=== PATIENT | male | born 1950 | race Two or more races ===

== ENCOUNTER 2020-03-29 11:52 | Day surgery (SDC) | payer MEDICARE, SELFPAY ==
[2020-03-22 14:28] VITALS: BMI 21.1
--- NOTE | 2020-03-24 07:38 | HO.ANESPROP2 ---
FORMERLY [facility], 1928–1983 Past Medical History Medical History Anemia Anxiety Back pain CAD (coronary artery disease) Depression GERD (gastroesophageal reflux disease) History of blood transfusion HTN (hypertension) Hx of meningioma of the brain Hx of small bowel obstruction Hx of thrombocytopenia Migraine Peyronie's disease PTSD (post-traumatic stress disorder) Surgical History Surgical History History of back surgery History of bowel resection History of nasal surgery History of quadruple bypass History of resection of meningioma Hx of CABG Hx of colonoscopy Social History Social History Smoking Status: Never smoker Second Hand Smoke Exposure: No Use of substances other than those prescribed or required for medical reasons: No Advance Directives: No Advance Directives Information Provided: No Advance Directives on File: No Meds Allergies Allergy/AdvReac Type Severity Reaction Status Date / Time acetaminophen [From TYLENOL] AdvReac Intermediate gi upset Verified 03/29/20 12:31 Home Medications Medication Instructions Recorded Confirmed Type aspirin [Aspir-81] 81 mg PO DAILY 03/22/20 03/29/20 History fentanyl 1 patch TOPICAL Q3D 03/22/20 03/22/20 History finasteride 1 tab PO DAILY 03/22/20 03/22/20 History lisinopril 1 tab PO DAILY 03/22/20 03/29/20 History metoprolol succinate 1 tab PO DAILY 03/22/20 03/29/20 History oxycodone 1 tab PO Q6H PRN 03/22/20 03/22/20 History paroxetine HCl 1 tab PO DAILY 03/22/20 03/22/20 History pentoxifylline 1 tab PO BID 03/22/20 03/22/20 History simvastatin 1 tab PO DAILY 03/22/20 03/29/20 History Exam Airway Mallampati Class: II TM Dist: >3cm Neck ROM: Full
--- NOTE | 2020-03-29 12:19 | P.HPSUR_ITS ---
Pre-Procedural Eval Section B Chief Complaint: screening Details of Present Illness: screening Relevant Family History (Specify if Yes): No Relevant Social History: None Present Medications: see Short Stay Collaborative assessment Medical History: Significant History (see H&P no changes) History of Previous Operations: Relevant previous surgery/procedure and date(s) (see H&P no changes) Allergies: Allergies Allergy/AdvReac Type Severity Reaction Status Date / Time acetaminophen [From TYLENOL] AdvReac Intermediate gi upset Unverified 03/22/20 1 4:22 Review of Systems Sugical H&P ROS: Negative: Constitution, Cardiovascular, Respiratory, Neurological, Psychiatric, Hem-Onc, Allergic/Immunologic, Gastrointestinal, Genitourinary, Musculoskeletal, Integumentary, Endocrine and Eyes/Ears/Nose/Throat Exam Surgical H&P Exam: Normal: HEENT, Normal: Heart, Normal: Lungs, Normal: Extremities, Normal: Abdomen, Normal: Skin and Normal: Neurological Plan Diagnosis/Plan: Unchanged Patient has been examined and remains a candidate for the planned procedure
[2020-03-29 12:32] VITALS: BP 111/68; PULSE 74; RESP 16; TEMP 36.4; O2SAT 99
[2020-03-29] MEDS: Lactated Ringers 1,000 ML 100 ML IVCONT (12:53)
--- NOTE | 2020-03-29 13:57 | PM.OP ---
Brief Operative Note Date of procedure: 03/29/20 Pre-op diagnosis: screening Post-op diagnosis: other (colon polyp) Procedure: colonoscopy Surgeon: Casey Bernstein Anesthesia: MAC Estimated blood loss (mL): 0 Pathology: other (polyp 60 cm) Condition: stable Disposition: PACU
[2020-03-29 13:59] VITALS: BP 81/52; PULSE 94; RESP 16; TEMP 36.3; O2SAT 98
[2020-03-29 14:03] VITALS: BP 93/48; PULSE 94; RESP 16; O2SAT 99
--- NOTE | 2020-03-29 14:05 | HO.POSTANES ---
Post Anesthesia Evaluation Post Anesthesia Evaluation Vital Signs: Vital Signs Temp Pulse Resp BP Pulse Ox 03/29/20 12:32 97.5 F 74 16 111/68 99 Anesthesia: Monitored Mental Status: Awake Pain Control: Satisfactory Nausea/Vomiting: None Hydration: Adequate Anesthesia-Related Issues: No Anes. Related Issues
[2020-03-29] MEDS: oxyCODONE HCl Immed Release 5 MG TABLET 10 MG PO (14:13)
[2020-03-29 14:14] VITALS: BP 97/58; PULSE 91; RESP 14; O2SAT 99
[2020-03-29 14:28] VITALS: BP 114/56; PULSE 88; RESP 10; TEMP 36.3; O2SAT 99
--- NOTE | 2020-03-29 14:46 | OP_ITS ---
SURGEON: Casey Bernstein MD INDICATIONS: Colon cancer screening and prior history of adenomatous colon polyps. PREOPERATIVE DIAGNOSIS: POSTOPERATIVE DIAGNOSIS: PROCEDURE PERFORMED: Colonoscopy to the cecum with biopsy. ESTIMATED BLOOD LOSS: COMPLICATIONS: ANESTHESIA: ASSISTANTS: SPECIMENS: MEDICATIONS: Monitored anesthesia care. DESCRIPTION OF PROCEDURE: History and physical performed. The risks and benefits of the procedure were explained to the patient. Informed consent was obtained. The patient was placed in the left lateral decubitus position. A digital rectal exam was performed and was found to be normal. The Olympus pediatric video colonoscope was introduced into the rectum and advanced to the cecum without difficulty. The cecum was identified by transillumination, palpation, and identification of ileocecal valve. Examination was performed and the scope was removed. He tolerated the procedure well and was taken to recovery area in stable condition. FINDINGS: The terminal ileum was not examined. The visualized colonic mucosa was normal. There was a small polyp measuring less than 5 mm at 60 cm from the anal verge. This was removed with biopsy forceps. There was some stool coating the mucosa throughout the colon limiting the sensitivity examination for detection of small polyps. No other polyps were identified. There was mild sigmoid diverticulosis. Retroflexed examination showed no lesions. IMPRESSION: Colon polyp. RECOMMENDATION: Follow up biopsy results. MD SARI Cruz/ZENA / [id number]
--- NOTE | 2020-03-29 15:12 | PC.NURSE ---
Pt. to discharge. Received report from Micheline Cardenas RN. RN stated respirations were at 10 at time of discharge from PACU and was signed out by anesthesia. LUIS ALFREDO Jonas to bedside to re-evaluate patient. Pt's respirations up to 14 BPM. Pt received discharge instructions and sent home.
== END 2020-03-29 15:12 | disposition home or self-care (01) ==
PROVIDERS: PCP Family Medicine; Visit Provider Internal Medicine Gastroenterology
PROC: 0DJD8ZZ Inspection of Lower Intestinal Tract, Via Natural or Artificial Opening Endoscopic (ICD-10-PCS; CPT 45378; principal; 2020-03-29 14:00)
DX: Z12.11 Encounter for screening for malignant neoplasm of colon (principal); Z86.010 Personal history of colon polyps; D12.4 Benign neoplasm of descending colon; K57.30 Diverticulosis of large intestine without perforation or abscess without bleeding; K21.9 Gastro-esophageal reflux disease without esophagitis; I10 Essential (primary) hypertension; D64.9 Anemia, unspecified; I25.10 Atherosclerotic heart disease of native coronary artery without angina pectoris; N48.6 Induration penis plastica; F43.10 Post-traumatic stress disorder, unspecified; Z79.82 Long term (current) use of aspirin; Z79.899 Other long term (current) drug therapy; Z88.8 Allergy status to other drugs, medicaments and biological substances
CPT/HCPCS: 45380; 88305; J0461

== ENCOUNTER → 2020-05-29 08:29 | Outpatient (BNVA) | payer MEDICARE, SELFPAY | PROVIDERS: PCP Family Medicine; Visit Provider Anesthesiology | DX: M46.1 Sacroiliitis, not elsewhere classified (principal); M54.5 Low back pain; M62.838 Other muscle spasm | CPT/HCPCS: 99212 ==

== ENCOUNTER 2020-07-07 10:01 | Outpatient (REF) | payer MEDICARE, SELFPAY ==
[2020-07-07 12:24] LABS: Alanine Aminotransferase 13 U/L (0-40); Albumin Level 4.2 g/dL (3.5-5.0); Alkaline Phosphatase 54 U/L (39-117); Anion Gap 13 (12-20); Aspartate Amino Transferase 21 U/L (5-37); Bilirubin Total 0.9 mg/dL (0.0-1.0); Blood Urea Nitrogen 17 mg/dL (9-16); Calcium 8.4 mg/dL (8.4-10.2); Carbon Dioxide 27 mmol/L (22-29); Chloride 106 mmol/L (96-108); Cholesterol 147 mg/dL; Estimated Glomerular Filt Rate > 60; Glucose Fasting 97 mg/dL (60-99); HDL Cholesterol 43 mg/dL; LDL Cholesterol Calculated 79 mg/dl; Potassium 4.4 mmol/l (3.3-5.1); Sodium 142 mmol/L (135-145); Total Protein 6.5 g/dL (6.5-8.0); Triglycerides 125 mg/dL
[2020-07-07 12:28] LABS: TSH reflex Free T4 1.49 mIU/mL (0.32-4.0)
== END 2020-07-07 10:02 | disposition home or self-care (01) ==
LOC: HO.LAB 10:01
PROVIDERS: PCP Family Medicine; Visit Provider Family Medicine
DX: Z00.00 Encounter for general adult medical examination without abnormal findings (principal); I10 Essential (primary) hypertension; M54.16 Radiculopathy, lumbar region
CPT/HCPCS: 36415; 80053; 80061; 84443

== ENCOUNTER 2020-07-30 09:42 | Emergency (ER) | payer MEDICARE, SELFPAY ==
[2020-07-30 09:44] VITALS: BP 161/76; PULSE 73; RESP 16; TEMP 36.4; O2SAT 96; BMI 20.3
[2020-07-30] MEDS: oxyCODONE HCl Immed Release 5 MG TABLET PO (10:45)
--- NOTE | 2020-07-30 10:53 | ED.HA ---
HPI - Headache General Chief Complaint: Headache Stated Complaint: MIGRAINE Time Seen by Provider: 07/30/20 10:31 Source: patient Mode of arrival: ambulatory Limitations: no limitations History of Present Illness HPI Narrative: 70-year-old male with a past medical history of migraine headaches, chronic back pain currently on a pain contract for oxycodone 5 mg, CAD, hypertension, GERD, depression, PTSD and history of meningioma brain presenting to the ED with complaints of a gradual onset headache to the left side of his head which is similar when compared to his prior headaches for the past 3 days that has been constant due to he has not had his oxycodone 5 mg prescription which was supposed to be refilled on Friday although he tried to contact his PCP 3 times and they told him that they would have an urgent message sent to the PCP and the prescription would be at the pharmacy although he has checked since Friday and no prescription is at the pharmacy and he has been dealing with this migraine headache and it is getting worse. Denies any other symptoms related to this. Patient is requesting a few tablets until he can contact his PCP again tomorrow. Patient last filled his oxycodone 5mg on June 29 for a 30 day supply and is due today for a refill. MD elicited complaint: migraine Pertinent past history: migraines and hypertension Onset (ago): day(s) (Three days constant) Onset description: gradually Location: left Severity: moderate Quality & Timing: aching Exacerbating factors: none Relieving factors: nothing Context: occurred at rest Associated symptoms: nausea Treatments prior to arrival: none Related Data Home Medications Medication Instructions Recorded Confirmed aspirin 81 mg PO DAILY 03/22/20 03/29/20 finasteride 1 tab PO DAILY 03/22/20 03/22/20 metoprolol succinate 1 tab PO DAILY 03/22/20 03/29/20 paroxetine HCl 1 tab PO DAILY 03/22/20 03/22/20 pentoxifylline 1 tab PO BID 03/22/20 03/22/20 simvastatin 1 tab PO DAILY 03/22/20 03/29/20 Previous Rx's Medication Instructions Recorded lisinopril 20 mg tablet 20 mg PO DAILY #90 tab 04/05/20 fentanyl 12 mcg/hr transdermal 1 patch TRANSDERMAL Q72H 30 Days 06/29/20 patch #10 ea oxycodone 5 mg tablet 5 mg PO Q6H PRN 30 Days #120 tab 06/29/20 oxycodone 5 mg PO BID PRN #10 tab 07/30/20 Allergies Allergy/AdvReac Type Severity Reaction Status Date / Time acetaminophen [From TYLENOL] AdvReac Intermediate gi upset Verified 07/14/20 12:00 Review of Systems Review of Systems: Constitutional : No changes in activity, No lethargy, No recent prior head injury, No agitation, No increased fussiness ENT/Mouth : No Ear Pain, No Nasal discharge/drainage Eyes: No Eye Pain, No Swelling, No Redness, No Foreign Body, No Vision Changes Cardiovascular : No Chest Pain, No SOB Respiratory : No Cough Gastrointestinal : No Nausea, No Vomiting, No abdominal Pain Genitourinary : No Dysuria, No Urinary Frequency, No Urinary Incontinence, No Urgency, No Flank Pain Musculoskeletal : No joint pain, No neck stiffness, No back pain/injury Skin : No lacerations Neuro : No unsteady gait, No Paresthesias, No Loss of Consciousness, No altered mental status, No dizziness, + Headache Denies past medical history of HIV, recent trauma, coagulopathy, recent spinal/ epidural procedure, new medication, URI symptoms, close contacts with similar symptoms, tick bite, or known CO2 exposure. Yes all other systems are reviewed and are negative PMFSH Past Medical History Attestation statement: The following information was validated with the patient. Medical History Anemia Anxiety Back pain CAD (coronary artery disease) Depression GERD (gastroesophageal reflux disease) Headache History of blood transfusion HTN (hypertension) Hx of meningioma of the brain Hx of small bowel obstruction Hx of thrombocytopenia Low back pain Migraine Peyronie's disease PTSD (post-traumatic stress disorder) Sacroiliitis Surgical History History of back surgery History of bowel resection History of nasal surgery History of quadruple bypass History of resection of meningioma Hx of CABG Hx of colonoscopy Family History Family History Father No problems noted. Mother No problems noted. Social History Social History Alcohol intake: never Smoking Status: Former smoker Smoked in Last 30 Days: No Second Hand Smoke Exposure: No Use of substances other than those prescribed or required for medical reasons: No Advance Directives: No Advance Directives Information Provided: No Physical Exam Vital Signs: Vital Signs: Last Vital Signs Temp 97.6 F 07/30/20 09:44 Pulse 73 07/30/20 09:44 Resp 16 07/30/20 09:44 BP 161/76 H 07/30/20 09:44 Pulse Ox 96 07/30/20 09:44 Body Mass Index 20.3 Vital signs have been reviewed as normal and appeared to be correct. Blood pressure normal. Heart rate normal. Respiration rate normal. Temperature normal. Oxygen saturation normal. Appearance: Alert. Oriented X3. No acute distress. Head: Normal external exam. Normocephalic. Atraumatic. Able to rotate head bilaterally. Eyes: PERRLA. EOMI. No nystagmus noted. Conjunctiva and sclera normal. Eyelids normal. Corneal reflex normal. ENT: EAC normal. TM's Normal. Hearing normal. Pharynx normal. Uvula midline. tongue midline. Moist mucous membranes. No trismus noted. No drooling noted. No muffled voice noted. Neck: Normal inspection. Neck supple. FROM. No adenopathy. Thyroid Normal. No meningeal signs. No neck mass noted. CVS: Normal heart rate and rhythm. Heart sound normal. No murmurs noted. Pulses normal throughout. Respiratory: No respiratory distress. Painless inspiration. Breath sounds normal. No wheezes/rales/rhonchi noted. Chest nontender. No accessory muscle usage noted or decreased air movement noted. Back: Full range of motion noted. Skin: Skin warm and dry. Normal skin color. Normal skin turgor. No rashes/lesions/lacerations noted. Extremities: Extremities exhibit normal range of motion. Extremities nontender. Able to shrug shoulders bilaterally and keep up against resistance. Neuro: Oriented X 3. No motor deficit. No sensory deficit. Reflexes normal. Moving all extremities. No focal motor deficits. Cranial nerves II-XI intact bilaterally. Facial strength normal. Normal cognition. Speech normal. Gait normal. Strength 5/5 throughout. No pronator drift. No tremor noted. No fasciculations noted. Muscle tone normal throughout. No asterixis noted. Hsxarz-ah-ncyj test normal. Heel to pendleton test normal. Tandem gait normal. Does not sway with eyes open. Romberg test negative. Rapid alternating movement upper extremity normal. Rapid alternating movement lower extremity normal. Hand drop from overhead-Mrs. face. No rigidity noted. NIHSS score 0. Course Course Course Narrative: - Patient afebrile, resting comfortably in no distress. Non-toxic appearing. Patient denies any recent trauma/injury to head. Neurological exam shows no deficits. BP WNL. Denies any changes in vision. Patient ambulates without difficulty. Given the history, and physical - most likely diagnosis: Migraine BOWDEN. Patient reports this is classic of previous migraine headaches therefore no imaging indicated at this time. Will treat pain, and nausea. Will d/c with migraine medicaiton and advised to follow - up with PCP. Patient demonstrated good understanding of signs and symptoms to return to ED for further testing should sx worsen. gradual onset BOWDEN with photo/phonophobia, nausea. Pt states classic of previous migraine HAs. SAH: unlikely given gradual onset and similar to previous episodes Intracranial bleed: unlikely given neg trauma, neg anticoagulation Meningitis: unlikely given pt afebrile, neg stiff neck, no immune compromise. Exam without signs of meningismus Temporal arteritis: Unlikely given Neg jaw claudication, no temporal tenderness or nodularity on exam. Cerebral venous thrombosis: unlikely given no h/o hypercoaguable state, no chronic head/neck infection. [facility] - Headache Medical Records Attestation: I reviewed the patient's medical records. Discharge Plan Discharge Clinical Impression: Headache, classical migraine Patient Disposition: Home, Self-Care Instructions: Migraine Headache (ED) Prescriptions: New oxycodone 5 mg tablet 5 mg PO BID PRN (Reason: pain) Qty: 10 RF: 0 No Action lisinopril 20 mg tablet 20 mg PO DAILY Qty: 90 RF: 3 fentanyl 12 mcg/hr patch 72 hour 1 patch transdermal Q72H 30 Days Qty: 10 RF: 0 oxycodone 5 mg tablet 5 mg PO Q6H PRN (Reason: pain) 30 Days Qty: 120 RF: 0 simvastatin 80 mg tablet 1 tab PO DAILY RF: 0 aspirin 81 mg Tablet,Delayed Release (Dr/Ec) 81 mg PO DAILY RF: 0 pentoxifylline 400 mg tablet extended release 1 tab PO BID RF: 0 paroxetine HCl 30 mg tablet 1 tab PO DAILY RF: 0 metoprolol succinate 25 mg tablet extended release 24 hr 1 tab PO DAILY RF: 0 finasteride 5 mg tablet 1 tab PO DAILY RF: 0 Referrals: Ari Shell MD [Primary Care Provider] - 2 days Interventions: ED Discharge Assessment Last Done: 07/30/20 11:06 Discharge Date/Time: 07/30/20 11:06 Print Language: Wolof
== END 2020-07-30 11:06 | disposition home or self-care (01) ==
PROVIDERS: Emergency Provider Emergency Medicine; PCP Family Medicine
DX: G43.109 Migraine with aura, not intractable, without status migrainosus (principal); I10 Essential (primary) hypertension; G89.29 Other chronic pain; Z79.891 Long term (current) use of opiate analgesic
CPT/HCPCS: 99283; 99284

== ENCOUNTER 2020-08-18 12:00 | Day surgery (SDC) | payer MEDICARE, SELFPAY ==
[2020-08-14 13:40] VITALS: BMI 21.0
--- NOTE | 2020-08-17 10:01 | P.CONAN_ITS ---
Documented by User: Sumi Cage 08/17/20 10:13 HPI - Anesthesia Eval Consult details Narrative: 70yo M for Sacroiliac joint Intervation Radiofrequency Ablation s/p colonoscopy with MAC 03/2020 [facility] Active Problems Active Problems: All Active Problems (Updated 08/14/20 @ 13:40 by Ivette Rodríguez) Lumbar radiculopathy (Acute) Muscle spasm (Acute) Mild dehydration (Acute) Migraine headache (Acute) PTSD (post-traumatic stress disorder) (Acute) Peyronie's disease (Acute) Migraine (Acute) Hx of thrombocytopenia (Acute) Hx of small bowel obstruction (Acute) Hx of meningioma of the brain (Acute) HTN (hypertension) (Acute) History of blood transfusion (Acute) Headache (Acute) GERD (gastroesophageal reflux disease) (Acute) Depression (Acute) CAD (coronary artery disease) (Acute) Back pain (Acute) Anxiety (Acute) Anemia (Acute) Low back pain (Acute) Sacroiliitis (Acute) Past Medical History Medical History Anemia Anxiety Back pain CAD (coronary artery disease) Depression GERD (gastroesophageal reflux disease) Headache History of blood transfusion HTN (hypertension) Hx of meningioma of the brain Hx of small bowel obstruction Hx of thrombocytopenia Low back pain Migraine Peyronie's disease PTSD (post-traumatic stress disorder) Sacroiliitis Family History Family History Father No problems noted. Mother No problems noted. Brother No problems noted. Sister No problems noted. Sister No problems noted. Sister No problems noted. Surgical History Surgical History History of back surgery History of bowel resection History of nasal surgery History of quadruple bypass History of resection of meningioma Hx of CABG Hx of colonoscopy Social History Social History Are you a primary care transitions manager to a significant other at home: No Alcohol intake: never Smoking Status: Former smoker Second Hand Smoke Exposure: No Use of substances other than those prescribed or required for medical reasons: No Have you been hit, kicked, punched, or otherwise hurt by someone within the past year? If so, by whom?: No Advance Directives: No Advance Directives Information Provided: No Advance Directives on File: No Recently lost weight without trying: No Meds Allergies Allergy/AdvReac Type Severity Reaction Status Date / Time acetaminophen [From TYLENOL] AdvReac Intermediate gi upset Verified 08/14/20 13:45 Home Medications Medication Instructions Recorded Confirmed Last Taken Type aspirin 81 mg PO DAILY 03/22/20 08/14/20 08/18/20 History finasteride 1 tab PO DAILY 03/22/20 08/14/20 Unknown History metoprolol succinate 1 tab PO DAILY 03/22/20 08/14/20 08/18/20 History paroxetine HCl 1 tab PO DAILY 03/22/20 08/14/20 Unknown History pentoxifylline 1 tab PO BID 03/22/20 08/14/20 Unknown History simvastatin 1 tab PO DAILY 03/22/20 08/14/20 08/18/20 History Exam Exam Date and Time: August 17, 2020 1001 Height,Weight and Vital Signs: Height 5 ft 7 in Weight 61.008 kg Pertinent Lab Results Pertinent Lab Results: Laboratory Tests 01/25/19 07/07/20 08:27 10:30 WBC 6.9 Hgb 13.4 L Hct 39.9 L Plt Count 137 L Sodium 142 Potassium 4.4 Chloride 106 Carbon Dioxide 27 BUN 17 H Creatinine 0.82 Assessment and Plan Assessment Anesthesia Assessment: Chart Reviewed Documented by User: Edda Carrillo 08/18/20 15:05 [facility] Past Medical History Medical History Anemia Anxiety Back pain CAD (coronary artery disease) Depression GERD (gastroesophageal reflux disease) Headache History of blood transfusion HTN (hypertension) Hx of meningioma of the brain Hx of small bowel obstruction Hx of thrombocytopenia Low back pain Migraine Peyronie's disease PTSD (post-traumatic stress disorder) Sacroiliitis Family History Family History Father No problems noted. Mother No problems noted. Brother No problems noted. Sister No problems noted. Sister No problems noted. Sister No problems noted. Surgical History Surgical History History of back surgery History of bowel resection History of nasal surgery History of quadruple bypass History of resection of meningioma Hx of CABG Hx of colonoscopy Social History Social History Are you a primary care transitions manager to a significant other at home: No Alcohol intake: never Smoking Status: Former smoker Second Hand Smoke Exposure: No Use of substances other than those prescribed or required for medical reasons: No Have you been hit, kicked, punched, or otherwise hurt by someone within the past year? If so, by whom?: No Advance Directives: No Advance Directives Information Provided: No Advance Directives on File: No Recently lost weight without trying: No Meds Allergies Allergy/AdvReac Type Severity Reaction Status Date / Time acetaminophen [From TYLENOL] AdvReac Intermediate gi upset Verified 08/14/20 13:45 Home Medications Medication Instructions Recorded Confirmed Last Taken Type aspirin 81 mg PO DAILY 03/22/20 08/14/20 08/18/20 History finasteride 1 tab PO DAILY 03/22/20 08/14/20 Unknown History metoprolol succinate 1 tab PO DAILY 03/22/20 08/14/20 08/18/20 History paroxetine HCl 1 tab PO DAILY 03/22/20 08/14/20 Unknown History pentoxifylline 1 tab PO BID 03/22/20 08/14/20 Unknown History simvastatin 1 tab PO DAILY 03/22/20 08/14/20 08/18/20 History Exam Airway Mallampati Class: II TM Dist: >3cm Heart: RRR Lungs: CTA
--- NOTE | 2020-08-18 | ECG_ITS ---
Test Reason : CARDIAC HX Blood Pressure : / mmHG Vent. Rate : 061 BPM Atrial Rate : 061 BPM P-R Int : 138 ms QRS Dur : 088 ms QT Int : 428 ms P-R-T Axes : 003 011 033 degrees QTc Int : 430 ms Normal sinus rhythm Normal ECG When compared with ECG of 22-FEB-2013 18:13, Vent. rate has decreased BY 33 BPM QRS duration has decreased Referred By: Sumi Cage Electronically Signed By:LEVI ALANIS MD
--- NOTE | ~2020-08-18 | FL_ITS ---
EXAMINATION: XR FLUOROSCOPY WITH IMAGES CLINICAL INFORMATION: Sacroiliac joint innervation rfa COMPARISON: None. TECHNIQUE: Fluoroscopy performed by Dr. Marshall. Fluoroscopy time: 0.8 minutes DAP: 2.93 mGycm2 Images: 3 FINDINGS: FINDINGS: Intraoperative fluoroscopy was provided for use by Dr. Marshall. A radiologist was not present during imaging. Today's dictation is only for administrative purposes to document intraoperative fluoroscopy. FL/FL guidance in OR IMPRESSION: Intraoperative fluoroscopy provided for use by Dr. Marshall. Please see procedure note for details findings.
[2020-08-18 13:20] VITALS: BP 112/67; PULSE 63; RESP 18; TEMP 36.2; O2SAT 98
[2020-08-18] MEDS: Lactated Ringers 1,000 ML 100 ML IVCONT (14:00)
--- NOTE | 2020-08-18 14:05 | MHC.SHP ---
Pre-Procedural Eval Section A Changes since office visit: Yes Patient answered all questions Section B Chief Complaint: sacroiliitis Details of Present Illness: As above Relevant Family History (Specify if Yes): No Relevant Social History: None Present Medications: see Short Stay Collaborative assessment Medical History: No relevant PMH History of Previous Operations: Relevant previous surgery/procedure and date(s) Allergies: Allergies Allergy/AdvReac Type Severity Reaction Status Date / Time acetaminophen [From TYLENOL] AdvReac Intermediate gi upset Verified 08/14/20 13:45 Review of Systems Sugical H&P ROS: Negative: Constitution, Cardiovascular, Respiratory, Neurological, Psychiatric, Hem-Onc, Allergic/Immunologic, Gastrointestinal, Genitourinary, Musculoskeletal, Integumentary, Endocrine and Eyes/Ears/Nose/Throat Exam Surgical H&P Exam: Normal: HEENT, Normal: Heart, Normal: Lungs, Normal: Extremities, Normal: Abdomen, Normal: Skin and Normal: Neurological Plan Diagnosis/Plan: Unchanged I have reviewed the history and physical and performed a pertinent physical examination on my patient. No changes have occurred unless specified.
[2020-08-18 16:04] VITALS: BP 134/66; PULSE 69; RESP 18; TEMP 36.3; O2SAT 99
--- NOTE | 2020-08-18 16:12 | PM.OP ---
Brief Operative Note Date of Service: 08/18/20 Pre-op diagnosis: sacroiliitis Post-op diagnosis: same Procedure: SI joint radiofrequency ablation Surgeon: Francis Marshall MD Anesthesia: MAC Estimated blood loss (mL): 12 Condition: stable Disposition: PACU
--- NOTE | 2020-08-18 16:13 | W.PM.OPN ---
Operative Note Operative Note Date of Service: 08/18/20 Narrative: The patient came to the operating room and he was positioned prone on operating table, [employer] [place] [employer] monitors were applied and patient was sedated. TIME-OUT WAS OBTAINED DELINEATING CORRECT SITE AND SIDE OF THE PROCEDURE NAME OF THE PATIENT NEED FOR ANTIBIOTIC RISK OF FIRE. Sterilely draped C-arm was brought over at the operating field and patient's lower back and left buttock were prepped with ChloraPrep and draped with sterile towels. The point of interests were delineated 1st: Point A as the RIGHT L5 superior articular process at the point of its connection with corresponding transverse process and point B: RIGHT S1 superior articular process at it's connection with sacral alae. The rest of the point of interests were determined as the line between the point B and the point C which was determined at the lowest point of the RIGHT sacroiliac joint on the sacral side of the joint. The needles between point B and point C were planned to insert in the straight line in palisade fashion. The skin in the projection of the points of interest were injected with small amount of local lidocaine 2%, after that 18 gauge 10 cm radiofrequency cannulas were driven in tunnel vision fashion to the point of interests. When cannulas gently contacted the bone- the each point of interest was stimulated with sensory and motor stimulation. Motor stimulation revealed no stimulation in the lower extremity. After that 1 cc of mixture of lidocaine 2% with bupivacaine 0.5% and trace amount of Kenalog injected into each cannula. After that energy application was performed at 89 degree centigrade for 90 seconds. After that the cannulas were rotated 180? and the same energy application was performed for the same time. Upon completion of the energy applications the cannulas were withdrawn and sterile dressing was applied. The patient was awaken taken outside of the operating room to recovery room..
[2020-08-18 16:19] VITALS: BP 136/65; PULSE 70; RESP 20; TEMP 36.1; O2SAT 99
== END 2020-08-18 16:50 | disposition home or self-care (01) ==
PROVIDERS: PCP Family Medicine; Visit Provider Anesthesiology
PROC: (CPT 64635; principal; 2020-08-18 13:10)
DX: M46.1 Sacroiliitis, not elsewhere classified (principal); M54.5 Low back pain; M62.830 Muscle spasm of back; G43.909 Migraine, unspecified, not intractable, without status migrainosus; I10 Essential (primary) hypertension; Z79.82 Long term (current) use of aspirin; Z79.899 Other long term (current) drug therapy; Z88.8 Allergy status to other drugs, medicaments and biological substances
CPT/HCPCS: 64625; 93005; J2250; J2370; J3010

== ENCOUNTER → 2020-09-25 11:19 | Outpatient (BNVA) | payer MEDICARE, SELFPAY | PROVIDERS: PCP Family Medicine; Visit Provider Anesthesiology | DX: M46.1 Sacroiliitis, not elsewhere classified (principal); M54.5 Low back pain; M62.838 Other muscle spasm | CPT/HCPCS: 99212 ==

== ENCOUNTER 2020-12-27 10:36 | Outpatient (REF) | payer MEDICARE, SELFPAY ==
[2020-12-27 14:21] LABS: Prostate Specific Antigen Scr 0.24 ng/mL (<0.05-4.0)
== END 2020-12-27 10:37 | disposition home or self-care (01) ==
LOC: HO.WFDLDS 10:36
PROVIDERS: Visit Provider Family Medicine
DX: Z12.5 Encounter for screening for malignant neoplasm of prostate (principal)
CPT/HCPCS: 36415; 84153

== ENCOUNTER 2021-05-01 10:57 | Emergency (ER) | payer MEDICARE, SELFPAY ==
[2021-05-01 11:59] VITALS: BP 165/89; PULSE 74; RESP 16; TEMP 36.9; O2SAT 98; BMI 20.7
[2021-05-01] MEDS: Metoclopramide HCl 10 MG/2 ML VIAL IVPUSH (12:51)
[2021-05-01] MEDS: Ketorolac Tromethamine 15 MG/ML VIAL IVPUSH (12:51)
[2021-05-01] MEDS: diphenhydrAMINE HCL 50 MG/ML VIAL 12.5 MG IVPUSH (12:51)
[2021-05-01] MEDS: Magnesium Sulfate/H2O 2 GM/50 ML PIGGYBACK IV (12:52)
[2021-05-01] MEDS: 0.9 % Sodium Chloride 1,000 ML 999 ML IVCONT (12:52)
[2021-05-01 12:58] LABS: MANUAL DIFF FLAG NO
[2021-05-01 12:59] LABS: Basophils Absolute Auto 0.1 X10*3/uL (0.0-0.2); Basophils Percent Auto 0.6 % (0-2); Eosinophils Absolute Auto 0.1 X10*3/uL (0.0-0.4); Eosinophils Percent Auto 0.6 % (0-4); Hematocrit 35.6 % (42.0-52.0); Hemoglobin 12.2 g/dl (14.0-18.0); Imm Gran Abs Auto 0.03 X10*3/uL (0.00-0.03); Imm Gran Pct Auto 0.4 % (0.0-0.4); Lymphocytes Absolute Auto 1.5 X10*3/uL (1.2-4.9); Lymphocytes Percent Auto 17.8 % (20-40); Mean Corpuscular HGB Conc 34.3 g/dl (31.0-36.0); Mean Corpuscular Hemoglobin 29.5 pg (27.0-33.0); Mean Corpuscular Volume 86.2 fL (80.0-98.0); Mean Platelet Volume 9.9 fL (9.4-12.4); Monocytes Absolute Auto 0.6 X10*3/uL (0.1-1.2); Monocytes Percent Auto 6.6 % (2-11); Neutrophils Absolute Auto 6.2 x10*3/uL (2.0-8.3); Platelet Count 158 X10*3/uL (160-400); Red Blood Count 4.13 X10*6/uL (4.60-5.80); Red Cell Distribution Width 12.8 % (11.0-16.0); White Blood Count 8.3 X10*3/uL (4.8-10.8)
--- NOTE | 2021-05-01 13:28 | ED_ITS ---
HPI - Headache General Chief Complaint: Headache Stated Complaint: headache x4 days Time Seen by Provider: 05/01/21 12:24 Source: patient Mode of arrival: ambulatory History of Present Illness HPI Narrative: 71-year-old male with past medical history of anemia, anxiety, CAD, depression, GERD, thrombocytopenia, PTSD, migraines, presenting to the ED complaining of left frontal migraine headache x4 days with associated nausea. Reports headache similar to prior migraines however duration longer. Denies headache being maximal in onset. Denies vision change/loss, numbness/tingling, weakness, CP/SOB, lightheadedness/dizziness, vomiting/diarrhea MD elicited complaint: headache and migraine Related Data Home Medications Medication Instructions Recorded Confirmed aspirin 81 mg tablet,delayed 81 mg PO DAILY 03/22/20 08/14/20 release finasteride 5 mg tablet 1 tab PO DAILY 03/22/20 08/14/20 paroxetine HCl 30 mg tablet 1 tab PO DAILY 03/22/20 08/14/20 pentoxifylline 400 mg 1 tab PO BID 03/22/20 08/14/20 tablet,extended release Previous Rx's Medication Instructions Recorded metoprolol succinate 25 mg 25 mg PO DAILY #90 tab 09/06/20 tablet,extended release 24 hr simvastatin 80 mg tablet 80 mg PO DAILY #90 tab 09/06/20 ropinirole 1 mg tablet 1 mg PO BEDTIME #30 tab 02/05/21 lisinopril 20 mg tablet 20 mg PO DAILY #90 tab 02/09/21 fentanyl 12 mcg/hr transdermal 1 patch TRANSDERMAL Q72H 30 Days 03/30/21 patch #10 ea oxycodone 5 mg tablet 5 mg PO Q6H PRN 30 Days #120 tab 03/30/21 Allergies Allergy/AdvReac Type Severity Reaction Status Date / Time acetaminophen [From TYLENOL] AdvReac Intermediate gi upset Verified 12/27/20 09:27 Review of Systems Review of Systems: Constitutional: No Fever, No Chills, No Fatigue, No Malaise ENT/Mouth:No Ear Pain, No Nasal Congestion, No sore throat, No Rhinorrhea, No Swallowing Difficulty Eyes: No Eye Pain, No Discharge, No Vision Changes Cardiovascular: No Chest Pain, No SOB, No Edema, No Palpitations Respiratory: No Cough, No Dyspnea Gastrointestinal: +Nausea, No Vomiting, No Abdominal pain Genitourinary: No Dysuria, No Urinary Frequency, No Urinary Flow Changes, No Hesitancy Musculoskeletal: No joint pain, No Myalgias, No Joint Swelling Skin: No Skin Lesions, No rash Neuro: No Weakness, No Numbness, No Paresthesias, No Loss of Consciousness, No Dizziness, + Headache Yes all other systems are reviewed and are negative Neurologic: Denies Abnormal speech present [facility] Past Medical History Attestation statement: The following information was validated with the patient. Medical History Anemia Anxiety Back pain CAD (coronary artery disease) Depression GERD (gastroesophageal reflux disease) Headache History of blood transfusion HTN (hypertension) Hx of meningioma of the brain Hx of small bowel obstruction Hx of thrombocytopenia Low back pain Migraine Peyronie's disease PTSD (post-traumatic stress disorder) Sacroiliitis Surgical History History of back surgery History of bowel resection History of nasal surgery History of quadruple bypass History of resection of meningioma Hx of CABG Hx of colonoscopy Family History Family History Father No problems noted. Mother No problems noted. Brother No problems noted. Sister No problems noted. Sister No problems noted. Sister No problems noted. Social History Social History [facility]: [facility] Are you a primary director critical care to a significant other at home: No Alcohol intake: never Patient Tobacco Use Status: Never used Tobacco Second Hand Smoke Exposure: No Use of substances other than those prescribed or required for medical reasons: No Advance Directives: No Advance Directives Information Provided: No Current occupational status: retired Physical Exam Vital Signs: Vital Signs: Last Vital Signs Temp 98.4 F 05/01/21 11:59 Pulse 74 05/01/21 11:59 Resp 16 05/01/21 11:59 BP 165/89 H 05/01/21 11:59 Pulse Ox 98 05/01/21 11:59 Body Mass Index 20.7 Const: General: cooperative, healthy appearing and no acute distress Orientation/consciousness: patient oriented x3 Limitations: no limitations HENMT: Head: Yes normal to inspection and Yes atraumatic Ears: hearing grossly normal bilaterally General nose exam: Normal external nose present Face and sinus: Yes normal facial exam Mouth: Normal oral and palatal mucosa present Throat: Yes posterior oropharynx normal Eyes: General: appearance normal, both eyes and all related structures Pupils: Equal, round and reactive pupils present EOM: EOMs intact bilaterally Neck: Neck: Yes normal visual inspection and Yes no meningeal signs Resp: Effort & Inspection: normal respiratory effort and no respiratory distress Auscultation: clear to auscultation bilaterally Cardio: Rate: regular rate Heart sounds: S1 normal heart sound present and S2 normal heart sound present GI: Inspection: Yes normal to inspection Palpation (GI): Soft to palpation, nontender, no guarding and not rigid Skin: Rashes: no rashes Wounds: no wounds Neuro: General: patient oriented x3, gait normal, tone normal, moves all extremities, no meningeal signs, no focal motor deficits and CN's II-XI intact bilaterally Cranial nerves: Yes CN's II-XII intact bilaterally, Yes Equal, round and reactive pupils present and Yes Bilaterally intact EOM present Cognition (Neuro): normal cognition Speech: No Abnormal speech present Gait exam (Neuro): Normal gait present Motor exam (neuro): 5/5 motor strength present throughout and no tremor noted Extrem: General: Yes normal to inspection Course Course Course Narrative: -1345--patient reporting no symptomatic improvement after IV Reglan, Toradol, Benadryl, and magnesium. Requesting opiates. Would like to go home, requesting prescription of Oxycodone to go home. Patient filled 30 day supply of Oxycodone on 04/07, is not yet due for a refill. Discussed with patient cannot DC home with additional opiate prescription > agreeable to try Fioricet and reassess -labs unremarkable -1430--patient eloped the ED MDM - Headache MDM Narrative Medical decision making narrative: 71-year-old male with past medical history of anemia, anxiety, CAD, depression, GERD, thrombocytopenia, PTSD, migraines, presenting to the ED complaining of left frontal migraine headache x4 days with associated nausea. On exam vital signs stable, NAD/nontoxic, no focal neuro deficits. Concern for migraine headache. Low concern for meningitis/encephalitis, SAH, CVT, trigeminal neuralgia Plan: Labs, symptomatic treatment, re-evaluate Medical Records Attestation: I reviewed the patient's medical records. Lab Data Attestation: I reviewed the patient's lab results. Result diagrams: 05/01/21 12:50 05/01/21 12:50 Labs: Lab Results 05/01/21 05/01/21 Range/Units 12:50 12:50 WBC 8.3 (4.8-10.8) X10*3/uL RBC 4.13 L (4.60-5.80) X10*6/uL Hgb 12.2 L (14.0-18.0) g/dl Hct 35.6 L (42.0-52.0) % MCV 86.2 (80.0-98.0) fL MCH 29.5 (27.0-33.0) pg MCHC 34.3 (31.0-36.0) g/dl RDW 12.8 (11.0-16.0) % Plt Count 158 L (160-400) X10*3/uL MPV 9.9 (9.4-12.4) fL Immature Gran % (Auto) 0.4 (0.0-0.4) % Neut % (Auto) 74.0 H (45-73) % Lymph % (Auto) 17.8 L (20-40) % [place] % (Auto) 6.6 (2-11) % Eos % (Auto) 0.6 (0-4) % Baso % (Auto) 0.6 (0-2) % Lymph # (Auto) 1.5 (1.2-4.9) X10*3/uL [place] # (Auto) 0.6 (0.1-1.2) X10*3/uL Eos # (Auto) 0.1 (0.0-0.4) X10*3/uL Baso # (Auto) 0.1 (0.0-0.2) X10*3/uL Abs Immat Gran (auto) 0.03 (0.00-0.03) X10*3/uL Absolute Neuts (auto) 6.2 (2.0-8.3) x10*3/uL Absolute Nucleated RBC 0.000 (0.0-0.012) X10*3/uL Nucleated RBC % (auto) 0.0 (0.0-0.2) /100WBC Sodium 142 (135-145) mmol/L Potassium 3.9 (3.3-5.1) mmol/L Chloride 109 H (96-108) mmol/L Carbon Dioxide 22 (22-29) mmol/L Anion Gap 15 (12-20) BUN 11 (9-16) mg/dL Creatinine 0.81 (0.5-1.4) mg/dL Estim Creat Clear Calc 71.8 Estimated GFR > 60 Random Glucose 99 (60-115) mg/dL Calcium 8.6 (8.4-10.2) mg/dL Magnesium 1.9 (1.6-2.6) mg/dL Total Bilirubin 0.6 (0.0-1.0) mg/dL Direct Bilirubin 0.2 (0.0-0.5) mg/dL AST 19 (5-37) U/L ALT 11 (0-40) U/L Alkaline Phosphatase 50 (39-117) U/L Total Protein 6.6 (6.5-8.0) g/dL Albumin 4.0 (3.5-5.0) g/dL Discharge Plan Discharge Clinical Impression: Migraine Patient Disposition: Elopement Prescriptions: No Action metoprolol succinate 25 mg tablet extended release 24 hr 25 mg PO DAILY Qty: 90 RF: 2 simvastatin 80 mg tablet 80 mg PO DAILY Qty: 90 RF: 2 ropinirole 1 mg tablet 1 mg PO BEDTIME Qty: 30 RF: 3 lisinopril 20 mg tablet 20 mg PO DAILY Qty: 90 RF: 3 oxycodone 5 mg tablet 5 mg PO Q6H PRN (Reason: pain) 30 Days Qty: 120 RF: 0 fentanyl 12 mcg/hr patch 72 hour 1 patch transdermal Q72H 30 Days Qty: 10 RF: 0 aspirin 81 mg Tablet,Delayed Release (Dr/Ec) 81 mg PO DAILY RF: 0 pentoxifylline 400 mg tablet extended release 1 tab PO BID RF: 0 paroxetine HCl 30 mg tablet 1 tab PO DAILY RF: 0 finasteride 5 mg tablet 1 tab PO DAILY RF: 0 Interventions: ED Discharge Assessment Last Done: 05/01/21 14:06 Discharge Date/Time: 05/01/21 14:33
[2021-05-01 13:48] LABS: Alanine Aminotransferase 11 U/L (0-40); Alkaline Phosphatase 50 U/L (39-117); Anion Gap 15 (12-20); Aspartate Amino Transferase 19 U/L (5-37); Bilirubin Direct 0.2 mg/dL (0.0-0.5); Bilirubin Total 0.6 mg/dL (0.0-1.0); Blood Urea Nitrogen 11 mg/dL (9-16); Calcium 8.6 mg/dL (8.4-10.2); Carbon Dioxide 22 mmol/L (22-29); Chloride 109 mmol/L (96-108); Creatinine Clr Calc Pharmacy 71.8; Estimated Glomerular Filt Rate > 60; Glucose Random 99 mg/dL (60-115); Magnesium 1.9 mg/dL (1.6-2.6); Potassium 3.9 mmol/L (3.3-5.1); Sodium 142 mmol/L (135-145); Total Protein 6.6 g/dL (6.5-8.0)
== END 2021-05-01 14:33 | disposition left against medical advice (07) ==
PROVIDERS: Physician Assistant; Emergency Provider Emergency Medicine; PCP Family Medicine
DX: G43.909 Migraine, unspecified, not intractable, without status migrainosus (principal); I10 Essential (primary) hypertension; Z79.899 Other long term (current) drug therapy
CPT/HCPCS: 36415; 80048; 80076; 83735; 85025; 96365; 96366; 96375; 99284; J1200; J1885; J2765; J3475

== ENCOUNTER 2021-10-05 09:46 | Outpatient (REF) | payer MEDICARE, SELFPAY ==
[2021-10-05 10:18] LABS: MANUAL DIFF FLAG NO
[2021-10-05 10:59] LABS: Basophils Absolute Auto 0.1 X10*3/uL (0.0-0.2); Basophils Percent Auto 0.8 % (0-2); Eosinophils Absolute Auto 0.3 X10*3/uL (0.0-0.4); Eosinophils Percent Auto 4.6 % (0-4); Hematocrit 35.1 % (42.0-52.0); Hemoglobin 11.7 g/dl (14.0-18.0); Imm Gran Abs Auto 0.02 X10*3/uL (0.00-0.03); Imm Gran Pct Auto 0.3 % (0.0-0.4); Lymphocytes Absolute Auto 1.4 X10*3/uL (1.2-4.9); Lymphocytes Percent Auto 23.3 % (20-40); Mean Corpuscular HGB Conc 33.3 g/dl (31.0-36.0); Mean Corpuscular Hemoglobin 28.6 pg (27.0-33.0); Mean Corpuscular Volume 85.8 fL (80.0-98.0); Mean Platelet Volume 10.6 fL (9.4-12.4); Monocytes Absolute Auto 0.5 X10*3/uL (0.1-1.2); Monocytes Percent Auto 7.8 % (2-11); Neutrophils Absolute Auto 3.8 x10*3/uL (2.0-8.3); Neutrophils Percent Auto 63.2 % (45-73); Platelet Count 136 X10*3/uL (160-400); Red Blood Count 4.09 X10*6/uL (4.60-5.80); Red Cell Distribution Width 12.3 % (11.0-16.0); White Blood Count 5.9 X10*3/uL (4.8-10.8)
[2021-10-05 11:00] LABS: Appearance Urine CLEAR; Color Urine YELLOW; Glucose Urine UA NEG (NEG); Leukocyte Esterase Urine NEG (NEG); Nitrite Urine NEG (NEG); Specific Gravity - Urine >= 1.030 (1.005-1.025); Urine Blood NEG (NEG); Urine Ketones NEG (NEG); Urine Protein NEG (NEG-TRACE)
[2021-10-05 11:34] LABS: Microalbum/Creatinine Ratio Ur 10.7 ug/mg cr
[2021-10-05 11:44] LABS: Alanine Aminotransferase 10 U/L (0-40); Albumin Level 3.9 g/dL (3.5-5.0); Alkaline Phosphatase 45 U/L (39-117); Anion Gap 10 (12-20); Aspartate Amino Transferase 21 U/L (5-37); Bilirubin Total 0.8 mg/dL (0.0-1.0); Blood Urea Nitrogen 19 mg/dL (9-16); Calcium 9.1 mg/dL (8.4-10.2); Carbon Dioxide 26 mmol/L (22-29); Chloride 107 mmol/L (96-108); Cholesterol 123 mg/dL; Estimated Glomerular Filt Rate > 60; Glucose Fasting 99 mg/dL (60-99); HDL Cholesterol 36 mg/dL; LDL Cholesterol Calculated 73 mg/dl; Potassium 4.3 mmol/L (3.3-5.1); Sodium 139 mmol/L (135-145); Total Protein 6.3 g/dL (6.5-8.0); Triglycerides 70 mg/dL
[2021-10-05 11:49] LABS: TSH reflex Free T4 1.84 uIU/mL (0.32-4.0)
== END 2021-10-05 09:47 | disposition home or self-care (01) ==
LOC: HO.LAB 09:46
PROVIDERS: PCP Family Medicine; Visit Provider Family Medicine
DX: Z00.00 Encounter for general adult medical examination without abnormal findings (principal); I10 Essential (primary) hypertension
CPT/HCPCS: 36415; 80053; 80061; 81003; 82043; 84443; 85025

== ENCOUNTER 2021-10-25 09:29 | Outpatient (REF) | payer MEDICARE, SELFPAY ==
[2021-10-25 11:14] LABS: Prostate Specific Antigen Scr 0.39 ng/mL (<0.05-4.0)
== END 2021-10-25 09:30 | disposition home or self-care (01) ==
LOC: HO.LAB 09:29
PROVIDERS: PCP Family Medicine; Visit Provider Family Medicine
DX: Z12.5 Encounter for screening for malignant neoplasm of prostate (principal)
CPT/HCPCS: 36415; 84153

== ENCOUNTER 2021-11-17 09:23 | Inpatient (IN) | payer MEDICARE, SELFPAY ==
[2021-11-17] VITALS (11 sets, daily range): BP systolic 82–152; BP diastolic 41–118; PULSE 68–97; RESP 12–18; TEMP 36.4–36.9; O2SAT 93–100; BMI 25.7
--- NOTE | 2021-11-17 | EEG_ITS ---
This is a 16-channel EEG with an EKG lead. The patient is reported awake and restless during the tracing. Background EEG rhythm is 7 to 8 hertz low to medium amplitude with no obvious asymmetry or paroxysmal tendency. No sharp waves or spikes are noted. Photic stimulation does not produce any significant abnormality. Hyperventilation is not performed. Cardiac lead does not reveal any significant abnormality. IMPRESSION: Generalized slowing with no evidence of seizure disorder. MD BETSY Lema/ZENA / [phone]
--- NOTE | ~2021-11-17 | CT_ITS ---
EXAMINATION: CT HEAD W/O IV CONTRAST CT FACIAL BONES WITHOUT IV CONTRAST CT CERVICAL SPINE W/O IV CONTRAST CLINICAL INFORMATION: Status post fall. COMPARISON: None TECHNIQUE: Head - Contiguous axial imaging of the head was performed from the skull base to the vertex without the administration of intravenous contrast, and axial images are reconstructed at 2 mm and 5 mm slice thickness. Cervical spine and facial bones - Volumetric, helical CT acquisitions of the cervical spine and facial bones obtained without contrast; in addition to the standard set of axial images, multiplanar reformatted images were provided in the coronal and sagittal imaging planes. This CT examination was performed using dose optimization techniques as appropriate, variously including the following: *Automated exposure control *Adjustment of mA and/or kV according to patient size (this includes techniques or standardized protocols for targeted exams where dose is matched to indication/reason for exam; i.e. extremities or head) *Use of iterative reconstruction technique DLP: 1658 mGy-cm (total) FINDINGS: HEAD: Postoperative changes from remote frontal craniotomy. There is hypoattenuation from chronic encephalomalacia, gliosis in each anterior frontal lobe. No acute intracranial hemorrhage, extra-axial fluid collection, focal mass effect or midline shift. The ventricles are normal in size; no hydrocephalus. No acute findings in the posterior fossa. The brainstem and cerebellum are unremarkable. The mastoid air cells are well aerated. No calvarial fracture. FACIAL BONES: The globes and orbital matias, including lamina papyracea, are intact. Prior ocular lens extractions. The orbital apex, optic canals, and retrobulbar fat planes are normal. The maxilla, mandible and temporomandibular joints are intact. . There is periapical lucency around roots of a left mandibular molar tooth. There is nondisplaced fracture of the right nasal bone. Left nasal bone fracture is not significantly displaced; there is mild buckling of the injured left nasal bone. The pterygoid plates and zygomatic arches are normal. Trace amount of fluid layers along the posterior wall of the right maxillary sinus. There appears to be minimal mucosal thickening of the left inferolateral maxillary sinus. CERVICAL SPINE: The cervical spine has normal curvature. The skull base, C1 and C2 lateral masses, dens and atlantodental articulation are intact. Degenerative osseous spurring at the lateral dental articulation. The vertebral body heights are maintained. No fractures in the anterior or posterior elements. No prevertebral soft tissue swelling. Multilevel facet arthropathy of the cervical spine. Minimal degenerative anterolisthesis at C7-T1. Mild and moderate multilevel discovertebral degenerative changes of the cervical spine. Mild central canal stenosis caused by posterior disc complex at C5-C6. Multilevel uncovertebral joint hypertrophy with osteophytes causing severe right neural foraminal stenosis at C4-C5 and moderate to severe bilateral foraminal stenosis at C5-C6. Hemangioma of T4 vertebral body. No suspicious bone lesion. No spinal hematoma or focal fluid collection in the visualized neck. Thyroid gland is unremarkable. Moderate left-sided pneumothorax is partially included in the [id number]. CT/CT cervical spine wo con IMPRESSION: * No intracranial hemorrhage or other acute intracranial pathology. There is hypoattenuation from chronic encephalomalacia/gliosis in each frontal lobe, status post frontal craniotomy. * Nasal bone fractures are noted. Otherwise, facial bones are unremarkable. * No fracture or traumatic subluxation in the degenerated cervical spine. A posterior disc osteophyte complex causes mild spinal canal stenosis at C5-C6. There is right-sided neural foraminal stenosis at C4-C5 and bilateral foraminal stenosis at C5-C6. * Left-sided pneumothorax is partially included in the [id number]. The critical test result was discussed with LÓPEZ Menchaca, at 12:30 PM on 11/17/2021 and it was ascertained that the content and the importance of the findings was understood at the time of the direct communication.
--- NOTE | ~2021-11-17 | XR_ITS ---
EXAMINATION: XR CHEST CLINICAL INFORMATION: Pneumothorax status post chest tube COMPARISON: Chest radiograph from 11/19/2021 TECHNIQUE: Frontal view of the chest was obtained. FINDINGS: Interval removal of left-sided pigtail chest tube. No definitive pneumothorax visualized. Chronic interstitial lung markings. Bibasilar atelectasis. Trachea is midline. Sternotomy wires and cardiac mediastinal surgical clips. Cardiac mediastinal silhouette is not enlarged. Aorta demonstrates tortuosity. No large pleural effusion. Osseous structures are intact. Soft tissues are unremarkable. XR/XR chest 1V IMPRESSION: 1. Interval removal of left-sided pigtail chest tube. 2. No definitive pneumothorax identified. 3. Chronic interstitial lung markings. 4. Bibasilar atelectasis.
--- NOTE | ~2021-11-17 | XR_ITS ---
EXAMINATION: XR CHEST CLINICAL INFORMATION: Status post chest tube placement. COMPARISON: Chest CT from 11/17/2021. TECHNIQUE: Frontal view of the chest was obtained. FINDINGS: Lungs are hypoinflated. Small residual pneumothorax after pleural catheter placement. There appears to be minimal residual pleural air at the left apex as well as some residual pleural air at the left lateral base. Linear opacities of atelectasis in the left mid and left lower lung. No overt consolidation. No pleural effusion. Cardiac silhouette is normal in size. The pulmonary vascular pattern is normal. The sternotomy wires are intact, status post coronary artery bypass graft surgery. XR/XR chest 1V IMPRESSION: The left pneumothorax has significantly decreased in size after pleural catheter placement.
--- NOTE | ~2021-11-17 | MR_ITS ---
MRI OF THE BRAIN WITHOUT IV CONTRAST INDICATION: Seizure. COMPARISON: CT head 11/17/2021. TECHNIQUE: Multiplanar multisequence MR imaging of the brain was obtained without IV contrast. FINDINGS: There is no hydrocephalus, extra-axial surface collection, or herniation. Hippocampi are symmetric in size and normal in morphology without intrinsic signal abnormality. Postoperative changes following bifrontal craniotomy. Chronic encephalomalacia, gliosis, and chronic hemosiderin staining within the frontal lobes bilaterally. Mild background chronic microangiopathy. No contrast was administered for this exam. The major flow voids at the skull base are preserved. There is no acute infarct on diffusion-weighted imaging. There is no intracranial hemorrhage on the gradient recalled echo acquisition. The midline structures are normal. The cerebellar tonsils are normally positioned. The cerebellum and brainstem are normal. The craniocervical junction is normal. Osseous marrow signal intensity is homogenous. The visualized soft tissues are unremarkable. MR/MR head/brain wo con IMPRESSION: - No acute intracranial findings. - Postoperative changes following bifrontal craniotomy. Chronic encephalomalacia, gliosis, and chronic hemosiderin staining within the frontal lobes bilaterally. No contrast was administered for this exam. - Mild background chronic microangiopathy.
--- NOTE | ~2021-11-17 | XR_ITS ---
EXAMINATION: XR CHEST CLINICAL INFORMATION: Pneumothorax. COMPARISON: Most recent CT chest and chest radiographs dated 11/17/2021. TECHNIQUE: Frontal view of the chest was obtained. FINDINGS: Redemonstration of a left-sided chest tube. Trace persistent left apical pneumothorax. No pleural effusion. No right-sided pneumothorax. Decreasing left basilar opacities. Stable cardiomediastinal silhouette with sternal wires and mediastinal surgical clips. XR/XR chest 1V IMPRESSION: Redemonstration of a left-sided chest tube with a trace persistent left apical pneumothorax.
--- NOTE | ~2021-11-17 | XR_ITS ---
EXAMINATION: XR CHEST CLINICAL INFORMATION: Follow-up left pneumothorax. COMPARISON: Most recent chest radiograph dated 11/18/2021. TECHNIQUE: Frontal view of the chest was obtained. FINDINGS: Redemonstration of a left chest tube. Persisting trace apical pneumothorax not well visualized on the current examination. No increasing pneumothorax. Stable bibasilar opacities. Stable cardiomediastinal silhouette. Sternal wires and mediastinal surgical clips. XR/XR chest 1V IMPRESSION: Left-sided chest tube in unchanged position. Previously seen trace apical pneumothorax not appreciated on the current examination.
--- NOTE | ~2021-11-17 | CT_ITS ---
EXAMINATION: CT CHEST WITHOUT CONTRAST CT ABDOMEN AND PELVIS WITHOUT CONTRAST CLINICAL INFORMATION: Fall. COMPARISON: No relevant prior examination available for comparison. TECHNIQUE: Axial thin section helical images of the chest, abdomen and pelvis were performed without IV contrast. The data set was reformatted in the coronal and sagittal planes and reviewed on an independent workstation. This CT examination was performed using dose optimization techniques as appropriate, variously including the following: *Automated exposure control *Adjustment of mA and/or kV according to patient size (this includes techniques or standardized protocols for targeted exams where dose is matched to indication/reason for exam; i.e. extremities or head) *Use of iterative reconstruction technique DLP: 596 mGy-cm. FINDINGS: LUNGS: Bilateral dependent atelectasis with additional compressive atelectasis throughout the left lung. No large, confluent airspace consolidation. PLEURA: Moderate left-sided pneumothorax with mild rightward mediastinal shift. No right-sided pneumothorax. No pleural effusion. MEDIASTINUM: No cardiomegaly. No significant pericardial effusion. No thoracic aortic dilatation. No significant mediastinal or hilar lymphadenopathy. CHEST WALL/AXILLA: No significant lymphadenopathy. Mild left chest wall emphysema adjacent to the left rib fractures. THYROID: Unremarkable LIVER, GALLBLADDER, AND BILIARY TREE: Normal size, shape, and attenuation. No focal hepatic lesion. No intra or extrahepatic biliary ductal dilatation. The gallbladder is unremarkable with no evidence of radiopaque gallstones, gallbladder wall thickening, or obvious pericholecystic inflammatory changes. PANCREAS: Atrophic. SPLEEN: Unremarkable. ADRENAL GLANDS: Unremarkable. KIDNEYS AND URETERS: Normal size, shape, and attenuation. No hydronephrosis, hydroureter, or calculi. Left renal cyst measuring up to 2.6 cm. Findings are not clinically significant and no followup imaging is recommended. No perinephric stranding. BLADDER: Distended urinary bladder without wall thickening or inflammatory change. GASTROINTESTINAL TRACT: No bowel wall thickening or inflammatory change. No small- or large-bowel obstruction. The appendix is identified. No right lower quadrant inflammatory change. PERITONEAL CAVITY: No intra-abdominal free air or free fluid. ABDOMINAL WALL: No significant abdominal wall hernia. LYMPH NODES: No significant lymphadenopathy. VASCULAR: No abdominal aortic dilatation. Scattered atherosclerotic calcifications. The IVC is unremarkable. PELVIC VISCERA: Prostate calcifications. OSSEOUS STRUCTURES: Mildly displaced lateral left 8th rib fracture with up to 0.4 cm of cortical step off. Healed right-sided rib fractures. Age-indeterminate compression deformities at L5 and T12. No concerning lytic or blastic osseous lesion. CT/CT abdomen pelvis wo con IMPRESSION: 1. Moderate left-sided pneumothorax with mild rightward mediastinal shift. Adjacent compressive atelectasis within the left lung. No large, confluent airspace consolidation. No pleural effusion. 2. Mildly displaced and comminuted left 8th rib fracture. Small amount of soft tissue emphysema along the left chest wall. 3. No intra-abdominal mass, lymphadenopathy, or ascites. 4. Age indeterminate compression deformities at T12 and L5. This critical result was discussed with LÓPEZ Mosqueda at 12:29 PM on 11/17/2021 and it was ascertained that the content and urgency of the report was understood at the time of direct communication.
--- NOTE | 2021-11-17 09:38 | ECG_ITS ---
Test Reason : FALL Blood Pressure : / mmHG Vent. Rate : 096 BPM Atrial Rate : 096 BPM P-R Int : 118 ms QRS Dur : 086 ms QT Int : 352 ms P-R-T Axes : 038 032 072 degrees QTc Int : 444 ms Normal sinus rhythm Cannot rule out Inferior infarct , age undetermined Abnormal ECG No previous ECGs available Referred By: Chloe Menchaca Electronically Signed By:Kal Bryant
--- NOTE | 2021-11-17 09:40 | ED.FALL ---
HPI - Fall General Chief Complaint: Fall Stated Complaint: fall last night Time Seen by Provider: 11/17/21 09:36 Source: patient Mode of arrival: EMS Limitations: altered mental status History of Present Illness MD complaint: fall Onset (ago): unknown Fall from: other (unknown) Fall witnessed: no Place fall occurred: home Loss of consciousness: unsure Prolonged down time: unclear Symptoms prior to fall: other ( I took too many tranquilizers ) Context: history of frequent falls (EMS states patient [place] [facility] [place] due to [place]) Location of injury: head and face Severity: moderate Quality: dull and aching Associated symptoms (after fall): headache and other (had bloody nose, abrasion on nose) Related Data Home Medications Medication Instructions Recorded Confirmed escitalopram oxalate 10 mg tablet 1 tab PO DAILY 11/17/21 11/17/21 fentanyl 12 mcg/hr transdermal 1 patch TRANSDERMAL Q3D 11/17/21 11/17/21 patch lisinopril 20 mg tablet 1 tab PO DAILY 11/17/21 11/17/21 metoprolol succinate 25 mg 1 tab PO DAILY 11/17/21 11/17/21 tablet,extended release 24 hr oxycodone 5 mg tablet 1 tab Q6H PRN 11/17/21 11/17/21 simvastatin 80 mg tablet 1 tab PO DAILY 11/17/21 11/17/21 trazodone 100 mg tablet 1 tab PO BEDTIME PRN 11/17/21 11/17/21 Allergies Allergy/AdvReac Type Severity Reaction Status Date / Time No Known Allergies Allergy Verified 11/17/21 09:36 Review of Systems Review of Systems: ROS unable to be obtained due to altered mental status PMFSH Past Medical History Attestation statement: The following information was validated with the patient. Medical History (Updated 11/17/21 @ 13:14 by Chloe Menchaca DO) Anemia Anxiety Brain tumor CAD (coronary artery disease) Depression GERD (gastroesophageal reflux disease) Meningioma PTSD (post-traumatic stress disorder) Thrombocytopenia Surgical History (Updated 11/17/21 @ 12:17 by Chloe Menchaca DO) H/O craniotomy Hx of CABG Social History Social History (Updated 11/17/21 @ 09:51 by Chloe Menchaca DO) Alcohol intake: current Patient Tobacco Use Status: Current someday Tobacco user Advance Directives: No Advance Directives Information Provided: No Physical Exam Vital Signs: Vital Signs: Last Vital Signs Temp 97.5 F 11/17/21 14:25 Pulse 79 11/17/21 14:25 Resp 12 11/17/21 14:25 BP 83/41 L 11/17/21 14:25 Pulse Ox 99 11/17/21 14:25 BMI result Body Mass Index 25.7 Appearance: Alert. Oriented X2 (doesn't know the year). Moderate acute distress. Eyes: Pupils equal, round and reactive to light. ENT: Pharynx dried blood in mouth, blood dried both nares no nasal septal hematoma, abrasion large entire bridge of nose with swelling, no raccoon eyes or gomes sign Neck: in collar CVS: Normal heart rate and rhythm. Pulses normal. Respiratory: No respiratory distress. Breath sounds very diminished but he will not participate in exam and keeps talking about taking too many tranquilizers Abdomen: Soft and nontender. Skin: Skin warm and dry. Normal skin color. Normal skin turgor. Extremities: No lower extremity edema. dried blood on hands Neuro: Oriented X 2. No motor deficit. No sensory deficit. Course Course Course Narrative: has elevated WBC count no obvious source at this time - will give empiric zosyn 1051am. patient put in incorrectly under different name updated hx in E[facility] has hx of taking pain medications including oxycodone, fentanyl patch he is also on trazodone, escitalopram L sided PTX - will place chest tube rest of CT scans pending spoke to proxy Maggie (sister) aware of findings, proceed with Chest tube. Prior meningioma resection (evident on head CT) patient labile since then. Kristal Lantigua from thoracic surgery aware and will follow along IV ativan for anxiety hypotension due to medications and not infection or severe sepsis occurred after pain medication and ativan to prevent patient from pulling chest tube out was extremely agitated and lashing out after procedure remains lower BPs after medications - responds to name HR stable good O2 sat Procedures Chest Tube Chest Tube 1: Chest Tube Location: left, mid axillary line and fourth interspace (superior aspect of rib) Size of Tube (cm): 14 Chest Tube Prep: Yes sterile drapes applied (chlorhexidine) and other Local Anesthetic: lidocaine 1% Amount of anesthesia used (mL): 10 Incision Made With: other (gilmer pneumothorax kit 18G needle used 11 blade after - dilator used) Post Procedure: sutured to skin and sterile dressing applied Tube Drainage: none Amount of initial drainage (mL): 0 Post Procedure CXR?: Yes Patient Tolerated Procedure: Yes Progress: tube secured with multiple dressings MDM - Fall MDM Narrative Medical decision making narrative: 71 yo male with hx of ETOH per EMS and falls, CAD s/p CABG he [place] [facility] comes here with signs of fall and facial trauma he reports I took too many tranquilizers he is altered to time. At this time will obtain metabolic, toxicology screen, trauma imaging of head, cervical spine, facial bones, CT chest/abdomen pelvis. will clean wounds and obtain records [place] [facility] to get history. Lab Data Result diagrams: 11/17/21 10:08 11/17/21 10:07 Labs: Lab Results 11/17/21 11/17/21 11/17/21 Range/Units 10:07 10:07 10:07 WBC (4.8-10.8) X10*3/uL RBC (4.60-5.80) X10*6/uL Hgb (14.0-18.0) g/dl Hct (42.0-52.0) % MCV (80.0-98.0) fL MCH (27.0-33.0) pg MCHC (31.0-36.0) g/dl RDW (11.0-16.0) % Plt Count (160-400) X10*3/uL MPV (9.4-12.4) fL Immature Gran % (Auto) (0.0-0.4) % Neut % (Auto) (45-73) % Lymph % (Auto) (20-40) % [place] % (Auto) (2-11) % Eos % (Auto) (0-4) % Baso % (Auto) (0-2) % Lymph # (Auto) (1.2-4.9) X10*3/uL [place] # (Auto) (0.1-1.2) X10*3/uL Eos # (Auto) (0.0-0.4) X10*3/uL Baso # (Auto) (0.0-0.2) X10*3/uL Abs Immat Gran (auto) (0.00-0.03) X10*3/uL Absolute Neuts (auto) (2.0-8.3) x10*3/uL Absolute Nucleated RBC (0.0-0.012) X10*3/uL Nucleated RBC % (auto) (0.0-0.2) /100WBC PT 11.2 (9.9-13.0) SEC INR 1.0 (0.9-1.1) APTT 27.1 (24.1-38.0) SEC Sodium 148 H (135-145) mmol/L Potassium 4.7 (3.3-5.1) mmol/L Chloride 111 H (96-108) mmol/L Carbon Dioxide 27 (22-29) mmol/L Anion Gap 15 (12-20) BUN 12 (9-16) mg/dL Creatinine 0.95 (0.5-1.4) mg/dL Estim Creat Clear Calc 67.6 Estimated GFR > 60 Random Glucose 168 H (60-115) mg/dL Lactic Acid (0.5-2.0) mmol/L Calcium 9.9 (8.4-10.2) mg/dL Magnesium 2.2 (1.6-2.6) mg/dL Total Bilirubin 1.2 H (0.0-1.0) mg/dL Direct Bilirubin 0.4 (0.0-0.5) mg/dL AST 26 (5-37) U/L ALT 20 (0-40) U/L Alkaline Phosphatase 54 (39-117) U/L Total Creatine Kinase 124 (38-174) U/L Troponin I High Sens 4.1 (<3.5-35.0) ng/L Total Protein 6.9 (6.5-8.0) g/dL Albumin 4.2 (3.5-5.0) g/dL Lipase 15 (8-78) U/L Urine Color Urine Appearance Urine pH (5.0-8.0) Ur Specific [place] (1.005-1.025) Urine Protein (NEG-TRACE) MG/DL Urine Glucose (UA) (NEG) MG/DL Urine Ketones (NEG) MG/DL Urine Blood (NEG) Urine Nitrite (NEG) Ur Leukocyte Esterase (NEG) Salicylates < 5.0 L (15-30) mg/dL Urine Opiates Screen (Not Detect) Urine Fentanyl Screen (Not Detect) Acetaminophen < 1 (<30) mcg/mL Ur Barbiturates Screen (Not Detect) Ur Phencyclidine Scrn (Not Detect) Ur Amphetamines Screen (Not Detect) U Benzodiazepines Scrn (Not Detect) Urine Cocaine Screen (Not Detect) U Marijuana (THC) Screen (Not Detect) Ethyl Alcohol mg/dL COVID-19 (JULIETH) (Negative) COVID-19 Clin Com 11/17/21 11/17/21 11/17/21 Range/Units 10:08 10:08 10:08 WBC 17.0 H (4.8-10.8) X10*3/uL RBC 4.58 L (4.60-5.80) X10*6/uL Hgb 13.3 L (14.0-18.0) g/dl Hct 39.4 L (42.0-52.0) % MCV 86.0 (80.0-98.0) fL MCH 29.0 (27.0-33.0) pg MCHC 33.8 (31.0-36.0) g/dl RDW 12.6 (11.0-16.0) % Plt Count 160 (160-400) X10*3/uL MPV 10.5 (9.4-12.4) fL Immature Gran % (Auto) 0.6 H (0.0-0.4) % Neut % (Auto) 87.6 H (45-73) % Lymph % (Auto) 5.1 L (20-40) % [place] % (Auto) 6.4 (2-11) % Eos % (Auto) 0.1 (0-4) % Baso % (Auto) 0.2 (0-2) % Lymph # (Auto) 0.9 L (1.2-4.9) X10*3/uL [place] # (Auto) 1.1 (0.1-1.2) X10*3/uL Eos # (Auto) 0.0 (0.0-0.4) X10*3/uL Baso # (Auto) 0.0 (0.0-0.2) X10*3/uL Abs Immat Gran (auto) 0.11 H (0.00-0.03) X10*3/uL Absolute Neuts (auto) 14.9 H (2.0-8.3) x10*3/uL Absolute Nucleated RBC 0.000 (0.0-0.012) X10*3/uL Nucleated RBC % (auto) 0.0 (0.0-0.2) /100WBC PT (9.9-13.0) SEC INR (0.9-1.1) APTT (24.1-38.0) SEC Sodium (135-145) mmol/L Potassium (3.3-5.1) mmol/L Chloride (96-108) mmol/L Carbon Dioxide (22-29) mmol/L Anion Gap (12-20) BUN (9-16) mg/dL Creatinine (0.5-1.4) mg/dL Estim Creat Clear Calc Estimated GFR Random Glucose (60-115) mg/dL Lactic Acid (0.5-2.0) mmol/L Calcium (8.4-10.2) mg/dL Magnesium (1.6-2.6) mg/dL Total Bilirubin (0.0-1.0) mg/dL Direct Bilirubin (0.0-0.5) mg/dL AST (5-37) U/L ALT (0-40) U/L Alkaline Phosphatase (39-117) U/L Total Creatine Kinase (38-174) U/L Troponin I High Sens (<3.5-35.0) ng/L Total Protein (6.5-8.0) g/dL Albumin (3.5-5.0) g/dL Lipase (8-78) U/L Urine Color Urine Appearance Urine pH (5.0-8.0) Ur Specific [place] (1.005-1.025) Urine Protein (NEG-TRACE) MG/DL Urine Glucose (UA) (NEG) MG/DL Urine Ketones (NEG) MG/DL Urine Blood (NEG) Urine Nitrite (NEG) Ur Leukocyte Esterase (NEG) Salicylates (15-30) mg/dL Urine Opiates Screen (Not Detect) Urine Fentanyl Screen (Not Detect) Acetaminophen (<30) mcg/mL Ur Barbiturates Screen (Not Detect) Ur Phencyclidine Scrn (Not Detect) Ur Amphetamines Screen (Not Detect) U Benzodiazepines Scrn (Not Detect) Urine Cocaine Screen (Not Detect) U Marijuana (THC) Screen (Not Detect) Ethyl Alcohol < 10 mg/dL COVID-19 (JULIETH) Negative (Negative) COVID-19 Clin Com See Note 11/17/21 11/17/21 11/17/21 Range/Units 10:31 11:50 11:50 WBC (4.8-10.8) X10*3/uL RBC (4.60-5.80) X10*6/uL Hgb (14.0-18.0) g/dl Hct (42.0-52.0) % MCV (80.0-98.0) fL MCH (27.0-33.0) pg MCHC (31.0-36.0) g/dl RDW (11.0-16.0) % Plt Count (160-400) X10*3/uL MPV (9.4-12.4) fL Immature Gran % (Auto) (0.0-0.4) % Neut % (Auto) (45-73) % Lymph % (Auto) (20-40) % [place] % (Auto) (2-11) % Eos % (Auto) (0-4) % Baso % (Auto) (0-2) % Lymph # (Auto) (1.2-4.9) X10*3/uL [place] # (Auto) (0.1-1.2) X10*3/uL Eos # (Auto) (0.0-0.4) X10*3/uL Baso # (Auto) (0.0-0.2) X10*3/uL Abs Immat Gran (auto) (0.00-0.03) X10*3/uL Absolute Neuts (auto) (2.0-8.3) x10*3/uL Absolute Nucleated RBC (0.0-0.012) X10*3/uL Nucleated RBC % (auto) (0.0-0.2) /100WBC PT (9.9-13.0) SEC INR (0.9-1.1) APTT (24.1-38.0) SEC Sodium (135-145) mmol/L Potassium (3.3-5.1) mmol/L Chloride (96-108) mmol/L Carbon Dioxide (22-29) mmol/L Anion Gap (12-20) BUN (9-16) mg/dL Creatinine (0.5-1.4) mg/dL Estim Creat Clear Calc Estimated GFR Random Glucose (60-115) mg/dL Lactic Acid 1.5 (0.5-2.0) mmol/L Calcium (8.4-10.2) mg/dL Magnesium (1.6-2.6) mg/dL Total Bilirubin (0.0-1.0) mg/dL Direct Bilirubin (0.0-0.5) mg/dL AST (5-37) U/L ALT (0-40) U/L Alkaline Phosphatase (39-117) U/L Total Creatine Kinase (38-174) U/L Troponin I High Sens (<3.5-35.0) ng/L Total Protein (6.5-8.0) g/dL Albumin (3.5-5.0) g/dL Lipase (8-78) U/L Urine Color YELLOW Urine Appearance CLEAR Urine pH 6.0 (5.0-8.0) Ur Specific [place] 1.010 (1.005-1.025) Urine Protein NEG (NEG-TRACE) MG/DL Urine Glucose (UA) NEG (NEG) MG/DL Urine Ketones NEG (NEG) MG/DL Urine Blood NEG (NEG) Urine Nitrite NEG (NEG) Ur Leukocyte Esterase NEG (NEG) Salicylates (15-30) mg/dL Urine Opiates Screen Not Detected (Not Detect) Urine Fentanyl Screen POSITIVE H (Not Detect) Acetaminophen (<30) mcg/mL Ur Barbiturates Screen Not Detected (Not Detect) Ur Phencyclidine Scrn Not Detected (Not Detect) Ur Amphetamines Screen Not Detected (Not Detect) U Benzodiazepines Scrn Not Detected (Not Detect) Urine Cocaine Screen Not Detected (Not Detect) U Marijuana (THC) Screen Not Detected (Not Detect) Ethyl Alcohol mg/dL COVID-19 (JULIETH) (Negative) COVID-19 Clin Com ECG Data Attestation: I personally reviewed and interpreted this ECG as follows: ECG interpretation date: 11/17/21 ECG interpretation time: 09:54 Interpretation: Rate: 96 Rhythm: NSR [place]: normal , LVH Normal P waves. Normal CHIN. Normal QRS complex. ST T wave : no ODALYS, nonspecific , slight ST depressions V2-V3 qTC: normal prior studies: none available, old q waves in inf leads - EKG found from 2013 some subtle depressions noted V3 and V4 The study has been interpreted contemporaneously by me. . Critical Care Time Critical Care Time Critical Care Time: Yes Total Critical Care Time: 60 Attestation: family discussion, repeat IV pain medications, IVF, review of records, medical consult I attest to this time spent taking care of the patient Discharge Plan Discharge Clinical Impression: Abrasion of face Qualifiers: Encounter type: initial encounter Qualified Code(s): S00.81XA - Abrasion of other part of head, initial encounter Closed fracture nasal bone Qualifiers: Encounter type: initial encounter Qualified Code(s): S02.2XXA - Fracture of nasal bones, initial encounter for closed fracture Pneumothorax Qualifiers: Pneumothorax type: traumatic Encounter type: initial encounter Qualified Code(s): S27.0XXA - Traumatic pneumothorax, initial encounter Fracture of rib Qualifiers: Encounter type: initial encounter Rib fracture type: single rib Fracture type: closed Laterality: left Qualified Code(s): S22.32XA - Fracture of one rib, left side, initial encounter for closed fracture Patient Disposition: Admitted As Inpatient
[2021-11-17 10:11] LABS: MANUAL DIFF FLAG NO
[2021-11-17 10:16] LABS: Basophils Percent Auto 0.2 % (0-2); Eosinophils Percent Auto 0.1 % (0-4); Hematocrit 39.4 % (42.0-52.0); Hemoglobin 13.3 g/dl (14.0-18.0); Imm Gran Abs Auto 0.11 X10*3/uL (0.00-0.03); Imm Gran Pct Auto 0.6 % (0.0-0.4); Lymphocytes Absolute Auto 0.9 X10*3/uL (1.2-4.9); Lymphocytes Percent Auto 5.1 % (20-40); Mean Corpuscular HGB Conc 33.8 g/dl (31.0-36.0); Mean Platelet Volume 10.5 fL (9.4-12.4); Monocytes Absolute Auto 1.1 X10*3/uL (0.1-1.2); Monocytes Percent Auto 6.4 % (2-11); Neutrophils Absolute Auto 14.9 x10*3/uL (2.0-8.3); Neutrophils Percent Auto 87.6 % (45-73); Platelet Count 160 X10*3/uL (160-400); Red Blood Count 4.58 X10*6/uL (4.60-5.80); Red Cell Distribution Width 12.6 % (11.0-16.0)
[2021-11-17] MEDS: 0.9 % Sodium Chloride 1,000 ML 999 ML IVCONT (10:21)
[2021-11-17 10:22] LABS: Prothrombin Time 11.2 SEC (9.9-13.0)
[2021-11-17 10:24] LABS: Partial Thromboplastin Time 27.1 SEC (24.1-38.0)
[2021-11-17 10:25] LABS: Ethanol < 10 mg/dL
[2021-11-17 10:32] LABS: Alanine Aminotransferase 20 U/L (0-40); Albumin Level 4.2 g/dL (3.5-5.0); Alkaline Phosphatase 54 U/L (39-117); Anion Gap 15 (12-20); Aspartate Amino Transferase 26 U/L (5-37); Bilirubin Direct 0.4 mg/dL (0.0-0.5); Bilirubin Total 1.2 mg/dL (0.0-1.0); Blood Urea Nitrogen 12 mg/dL (9-16); Calcium 9.9 mg/dL (8.4-10.2); Carbon Dioxide 27 mmol/L (22-29); Chloride 111 mmol/L (96-108); Creatinine Clr Calc Pharmacy 67.6; Estimated Glomerular Filt Rate > 60; Glucose Random 168 mg/dL (60-115); Lipase 15 U/L (8-78); Magnesium 2.2 mg/dL (1.6-2.6); Potassium 4.7 mmol/L (3.3-5.1); Sodium 148 mmol/L (135-145); Total Protein 6.9 g/dL (6.5-8.0)
[2021-11-17 10:41] LABS: Troponin-I High Sensitivity 4.1 ng/L (<3.5-35.0)
[2021-11-17 10:42] LABS: Acetaminophen LAB < 1 mcg/mL (<30); Salicylate < 5.0 mg/dL (15-30)
[2021-11-17 10:44] LABS: COVID-19 Test Negative (Negative)
[2021-11-17 10:48] LABS: Lactic Acid 1.5 mmol/L (0.5-2.0)
[2021-11-17] MEDS: Piperacillin Sodium/Tazobactam 3.375 GM in 0.9 % Sodium Chloride 50 ML IV (11:54)
[2021-11-17] MEDS: fentaNYL citrate/PF 100 MCG/2 ML VIAL 50 MCG IVPUSH ×3 (11:55→13:10)
[2021-11-17] MEDS: Lidocaine HCl 1 % MPF 5 ML VIAL SUBCUT ×2 (11:55)
[2021-11-17] MEDS: ondansetron HCL 4 MG/2 ML VIAL IVPUSH (11:58)
[2021-11-17 12:08] LABS: Appearance Urine CLEAR; Color Urine YELLOW; Glucose Urine UA NEG (NEG); Leukocyte Esterase Urine NEG (NEG); Nitrite Urine NEG (NEG); Urine Blood NEG (NEG); Urine Ketones NEG (NEG); Urine Protein NEG (NEG-TRACE)
[2021-11-17 12:24] LABS: Amphetamine Screen Urine Not Detected (Not Detect); Barbiturates, Urine Not Detected (Not Detect); Benzodiazepines Screen Urine Not Detected (Not Detect); Cannabinoid Screen Urine Not Detected (Not Detect); Cocaine Screen Urine Not Detected (Not Detect); Fentanyl, urine POSITIVE (Not Detect); Opiate Screen Urine Not Detected (Not Detect); Phencyclidine Screen Urine Not Detected (Not Detect)
[2021-11-17] MEDS: HYDROmorphone HCl 1 MG/ML SYRINGE IVPUSH (13:09)
[2021-11-17] MEDS: LORazepam 2 MG/ML VIAL 1 MG IVPUSH ×2 (13:25→13:30)
[2021-11-17] MEDS: 0.9 % Sodium Chloride 500 ML IV (13:44)
[2021-11-17] MEDS: 0.9 % Sodium Chloride 1,000 ML 999 ML IV ×2 (14:18→14:19)
--- NOTE | 2021-11-17 14:25 | PHA.MEDREC ---
Pharmacy Consult ? Medication Reconciliation Pharmacy has completed the medication reconciliation. Per Dr. Menchaca, patient does not know anything. Confirmed medications with patient's sister Key. She did not know when the fentanyl patch was last put on. Ester Raymond, PharmD
[2021-11-17] MEDS: Lactated Ringers 1,000 ML 125 ML IVCONT ×2 (15:38→22:24)
--- NOTE | 2021-11-17 15:46 | PM.IMHP ---
History of Present Illness Date of Service: 11/17/21 Chief Complaint: Traumatic fall 71 yo male with with history of CAD s/p CABG, history of meningioma removal and has been labile since, he lives alone with his dog, he has chronic pain and is on Fentanyl and Oxycodone, he doesn't drink.. His alcohol level is normal, tox screen is unremarkable other than Fentanyl which he takes. Patient was found at home convered in blood with some apparently facial injury from traumatic fall. He was confused and was repeating that he took too much Fentanyl. Imaging of head. Trauma series showed: 1. Moderate left-sided pneumothorax with mild rightward mediastinal shift. Adjacent compressive atelectasis within the left lung. No large, confluent airspace consolidation. No pleural effusion. 2. Mildly displaced and comminuted left 8th rib fracture. Small amount of soft tissue emphysema along the left chest wall. 3. No intra-abdominal mass, lymphadenopathy, or ascites. 4. Age indeterminate compression deformities at T12 and L5. ?He subsequently ad a left sided chest tube inserted following which he was extremely agitated and attempted to remove chest pain and had to be sedated and was hypotensive but pressure is since better but he remains very somnolent and heavily sedated and so one is not able to converse with him at this time. History obatined from EMS note, discussing with ED provder and talking to family. Repeat CXR show signficant reduction in pneumothorax after chest tube placement Review of Systems Review of Systems: Yes Unobtainable due to mental status [facility] Medical History Anemia Anxiety Brain tumor CAD (coronary artery disease) Depression GERD (gastroesophageal reflux disease) Meningioma PTSD (post-traumatic stress disorder) Thrombocytopenia Surgical History H/O craniotomy Hx of CABG Social History Household Members: None Unable to assess alcohol history related to: Unknown Alcohol intake: current Patient Tobacco Use Status: Tobacco use Unknown Currently Displaying Signs/Symptoms of Drug Intoxication Withdrawal: No Advance Directives: No Advance Directives Information Provided: No Do you have thoughts of harming others: None Do you have a plan to hurt others: No Plan Meds Allergies Allergy/AdvReac Type Severity Reaction Status Date / Time No Known Allergies Allergy Verified 11/17/21 09:36 Active Medications: Current Medications Lactated Ringer's (Lr) 1,000 mls @ 125 mls/hr IVCONT .Q8H ARELY Last Admin: 11/17/21 15:38 Dose: 125 mls/hr Documented by: Home Medications Medication Instructions Recorded Confirmed Last Taken Type escitalopram oxalate 10 mg tablet 1 tab PO DAILY 11/17/21 11/17/21 Unknown History fentanyl 12 mcg/hr transdermal 1 patch TRANSDERMAL Q3D 11/17/21 11/17/21 Unknown History patch lisinopril 20 mg tablet 1 tab PO DAILY 11/17/21 11/17/21 Unknown History metoprolol succinate 25 mg 1 tab PO DAILY 11/17/21 11/17/21 Unknown History tablet,extended release 24 hr oxycodone 5 mg tablet 1 tab Q6H PRN 11/17/21 11/17/21 Unknown History simvastatin 80 mg tablet 1 tab PO DAILY 11/17/21 11/17/21 Unknown History trazodone 100 mg tablet 1 tab PO BEDTIME PRN 11/17/21 11/17/21 Unknown History Physical Exam Vital Signs and Narrative: Vital Signs: Last Vital Signs Temp 97.5 F 11/17/21 14:25 Pulse 90 11/17/21 15:07 Resp 18 11/17/21 15:07 BP 134/118 H 11/17/21 15:07 Pulse Ox 99 11/17/21 15:07 Oxygen Flow Rate 98 11/17/21 15:05 BMI result Body Mass Index 25.7 Const: Other: Constitutional: Heavily sedated. Has forhead abraision, nasal abraision Mental Status: Oriented to person, place and time. Eyes: Pupils are equal, round and reactive to light. Ear, Nose and Throat: nsal deformitnit noted, old blood from nose, mouth Respiratory: Clear to auscultation. No wheezing, rales or rhonchi. Left chest tube in place Cardiovascular: S1 S2 regular. No murmurs, rubs or gallops. Gastrointestinal: Abdomen soft, non-tender, non-distended. Normal bowel sounds.? Neurologic: limitted as sedated, this include crania nerve Skin: No rashes or lesions.? Musculoskeletal: No cyanosis or clubbing. Psychiatric: Normal mood and affect? Results Labs CBC and Chem 7: 11/18/21 08:34 11/18/21 08:34 Labs: Laboratory Results - last 24 hr 11/17/21 11/17/21 11/17/21 10:07 10:07 10:07 MCV MCH MCHC RDW Plt Count MPV Immature Gran % (Auto) Neut % (Auto) Lymph % (Auto) [place] % (Auto) Eos % (Auto) Baso % (Auto) Lymph # (Auto) [place] # (Auto) Eos # (Auto) Baso # (Auto) Abs Immat Gran (auto) Absolute Neuts (auto) Absolute Nucleated RBC Nucleated RBC % (auto) PT 11.2 INR 1.0 APTT 27.1 Anion Gap 15 Estim Creat Clear Calc 67.6 Estimated GFR > 60 Random Glucose 168 H Lactic Acid Calcium 9.9 Magnesium 2.2 Total Bilirubin 1.2 H Direct Bilirubin 0.4 AST 26 ALT 20 Alkaline Phosphatase 54 Total Creatine Kinase 124 Troponin I High Sens 4.1 Total Protein 6.9 Albumin 4.2 Lipase 15 Urine Color Urine Appearance Urine pH Ur Specific [place] Urine Protein Urine Glucose (UA) Urine Ketones Urine Blood Urine Nitrite Ur Leukocyte Esterase Salicylates < 5.0 L Urine Opiates Screen Urine Fentanyl Screen Acetaminophen < 1 Ur Barbiturates Screen Ur Phencyclidine Scrn Ur Amphetamines Screen U Benzodiazepines Scrn Urine Cocaine Screen U Marijuana (THC) Screen Ethyl Alcohol COVID-19 (JULIETH) COVID-19 Clin Com 11/17/21 11/17/21 11/17/21 10:08 10:08 10:08 MCV 86.0 MCH 29.0 MCHC 33.8 RDW 12.6 Plt Count 160 MPV 10.5 Immature Gran % (Auto) 0.6 H Neut % (Auto) 87.6 H Lymph % (Auto) 5.1 L [place] % (Auto) 6.4 Eos % (Auto) 0.1 Baso % (Auto) 0.2 Lymph # (Auto) 0.9 L [place] # (Auto) 1.1 Eos # (Auto) 0.0 Baso # (Auto) 0.0 Abs Immat Gran (auto) 0.11 H Absolute Neuts (auto) 14.9 H Absolute Nucleated RBC 0.000 Nucleated RBC % (auto) 0.0 PT INR APTT Anion Gap Estim Creat Clear Calc Estimated GFR Random Glucose Lactic Acid Calcium Magnesium Total Bilirubin Direct Bilirubin AST ALT Alkaline Phosphatase Total Creatine Kinase Troponin I High Sens Total Protein Albumin Lipase Urine Color Urine Appearance Urine pH Ur Specific [place] Urine Protein Urine Glucose (UA) Urine Ketones Urine Blood Urine Nitrite Ur Leukocyte Esterase Salicylates Urine Opiates Screen Urine Fentanyl Screen Acetaminophen Ur Barbiturates Screen Ur Phencyclidine Scrn Ur Amphetamines Screen U Benzodiazepines Scrn Urine Cocaine Screen U Marijuana (THC) Screen Ethyl Alcohol < 10 COVID-19 (JULIETH) Negative COVID-19 Clin Com See Note 11/17/21 11/17/21 11/17/21 10:31 11:50 11:50 MCV MCH MCHC RDW Plt Count MPV Immature Gran % (Auto) Neut % (Auto) Lymph % (Auto) [place] % (Auto) Eos % (Auto) Baso % (Auto) Lymph # (Auto) [place] # (Auto) Eos # (Auto) Baso # (Auto) Abs Immat Gran (auto) Absolute Neuts (auto) Absolute Nucleated RBC Nucleated RBC % (auto) PT INR APTT Anion Gap Estim Creat Clear Calc Estimated GFR Random Glucose Lactic Acid 1.5 Calcium Magnesium Total Bilirubin Direct Bilirubin AST ALT Alkaline Phosphatase Total Creatine Kinase Troponin I High Sens Total Protein Albumin Lipase Urine Color YELLOW Urine Appearance CLEAR Urine pH 6.0 Ur Specific [place] 1.010 Urine Protein NEG Urine Glucose (UA) NEG Urine Ketones NEG Urine Blood NEG Urine Nitrite NEG Ur Leukocyte Esterase NEG Salicylates Urine Opiates Screen Not Detected Urine Fentanyl Screen POSITIVE H Acetaminophen Ur Barbiturates Screen Not Detected Ur Phencyclidine Scrn Not Detected Ur Amphetamines Screen Not Detected U Benzodiazepines Scrn Not Detected Urine Cocaine Screen Not Detected U Marijuana (THC) Screen Not Detected Ethyl Alcohol COVID-19 (JULIETH) COVID-19 Clin Com Imaging Radiologist's Impressions: Impressions Abdomen/Pelvis CT 11/17/21 11:49 IMPRESSION: 1. Moderate left-sided pneumothorax with mild rightward mediastinal shift. Adjacent compressive atelectasis within the left lung. No large, confluent airspace consolidation. No pleural effusion. 2. Mildly displaced and comminuted left 8th rib fracture. Small amount of soft tissue emphysema along the left chest wall. 3. No intra-abdominal mass, lymphadenopathy, or ascites. 4. Age indeterminate compression deformities at T12 and L5. This critical result was discussed with LÓPEZ Mosqueda at 12:29 PM on 11/17/2021 and it was ascertained that the content and urgency of the report was understood at the time of direct communication. Cervical Spine CT 11/17/21 11:49 IMPRESSION: * No intracranial hemorrhage or other acute intracranial pathology. There is hypoattenuation from chronic encephalomalacia/gliosis in each frontal lobe, status post frontal craniotomy. * Nasal bone fractures are noted. Otherwise, facial bones are unremarkable. * No fracture or traumatic subluxation in the degenerated cervical spine. A posterior disc osteophyte complex causes mild spinal canal stenosis at C5-C6. There is right-sided neural foraminal stenosis at C4-C5 and bilateral foraminal stenosis at C5-C6. * Left-sided pneumothorax is partially included in the [id number]. The critical test result was discussed with LÓPEZ Menchaca, at 12:30 PM on 11/17/2021 and it was ascertained that the content and the importance of the findings was understood at the time of the direct communication. Chest CT 11/17/21 11:49 IMPRESSION: 1. Moderate left-sided pneumothorax with mild rightward mediastinal shift. Adjacent compressive atelectasis within the left lung. No large, confluent airspace consolidation. No pleural effusion. 2. Mildly displaced and comminuted left 8th rib fracture. Small amount of soft tissue emphysema along the left chest wall. 3. No intra-abdominal mass, lymphadenopathy, or ascites. 4. Age indeterminate compression deformities at T12 and L5. This critical result was discussed with LÓPEZ Mosqueda at 12:29 PM on 11/17/2021 and it was ascertained that the content and urgency of the report was understood at the time of direct communication. Face CT 11/17/21 11:49 IMPRESSION: * No intracranial hemorrhage or other acute intracranial pathology. There is hypoattenuation from chronic encephalomalacia/gliosis in each frontal lobe, status post frontal craniotomy. * Nasal bone fractures are noted. Otherwise, facial bones are unremarkable. * No fracture or traumatic subluxation in the degenerated cervical spine. A posterior disc osteophyte complex causes mild spinal canal stenosis at C5-C6. There is right-sided neural foraminal stenosis at C4-C5 and bilateral foraminal stenosis at C5-C6. * Left-sided pneumothorax is partially included in the [id number]. The critical test result was discussed with LÓPEZ Menchaca, at 12:30 PM on 11/17/2021 and it was ascertained that the content and the importance of the findings was understood at the time of the direct communication. Head CT 11/17/21 11:49 IMPRESSION: * No intracranial hemorrhage or other acute intracranial pathology. There is hypoattenuation from chronic encephalomalacia/gliosis in each frontal lobe, status post frontal craniotomy. * Nasal bone fractures are noted. Otherwise, facial bones are unremarkable. * No fracture or traumatic subluxation in the degenerated cervical spine. A posterior disc osteophyte complex causes mild spinal canal stenosis at C5-C6. There is right-sided neural foraminal stenosis at C4-C5 and bilateral foraminal stenosis at C5-C6. * Left-sided pneumothorax is partially included in the [id number]. The critical test result was discussed with LÓPEZ Menchaca, at 12:30 PM on 11/17/2021 and it was ascertained that the content and the importance of the findings was understood at the time of the direct communication. Chest X-Ray 11/17/21 13:03 IMPRESSION: The left pneumothorax has significantly decreased in size after pleural catheter placement. Assessment and Plan (1) Closed fracture nasal bone: Qualifiers: Encounter type: initial encounter Qualified Code(s): S02.2XXA - Fracture of nasal bones, initial encounter for closed fracture Status: Acute (2) Pneumothorax: Qualifiers: Encounter type: initial encounter Pneumothorax type: traumatic Qualified Code(s): S27.0XXA - Traumatic pneumothorax, initial encounter Status: Acute (3) Fracture of rib: Qualifiers: Encounter type: initial encounter Fracture type: closed Laterality: left Rib fracture type: single rib Qualified Code(s): S22.32XA - Fracture of one rib, left side, initial encounter for closed fracture Status: Acute (4) Abrasion of face: Qualifiers: Encounter type: initial encounter Qualified Code(s): S00.81XA - Abrasion of other part of head, initial encounter Status: Acute Plan 71 year old male with with history of meningioma removal, PTS, CAD s/p CABG here with traumatic pneumothroax following a fall with concern of preceeding syncope or siezure. 1/ Left sided Pneumothorax -Chest tube inserted in ED, with near resolution -CT surgery aware and will follow -Dilaudid for pain control 2/ Rib fracture- pain controll, incentive spirometry when aware 3/ Syncope vs likely seizure -Tele monitoring --sandeep Allen -Neuro consult -EEG on week day 4/ CAD --resume home meds 5/ DVT Prophylaxis: compression boot, heparin or Lovenox tomorrow Will need at least 2 midnights for management of chest tube for pneumothrorax Quality Stroke Does the patient have a stroke diagnosis?: No VTE Prior VTE?: No VTE Risk Level:: Medical - moderate - high VTE Device Contraindication: N/A - Device Ordered VTE Drug Contraindication: Treatment Not Tolerated
--- NOTE | 2021-11-17 16:14 | PC.NURSE ---
PATIENT WAS INC OF URINE ,BED BATH GIVEN ,BEDDING CHANGE ,PATIENT REPOSITION ON RIGHT SIDE ,[place] CATHETER PLACED ,PATIENT CONTINUE TO SLEEP .
[2021-11-17] MEDS: levETIRAcetam in NaCl (iso-os) 1,000 MG/100 ML PIGGYBACK 400 MG IV (17:32)
[2021-11-17] MEDS: HYDROmorphone HCl 1 MG/ML SYRINGE SUBCUT (20:14)
--- NOTE | 2021-11-17 20:37 | PC.NURSE ---
MOUTH CARE GIVEN TO PATIENT .
[2021-11-18] VITALS (7 sets, daily range): BP systolic 104–158; BP diastolic 57–76; PULSE 80–100; RESP 16–20; TEMP 36–36.8; O2SAT 92–98
[2021-11-18] MEDS: HYDROmorphone HCl 1 MG/ML SYRINGE SUBCUT ×3 (01:35→07:56)
--- NOTE | 2021-11-18 03:37 | PC.NURSE ---
Pt yelling out in pain medicated at 0135 with dilaudid 1mg not due for pain med.Notified ordered to give next dose early given at 0330.
[2021-11-18] MEDS: Lactated Ringers 1,000 ML 125 ML IVCONT ×3 (05:40→21:03)
[2021-11-18 08:41] LABS: Hematocrit 30.7 % (42.0-52.0); Hemoglobin 10.2 g/dl (14.0-18.0); Mean Corpuscular HGB Conc 33.2 g/dl (31.0-36.0); Mean Corpuscular Volume 87.2 fL (80.0-98.0); Mean Platelet Volume 9.6 fL (9.4-12.4); Platelet Count 106 X10*3/uL (160-400); Red Blood Count 3.52 X10*6/uL (4.60-5.80); Red Cell Distribution Width 13.2 % (11.0-16.0); White Blood Count 9.6 X10*3/uL (4.8-10.8)
[2021-11-18 09:00] LABS: Anion Gap 11 (12-20); Blood Urea Nitrogen 10 mg/dL (9-16); Calcium 8.4 mg/dL (8.4-10.2); Carbon Dioxide 26 mmol/L (22-29); Chloride 111 mmol/L (96-108); Estimated Glomerular Filt Rate > 60; Glucose Random 97 mg/dL (60-115); Potassium 3.7 mmol/L (3.3-5.1); Sodium 144 mmol/L (135-145)
--- NOTE | 2021-11-18 09:29 | PM.CNGS ---
History of Present Illness Consult details Consult date: 11/18/21 Reason for consult: other (left pneumothorax and left rib fracture) Narrative: Mr. Cano i a 71-year-old male who was found by his family at his home to have facial abrasions and bruising. The patient states that he remembers going to bed that night, but then woke up on the floor next to the nightstand. States that he has no recollection as to what happened to him that night. Per family, when they arrived at the patient's home there were things thrown about that made them concern for flailing or conversion as his place of living is usually organized and clean. Work-up in the emergency department included a dai scan that showed a moderate left-sided pneumothorax, mildly displaced lateral left eighth rib fracture, and nasal bone fracture. 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 Patient had a left-sided pigtail chest tube placed by the emergency department physician last evening with near complete resolution of the pneumothorax and this has remained to suction overnight. Thoracic surgery has now been consulted for ongoing chest tube management. At time my visit the patient states that he continues to be somewhat confused . He also complains of some discomfort around the chest tube insertion site and pain on his lateral left chest wall primarily with deep breathing, coughing, and movement. He denies any shortness of breath or dyspnea with exertion. He states that over the past week he has had a cough, but denies any lightheadedness or dizziness. Denies any productive cough, fever, chills, or hemoptysis. Patient is a non-smoker, never smoker, and denies any previous history of lung related medical issues. Review of Systems Constitutional: Constitutional: Denies chills, Denies fever(s), Denies headache(s), Denies weakness and Denies weight loss Eyes: Eyes: Denies blurry vision and Denies change in vision ENT: Denies dysphagia, Denies dizziness, Denies headache(s), Denies hoarseness, Reports nasal trauma, Denies sore throat, Denies throat swelling and Denies tongue swelling Cardiovascular: Cardiovascular: Denies Abdominal Distension, Denies chest pain, Denies chest pain with activity, Denies leg edema, Denies lightheadedness, Reports Loss of Consciousness, Denies palpitations, Denies dyspnea, Denies dyspnea on exertion and Denies orthopnea Respiratory: Respiratory: Denies chest congestion, Reports cough, Denies hemoptysis, Reports pain on inspiration, Reports pain with cough, Denies dyspnea, Denies dyspnea on exertion and Denies wheezing Gastrointestinal: Gastrointestinal: Denies abdominal pain, Denies bloating, Denies dysphagia, Denies nausea and Denies vomiting Genitourinary: Comments: Urinary catheter in place Musculoskeletal: Musculoskeletal: Denies numbness and Reports tingling (B feet, chronic issue per patient) Neurologic: Reports confusion, Denies dizziness, Denies headache(s), Denies focal weakness, Denies numbness, Reports tingling (B feet, chronic issue per patient), Denies tremor(s) and Denies weakness Psychiatric: Psychiatric: Reports confusion Endocrine: Endocrine: Denies palpitations Hematologic/Lymphatic: Hematologic/Lymphatic: Denies easy bleeding and Denies lymphadenopathy Allergic/Immunologic: Allergic/Immunologic: Denies throat swelling, Denies tongue swelling and Denies wheezing PMFSH Past Medical History Medical History Anemia Anxiety Brain tumor CAD (coronary artery disease) Depression GERD (gastroesophageal reflux disease) Meningioma PTSD (post-traumatic stress disorder) Thrombocytopenia Surgical History Surgical History H/O craniotomy Hx of CABG Social History Social History Household Members: None Unable to assess alcohol history related to: Unknown Alcohol intake: current Patient Tobacco Use Status: Tobacco use Unknown Currently Displaying Signs/Symptoms of Drug Intoxication Withdrawal: No Advance Directives: No Advance Directives Information Provided: No Do you have thoughts of harming others: None Do you have a plan to hurt others: No Plan Meds Allergies Allergy/AdvReac Type Severity Reaction Status Date / Time No Known Allergies Allergy Verified 11/17/21 09:36 Active Medications: Current Medications Acetaminophen (Acetaminophen 325 Mg Tablet) 650 mg PO Q6H PRN PRN Reason: Pain, Mild (Pain Scale 1-3) Hydromorphone HCl (Hydromorphone Hcl 1 Mg/Ml Syringe) 1 mg IVPUSH Q4H PRN; Protocol PRN Reason: Pain, Severe (Pain Scale 7-10) Lactated Ringer's (Lr) 1,000 mls @ 125 mls/hr IVCONT .Q8H [facility] Last Admin: 11/18/21 05:40 Dose: 125 mls/hr Documented by: Magnesium Hydroxide (Milk Of Magnesia 30 Ml Oral.Susp) 30 ml PO DAILY PRN PRN Reason: Constipation Melatonin (Melatonin 3 Mg Tablet) 6 mg PO BEDTIME PRN PRN Reason: Insomnia Ondansetron HCl (Ondansetron Hcl 4 Mg/2 Ml Vial) 4 mg IVPUSH Q8H PRN PRN Reason: Nausea and Vomiting Sodium Chloride (0.9 % Sodium Chloride Flush 3 Ml Syringe) 3 ml IVFLUSH QSHIFT [facility] Last Admin: 11/18/21 07:57 Dose: Not Given Documented by: Home Medications Medication Instructions Recorded Confirmed Last Taken Type escitalopram oxalate 10 mg tablet 1 tab PO DAILY 11/17/21 11/17/21 Unknown History fentanyl 12 mcg/hr transdermal 1 patch TRANSDERMAL Q3D 11/17/21 11/17/21 Unknown History patch lisinopril 20 mg tablet 1 tab PO DAILY 11/17/21 11/17/21 Unknown History metoprolol succinate 25 mg 1 tab PO DAILY 11/17/21 11/17/21 Unknown History tablet,extended release 24 hr oxycodone 5 mg tablet 1 tab Q6H PRN 11/17/21 11/17/21 Unknown History simvastatin 80 mg tablet 1 tab PO DAILY 11/17/21 11/17/21 Unknown History trazodone 100 mg tablet 1 tab PO BEDTIME PRN 11/17/21 11/17/21 Unknown History Physical Exam Vital Signs: Vital Signs: Last Vital Signs Temp 98.0 F 11/18/21 07:28 Pulse 100 11/18/21 07:28 Resp 16 11/18/21 07:28 BP 139/57 L 11/18/21 07:28 Pulse Ox 94 11/18/21 07:28 Oxygen Flow Rate 98 11/17/21 15:05 BMI result Body Mass Index 25.7 Const: General: confusion Orientation/consciousness: confusion Neuro: General: confusion Results Labs Result diagrams: 11/18/21 08:34 11/18/21 08:34 Labs: Abnormal lab results 11/17/21 11/17/21 11/17/21 Range/Units 10:07 10:08 11:50 WBC 17.0 H (4.8-10.8) X10*3/uL RBC 4.58 L (4.60-5.80) X10*6/uL Hgb 13.3 L (14.0-18.0) g/dl Hct 39.4 L (42.0-52.0) % Plt Count (160-400) X10*3/uL Immature Gran % (Auto) 0.6 H (0.0-0.4) % Neut % (Auto) 87.6 H (45-73) % Lymph % (Auto) 5.1 L (20-40) % Lymph # (Auto) 0.9 L (1.2-4.9) X10*3/uL Abs Immat Gran (auto) 0.11 H (0.00-0.03) X10*3/uL Absolute Neuts (auto) 14.9 H (2.0-8.3) x10*3/uL Sodium 148 H (135-145) mmol/L Chloride 111 H (96-108) mmol/L Anion Gap (12-20) Random Glucose 168 H (60-115) mg/dL Total Bilirubin 1.2 H (0.0-1.0) mg/dL Salicylates < 5.0 L (15-30) mg/dL Urine Fentanyl Screen POSITIVE H (Not Detect) 11/18/21 11/18/21 Range/Units 08:34 08:34 WBC (4.8-10.8) X10*3/uL RBC 3.52 L D (4.60-5.80) X10*6/uL Hgb 10.2 L D (14.0-18.0) g/dl Hct 30.7 L D (42.0-52.0) % Plt Count 106 L D (160-400) X10*3/uL Immature Gran % (Auto) (0.0-0.4) % Neut % (Auto) (45-73) % Lymph % (Auto) (20-40) % Lymph # (Auto) (1.2-4.9) X10*3/uL Abs Immat Gran (auto) (0.00-0.03) X10*3/uL Absolute Neuts (auto) (2.0-8.3) x10*3/uL Sodium (135-145) mmol/L Chloride 111 H (96-108) mmol/L Anion Gap 11 L (12-20) Random Glucose (60-115) mg/dL Total Bilirubin (0.0-1.0) mg/dL Salicylates (15-30) mg/dL Urine Fentanyl Screen (Not Detect) Short CBC 11/17/21 11/18/21 Range/Units 10:08 08:34 WBC 17.0 H 9.6 (4.8-10.8) X10*3/uL Hgb 13.3 L 10.2 L D (14.0-18.0) g/dl Hct 39.4 L 30.7 L D (42.0-52.0) % Plt Count 160 106 L D (160-400) X10*3/uL BMP 11/17/21 11/18/21 10:07 08:34 Sodium 148 H 144 Potassium 4.7 3.7 D Chloride 111 H 111 H Carbon Dioxide 27 26 BUN 12 10 Creatinine 0.95 0.73 Calcium 9.9 8.4 D Cardiac Enzymes 11/17/21 Range/Units 10:07 Total Creatine Kinase 124 (38-174) U/L Liver Function 11/17/21 Range/Units 10:07 Total Bilirubin 1.2 H (0.0-1.0) mg/dL Direct Bilirubin 0.4 (0.0-0.5) mg/dL AST 26 (5-37) U/L ALT 20 (0-40) U/L Alkaline Phosphatase 54 (39-117) U/L Albumin 4.2 (3.5-5.0) g/dL Urine 11/17/21 Range/Units 11:50 Urine Color YELLOW Urine Appearance CLEAR Urine pH 6.0 (5.0-8.0) Ur Specific [place] 1.010 (1.005-1.025) Urine Protein NEG (NEG-TRACE) MG/DL Urine Glucose (UA) NEG (NEG) MG/DL Imaging Chest x-ray: report reviewed and image reviewed CT scan - chest: report reviewed and image reviewed Additional studies: XRay Report Signed Date of Service: 11/18/21 Procedure(s): XR chest 1V Accession Number(s): [id number] cc: Alexander Bradshaw MD~ EXAMINATION: XR CHEST CLINICAL INFORMATION: Pneumothorax. COMPARISON: Most recent CT chest and chest radiographs dated 11/17/2021. TECHNIQUE: Frontal view of the chest was obtained. FINDINGS: Redemonstration of a left-sided chest tube. Trace persistent left apical pneumothorax. No pleural effusion. No right-sided pneumothorax. Decreasing left basilar opacities. Stable cardiomediastinal silhouette with sternal wires and mediastinal surgical clips. XR/XR chest 1V IMPRESSION: Redemonstration of a left-sided chest tube with a trace persistent left apical pneumothorax. XRay Report Signed Date of Service: 11/17/21 Procedure(s): XR chest 1V Accession Number(s): [id number] cc: Chloe Menchaca DO~ EXAMINATION: XR CHEST CLINICAL INFORMATION: Status post chest tube placement. COMPARISON: Chest CT from 11/17/2021. TECHNIQUE: Frontal view of the chest was obtained. FINDINGS: Lungs are hypoinflated. Small residual pneumothorax after pleural catheter placement. There appears to be minimal residual pleural air at the left apex as well as some residual pleural air at the left lateral base. Linear opacities of atelectasis in the left mid and left lower lung. No overt consolidation. No pleural effusion. Cardiac silhouette is normal in size. The pulmonary vascular pattern is normal. The sternotomy wires are intact, status post coronary artery bypass graft surgery. XR/XR chest 1V IMPRESSION: The left pneumothorax has significantly decreased in size after pleural catheter placement. CT Scan Report Signed Date of Service: 11/17/21 Procedure(s): CT chest wo con Accession Number(s): [id number] cc: Chloe Menchaca DO~ EXAMINATION: CT CHEST WITHOUT CONTRAST CT ABDOMEN AND PELVIS WITHOUT CONTRAST CLINICAL INFORMATION: Fall. COMPARISON: No relevant prior examination available for comparison. TECHNIQUE: Axial thin section helical images of the chest, abdomen and pelvis were performed without IV contrast. The data set was reformatted in the coronal and sagittal planes and reviewed on an independent workstation. This CT examination was performed using dose optimization techniques as appropriate, variously including the following: *Automated exposure control *Adjustment of mA and/or kV according to patient size (this includes techniques or standardized protocols for targeted exams where dose is matched to indication/reason for exam; i.e. extremities or head) *Use of iterative reconstruction technique DLP: 596 mGy-cm. FINDINGS: LUNGS: Bilateral dependent atelectasis with additional compressive atelectasis throughout the left lung. No large, confluent airspace consolidation.? PLEURA: Moderate left-sided pneumothorax with mild rightward mediastinal shift. No right-sided pneumothorax. No pleural effusion. MEDIASTINUM: No cardiomegaly. No significant pericardial effusion. No thoracic aortic dilatation. No significant mediastinal or hilar lymphadenopathy. CHEST WALL/AXILLA: No significant lymphadenopathy. Mild left chest wall emphysema adjacent to the left rib fractures.? THYROID: Unremarkable LIVER, GALLBLADDER, AND BILIARY TREE: Normal size, shape, and attenuation. No focal hepatic lesion. No intra or extrahepatic biliary ductal dilatation. The gallbladder is unremarkable with no evidence of radiopaque gallstones, gallbladder wall thickening, or obvious pericholecystic inflammatory changes.? PANCREAS: Atrophic.? SPLEEN: Unremarkable.? ADRENAL GLANDS: Unremarkable.? KIDNEYS AND URETERS: Normal size, shape, and attenuation. No hydronephrosis, hydroureter, or calculi. Left renal cyst measuring up to 2.6 cm. Findings are not clinically significant and no followup imaging is recommended. No perinephric stranding. ? BLADDER: Distended urinary bladder without wall thickening or inflammatory change.? GASTROINTESTINAL TRACT: No bowel wall thickening or inflammatory change. No small- or large-bowel obstruction. The appendix is identified. No right lower quadrant inflammatory change. PERITONEAL CAVITY: No intra-abdominal free air or free fluid. ABDOMINAL WALL: No significant abdominal wall hernia.? LYMPH NODES: No significant lymphadenopathy. VASCULAR: No abdominal aortic dilatation. Scattered atherosclerotic calcifications. The IVC is unremarkable. PELVIC VISCERA: Prostate calcifications. OSSEOUS STRUCTURES: Mildly displaced lateral left 8th rib fracture with up to 0.4 cm of cortical step off. Healed right-sided rib fractures. Age-indeterminate compression deformities at L5 and T12. No concerning lytic or blastic osseous lesion. CT/CT chest wo con IMPRESSION: 1. Moderate left-sided pneumothorax with mild rightward mediastinal shift. Adjacent compressive atelectasis within the left lung. No large, confluent airspace consolidation. No pleural effusion. 2. Mildly displaced and comminuted left 8th rib fracture. Small amount of soft tissue emphysema along the left chest wall. 3. No intra-abdominal mass, lymphadenopathy, or ascites. 4. Age indeterminate compression deformities at T12 and L5. ? This critical result was discussed with LÓPEZ Mosqueda at 12:29 PM on 11/17/2021 and it was ascertained that the content and urgency of the report was understood at the time of direct communication.? Assessment and Plan (1) Pneumothorax: Qualifiers: Encounter type: initial encounter Pneumothorax type: traumatic Qualified Code(s): S27.0XXA - Traumatic pneumothorax, initial encounter Status: Acute Mr. Cano is a 71-year-old male who has been found to have a moderate left pneumothorax, acute left eighth rib fracture, and nasal fracture after some sort of traumatic event last night which is unknown as the patient does not recall what occurred and he was alone. Left pigtail chest tube was placed last evening with near complete resolution of the pneumothorax. On exam, the patient has no air leak from the chest tube. Chest x-ray today shows a trace apical pneumothorax. Will change chest tube to waterseal today and arrange for morning chest x-ray. Monitor for any increasing SOB or subcutaneous emphysema with any changes to chest tube settings. Thank you for the consultation. Case discussed with Dr. Benitez. (2) Fracture of rib: Qualifiers: Encounter type: initial encounter Fracture type: closed Laterality: left Rib fracture type: single rib Qualified Code(s): S22.32XA - Fracture of one rib, left side, initial encounter for closed fracture Status: Acute Recommend conservative management, including pain control and pulmonary toileting for prevention of complications such as atelectasis and pneumonia. Procedures Date of Service Date of Service: 11/18/21
--- NOTE | 2021-11-18 09:59 | P.PNIM_ITS ---
Subjective Subjective Date of Service: 11/19/21 Interval History: f/u on fall ? syncope vs seziure and PTX, rib fracture Inteval history: He seems more alert, yet confused, and still has pain Review of Systems confused rib pain Physical Exam Vital Signs: Vital Signs: Last Vital Signs Temp 98.0 F 11/18/21 07:28 Pulse 100 11/18/21 07:28 Resp 16 11/18/21 07:28 BP 139/57 L 11/18/21 07:28 Pulse Ox 94 11/18/21 07:28 Oxygen Flow Rate 98 11/17/21 15:05 BMI result Body Mass Index 25.7 Const: Other: General: AO X 2, seem anxious Resp: CTA bilateral, left sided chest tube in place CVS: S1,S2,RRR GI: NT, BS + Skin: bruses on face Neuro: motor grossly intact Psych: delirious Objective Data Active Medications Acetaminophen (Acetaminophen 325 Mg Tablet) 650 mg PO Q6H PRN PRN Reason: Pain, Mild (Pain Scale 1-3) Hydromorphone HCl (Hydromorphone Hcl 1 Mg/Ml Syringe) 1 mg IVPUSH Q4H PRN; Protocol PRN Reason: Pain, Severe (Pain Scale 7-10) Lactated Ringer's (Lr) 1,000 mls @ 125 mls/hr IVCONT .Q8H [facility] Last Admin: 11/18/21 05:40 Dose: 125 mls/hr Documented by: OSVALDO Magnesium Hydroxide (Milk Of Magnesia 30 Ml Oral.Susp) 30 ml PO DAILY PRN PRN Reason: Constipation Melatonin (Melatonin 3 Mg Tablet) 6 mg PO BEDTIME PRN PRN Reason: Insomnia Ondansetron HCl (Ondansetron Hcl 4 Mg/2 Ml Vial) 4 mg IVPUSH Q8H PRN PRN Reason: Nausea and Vomiting Sodium Chloride (0.9 % Sodium Chloride Flush 3 Ml Syringe) 3 ml IVFLUSH QSHIFT [facility] Last Admin: 11/18/21 07:57 Dose: Not Given Documented by: ESTRADA Non-Admin Reason: IV Running Labs CBC & Chem 7: 11/18/21 08:34 11/18/21 08:34 Labs: Laboratory Results - last 24 hr 11/17/21 11/17/21 11/17/21 10:07 10:07 10:07 MCV MCH MCHC RDW Plt Count MPV Immature Gran % (Auto) Neut % (Auto) Lymph % (Auto) [place] % (Auto) Eos % (Auto) Baso % (Auto) Lymph # (Auto) [place] # (Auto) Eos # (Auto) Baso # (Auto) Abs Immat Gran (auto) Absolute Neuts (auto) Absolute Nucleated RBC Nucleated RBC % (auto) PT 11.2 INR 1.0 APTT 27.1 Anion Gap 15 Estim Creat Clear Calc 67.6 Estimated GFR > 60 Random Glucose 168 H Lactic Acid Calcium 9.9 Magnesium 2.2 Total Bilirubin 1.2 H Direct Bilirubin 0.4 AST 26 ALT 20 Alkaline Phosphatase 54 Total Creatine Kinase 124 Troponin I High Sens 4.1 Total Protein 6.9 Albumin 4.2 Lipase 15 Urine Color Urine Appearance Urine pH Ur Specific [place] Urine Protein Urine Glucose (UA) Urine Ketones Urine Blood Urine Nitrite Ur Leukocyte Esterase Salicylates < 5.0 L Urine Opiates Screen Urine Fentanyl Screen Acetaminophen < 1 Ur Barbiturates Screen Ur Phencyclidine Scrn Ur Amphetamines Screen U Benzodiazepines Scrn Urine Cocaine Screen U Marijuana (THC) Screen Ethyl Alcohol COVID-19 (JULIETH) COVID-19 Clin Com 11/17/21 11/17/21 11/17/21 10:08 10:08 10:08 MCV 86.0 MCH 29.0 MCHC 33.8 RDW 12.6 Plt Count 160 MPV 10.5 Immature Gran % (Auto) 0.6 H Neut % (Auto) 87.6 H Lymph % (Auto) 5.1 L [place] % (Auto) 6.4 Eos % (Auto) 0.1 Baso % (Auto) 0.2 Lymph # (Auto) 0.9 L [place] # (Auto) 1.1 Eos # (Auto) 0.0 Baso # (Auto) 0.0 Abs Immat Gran (auto) 0.11 H Absolute Neuts (auto) 14.9 H Absolute Nucleated RBC 0.000 Nucleated RBC % (auto) 0.0 PT INR APTT Anion Gap Estim Creat Clear Calc Estimated GFR Random Glucose Lactic Acid Calcium Magnesium Total Bilirubin Direct Bilirubin AST ALT Alkaline Phosphatase Total Creatine Kinase Troponin I High Sens Total Protein Albumin Lipase Urine Color Urine Appearance Urine pH Ur Specific [place] Urine Protein Urine Glucose (UA) Urine Ketones Urine Blood Urine Nitrite Ur Leukocyte Esterase Salicylates Urine Opiates Screen Urine Fentanyl Screen Acetaminophen Ur Barbiturates Screen Ur Phencyclidine Scrn Ur Amphetamines Screen U Benzodiazepines Scrn Urine Cocaine Screen U Marijuana (THC) Screen Ethyl Alcohol < 10 COVID-19 (JULIETH) Negative COVID-19 [facility] Com See Note 11/17/21 11/17/21 11/17/21 10:31 11:50 11:50 MCV MCH MCHC RDW Plt Count MPV Immature Gran % (Auto) Neut % (Auto) Lymph % (Auto) [place] % (Auto) Eos % (Auto) Baso % (Auto) Lymph # (Auto) [place] # (Auto) Eos # (Auto) Baso # (Auto) Abs Immat Gran (auto) Absolute Neuts (auto) Absolute Nucleated RBC Nucleated RBC % (auto) PT INR APTT Anion Gap Estim Creat Clear Calc Estimated GFR Random Glucose Lactic Acid 1.5 Calcium Magnesium Total Bilirubin Direct Bilirubin AST ALT Alkaline Phosphatase Total Creatine Kinase Troponin I High Sens Total Protein Albumin Lipase Urine Color YELLOW Urine Appearance CLEAR Urine pH 6.0 Ur Specific [place] 1.010 Urine Protein NEG Urine Glucose (UA) NEG Urine Ketones NEG Urine Blood NEG Urine Nitrite NEG Ur Leukocyte Esterase NEG Salicylates Urine Opiates Screen Not Detected Urine Fentanyl Screen POSITIVE H Acetaminophen Ur Barbiturates Screen Not Detected Ur Phencyclidine Scrn Not Detected Ur Amphetamines Screen Not Detected U Benzodiazepines Scrn Not Detected Urine Cocaine Screen Not Detected U Marijuana (THC) Screen Not Detected Ethyl Alcohol COVID-19 (JULIETH) COVID-19 [facility] [employer] [facility] 11/18/21 11/18/21 08:34 08:34 MCV 87.2 MCH 29.0 MCHC 33.2 RDW 13.2 Plt Count 106 L D MPV 9.6 Immature Gran % (Auto) Neut % (Auto) Lymph % (Auto) [place] % (Auto) Eos % (Auto) Baso % (Auto) Lymph # (Auto) [place] # (Auto) Eos # (Auto) Baso # (Auto) Abs Immat Gran (auto) Absolute Neuts (auto) Absolute Nucleated RBC 0.000 Nucleated RBC % (auto) 0.0 PT INR APTT Anion Gap 11 L Estim Creat Clear Calc 88.0 Estimated GFR > 60 Random Glucose 97 D Lactic Acid Calcium 8.4 D Magnesium Total Bilirubin Direct Bilirubin AST ALT Alkaline Phosphatase Total Creatine Kinase Troponin I High Sens Total Protein Albumin Lipase Urine Color Urine Appearance Urine pH Ur Specific [place] Urine Protein Urine Glucose (UA) Urine Ketones Urine Blood Urine Nitrite Ur Leukocyte Esterase Salicylates Urine Opiates Screen Urine Fentanyl Screen Acetaminophen Ur Barbiturates Screen Ur Phencyclidine Scrn Ur Amphetamines Screen U Benzodiazepines Scrn Urine Cocaine Screen U Marijuana (THC) Screen Ethyl Alcohol COVID-19 (JULIETH) COVID-19 Clin Com Assessment and Plan (1) Closed fracture nasal bone: Status: Acute (2) Pneumothorax: Status: Acute (3) Fracture of rib: Status: Acute (4) Abrasion of face: Status: Acute Plan 71 year old male with with history of meningioma removal, PTS, CAD s/p CABG here with traumatic pneumothroax following a fall with concern of? preceeding syncope or siezure. 1/ Left sided? Pneumothorax -Chest tube inserted in ED, with near resolution, repeat CXR today -CT surgery aware and will follow -Dilaudid for pain control -Incentive spirometry when able 2/ Rib fracture- pain controll, incentive spirometry 3/ Syncope vs? likely seizure -Tele monitoring--no arrythmia noted --sandeep Allen -Neuro consult -EEG on Friday -May need MRI when calm 4/ CAD --resume home meds 5/ Delirium --likely post ictal state, meds--redirection, consider Psychotropic if extemely delirius 5/ DVT Prophylaxis: compression boot, heparin starting today Inpatient for management of PTX with chest tube, ongoing delirium and likely seizure managment Quality Stroke Does the patient have a stroke diagnosis?: No VTE Prior VTE?: No VTE Risk Level:: Medical - moderate - high VTE Device Contraindication: N/A - Device Ordered VTE Drug Contraindication: Treatment Not Tolerated
--- NOTE | 2021-11-18 10:36 | P.CNNE_ITS ---
History of Present Illness Data of Consult Service Date: 11/18/21 Primary Care Provider: Ari Shell MD HPI Reason for consult: Syncope 71 years old man with history of cerebral meningioma resection number of years ago but no complications of that. He was in usual state of health at home when he was found by family. According to his family usually his condominium was very well-organized move when they arrived everything was thrashed like he was flailing or something. He did not have recollection. He was found to have passed out and sustain bruises. Review of Systems Review of Systems: No recent cold or flu-like illness or drug use. [facility] Past Medical History Medical History Anemia Anxiety Brain tumor CAD (coronary artery disease) Depression GERD (gastroesophageal reflux disease) Meningioma PTSD (post-traumatic stress disorder) Thrombocytopenia Surgical History Surgical History H/O craniotomy Hx of CABG Social History Social History Household Members: None Unable to assess alcohol history related to: Unknown Alcohol intake: current Patient Tobacco Use Status: Tobacco use Unknown Currently Displaying Signs/Symptoms of Drug Intoxication Withdrawal: No Advance Directives: No Advance Directives Information Provided: No Do you have thoughts of harming others: None Do you have a plan to hurt others: No Plan Meds Allergies Allergy/AdvReac Type Severity Reaction Status Date / Time No Known Allergies Allergy Verified 11/17/21 09:36 Active Medications: Current Medications Acetaminophen (Acetaminophen 325 Mg Tablet) 650 mg PO Q6H PRN PRN Reason: Pain, Mild (Pain Scale 1-3) Heparin Sodium (Porcine) (Heparin Sodium,Porcine 5,000 Unit/Ml Vial) 5,000 unit SUBCUT Q12H [facility] Hydromorphone HCl (Hydromorphone Hcl 1 Mg/Ml Syringe) 1 mg IVPUSH Q4H PRN; Protocol PRN Reason: Pain, Severe (Pain Scale 7-10) Lactated Ringer's (Lr) 1,000 mls @ 125 mls/hr IVCONT .Q8H [facility] Last Admin: 11/18/21 05:40 Dose: 125 mls/hr Documented by: Magnesium Hydroxide (Milk Of Magnesia 30 Ml Oral.Susp) 30 ml PO DAILY PRN PRN Reason: Constipation Melatonin (Melatonin 3 Mg Tablet) 6 mg PO BEDTIME PRN PRN Reason: Insomnia Ondansetron HCl (Ondansetron Hcl 4 Mg/2 Ml Vial) 4 mg IVPUSH Q8H PRN PRN Reason: Nausea and Vomiting Sodium Chloride (0.9 % Sodium Chloride Flush 3 Ml Syringe) 3 ml IVFLUSH QSHIFT [facility] Last Admin: 11/18/21 07:57 Dose: Not Given Documented by: Home Medications Medication Instructions Recorded Confirmed Last Taken Type escitalopram oxalate 10 mg tablet 1 tab PO DAILY 11/17/21 11/17/21 Unknown History fentanyl 12 mcg/hr transdermal 1 patch TRANSDERMAL Q3D 11/17/21 11/17/21 Unknown History patch lisinopril 20 mg tablet 1 tab PO DAILY 11/17/21 11/17/21 Unknown History metoprolol succinate 25 mg 1 tab PO DAILY 11/17/21 11/17/21 Unknown History tablet,extended release 24 hr oxycodone 5 mg tablet 1 tab Q6H PRN 11/17/21 11/17/21 Unknown History simvastatin 80 mg tablet 1 tab PO DAILY 11/17/21 11/17/21 Unknown History trazodone 100 mg tablet 1 tab PO BEDTIME PRN 11/17/21 11/17/21 Unknown History Physical Exam Vital Signs: Vital Signs: Last Vital Signs Temp 98.0 F 11/18/21 07:28 Pulse 100 11/18/21 07:28 Resp 16 11/18/21 07:28 BP 139/57 L 11/18/21 07:28 Pulse Ox 94 11/18/21 07:28 Oxygen Flow Rate 98 11/17/21 15:05 BMI result Body Mass Index 25.7 Neuro: Other: He was alert and awake with normal spontaneity of speech fluency comprehension and anxious affect. Face was symmetrical though multiple bruises were noted on his face. Visual ruiz are full to confrontation. There was no obvious focal weakness. Deep tendon reflexes are absent with flexor plantars. Speech was normal. Results Labs CBC & Chem 7: 11/18/21 08:34 11/18/21 08:34 Labs: Short CBC 11/18/21 Range/Units 08:34 WBC 9.6 (4.8-10.8) X10*3/uL Hgb 10.2 L D (14.0-18.0) g/dl Hct 30.7 L D (42.0-52.0) % Plt Count 106 L D (160-400) X10*3/uL BMP 11/18/21 08:34 Sodium 144 Potassium 3.7 D Chloride 111 H Carbon Dioxide 26 BUN 10 Creatinine 0.73 Calcium 8.4 D Urine 11/17/21 Range/Units 11:50 Urine Color YELLOW Urine Appearance CLEAR Urine pH 6.0 (5.0-8.0) Ur Specific [place] 1.010 (1.005-1.025) Urine Protein NEG (NEG-TRACE) MG/DL Urine Glucose (UA) NEG (NEG) MG/DL His head CT revealed bifrontal encephalomalacia but no obvious acute lesion. Assessment and Plan (1) Seizure disorder: Status: Acute 71 years old man with history of cerebral meningioma resection number of years ago but no complications of that was brought to hospital after he passed out at home. According to family his usual place of living was thrashed like he had a generalized convulsion or flailing. With significant cerebral encephalomalacia seizure disorder was a possibility. There was no obvious meningioma type lesion. At this time my recommendation is to continue levetiracetam 500 mg twice a day that has been started. If possible an MRI of brain with and without contrast is recommended. He should not drive and take appropriate precautions to avoid any further injuries Procedures Date of Service Date of Service: 11/18/21
[2021-11-18] MEDS: Heparin Sodium,Porcine 5,000 UNIT/ML VIAL 5000 UNIT SUBCUT ×2 (10:59→21:13)
[2021-11-18] MEDS: HYDROmorphone HCl 1 MG/ML SYRINGE IVPUSH ×3 (11:51→21:13)
[2021-11-18] MEDS: levETIRAcetam in NaCl (iso-os) 500 MG/100 ML PIGGYBACK 400 MG IV (13:24)
[2021-11-18] MEDS: lisinopriL 20 MG TABLET PO (13:24)
[2021-11-18] MEDS: Metoprolol Succinate ER 25 MG TAB.ER.24H PO (13:24)
[2021-11-18] MEDS: fentaNYL 12 MCG PATCH.TD72 TRANSDERMA (15:46)
[2021-11-18] MEDS: Acetaminophen 325 MG TABLET 650 MG PO (19:42)
[2021-11-18] MEDS: 0.9 % Sodium Chloride Flush 3 ML SYRINGE IVFLUSH (21:13)
[2021-11-19] VITALS (8 sets, daily range): BP systolic 149–175; BP diastolic 72–81; PULSE 74–92; RESP 17–20; TEMP 36.2–36.8; O2SAT 90–99
[2021-11-19] MEDS: levETIRAcetam in NaCl (iso-os) 500 MG/100 ML PIGGYBACK 400 MG IV ×2 (00:11→12:03)
[2021-11-19] MEDS: HYDROmorphone HCl 1 MG/ML SYRINGE IVPUSH ×6 (01:10→22:32)
[2021-11-19] MEDS: ondansetron HCL 4 MG/2 ML VIAL IVPUSH ×2 (01:15→10:58)
[2021-11-19] MEDS: Lactated Ringers 1,000 ML 125 ML IVCONT ×3 (03:55→13:41)
[2021-11-19] MEDS: Acetaminophen 325 MG TABLET 650 MG PO ×2 (08:30→20:47)
[2021-11-19] MEDS: Metoprolol Succinate ER 25 MG TAB.ER.24H PO (08:31)
[2021-11-19] MEDS: Atorvastatin Calcium 40 MG TABLET PO (08:31)
[2021-11-19] MEDS: lisinopriL 20 MG TABLET PO (08:31)
[2021-11-19] MEDS: Escitalopram Oxalate 10 MG TABLET PO (08:31)
[2021-11-19] MEDS: 0.9 % Sodium Chloride Flush 3 ML SYRINGE IVFLUSH ×3 (08:32→20:48)
--- NOTE | 2021-11-19 09:04 | HO.PM.IMPN ---
Subjective Subjective Date of Service: 11/19/21 Interval History: f/u on fall ? syncope vs seziure and PTX, rib fracture Inteval history: He is lucid this morning, c/o headache, still not sure what happened to him. Has no focal neuro deficit Review of Systems confused rib pain headache no seizure Physical Exam Vital Signs: Vital Signs: Last Vital Signs Temp 97.7 F 11/19/21 07:27 Pulse 92 11/19/21 07:27 Resp 20 11/19/21 07:27 BP 161/77 H 11/19/21 07:27 Pulse Ox 96 11/19/21 07:27 Oxygen Flow Rate 98 11/17/21 15:05 BMI result Body Mass Index 25.7 Const: Other: General: AO X 2, seem anxious Resp: CTA bilateral, left sided chest tube in place CVS: S1,S2,RRR GI: NT, BS + Skin: bruses on face Neuro: motor grossly intact, moves all extremities Psych: delirious Objective Data Active Medications Acetaminophen (Acetaminophen 325 Mg Tablet) 650 mg PO Q6H PRN PRN Reason: Pain, Mild (Pain Scale 1-3) Last Admin: 11/19/21 08:30 Dose: 650 mg Documented by: SJ Atorvastatin Calcium (Atorvastatin Calcium 40 Mg Tablet) 40 mg PO DAILY [facility] Last Admin: 11/19/21 08:31 Dose: 40 mg Documented by: JS Escitalopram Oxalate (Escitalopram Oxalate 10 Mg Tablet) 10 mg PO DAILY [facility] Last Admin: 11/19/21 08:31 Dose: 10 mg Documented by: JS Fentanyl (Fentanyl 12 Mcg Patch.Td72) 12 mcg TRANSDERMA Q3D [facility] Last Admin: 11/18/21 15:46 Dose: 12 mcg Documented by: ESTRADA Heparin Sodium (Porcine) (Heparin Sodium,Porcine 5,000 Unit/Ml Vial) 5,000 unit SUBCUT Q12H [facility] Last Admin: 11/18/21 21:13 Dose: 5,000 unit Documented by: OSVALDO Hydromorphone HCl (Hydromorphone Hcl 1 Mg/Ml Syringe) 1 mg IVPUSH Q4H PRN; Protocol PRN Reason: Pain, Severe (Pain Scale 7-10) Last Admin: 11/19/21 06:15 Dose: 1 mg Documented by: OSVALDO Lactated Ringer's (Lr) 1,000 mls @ 125 mls/hr IVCONT .Q8H [facility] Last Admin: 11/19/21 03:55 Dose: 125 mls/hr Documented by: OSVALDO Levetiracetam (Keppra) 500 mg in 100 mls @ 400 mls/hr IV Q12H [facility] Last Infusion: 11/19/21 01:09 Dose: 0 mls/hr Documented by: OSVALDO Lisinopril (Lisinopril 20 Mg Tablet) 20 mg PO DAILY [facility]; Protocol Last Admin: 11/19/21 08:31 Dose: 20 mg Documented by: JS Magnesium Hydroxide (Milk Of Magnesia 30 Ml Oral.Susp) 30 ml PO DAILY PRN PRN Reason: Constipation Melatonin (Melatonin 3 Mg Tablet) 6 mg PO BEDTIME PRN PRN Reason: Insomnia Metoprolol Succinate (Metoprolol Succinate Er 25 Mg Tab.Er.24h) 25 mg PO DAILY [facility]; Protocol Last Admin: 11/19/21 08:31 Dose: 25 mg Documented by: JS Ondansetron HCl (Ondansetron Hcl 4 Mg/2 Ml Vial) 4 mg IVPUSH Q8H PRN PRN Reason: Nausea and Vomiting Last Admin: 11/19/21 01:15 Dose: 4 mg Documented by: OSVALDO Sodium Chloride (0.9 % Sodium Chloride Flush 3 Ml Syringe) 3 ml IVFLUSH QSHIFT [facility] Last Admin: 11/19/21 08:32 Dose: 3 ml Documented by: JS Trazodone HCl (Trazodone Hcl 100 Mg Tablet) 100 mg PO BEDTIME PRN PRN Reason: Insomnia Labs CBC & Chem 7: 11/18/21 08:34 11/18/21 08:34 Microbiology Microbiology Results: Microbiology 11/17/21 10:42 Blood Culture - Preliminary Blood - Venous No growth after 24 hours. 11/17/21 10:31 Blood Culture - Preliminary Blood - Venous No growth after 24 hours. Assessment and Plan (1) Closed fracture nasal bone: Status: Acute (2) Pneumothorax: Status: Acute (3) Fracture of rib: Status: Acute (4) Abrasion of face: Status: Acute Plan 71 year old male with with history of meningioma removal, PTS, CAD s/p CABG here with traumatic pneumothroax following a fall with concern of? preceeding syncope or siezure. 1/ Left sided? Pneumothorax -Chest tube inserted in ED, with near resolution, CXR 11/18 trace apical PTX, repeat CXR today -CT surgery following -Dilaudid for pain control -Incentive spirometry when able 2/ Rib fracture- pain control , incentive spirometry 3/ Syncope vs? likely seizure -Tele monitoring--no arrythmia noted --empric Kehaora -Neuro consult--recommends MRI and Keppra -EEG next available -MRI today 4/ CAD --resume home meds 5/ Delirium --likely post ictal state, meds--redirection, consider Psychotropic if extemely delirius 5/ DVT Prophylaxis: compression boot, heparin starting today Inpatient for management of PTX with chest tube, ongoing delirium and likely seizure managment and further testing.. PT eval after MRI Quality Stroke Does the patient have a stroke diagnosis?: No VTE Prior VTE?: No VTE Risk Level:: Medical - moderate - high VTE Device Contraindication: N/A - Device Ordered VTE Drug Contraindication: Treatment Not Tolerated
[2021-11-19] MEDS: Heparin Sodium,Porcine 5,000 UNIT/ML VIAL 5000 UNIT SUBCUT ×2 (09:15→20:47)
--- NOTE | 2021-11-19 14:01 | P.PNTS_ITS ---
Subjective Subjective Date of Service: 11/19/21 Interval history: Patient feeling well today. States breathing is much better . Has some discomfort over the left chest and around the left chest tube insertion. Chest tube put to water seal yesterday and no issues since including increased dyspnea or SQ air. Denies fever, chills, SOB, CP/pressure. Physical Exam Vital Signs: Vital Signs: Last Vital Signs Temp 98.3 F 11/19/21 11:53 Pulse 81 11/19/21 11:53 Resp 18 11/19/21 11:53 BP 156/77 H 11/19/21 11:53 Pulse Ox 99 11/19/21 11:53 Oxygen Flow Rate 98 11/17/21 15:05 BMI result Body Mass Index 25.7 General: No acute distress, resting comfortably in bed Head: Normocephalic, atraumatic, symmetric Eyes: Sclera anicteric, eyelids without edema or erythema ENT: Oral mucosa and tongue are moist Neck: Soft, supple, symmetric, trachea midline, no crepitus Cardiovascular: Regular rate and rhythm, no murmur/rubs/gallops, BUE and BLE without edema, no calf tenderness bilaterally Respiratory: Lungs CTA B, breathing nonlabored, speaking in full sentences. No use of accessory muscles. Left pigtail chest tube x 1 to [facility] on waterseal, minimal serosang drainage, no air leak. No crepitus. Gastrointestinal: Soft, non-tender, non-distended, +normoactive bowel sounds. Skin: Warm and dry throughout, no rashes Psychiatric: No agitation Procedures Date of Service Date of Service: 11/19/21 Progress Note: A&P Assessment and plan (1) Pneumothorax: Status: Acute Assessment and Plan: Mr. Cano is a 71-year-old male who has been found to have a moderate left pneumothorax, acute left eighth rib fracture, and nasal fracture after some sort of traumatic event at home which is unknown as the patient does not recall what occurred and he was alone. * Left pigtail chest tube was put to water seal yesterday. No issues overnight. No air leak or SQ crepitus on exam. * Morning CXR today still pending radiology read, however upon my review there does not appear to be any significant left pneumothorax, pleural effusion, or SQ air. * Left chest tube removed without difficulty and an occlusive dressing was placed at the site. Dressing to remain in place x 48 hours, then can be removed on 11/22/21 and left open to air. * Patient can followup with PCP as outpatient. Thoracic Surgery will sign off at this time. Please call us back with any questions or concerns. (2) Fracture of rib: Status: Acute Assessment and Plan: No need for rib fixation. Conservative measures with pain control, IS, and ambulation to prevent significant atelectasis and PNA. Pain appears well controlled at time of my exam today. Time Spent With Patient Time: Total time spent is greater than 50% in coordination of care (as documented) at patient's floor/unit and/or counseling patient: Quality Stroke Does the patient have a stroke diagnosis?: No VTE Prior VTE?: No VTE Risk Level:: Medical - moderate - high VTE Device Contraindication: N/A - Device Ordered VTE Drug Contraindication: Treatment Not Tolerated
--- NOTE | 2021-11-19 14:45 | MHC.CM.PN ---
PATIENT LIVES ALONE.HE REPORTS THAT HE WILL BE STAYING AT HIS SISTER'S HOME (ON ) AT TIME OF DISCHARGE HIS DOG CHIDI IS ALREADY THERE. NO DME OR VNA SERVICES IN THE HOME SISTER IS A NURSE (WORKS HERE AT [facility] [place]) AND HE FEELS THIS IS SUFFICIENT COVID VACCINATED X 4 (2 PFIZER, 1 MODERNA, 1 PFIZER) HCP MAY BE ON FILE AT [facility] IF SISTER IS UNABLE OT FIND IT [facility]ANA CAN ALSO COMPLETE ONE HERE PRIOR TO DC, HE IS MORE ALERT AND ORIENTED IMM 11/19 IN CHART
[2021-11-19] MEDS: levETIRAcetam 500 MG TABLET PO (20:47)
[2021-11-19] MEDS: traZODone HCL 100 MG TABLET PO (20:47)
[2021-11-20] MEDS: Melatonin 3 MG TABLET 6 MG PO (02:33)
[2021-11-20 03:48] VITALS: BP 180/89; PULSE 74; RESP 18; TEMP 36.1; O2SAT 98
[2021-11-20] MEDS: HYDROmorphone HCl 1 MG/ML SYRINGE IVPUSH (03:53)
[2021-11-20] MEDS: ondansetron HCL 4 MG/2 ML VIAL IVPUSH (04:45)
[2021-11-20 05:57] LABS: Hematocrit 32.5 % (42.0-52.0); Hemoglobin 10.8 g/dl (14.0-18.0); Mean Corpuscular HGB Conc 33.2 g/dl (31.0-36.0); Mean Corpuscular Hemoglobin 28.8 pg (27.0-33.0); Mean Corpuscular Volume 86.7 fL (80.0-98.0); Mean Platelet Volume 10.3 fL (9.4-12.4); Platelet Count 124 X10*3/uL (160-400); Red Blood Count 3.75 X10*6/uL (4.60-5.80); White Blood Count 7.4 X10*3/uL (4.8-10.8)
[2021-11-20 06:21] LABS: Anion Gap 10 (12-20); Blood Urea Nitrogen 8 mg/dL (9-16); Calcium 8.8 mg/dL (8.4-10.2); Carbon Dioxide 32 mmol/L (22-29); Chloride 105 mmol/L (96-108); Creatinine Clr Calc Pharmacy 90.5; Estimated Glomerular Filt Rate > 60; Glucose Random 122 mg/dL (60-115); Potassium 4.5 mmol/L (3.3-5.1); Sodium 142 mmol/L (135-145)
[2021-11-20 07:30] VITALS: BP 161/91; PULSE 84; RESP 18; TEMP 36.6; O2SAT 98
[2021-11-20] MEDS: Metoprolol Succinate ER 25 MG TAB.ER.24H PO (08:21)
[2021-11-20] MEDS: lisinopriL 20 MG TABLET PO (08:21)
[2021-11-20] MEDS: Escitalopram Oxalate 10 MG TABLET PO (08:22)
[2021-11-20] MEDS: Heparin Sodium,Porcine 5,000 UNIT/ML VIAL 5000 UNIT SUBCUT ×2 (08:22→21:41)
[2021-11-20] MEDS: 0.9 % Sodium Chloride Flush 3 ML SYRINGE IVFLUSH ×3 (08:22→21:42)
[2021-11-20] MEDS: levETIRAcetam 500 MG TABLET PO ×2 (08:22→21:42)
[2021-11-20] MEDS: Atorvastatin Calcium 40 MG TABLET PO (08:22)
--- NOTE | 2021-11-20 08:41 | P.PNIM_ITS ---
Subjective Subjective Date of Service: 11/20/21 Interval History: f/u on fall ? syncope vs seziure and PTX, rib fracture Inteval history: He remains lucid this morning, c/o of some dizziness that he thinks is med related. Awaiting MRI Review of Systems not confused rib pain no headache no seizure dizzy Physical Exam Vital Signs: Vital Signs: Last Vital Signs Temp 97.8 F 11/20/21 07:30 Pulse 84 11/20/21 07:30 Resp 18 11/20/21 07:30 BP 161/91 H 11/20/21 07:30 Pulse Ox 98 11/20/21 07:30 Oxygen Flow Rate 98 11/17/21 15:05 BMI result Body Mass Index 25.7 Const: Other: General: AO X 3, seem anxious Resp: CTA bilateral, left sided chest tube removed CVS: S1,S2,RRR GI: NT, BS + Skin: bruses on face Neuro: motor grossly intact, moves all extremities Psych: delirious Objective Data Active Medications Acetaminophen (Acetaminophen 325 Mg Tablet) 650 mg PO Q6H PRN PRN Reason: Pain, Mild (Pain Scale 1-3) Last Admin: 11/19/21 20:47 Dose: 650 mg Documented by: JOHN Atorvastatin Calcium (Atorvastatin Calcium 40 Mg Tablet) 40 mg PO DAILY [facility] Last Admin: 11/20/21 08:22 Dose: 40 mg Documented by: ESTRADA Escitalopram Oxalate (Escitalopram Oxalate 10 Mg Tablet) 10 mg PO DAILY [facility] Last Admin: 11/20/21 08:22 Dose: 10 mg Documented by: ESTRADA Fentanyl (Fentanyl 12 Mcg Patch.Td72) 12 mcg TRANSDERMA Q3D [facility] Last Admin: 11/18/21 15:46 Dose: 12 mcg Documented by: ESTRADA Heparin Sodium (Porcine) (Heparin Sodium,Porcine 5,000 Unit/Ml Vial) 5,000 unit SUBCUT Q12H [facility] Last Admin: 11/20/21 08:22 Dose: 5,000 unit Documented by: ESTRADA Hydromorphone HCl (Hydromorphone Hcl 1 Mg/Ml Syringe) 1 mg IVPUSH Q4H PRN; Protocol PRN Reason: Pain, Severe (Pain Scale 7-10) Last Admin: 11/20/21 03:53 Dose: 1 mg Documented by: JOHN Levetiracetam (Levetiracetam 500 Mg Tablet) 500 mg PO BID [facility] Last Admin: 11/20/21 08:22 Dose: 500 mg Documented by: ESTRADA Lisinopril (Lisinopril 20 Mg Tablet) 20 mg PO DAILY [facility]; Protocol Last Admin: 11/20/21 08:21 Dose: 20 mg Documented by: ESTRADA Magnesium Hydroxide (Milk Of Magnesia 30 Ml Oral.Susp) 30 ml PO DAILY PRN PRN Reason: Constipation Melatonin (Melatonin 3 Mg Tablet) 6 mg PO BEDTIME PRN PRN Reason: Insomnia Last Admin: 11/20/21 02:33 Dose: 6 mg Documented by: JOHN Metoprolol Succinate (Metoprolol Succinate Er 25 Mg Tab.Er.24h) 25 mg PO DAILY [facility]; Protocol Last Admin: 11/20/21 08:21 Dose: 25 mg Documented by: ESTRADA Ondansetron HCl (Ondansetron Hcl 4 Mg/2 Ml Vial) 4 mg IVPUSH Q8H PRN PRN Reason: Nausea and Vomiting Last Admin: 11/20/21 04:45 Dose: 4 mg Documented by: JOHN Sodium Chloride (0.9 % Sodium Chloride Flush 3 Ml Syringe) 3 ml IVFLUSH QSHIFT [facility] Last Admin: 11/20/21 08:22 Dose: 3 ml Documented by: ESTRADA Trazodone HCl (Trazodone Hcl 100 Mg Tablet) 100 mg PO BEDTIME PRN PRN Reason: Insomnia Last Admin: 11/19/21 20:47 Dose: 100 mg Documented by: JOHN Labs CBC & Chem 7: 11/20/21 05:30 11/20/21 05:30 Labs: Laboratory Results - last 24 hr 11/20/21 11/20/21 05:30 05:30 MCV 86.7 MCH 28.8 MCHC 33.2 RDW 13.0 Plt Count 124 L MPV 10.3 Absolute Nucleated RBC 0.000 Nucleated RBC % (auto) 0.0 Anion Gap 10 L Estim Creat Clear Calc 90.5 Estimated GFR > 60 Random Glucose 122 H Calcium 8.8 Microbiology Microbiology Results: Microbiology 11/17/21 10:42 Blood Culture - Preliminary Blood - Venous No growth after 48 hours. 11/17/21 10:31 Blood Culture - Preliminary Blood - Venous No growth after 48 hours. Assessment and Plan (1) Closed fracture nasal bone: Status: Acute (2) Pneumothorax: Status: Acute (3) Fracture of rib: Status: Acute (4) Abrasion of face: Status: Acute Plan 71 year old male with with history of meningioma removal, PTS, CAD s/p CABG here with traumatic pneumothroax following a fall with concern of? preceeding syncope or siezure. 1/ Left sided? Pneumothorax -Chest tube inserted in ED, and chest tube removed, no sob -wean off O2 -CT surgery following -reduced dose of dilaudid -Incentive spirometry when able 2/ Rib fracture- pain control , incentive spirometry 3/ Syncope vs? likely seizure -Tele monitoring--no arrythmia noted --sandeep Allen -Neuro consult--recommends MRI and Keppra, MRI will be done today -EEG next available 4/ CAD --contine home meds (statin, lisinoprill0 5/ Delirium --likely post ictal state, meds--redirection, consider Psychotropic if extemely delirius 5/ DVT Prophylaxis: compression boot, heparin y Inpatient for management of post PTX state, dizziness, ongoing further testing for with EEG, MRI today and will need PT evel before discharte. PT eval after MRI Quality Stroke Does the patient have a stroke diagnosis?: No VTE Prior VTE?: No VTE Risk Level:: Medical - moderate - high VTE Device Contraindication: N/A - Device Ordered VTE Drug Contraindication: Treatment Not Tolerated
[2021-11-20 09:58] VITALS: BP 161/91; PULSE 84; O2SAT 98
[2021-11-20 11:59] VITALS: BP 143/76; PULSE 82; RESP 18; TEMP 36.4; O2SAT 98
[2021-11-20] MEDS: fentaNYL 12 MCG PATCH.TD72 TRANSDERMA (14:49)
[2021-11-20 15:31] VITALS: BP 151/80; PULSE 83; RESP 18; TEMP 36.3; O2SAT 98
--- NOTE | 2021-11-20 16:03 | PC.NURSE ---
fentanyl patch 12 mcg removed from patients left arm because patient had to go to MRI. Patch disposed in sharpy box on S3E next to the pyxis and witnessed by second RN Joni Mata. Per new order new patch was applied to patients right arm.
[2021-11-20] MEDS: HYDROmorphone HCl 1 MG/ML SYRINGE 0.5 MG IVPUSH (17:08)
--- NOTE | 2021-11-20 18:34 | PC.NURSE ---
patient/family reports voiding small amounts of urine,bladder scanned for over 999 ml.st cath per md order for 1200 clear urine. patient tolerated procedure well.
[2021-11-20 19:41] VITALS: BP 140/65; PULSE 83; RESP 18; TEMP 36.7; O2SAT 95
[2021-11-20] MEDS: traZODone HCL 100 MG TABLET PO (21:41)
[2021-11-21] VITALS (7 sets, daily range): BP systolic 133–161; BP diastolic 64–86; PULSE 75–95; RESP 17–18; TEMP 36–37.1; O2SAT 94–99
--- NOTE | 2021-11-21 06:00 | PC.NURSE ---
Pt didn't void all night, bladder uctu=764 ml, explained the need for straight cath, but pt became upset and angered refusing to have the straight cath again, encouraged to walk and assisted to the BR, pt claimed he voided a bit, BUS=614 ml, pt still refusing straight cath, Dr. Bolaños was notifed.
[2021-11-21] MEDS: Atorvastatin Calcium 40 MG TABLET PO (08:35)
[2021-11-21] MEDS: lisinopriL 20 MG TABLET PO (08:35)
[2021-11-21] MEDS: Metoprolol Succinate ER 25 MG TAB.ER.24H PO (08:35)
[2021-11-21] MEDS: levETIRAcetam 500 MG TABLET PO ×2 (08:36→21:31)
[2021-11-21] MEDS: Escitalopram Oxalate 10 MG TABLET PO (08:36)
[2021-11-21] MEDS: 0.9 % Sodium Chloride Flush 3 ML SYRINGE IVFLUSH (08:37)
[2021-11-21] MEDS: Heparin Sodium,Porcine 5,000 UNIT/ML VIAL 5000 UNIT SUBCUT ×2 (09:01→21:31)
--- NOTE | 2021-11-21 09:03 | P.PNIM_ITS ---
Subjective Subjective Date of Service: 11/21/21 Interval History: f/u on fall ? syncope vs seziure and PTX, rib fracture Inteval history: He remains lucid this morning, no more dizziness, has large urinary retention and was straight cath last night and doesn't want to do that anymore Review of Systems pain is controlled, urinary retention no seizure Physical Exam Vital Signs: Vital Signs: Last Vital Signs Temp 98.1 F 11/21/21 07:45 Pulse 87 11/21/21 07:45 Resp 18 11/21/21 07:45 BP 161/86 H 11/21/21 07:45 Pulse Ox 96 11/21/21 07:45 Oxygen Flow Rate 98 11/17/21 15:05 BMI result Body Mass Index 25.7 Const: Other: General: AO X 3, seem anxious Resp: CTA bilateral, left sided chest tube removed CVS: S1,S2,RRR GI: NT, BS + Skin: bruses on face Neuro: motor grossly intact, moves all extremities Psych: delirious Objective Data Active Medications Acetaminophen (Acetaminophen 325 Mg Tablet) 650 mg PO Q6H PRN PRN Reason: Pain, Mild (Pain Scale 1-3) Last Admin: 11/19/21 20:47 Dose: 650 mg Documented by: JOHN Atorvastatin Calcium (Atorvastatin Calcium 40 Mg Tablet) 40 mg PO DAILY [facility] Last Admin: 11/21/21 08:35 Dose: 40 mg Documented by: RAY Escitalopram Oxalate (Escitalopram Oxalate 10 Mg Tablet) 10 mg PO DAILY [facility] Last Admin: 11/21/21 08:36 Dose: 10 mg Documented by: RAY Fentanyl (Fentanyl 12 Mcg Patch.Td72) 12 mcg TRANSDERMA Q3D [facility] Last Admin: 11/20/21 14:49 Dose: 12 mcg Documented by: ESTRADA Heparin Sodium (Porcine) (Heparin Sodium,Porcine 5,000 Unit/Ml Vial) 5,000 unit SUBCUT Q12H [facility] Last Admin: 11/20/21 21:41 Dose: 5,000 unit Documented by: JOHN Hydromorphone HCl (Hydromorphone Hcl 1 Mg/Ml Syringe) 0.5 mg IVPUSH Q6H PRN; Protocol PRN Reason: Pain, Severe (Pain Scale 7-10) Last Admin: 11/20/21 17:08 Dose: 0.5 mg Documented by: ESTRADA Levetiracetam (Levetiracetam 500 Mg Tablet) 500 mg PO BID [facility] Last Admin: 11/21/21 08:36 Dose: 500 mg Documented by: RAY Lisinopril (Lisinopril 20 Mg Tablet) 20 mg PO DAILY [facility]; Protocol Last Admin: 11/21/21 08:35 Dose: 20 mg Documented by: RAY Magnesium Hydroxide (Milk Of Magnesia 30 Ml Oral.Susp) 30 ml PO DAILY PRN PRN Reason: Constipation Melatonin (Melatonin 3 Mg Tablet) 6 mg PO BEDTIME PRN PRN Reason: Insomnia Last Admin: 11/20/21 02:33 Dose: 6 mg Documented by: JOHN Metoprolol Succinate (Metoprolol Succinate Er 25 Mg Tab.Er.24h) 25 mg PO DAILY [facility]; Protocol Last Admin: 11/21/21 08:35 Dose: 25 mg Documented by: RAY Ondansetron HCl (Ondansetron Hcl 4 Mg/2 Ml Vial) 4 mg IVPUSH Q8H PRN PRN Reason: Nausea and Vomiting Last Admin: 11/20/21 04:45 Dose: 4 mg Documented by: JOHN Oxycodone HCl (Oxycodone Hcl Immed Release 5 Mg Tablet) 5 mg PO Q6H PRN PRN Reason: Pain, Severe (Pain Scale 7-10) Sodium Chloride (0.9 % Sodium Chloride Flush 3 Ml Syringe) 3 ml IVFLUSH QSHIFT [facility] Last Admin: 11/21/21 08:37 Dose: 3 ml Documented by: RAY Tamsulosin HCl (Tamsulosin Hcl 0.4 Mg Capsule) 0.4 mg PO DAILY [facility] Trazodone HCl (Trazodone Hcl 100 Mg Tablet) 100 mg PO BEDTIME PRN PRN Reason: Insomnia Last Admin: 11/20/21 21:41 Dose: 100 mg Documented by: JOHN Labs CBC & Chem 7: 11/20/21 05:30 11/20/21 05:30 Assessment and Plan (1) Closed fracture nasal bone: (2) Pneumothorax: (3) Fracture of rib: (4) Abrasion of face: Plan 71 year old male with with history of meningioma removal, PTS, CAD s/p CABG here with traumatic pneumothroax following a fall with concern of? preceeding syncope or siezure. 1/ Left sided? Pneumothorax -Chest tube inserted in ED, and removed 2 days later -wean off O2 -CT surgery following -reduced dose of dilaudid -Incentive spirometry when able 2/ Rib fracture- pain control , incentive spirometry 3/ Syncope vs? likely seizure -Tele monitoring--no arrythmia noted --sandeep Allen -Neuro consult--recommends MRI and Alejandro, MRI will be done today -EEG result pending 4/ CAD --contine home meds (statin, lisinoprill0 5/ Delirium --likely post ictal state, meds--redirection, consider Psychotropic if extemely delirius 5/ DVT Prophylaxis: compression boot, heparin y Inpatient for management of post PTX state, dizziness, ongoing further testing for with EEG, MRI today and will need PT evel before discharte. PT recommends STR Quality Stroke Does the patient have a stroke diagnosis?: No VTE Prior VTE?: No VTE Risk Level:: Medical - moderate - high VTE Device Contraindication: N/A - Device Ordered VTE Drug Contraindication: Treatment Not Tolerated
[2021-11-21] MEDS: oxyCODONE HCl Immed Release 5 MG TABLET PO ×2 (09:25→14:53)
[2021-11-21] MEDS: Tamsulosin HCL 0.4 MG CAPSULE PO (09:26)
--- NOTE | 2021-11-21 13:58 | MHC.CM.PN ---
Addendum entered by Ivette Osborne 11/21/21 14:14: ALSO INIATED REFERRALS TO [facility] , [facility] AND [facility] FOR [facility] AND HOME PT. PLAN B, RECIVED CALL BACK FROM DATSINAN ROTHMAN (PATIENT SISTER AND SAID THEY WOULD ACCEPT [facility] ALONG WITH DISCUSSION WITH PATIENT= DISCHARGE PLAN PATIENT /FAMILY ACCEPTING OF [facility] IF THEY STILL HAVE BED AVAILABILITY FOR ANTICIPATED DISCHARGE TOMORROW THIS INFORMATION WAS SENT VIA [employer] TO [facility] ( I WAS UNABLE TO REACH THEM BY PHONE [facility] [phone] (PHONE MESSAGES FULL) [facility] FOR [facility]SING nd home pt covid vacinated x4 will need order for length of stay less than 30 days (no inpatient psych stay) will need rapid covid Original Note: polly patient case manager ntoe electronic medical record reviewed along with case disxussed with reji pat , met with patetient reported he was feeling very tired and had to be straight cathed last night for urinary retention,, physical theapry recomending short term rehab and does not recomend going to [facility] and pt. spoke with patient he asked if i would make referral to [facility] -no bed available , completely full , other str referrals ( [facility] , [facility](NO [facility]) [facility] BED, [place] NO [facility]EDS ,([facility], [facility] AND [place] NO BED AVAILABILITY. CLINICAL UPDATES RESENT TO THE FOLLOWING FACILITIES [facility] SPOKE WITH PATIENTS TWO SISTERS HCP RODRIGO RABAGO [phone] AND SELAM [phone] I GAVE THEM THE MEDICARE [email or web address] SITE TO CHECK OUT FOR MEDICARE RATINGS WELL TO GOGGLE THE POSSIBLE FACILITES THAT MAY HAVE OPENINGS, THEY WOULD ALSO LIKE ME TO CHECK FOR PLAN B, HOME WITH SISTER SELAM LÓPEZ HAVE V[facility] FOR NRUSIGN AND HOME PT UNDER THE [facility] MEDICARE CONTRACT
--- NOTE | 2021-11-21 16:28 | PC.NURSE ---
Fentanyl patch removed from right upper arm. apparently was applied 11/20 thought is was dc'd. Dr Russo made aware. patch will need to be reordered tomorrow
--- NOTE | 2021-11-21 18:56 | PC.NURSE ---
This RN witnessed Amelia Bass RN waste fentanyl patch.
[2021-11-21] MEDS: HYDROmorphone HCl 1 MG/ML SYRINGE 0.5 MG IVPUSH (19:01)
[2021-11-21] MEDS: traZODone HCL 100 MG TABLET PO (21:35)
[2021-11-22 03:37] VITALS: BP 152/69; PULSE 85; RESP 18; TEMP 36.5; O2SAT 91
[2021-11-22] MEDS: HYDROmorphone HCl 1 MG/ML SYRINGE 0.5 MG IVPUSH (03:48)
[2021-11-22] MEDS: Escitalopram Oxalate 10 MG TABLET PO (07:37)
[2021-11-22] MEDS: levETIRAcetam 500 MG TABLET PO (07:37)
[2021-11-22] MEDS: Tamsulosin HCL 0.4 MG CAPSULE PO (07:37)
[2021-11-22] MEDS: lisinopriL 20 MG TABLET PO (07:37)
[2021-11-22] MEDS: Metoprolol Succinate ER 25 MG TAB.ER.24H PO (07:37)
[2021-11-22] MEDS: 0.9 % Sodium Chloride Flush 3 ML SYRINGE IVFLUSH (07:38)
[2021-11-22] MEDS: oxyCODONE HCl Immed Release 5 MG TABLET PO ×3 (07:38→16:27)
[2021-11-22] MEDS: Atorvastatin Calcium 40 MG TABLET PO (07:38)
[2021-11-22] MEDS: Heparin Sodium,Porcine 5,000 UNIT/ML VIAL 5000 UNIT SUBCUT (07:45)
[2021-11-22 08:00] VITALS: BP 160/89; PULSE 74; RESP 17; TEMP 36.1; O2SAT 96
[2021-11-22 10:26] VITALS: O2SAT 94
[2021-11-22 10:33] VITALS: O2SAT 94
[2021-11-22 11:18] VITALS: BP 145/72; PULSE 86; RESP 18; TEMP 37.6; O2SAT 93
--- NOTE | 2021-11-22 11:22 | HO.PM.IMPN ---
Subjective Subjective Date of Service: 11/22/21 Interval History: seen and examined this morning follow up for probable seizure, and rib fracture/pneumothorax no chest pain, sob colon placed for urinary retention Review of Systems Review of Systems: Yes all other systems are reviewed and are negative Constitutional Constitutional: Denies chills and Denies fever(s) Cardiovascular Cardiovascular: Denies chest pain, Denies palpitations and Denies dyspnea Respiratory Respiratory: Denies cough and Denies dyspnea Gastrointestinal Gastrointestinal: Denies abdominal pain Endocrine Endocrine: Denies palpitations Physical Exam Vital Signs: Vital Signs: Last Vital Signs Temp 99.6 F 11/22/21 11:18 Pulse 86 11/22/21 11:18 Resp 18 11/22/21 11:18 BP 145/72 H 11/22/21 11:18 Pulse Ox 93 11/22/21 11:18 Oxygen Flow Rate 98 11/17/21 15:05 BMI result Body Mass Index 25.7 Const: General: cooperative, comfortable, no acute distress, alert and awake Nutritional Appearance: average body habitus Orientation/consciousness: patient oriented x3 Resp: Effort & Inspection: normal respiratory effort and able to speak in complete sentences Auscultation: clear to auscultation bilaterally GI: Palpation (GI): Soft to palpation and nontender Skin: Other: bruising noted to nose/right eye Neuro: General: patient oriented x3 Extrem: Other: Able to move all 4 extremities spontaneously Objective Data Active Medications Acetaminophen (Acetaminophen 325 Mg Tablet) 650 mg PO Q6H PRN PRN Reason: Pain, Mild (Pain Scale 1-3) Last Admin: 11/19/21 20:47 Dose: 650 mg Documented by: JOHN Atorvastatin Calcium (Atorvastatin Calcium 40 Mg Tablet) 40 mg PO DAILY [facility] Last Admin: 11/22/21 07:38 Dose: 40 mg Documented by: ESTRADA Escitalopram Oxalate (Escitalopram Oxalate 10 Mg Tablet) 10 mg PO DAILY [facility] Last Admin: 11/22/21 07:37 Dose: 10 mg Documented by: ESTRADA Fentanyl (Fentanyl 12 Mcg Patch.Td72) 12 mcg TRANSDERMA Q3D [facility] Last Admin: 11/20/21 14:49 Dose: 12 mcg Documented by: ESTRADA Heparin Sodium (Porcine) (Heparin Sodium,Porcine 5,000 Unit/Ml Vial) 5,000 unit SUBCUT Q12H [facility] Last Admin: 11/22/21 07:45 Dose: 5,000 unit Documented by: ESTRADA Hydromorphone HCl (Hydromorphone Hcl 1 Mg/Ml Syringe) 0.5 mg IVPUSH Q6H PRN; Protocol PRN Reason: Pain, Severe (Pain Scale 7-10) Last Admin: 11/22/21 03:48 Dose: 0.5 mg Documented by: ZAIN Levetiracetam (Levetiracetam 500 Mg Tablet) 500 mg PO BID [facility] Last Admin: 11/22/21 07:37 Dose: 500 mg Documented by: ESTRADA Lisinopril (Lisinopril 20 Mg Tablet) 20 mg PO DAILY [facility]; Protocol Last Admin: 11/22/21 07:37 Dose: 20 mg Documented by: ESTRADA Magnesium Hydroxide (Milk Of Magnesia 30 Ml Oral.Susp) 30 ml PO DAILY PRN PRN Reason: Constipation Melatonin (Melatonin 3 Mg Tablet) 6 mg PO BEDTIME PRN PRN Reason: Insomnia Last Admin: 11/20/21 02:33 Dose: 6 mg Documented by: JOHN Metoprolol Succinate (Metoprolol Succinate Er 25 Mg Tab.Er.24h) 25 mg PO DAILY [facility]; Protocol Last Admin: 11/22/21 07:37 Dose: 25 mg Documented by: ESTRADA Ondansetron HCl (Ondansetron Hcl 4 Mg/2 Ml Vial) 4 mg IVPUSH Q8H PRN PRN Reason: Nausea and Vomiting Last Admin: 11/20/21 04:45 Dose: 4 mg Documented by: JOHN Oxycodone HCl (Oxycodone Hcl Immed Release 5 Mg Tablet) 5 mg PO Q4H PRN PRN Reason: Pain, Severe (Pain Scale 7-10) Last Admin: 11/22/21 07:38 Dose: 5 mg Documented by: ESTRADA Sodium Chloride (0.9 % Sodium Chloride Flush 3 Ml Syringe) [facility] Last Admin: 11/22/21 07:38 Dose: 3 ml Documented by: ESTRADA Tamsulosin HCl (Tamsulosin Hcl 0.4 Mg Capsule) 0.4 mg PO DAILY [facility] Last Admin: 11/22/21 07:37 Dose: 0.4 mg Documented by: ESTRADA Trazodone HCl (Trazodone Hcl 100 Mg Tablet) 100 mg PO BEDTIME PRN PRN Reason: Insomnia Last Admin: 11/21/21 21:35 Dose: 100 mg Documented by: ZAIN Labs CBC & Chem 7: 11/20/21 05:30 11/20/21 05:30 Assessment and Plan (1) Pneumothorax: Status: Acute (2) Fracture of rib: Status: Acute Plan 71 year old male with with history of meningioma removal, PTS, CAD s/p CABG here with traumatic pneumothroax following a fall with concern of? preceeding syncope or siezure. Left sided?Pneumothorax Chest tube inserted in ED on admission, removed 11/[address] surgery -wean IV pain meds, continue home pain medication -Incentive spirometry Rib fracture pain control, incentive spirometry Syncope vs? likely seizure Seen by Neuro MRI from 11/20 showing chronic changes Continue Keppra 500 mg BID EEG showing generalized slowing with no evidence of seizure disorder CAD --continue home meds (statin, lisinopril Delirium --likely post ictal state, meds--redirection, consider Psychotropic if extremely delirious DVT Prophylaxis: compression boot, heparin Attending - dr. rosetta lynn for discharge, PT recommends STR, awaiting placement Quality Stroke Does the patient have a stroke diagnosis?: No VTE Prior VTE?: No VTE Risk Level:: Medical - moderate - high VTE Device Contraindication: N/A - Device Ordered VTE Drug Contraindication: Treatment Not Tolerated
--- NOTE | 2021-11-22 15:04 | P.DS_ITS ---
DS: Providers Provider Date of Service: 11/22/21 Date of admission: 11/17/21 16:19 Date of discharge: 11/22/21 Primary care physician: Ari Shell MD Consults: 11/17/21 13:10 Consult to Thoracic Surgery Routine Consulting Provider: Kristal Lantigua Reason for consultation: pneumothorax Has provider been notified: Yes 11/17/21 16:22 Consult to Neurology Routine Consulting Provider: [facility] Reason for consultation: syncope Has provider been notified: No 11/18/21 08:18 Consult to Thoracic Surgery Routine Consulting Provider: Meli Benitez Reason for consultation: Pneumothorax, has chest tube 11/21/21 11:23 Consult to Urology Routine Consulting Provider: Andrews Justice Reason for consultation: high volume urinary retention Has provider been notified: No Attending physician on discharge: José Milton Discharging clinician: Donita Garcia DS: Diagnosis Discharge Diagnosis (1) Closed fracture nasal bone: Status: Acute (2) Pneumothorax: Status: Acute (3) Fracture of rib: Status: Acute (4) Seizure disorder: Status: Acute DS: Summary Hospital Course Hospital Course: From H&P on day of admission 71 yo male with with history of? CAD s/p CABG, history of meningioma removal and has been labile since, he lives alone with his dog, he has chronic pain and is on Fentanyl and Oxycodone, he doesn't drink.. His alcohol level is normal, tox screen is unremarkable other than Fentanyl which he takes. Patient was found at home? convered in blood with some apparently facial? injury from traumatic fall. He was confused and was repeating that he took too much Fentanyl. Imaging of head. Trauma series showed:?1. Moderate left-sided pneumothorax with mild rightward mediastinal shift. Adjacent compressive atelectasis within the left lung. No large, confluent airspace consolidation. No pleural effusion. 2. Mildly displaced and comminuted left 8th rib fracture. Small amount of soft tissue emphysema along the left chest wall. 3. No intra-abdominal mass, lymphadenopathy, or ascites. 4. Age indeterminate compression deformities at T12 and L5. ?He subsequently ad a left sided chest tube inserted following which he was extremely agitated and attempted to remove chest pain and had to be sedated and was hypotensive but pressure is since better but he remains very somnolent and heavily sedated and so one is not able to converse with him at this time. History obatined from EMS note, discussing with ED provder and talking to family.? Repeat CXR show signficant reduction in pneumothorax after chest tube placement Hospital course by problem: Syncope vs? likely seizure. Seems most likely related to seizure. No arrhythmia noted on telemetry. Seen in consultation by Neurology. [place] MRI 11/20 showing chronic changes related to previous craniotomy. Was started on Keppra 500 mg BID which will be continued at discharge. EEG was obtained and showed generalized slowing with no evidence of seizure disorder Left sided?Pneumothorax. Chest tube inserted in ED on admission, was initially managed by Cardiothoracic surgery and was removed 11/19. Repeat chest x-ray from November 19 shows resolution of left-sided pneumothorax. Patient was able to be weaned off of supplemental oxygen and is currently saturating 97% on room air. Repeat CXR done today shows no evidence of pneumothorax. Rib fracture. Patient noted to have left 8th rib fracture on admission. Treated with IV narcotics initially. Has been weaned down to oral narcotics and transdermal fentanyl. baseline regimen (oxycodone 5 mg q6h) Urinary retention. Patient was noted to have urinary retention, Colon catheter was placed November 21. Recommend voiding trial after 48 hours, (11/23); if unable to pass voiding trial would replace colon and refer for outpatient urology evaluation. Continue flomax. Thrombocytopenia. chronic. outpatient follow up Patient was evaluated by Physical therapy who recommended short-term rehab. Anticipate less than 30 day stay at SNF Time Spent with Patient Time attestation: Total time spent providing and/or coordinating discharge services: Discharge coordination time: Greater than 30 minutes Quality: Safe Use of Opioids Does Pt have an Active Cancer Diagnosis on the Problem List?: No Quality: Stroke Does the patient have a stroke diagnosis?: No Physical Exam Vital Signs: Vital Signs: Last Vital Signs Temp 99.6 F 11/22/21 11:18 Pulse 86 11/22/21 11:18 Resp 18 11/22/21 11:18 BP 145/72 H 11/22/21 11:18 Pulse Ox 93 11/22/21 11:18 Oxygen Flow Rate 98 11/17/21 15:05 BMI result Body Mass Index 25.7 Const: General: cooperative, comfortable, no acute distress, alert and awake Nutritional Appearance: average body habitus Orientation/consciousness: patient oriented x3 Resp: Effort & Inspection: normal respiratory effort and able to speak in complete sentences Auscultation: clear to auscultation bilaterally GI: Palpation (GI): Soft to palpation and nontender Skin: Other: bruising noted to nose/right eye Neuro: General: patient oriented x3 Extrem: Other: Able to move all 4 extremities spontaneously Discharge Plan Discharge Patient Disposition: [facility] Discharge Diagnosis: likely seizure Left pneumothorax Left rib fracture Urinary retention Referrals: [facility] [Outside] - 1 Week Ari Shell MD [Primary Care Provider] - 1 Week Ángel Obando MD [Physician] - 1 Week Discharge Medications: New tamsulosin 0.4 mg Capsule 0.4 mg PO DAILY 30 Days Qty: 30 0RF levetiracetam 500 mg Tablet 500 mg PO BID 30 Days Qty: 60 0RF oxycodone 5 mg Tablet 5 mg PO Q4H PRN (Reason: Pain, Severe (Pain Scale 7-10)) Qty: 24 0RF Continued lisinopril 20 mg tablet 1 tab PO DAILY 0RF simvastatin 80 mg tablet 1 tab PO DAILY 0RF trazodone 100 mg tablet 1 tab PO BEDTIME PRN (Reason: Insomnia) 0RF metoprolol succinate 25 mg tablet extended release 24 hr 1 tab PO DAILY 0RF escitalopram oxalate 10 mg tablet 1 tab PO DAILY 0RF fentanyl 12 mcg/hr patch 72 hour 1 patch transdermal Q3D Qty: 1 0RF Discontinued oxycodone 5 mg tablet 1 tab Q6H PRN (Reason: pain) 0RF fentanyl 12 mcg/hr patch 72 hour 1 patch transdermal Q3D 0RF Discharge Orders: Discharge Order (Routine); Ordered 11/22/21 Ordered By: Donita Garcia Activity on Discharge: As tolerated Stand Alone Forms: Patient Portal Discharge page Care Plan Goals: see below Health Concerns: Pneumothorax-resolved Left-sided rib fracture Probable seizure Nasal bone fracture Urinary retention Plan of Treatment: You have been started on Keppra 500 mg daily for likely seizure disorder You should call to schedule a follow-up appointment with the neurologist. It is recommended that you do not drive, or swim alone Continue incentive spirometry every 1-2 hours while awake You have been started on Flomax for urinary retention. Colon placed 11/21. Can have voiding trial on November 23, if unable to pass voiding trial recommend outpatient urology evaluation Nasal bone fracture/rib fracture - supportive care/can use oxycodone 5mg q4hrs for now which has been increased from baseline dose (5mg q6h) can wean down to q6h as tolerated Call to schedule a follow-up appointment with your PCP Assessment: see discharge summary Discharge Date/Time: 11/22/21 18:04
[2021-11-22 15:42] VITALS: BP 143/81; PULSE 84; RESP 18; TEMP 37.1; O2SAT 97
--- NOTE | 2021-11-22 15:58 | MHC.CM.PN ---
CM MET WITH PT TOPDISCUSS DC PLANNING PT IS AWARE [facility], HIS PREFERRED FACILITY FOR STR, HAS OFFERED A BED AND HAS INSURANCE AUTH CM EXPLAINED TRANSPORT OPTIONS AND INSURANCE COVERAGE, PT WILL HAVE FAMILY TRANSPORT. PT IS CONCERNED ABOUT IS MEDS BEING AT THE SNF, CM EXPLAINED THAT INFO WILL BE SENT AHEAD INFO HAS BEEN SENT NEW HCP COMPLETED AND SENT TO SNF ALONG WITH DC SUMMARY AND LESS THAN 30 DAY ORDER PT WILL DC TO [facility] VIA PRIVATE TRANSPORT PENDING COVID RESULTS
[2021-11-22 16:01] LABS: COVID-19 Test Negative (Negative); IDNOW Serial# 55D5AD1C
== END 2021-11-22 18:04 | disposition skilled nursing facility (03) | DRG 200 ==
LOC: HO.ED 16:05 → HO.EDOVER 16:30 → HO.S3 21:34
PROVIDERS: Emergency Medicine; Admitting Provider Internal Medicine; Emergency Provider Emergency Medicine Emergency Medical Services; PCP Family Medicine; Visit Provider Physician Assistant Medical
DX: S27.0XXA Traumatic pneumothorax, initial encounter (principal); S22.32XA Fracture of one rib, left side, initial encounter for closed fracture; F05 Delirium due to known physiological condition; G40.409 Other generalized epilepsy and epileptic syndromes, not intractable, without status epilepticus; T79.7XXA Traumatic subcutaneous emphysema, initial encounter; S02.2XXA Fracture of nasal bones, initial encounter for closed fracture; I25.10 Atherosclerotic heart disease of native coronary artery without angina pectoris; W18.30XA Fall on same level, unspecified, initial encounter; K21.9 Gastro-esophageal reflux disease without esophagitis; R33.9 Retention of urine, unspecified; F43.10 Post-traumatic stress disorder, unspecified; I95.2 Hypotension due to drugs; D69.6 Thrombocytopenia, unspecified; Z20.822 Contact with and (suspected) exposure to COVID-19; Z86.011 Personal history of benign neoplasm of the brain; Z95.1 Presence of aortocoronary bypass graft; Z88.6 Allergy status to analgesic agent; Z79.899 Other long term (current) drug therapy
CPT/HCPCS: 36415; 70450; 70486; 70551; 71045; 71250; 72125; 74176; 80048; 80076; 80143; 80179; 80307; 81003; 82077; 82550; 83605; 83690; 83735; 84484; 85025; 85027; 85610; 85730; 87040; 87635; 93005; 95816; 96361; 96365; 96375; 96376; 97116; 97162; 99285; 99291; C1758; J1170; J1953; J2060; J2405; J2543; J3010

== ENCOUNTER → 2022-04-05 12:58 | Outpatient (BNVA) | payer MEDICARE, SELFPAY | PROVIDERS: PCP Family Medicine; Visit Provider Nurse Practitioner Psychiatric/Mental Health | DX: F11.20 Opioid dependence, uncomplicated (principal); Z51.81 Encounter for therapeutic drug level monitoring; Z79.899 Other long term (current) drug therapy | CPT/HCPCS: 80305; 99202; 99212 ==

== ENCOUNTER → 2022-04-08 14:03 | Outpatient (BNVA) | payer MEDICARE, SELFPAY | PROVIDERS: PCP Family Medicine; Visit Provider Nurse Practitioner Psychiatric/Mental Health | DX: F11.20 Opioid dependence, uncomplicated (principal); Z51.81 Encounter for therapeutic drug level monitoring; Z79.899 Other long term (current) drug therapy | CPT/HCPCS: 80305; 99212 ==

== ENCOUNTER → 2022-04-22 11:00 | Outpatient (BNVA) | payer MEDICARE, SELFPAY | PROVIDERS: PCP Family Medicine; Visit Provider Nurse Practitioner Psychiatric/Mental Health | DX: Z51.81 Encounter for therapeutic drug level monitoring (principal); F11.20 Opioid dependence, uncomplicated | CPT/HCPCS: 80305; 99212 ==

== ENCOUNTER → 2022-05-06 10:47 | Outpatient (BNVA) | payer MEDICARE, SELFPAY | PROVIDERS: PCP Family Medicine; Visit Provider Nurse Practitioner Psychiatric/Mental Health | DX: Z51.81 Encounter for therapeutic drug level monitoring (principal); F11.20 Opioid dependence, uncomplicated | CPT/HCPCS: 99212 ==

== ENCOUNTER → 2022-05-20 11:04 | Outpatient (BNVA) | payer MEDICARE, SELFPAY | PROVIDERS: PCP Family Medicine; Visit Provider Nurse Practitioner Psychiatric/Mental Health | DX: F11.20 Opioid dependence, uncomplicated (principal) | CPT/HCPCS: 99212 ==

== ENCOUNTER → 2022-05-28 11:20 | Outpatient (BNVA) | payer MEDICARE, SELFPAY | PROVIDERS: PCP Family Medicine; Visit Provider Nurse Practitioner Psychiatric/Mental Health | DX: F11.20 Opioid dependence, uncomplicated (principal) | CPT/HCPCS: 80305; 99212 ==

== ENCOUNTER → 2022-06-05 12:51 | Outpatient (BNVA) | payer MEDICARE, SELFPAY | PROVIDERS: PCP Family Medicine; Visit Provider Nurse Practitioner Psychiatric/Mental Health | DX: Z51.81 Encounter for therapeutic drug level monitoring (principal); F11.20 Opioid dependence, uncomplicated; F41.9 Anxiety disorder, unspecified; F32.9 Major depressive disorder, single episode, unspecified | CPT/HCPCS: 80305; 99212 ==

== ENCOUNTER → 2022-07-02 13:47 | Outpatient (BNVA) | payer MEDICARE, SELFPAY | PROVIDERS: PCP Family Medicine; Visit Provider Nurse Practitioner Psychiatric/Mental Health | DX: Z51.81 Encounter for therapeutic drug level monitoring (principal); F11.10 Opioid abuse, uncomplicated; F41.9 Anxiety disorder, unspecified | CPT/HCPCS: 80305; 99212 ==

== ENCOUNTER → 2022-07-16 11:02 | Outpatient (BNVA) | payer MEDICARE, SELFPAY | PROVIDERS: PCP Family Medicine; Visit Provider Nurse Practitioner Psychiatric/Mental Health | DX: F11.20 Opioid dependence, uncomplicated (principal) | CPT/HCPCS: 99212 ==

== ENCOUNTER 2022-10-07 08:13 | Outpatient (REF) | payer MEDICARE, SELFPAY ==
[2022-10-07 09:09] LABS: MANUAL DIFF FLAG NO
[2022-10-07 09:25] LABS: Basophils Absolute Auto 0.1 X10*3/uL (0.0-0.2); Basophils Percent Auto 0.9 % (0-2); Eosinophils Absolute Auto 0.1 X10*3/uL (0.0-0.4); Eosinophils Percent Auto 1.2 % (0-4); Hematocrit 37.8 % (42.0-52.0); Hemoglobin 12.6 g/dl (14.0-18.0); Imm Gran Abs Auto 0.03 X10*3/uL (0.00-0.03); Imm Gran Pct Auto 0.4 % (0.0-0.4); Lymphocytes Absolute Auto 1.6 X10*3/uL (1.2-4.9); Lymphocytes Percent Auto 21.5 % (20-40); Mean Corpuscular HGB Conc 33.3 g/dl (31.0-36.0); Mean Corpuscular Volume 87.1 fL (80.0-98.0); Mean Platelet Volume 10.3 fL (9.4-12.4); Monocytes Absolute Auto 0.5 X10*3/uL (0.1-1.2); Monocytes Percent Auto 6.2 % (2-11); Neutrophils Absolute Auto 5.3 x10*3/uL (2.0-8.3); Neutrophils Percent Auto 69.8 % (45-73); Platelet Count 149 X10*3/uL (160-400); Red Blood Count 4.34 X10*6/uL (4.60-5.80); Red Cell Distribution Width 13.7 % (11.0-16.0); White Blood Count 7.5 X10*3/uL (4.8-10.8)
[2022-10-07 10:01] LABS: Anion Gap 15 (12-20)
[2022-10-07 10:02] LABS: Alanine Aminotransferase 41 U/L (0-40); Alkaline Phosphatase 51 U/L (39-117); Aspartate Amino Transferase 26 U/L (5-37); Bilirubin Total 0.8 mg/dL (0.0-1.0); Blood Urea Nitrogen 20 mg/dL (9-16); Carbon Dioxide 22 mmol/L (22-29); Chloride 110 mmol/L (96-108); Cholesterol 210 mg/dL; Estimated Glomerular Filt Rate > 60; Glucose Fasting 101 mg/dL (60-99); HDL Cholesterol 48 mg/dL; LDL Cholesterol Calculated 131 mg/dl; Potassium 4.7 mmol/L (3.3-5.1); Sodium 142 mmol/L (135-145); Total Protein 6.3 g/dL (6.5-8.0); Triglycerides 155 mg/dL
[2022-10-07 10:21] LABS: Folate > 20.0 ng/mL (> or = 4.0); Prostate Specific Antigen Scr 0.57 ng/mL (<0.05-4.0); TSH reflex Free T4 2.75 uIU/mL (0.32-4.0); Vitamin B12 499 pg/mL (200-900); Vitamin D 25-OH Total 26.2 ng/mL (>30)
[2022-10-07 10:40] LABS: Appearance Urine Clear; Color Urine Dark Yellow; Glucose Urine UA Negative (Negative); Leukocyte Esterase Urine Negative (Negative); Nitrite Urine Negative (Negative); Urine Blood Negative (Negative); Urine Ketones Negative (Negative); Urine Protein Negative (Neg-Trace)
== END 2022-10-07 08:14 | disposition home or self-care (01) ==
LOC: HO.LAB 08:13
PROVIDERS: PCP Family Medicine; Visit Provider Family Medicine
DX: Z00.00 Encounter for general adult medical examination without abnormal findings (principal); I10 Essential (primary) hypertension; E53.8 Deficiency of other specified B group vitamins; E55.9 Vitamin D deficiency, unspecified; Z12.5 Encounter for screening for malignant neoplasm of prostate
CPT/HCPCS: 36415; 80053; 80061; 81003; 82043; 82306; 82607; 82746; 84153; 84443; 85025

== ENCOUNTER 2023-01-08 09:31 | Outpatient (AMB) | payer MEDICARE, SELFPAY ==
[2023-01-08 09:43] VITALS: BP 112/60; PULSE 66; O2SAT 96; BMI 22.8
--- NOTE | 2023-01-08 09:43 | A.OFFPC_ITS ---
Vital Signs 01/08/23 09:43 Height 5 ft 7 in Weight 145 lb 8 oz BMI 22.8 BP 112/60 Blood Pressure Location Lt brachial Position Sitting Pulse 66 Pulse Source Pulse Oximeter Pulse Oximetry (%) 96 Oxygen Delivery Method Room Air Intake Visit Reasons: f/u depression Intake Note: Patient is here to follow up on depression. Allergies acetaminophen [From TYLENOL] Adverse Reaction (Intermediate, Verified 01/08/23 09:44) gi upset Tobacco use date assessed: 01/08/23 Fall risk assessment: No Falls in past year Last assessed Fall Risk: 01/08/23 Dental Screening Dental Screen Date: 01/08/23 Did you have a dental visit in the last 12 months?: Yes Did you have a dental problem in the last 6 months where you did not have access to dental care?: No Was dental information given to patient?: No HPI f/u depression HPI Details Patient presents to follow-up depression and I had changed his SSRI to paroxetine Also want to follow-up on liver enzymes, lipids and anemia but he has not had his labs drawn yet. Following elevated fasting blood sugars which we can recheck with his labs. He reports he does not think paroxetine 20mg has been working well for him. He would like to trial 30mg. He reports he walks his dog 3-4x a day for exercise. He states he does have a healthy diet. [facility] Medical History Anemia Anemia Anxiety Anxiety Back pain Brain tumor CAD (coronary artery disease) CAD (coronary artery disease) Depression Depression GERD (gastroesophageal reflux disease) GERD (gastroesophageal reflux disease) Headache History of blood transfusion HTN (hypertension) Hx of meningioma of the brain Hx of small bowel obstruction Hx of thrombocytopenia Low back pain Meningioma Migraine Peyronie's disease PTSD (post-traumatic stress disorder) PTSD (post-traumatic stress disorder) Sacroiliitis Thrombocytopenia Surgical History H/O craniotomy History of back surgery History of bowel resection History of nasal surgery History of quadruple bypass History of resection of meningioma Hx of CABG Hx of CABG Hx of colonoscopy Family History Father No problems noted. Mother No problems noted. Brother No problems noted. Sister No problems noted. Sister No problems noted. Sister No problems noted. Social History Household Members: None Housing: Condominium Are you a primary healthcare educator to a significant other at home: No Alcohol intake: never Patient Tobacco Use Status: Never used Tobacco e-Cigarette/Vaping Use: Never Used Second Hand Smoke Exposure: No service: No Current occupational status: retired Current occupational exposures/hazards: No Cognitive needs: No Hearing needs: No Vision needs: Yes (Reading glasses) Questionnaire PHQ-9 Over the last 2 weeks, how often have you been bothered by any of the following problems? 1. Little interest or pleasure in doing things: more than half the days 2. Feeling down, depressed, or hopeless: nearly every day 3. Trouble falling or staying asleep, or sleeping too much: not at all 4. Feeling tired or having little energy: not at all 5. Poor appetite or overeating: not at all 6. Feeling bad about yourself - or that you are a failure or have let yourself or your family down: not at all 7. Trouble concentrating on things, such as reading the newspaper or watching television: not at all 8. Moving or speaking so slowly that other people could have noticed. Or the opposite - being so fidgety or restless that you have been moving around a lot more than usual: nearly every day 9. Thoughts that you would be better off or of hurting yourself in some way: not at all Total score: 8 Source: Developed by Drs. Malcolm Garrido, Brenda Garner, Roberto Fraser and colleagues, with an educational lobo from [employer]. Thrive Questionnaire Date Thrive assessed: 12/03/21 I am a: Patient What is your living situation today?: I have a steady place to live Within the past 12 months, did the food you bought not last and you didn't have the money to get more?: Never true Within the past 12 months, did you worry whether your food would run out before you got money to buy more?: Never true Do you have trouble paying for medicines?: No Do you have trouble getting transportation to medical appointments?: No Do you have trouble paying your heating and electricity bill?: No Do you have trouble taking care of your child, family member or friend?: No Do you have trouble with day-to-day activities such as bathing, preparing meals, shopping, managing finances, etc.?: No Are you currently unemployed and looking for a job?: No Are you interested in more education?: No AUDIT C Alcohol Use Questionnaire (AUDIT-C) 1. How often do you have a drink containing alcohol?: Never 3. How often do you have six or more drinks on one occasion?: Never Total Score: 0 SUJATA-7 AMB Questionnaire SUJATA-7 Date SUJATA - 7 assessed: 06/26/22 Feeling nervous, anxious, or on edge: 2 = More than half the days Not being able to stop or control worryin = More than half the days Worrying too much about different things: 2 = More than half the days Trouble relaxin = Nearly every day Being so restless that it is hard to sit still: 0 = Not at all Becoming easily annoyed or irritable: 0 = Not at all Feeling afraid as if something awful might happen: 0 = Not at all Total SUJATA-7 score (0-4 normal; 5-9 mild; 10-14 moderate; 15-21 severe): 9 Source: Developed by Drs. Malcolm Garrido, Brenda Garner, Roberto Fraser and colleagues, with an educational lobo from [employer]. Physical exam (Primary Care) Vital Signs: Last Vital Signs Pulse 66 01/08/23 09:43 BP 112/60 01/08/23 09:43 Pulse Ox 96 01/08/23 09:43 Oxygen Delivery Method Room Air 01/08/23 09:43 BMI result Body Mass Index 22.8 Tobacco/Smoking Status: Tobacco use Status Tobacco use date assessed 01/08/23 01/08/23 09:53 Patient Tobacco Use Status Never used Tobacco 01/08/23 09:53 e-Cigarette/Vaping Use Never Used 01/08/23 09:53 PHQ-9: PHQ-9 Score PHQ-9: Total score 8 01/08/23 10:13 Thrive Assessment: Date of Thrive Assessment Date Thrive assessed 12/03/21 01/08/23 09:53 Assessment and Plan Assessment & Plan (1) Depression: Code(s): F32.9 - Major depressive disorder, single episode, unspecified Plan: Ongoing depression and anxiety. Had switched his escitalopram to paroxetine at his last visit and he notes that it is a little better than the escitalopram but he still is rather symptomatic. Will increase paroxetine from 20 mg daily to 30 mg daily He also has been out of Abilify and buspirone which have been helping as well. Will refill these Encouraged exercise (2) Anxiety: Code(s): F41.9 - Anxiety disorder, unspecified Plan: As above Medications: Changed From paroxetine HCl 20 mg PO DAILY 30 days 30 tabs 0RF To paroxetine HCl 30 mg PO DAILY 90 days 90 tabs 3RF Refilled aripiprazole (Abilify) 2 mg PO BEDTIME 30 days 30 tabs 4RF buspirone 1 tab (5 mg) a.m. and Two tabs (10 mg) p.m.. orally 2 times a day; 30 days 90 tabs 2RF Discontinued escitalopram oxalate Discontinued Reason: Patient no longer taking 5 mg PO .daily 30 tabs 1RF escitalopram oxalate Discontinued Reason: Patient no longer taking 10 mg PO .daily 30 tabs 1RF Coding Level of Care Code Est Pt Level 3 (59931) Diagnoses Depression F32.9 Anxiety F41.9
== END 2023-01-08 10:23 | disposition home or self-care (01) ==
PROVIDERS: Visit Provider Family Medicine
DX: F32.9 Major depressive disorder, single episode, unspecified (principal); F41.9 Anxiety disorder, unspecified
CPT/HCPCS: 96127; 99213

== ENCOUNTER 2023-01-21 07:58 | Outpatient (REF) | payer MEDICARE, SELFPAY ==
[2023-01-21 08:15] LABS: MANUAL DIFF FLAG NO
[2023-01-21 08:21] LABS: Basophils Absolute Auto 0.1 X10*3/uL (0.0-0.2); Eosinophils Absolute Auto 0.2 X10*3/uL (0.0-0.4); Eosinophils Percent Auto 3.9 % (0-4); Hematocrit 38.2 % (42.0-52.0); Hemoglobin 12.8 g/dl (14.0-18.0); Imm Gran Abs Auto 0.02 X10*3/uL (0.00-0.03); Imm Gran Pct Auto 0.4 % (0.0-0.4); Lymphocytes Absolute Auto 1.2 X10*3/uL (1.2-4.9); Lymphocytes Percent Auto 23.5 % (20-40); Mean Corpuscular HGB Conc 33.5 g/dl (31.0-36.0); Mean Corpuscular Hemoglobin 29.5 pg (27.0-33.0); Mean Platelet Volume 10.3 fL (9.4-12.4); Monocytes Absolute Auto 0.4 X10*3/uL (0.1-1.2); Monocytes Percent Auto 7.6 % (2-11); Neutrophils Absolute Auto 3.3 x10*3/uL (2.0-8.3); Neutrophils Percent Auto 63.6 % (45-73); Platelet Count 129 X10*3/uL (160-400); Red Blood Count 4.34 X10*6/uL (4.60-5.80); Red Cell Distribution Width 12.9 % (11.0-16.0); White Blood Count 5.1 X10*3/uL (4.8-10.8)
[2023-01-21 08:56] LABS: Alanine Aminotransferase 19 U/L (0-40); Alkaline Phosphatase 56 U/L (39-117); Anion Gap 15 (12-20); Aspartate Amino Transferase 18 U/L (5-37); Bilirubin Total 0.5 mg/dL (0.0-1.0); Blood Urea Nitrogen 11 mg/dL (9-16); Calcium 9.1 mg/dL (8.4-10.2); Carbon Dioxide 22 mmol/L (22-29); Chloride 108 mmol/L (96-108); Estimated Glomerular Filt Rate > 60; Glucose Random 119 mg/dL (60-115); Potassium 4.4 mmol/L (3.3-5.1); Sodium 141 mmol/L (135-145); Total Protein 6.6 g/dL (6.5-8.0)
== END 2023-01-21 07:59 | disposition home or self-care (01) ==
LOC: HO.LAB 07:58
PROVIDERS: PCP Family Medicine; Visit Provider Family Medicine
DX: D64.9 Anemia, unspecified (principal); Z00.00 Encounter for general adult medical examination without abnormal findings; R74.01 Elevation of levels of liver transaminase levels
CPT/HCPCS: 36415; 80053; 85025

== ENCOUNTER 2023-01-28 09:24 | Outpatient (AMB) | payer MEDICARE, SELFPAY ==
--- NOTE | 2023-01-28 09:26 | MHC.PC.OV ---
Vital Signs 01/28/23 09:27 Height 5 ft 7 in Weight 144 lb BMI 22.6 BP 112/62 Blood Pressure Location Lt brachial Position Sitting Pulse 70 Pulse Source Pulse Oximeter Pulse Oximetry (%) 96 Oxygen Delivery Method Room Air Intake Visit Reasons: f/u labs Intake Note: Patient is here to follow up on his labs. Allergies acetaminophen [From TYLENOL] Adverse Reaction (Intermediate, Verified 01/28/23 09:39) gi upset Medication List - Last Reconciled 01/28/23 by Ari Shell MD aripiprazole (Abilify) 2 mg PO BEDTIME 30 days buspirone 1 tab (5 mg) a.m. and Two tabs (10 mg) p.m.. orally 2 times a day; 30 days cholecalciferol (vitamin D3) 25 mcg PO DAILY 90 days levetiracetam 500 mg PO BID 30 days lisinopril 20 mg PO DAILY 90 days metoprolol succinate ER 25 mg PO DAILY 90 days naloxone 4 mg/actuation (Narcan) 4 mg intranasal Q3M PRN 30 days naproxen 500 mg PO BID paroxetine HCl 30 mg PO DAILY 90 days simvastatin 80 mg PO DAILY 90 days tamsulosin 0.4 mg PO DAILY 30 days trazodone 1-2 tabs orally bedtime PRN; 5 days Tobacco use date assessed: 01/28/23 Fall risk assessment: No Falls in past year Last assessed Fall Risk: 01/28/23 Dental Screening Dental Screen Date: 01/28/23 Did you have a dental visit in the last 12 months?: Yes Did you have a dental problem in the last 6 months where you did not have access to dental care?: No Was dental information given to patient?: No HPI f/u labs HPI Details 72 y/o male presents to f/u labs. Labs were drawn 01/21/23. Reviewed labs with pt. Anemia. Elevated random glucose and does have pre-diabetes - last A1c 5.9% on 10/21/22. A1c today 01/28/23 6.0%. Live enzymes are fine. No recent lipid panel to review. He is on simvastatin 80mg daily. He reports paroxetine 30mg has been working well. He reports his medication regimen in general has been working well for his depression/anxiety. Blood pressure today is 112/62. He is on lisinopril 20mg and metoprolol 25mg daily. He reports a dry cough/tickle. [facility] Medical History Anemia Anemia Anxiety Anxiety Back pain Brain tumor CAD (coronary artery disease) CAD (coronary artery disease) Depression Depression GERD (gastroesophageal reflux disease) GERD (gastroesophageal reflux disease) Headache History of blood transfusion HTN (hypertension) Hx of meningioma of the brain Hx of small bowel obstruction Hx of thrombocytopenia Low back pain Meningioma Migraine Peyronie's disease PTSD (post-traumatic stress disorder) PTSD (post-traumatic stress disorder) Sacroiliitis Thrombocytopenia Surgical History H/O craniotomy History of back surgery History of bowel resection History of nasal surgery History of quadruple bypass History of resection of meningioma Hx of CABG Hx of CABG Hx of colonoscopy Family History Father No problems noted. Mother No problems noted. Brother No problems noted. Sister No problems noted. Sister No problems noted. Sister No problems noted. Social History Household Members: None Housing: Condominium Are you a primary director critical care to a significant other at home: No Alcohol intake: never Patient Tobacco Use Status: Never used Tobacco e-Cigarette/Vaping Use: Never Used Second Hand Smoke Exposure: No service: No Current occupational status: retired Current occupational exposures/hazards: No Cognitive needs: No Hearing needs: No Vision needs: Yes (Reading glasses) Questionnaire Thrive Questionnaire Date Thrive assessed: 12/03/21 SUJATA-7 AMB Questionnaire SUJATA-7 Date SUJATA - 7 assessed: 06/26/22 Source: Developed by Drs. Malcolm Garrido, Brenda Garner, Roberto Fraser and colleagues, with an educational lobo from [employer]. Review of Systems Const Denies chills, Denies fatigue, Denies fever(s), Denies headache(s) and Denies weakness ENT Denies dizziness and Denies headache(s) Card Denies chest pain, Denies lightheadedness, Denies dyspnea and Denies other (Palpitations) Resp Denies cough, Denies dyspnea, Denies wheezing and Denies other ( shortness of breath) Musc Denies numbness and Denies tingling Neuro Denies dizziness, Denies headache(s), Denies numbness, Denies tingling, Denies paresthesias and Denies weakness Psych Denies anxiety and Denies depression Endo Denies fatigue Aller/Immun Denies wheezing Physical exam (Primary Care) Vital Signs: Last Vital Signs Pulse 70 01/28/23 09:27 BP 112/62 01/28/23 09:27 Pulse Ox 96 01/28/23 09:27 Oxygen Delivery Method Room Air 01/28/23 09:27 BMI result Body Mass Index 22.6 Tobacco/Smoking Status: Tobacco use Status Tobacco use date assessed 01/28/23 01/28/23 09:37 Patient Tobacco Use Status Never used Tobacco 01/28/23 09:29 e-Cigarette/Vaping Use Never Used 01/28/23 09:29 Thrive Assessment: Date of Thrive Assessment Date Thrive assessed 12/03/21 01/28/23 09:29 Const General: no acute distress and well developed Nutritional Appearance: well nourished Orientation/consciousness: patient oriented x3 HENMT Head: Yes normocephalic and Yes atraumatic Eyes General: appearance normal, both eyes and all related structures Pupils: Equal, round and reactive pupils present EOM: EOMs intact bilaterally Resp Effort & Inspection: normal respiratory effort Auscultation: clear to auscultation bilaterally Cardio Rate: regular rate Rhythm: regular rhythm Heart sounds: S1 normal heart sound present, S2 normal heart sound present, no gallops, no murmurs and no rubs Neuro General: patient oriented x3 and gait normal Cranial nerves: Yes Equal, round and reactive pupils present Psych Affect: normal affect Results AMB Hemoglobin A1c AMB Hemoglobin A1c 6.0 % Last Edit by Mee Cast CMA on 01/28/23 09:43 Assessment and Plan Assessment & Plan (1) Pre-diabetes: Code(s): R73.03 - Prediabetes Plan: A1c crept up from 5.9% to 6.0%; pre diabetes range Encouraged ongoing work at a diet lower in sugars and starches Encouraged exercise (2) Anemia: Code(s): D64.9 - Anemia, unspecified Plan: Mild improvements in H&H Will follow-up. If he stalls out, will have Hematology-Oncology review. (3) Elevated liver enzymes: Code(s): R74.8 - Abnormal levels of other serum enzymes Plan: This has resolved (4) Depression with anxiety: Code(s): F41.8 - Other specified anxiety disorders Plan: Much improved with increase in paroxetine and refills of his Abilify and buspirone. Continue current medication regimen Continue exercise Encouraged social interaction (5) Hypercholesterolemia: Code(s): E78.00 - Pure hypercholesterolemia, unspecified Plan: Patient has had elevated lipids despite simvastatin therapy. Will recheck this prior to his next visit in a few months. Encouraged lifestyle changes If not controlled, will switch to atorvastatin. Orders: Orders AMB Hemoglobin A1c Today Z13.9 - Encounter for screening, unspecified Comprehensive [place]. Panel Fast Today Z00.00 - Encounter for general adult medical examination without abnormal findings Lipid Panel Today E78.00 - Pure hypercholesterolemia, unspecified, Z00.00 - Encounter for general adult medical examination without abnormal findings Coding Level of Care Code Est Pt Level 4 (76831) Diagnoses Pre-diabetes R73.03 Anemia D64.9 Elevated liver enzymes R74.8 Depression with anxiety F41.8 Hypercholesterolemia E78.00
[2023-01-28 09:27] VITALS: BP 112/62; PULSE 70; O2SAT 96; BMI 22.6
== END 2023-01-28 09:59 | disposition home or self-care (01) ==
PROVIDERS: PCP Family Medicine; Visit Provider Family Medicine
DX: R73.03 Prediabetes (principal); D64.9 Anemia, unspecified; R74.8 Abnormal levels of other serum enzymes; F41.8 Other specified anxiety disorders; E78.00 Pure hypercholesterolemia, unspecified
CPT/HCPCS: 83036; 99214

== ENCOUNTER 2023-04-21 09:31 | Outpatient (REF) | payer MEDICARE, SELFPAY ==
[2023-04-21 11:19] LABS: Alanine Aminotransferase 21 U/L (0-40); Albumin Level 4.2 g/dL (3.5-5.0); Alkaline Phosphatase 56 U/L (39-117); Anion Gap 14 (12-20); Aspartate Amino Transferase 21 U/L (5-37); Bilirubin Total 0.7 mg/dL (0.0-1.0); Blood Urea Nitrogen 14 mg/dL (9-16); Calcium 9.2 mg/dL (8.4-10.2); Carbon Dioxide 24 mmol/L (22-29); Chloride 105 mmol/L (96-108); Cholesterol 183 mg/dL (<200); Estimated Glomerular Filt Rate > 60; Glucose Fasting 113 mg/dL (60-99); HDL Cholesterol 45 mg/dL (>40); LDL Cholesterol Calculated 88 mg/dL (<100); Potassium 4.3 mmol/L (3.3-5.1); Sodium 139 mmol/L (135-145); Total Protein 6.8 g/dL (6.5-8.0); Triglycerides 250 mg/dL (<150)
== END 2023-04-21 09:32 | disposition home or self-care (01) ==
LOC: HO.LAB 09:31
PROVIDERS: PCP Family Medicine; Visit Provider Family Medicine
DX: Z00.00 Encounter for general adult medical examination without abnormal findings (principal); E78.00 Pure hypercholesterolemia, unspecified
CPT/HCPCS: 36415; 80053; 80061

== ENCOUNTER 2023-04-29 09:27 | Outpatient (AMB) | payer MEDICARE, SELFPAY ==
--- NOTE | 2023-04-29 09:29 | MHC.PC.OV ---
Vital Signs 04/29/23 09:35 Height 5 ft 7 in Weight 146 lb BMI 22.9 BP 130/78 Blood Pressure Location Lt brachial Position Sitting Pulse 71 Pulse Source Pulse Oximeter Pulse Oximetry (%) 95 Oxygen Delivery Method Room Air Intake Visit Reasons: f/u pre-diabetes, HTN and chronic conditions Intake Note: Patient is here for prediabetes, HTN, and chronic conditions. Allergies acetaminophen [From TYLENOL] Adverse Reaction (Intermediate, Verified 04/29/23 09:32) gi upset Tobacco use date assessed: 04/29/23 HPI f/u pre-diabetes, HTN and chronic conditions HPI Details 73 y/o male presents to f/u pre-diabetes, HTN and chronic conditions. A1c today 04/29/23 worsened to 6.6%. He states he has trialed metformin before once which caused him GI issues and so had stopped. Blood pressure today 130/78. He is on losartan 50mg and metoprolol 25mg daily. Lipid panel drawn 04/21/23. Reviewed labs with pt. Triglycerides 250. TC 183. LDL 88. HDL 45. He is on simvastatin 80mg daily. [facility] Medical History Brain tumor Meningioma PTSD (post-traumatic stress disorder) Anxiety Depression Anemia Thrombocytopenia GERD (gastroesophageal reflux disease) CAD (coronary artery disease) Headache Low back pain Sacroiliitis Hx of thrombocytopenia Anemia Hx of small bowel obstruction GERD (gastroesophageal reflux disease) Migraine Depression Hx of meningioma of the brain PTSD (post-traumatic stress disorder) Anxiety History of blood transfusion Back pain Peyronie's disease CAD (coronary artery disease) HTN (hypertension) Surgical History H/O craniotomy Hx of CABG History of resection of meningioma History of back surgery Hx of colonoscopy History of nasal surgery History of bowel resection History of quadruple bypass Hx of CABG Family History Father No problems noted. Mother No problems noted. Brother No problems noted. Sister No problems noted. Sister No problems noted. Sister No problems noted. Social History Household Members: None Housing: Condominium Are you a primary childcare provider to a significant other at home: No Alcohol intake: never Patient Tobacco Use Status: Never used Tobacco e-Cigarette/Vaping Use: Never Used Second Hand Smoke Exposure: No service: No Current occupational status: retired Current occupational exposures/hazards: No Cognitive needs: No Hearing needs: No Vision needs: Yes (Reading glasses) Questionnaire Thrive Questionnaire Date Thrive assessed: 12/03/21 SUJATA-7 AMB Questionnaire SUJATA-7 Date SUJATA - 7 assessed: 06/26/22 Source: Developed by Drs. Malcolm Garrido, Brenda Garner, Roberto Fraser and colleagues, with an educational lobo from [employer]. Review of Systems Const Denies chills, Denies fatigue, Denies fever(s), Denies headache(s) and Denies weakness ENT Denies dizziness and Denies headache(s) Card Denies dyspnea Resp Denies cough, Denies dyspnea, Denies wheezing and Denies other (shortness of breath) Musc Denies numbness and Denies tingling Neuro Denies dizziness, Denies headache(s), Denies numbness, Denies tingling and Denies weakness Psych Denies anxiety and Denies depression Endo Denies fatigue Aller/Immun Denies wheezing Physical exam (Primary Care) Vital Signs: Last Vital Signs Pulse 71 04/29/23 09:35 BP 130/78 04/29/23 09:35 Pulse Ox 95 04/29/23 09:35 Oxygen Delivery Method Room Air 04/29/23 09:35 BMI result Body Mass Index 22.9 Tobacco/Smoking Status: Tobacco use Status Tobacco use date assessed 04/29/23 04/29/23 09:33 Patient Tobacco Use Status Never used Tobacco 04/29/23 09:31 e-Cigarette/Vaping Use Never Used 04/29/23 09:31 Thrive Assessment: Date of Thrive Assessment Date Thrive assessed 12/03/21 04/29/23 09:31 Const General: well developed; No acute distress Nutritional Appearance: well nourished Orientation/consciousness: patient oriented x3 HENMT Head: Yes normocephalic and Yes atraumatic Eyes General: appearance normal, both eyes and all related structures Pupils: Equal, round and reactive pupils present EOM: EOMs intact bilaterally Resp Effort & Inspection: normal respiratory effort Auscultation: clear to auscultation bilaterally Cardio Rate: regular rate Rhythm: regular rhythm Heart sounds: S1 normal heart sound present, S2 normal heart sound present, no gallops, no murmurs and no rubs Neuro General: patient oriented x3 and gait normal Cranial nerves: Yes Equal, round and reactive pupils present Psych Affect: normal affect Results AMB Hemoglobin A1c AMB Hemoglobin A1c 6.6 % Last Edit by Mee Cast CMA on 04/29/23 09:48 Results Reviewed Results Reviewed: Laboratory Last Values Hgb A1c (Clinic) 6.6 % (4.0-6.0) H 04/29/23 09:43 Assessment and Plan Assessment & Plan (1) Diabetes: Code(s): E11.9 - Type 2 diabetes mellitus without complications Plan: A1c?now?6.6%;?diabetes Will?start?metformin?250?mg?daily Encouraged?diabetic?diet?low?in?sugars?and?starches Goal?is?to?keep?his?A1c?less?than?7.0% (2) HTN (hypertension): Code(s): I10 - Essential (primary) hypertension Plan: Blood?pressure?fairly?well?controlled.??Goal?is?less?than?130/80. Continue?current?medication?and?work?at?a?diet?low?in?sodium/salt (3) Hyperlipidemia: Code(s): E78.5 - Hyperlipidemia, unspecified Plan: LDL?cholesterol?greater?than?goal?of?70?for?patient?with?coronary?artery?disease. Switching?simvastatin?to?atorvastatin?80?mg?daily. 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 Panel Fast Today E11.9 - Type 2 diabetes mellitus without complications, Z00.00 - Encounter for general adult medical examination without abnormal findings Medications: New atorvastatin 80 mg PO BEDTIME 30 days 30 tabs 2RF metformin 250 mg (1/2 x 500 mg) PO DAILY 90 days 45 tabs 2RF Discontinued simvastatin Discontinued Reason: Doctor's Order 80 mg PO DAILY 90 days 90 tabs 3RF Coding Level of Care Code Est Pt Level 4 (85994) Diagnoses Diabetes E11.9 HTN (hypertension) I10 Hyperlipidemia E78.5 CAD (coronary artery disease) I25.10 Retrograde ejaculation N53.14
[2023-04-29 09:35] VITALS: BP 130/78; PULSE 71; O2SAT 95; BMI 22.9
== END 2023-04-29 10:18 | disposition home or self-care (01) ==
PROVIDERS: PCP Family Medicine; Visit Provider Family Medicine
DX: E11.9 Type 2 diabetes mellitus without complications (principal); I10 Essential (primary) hypertension; E78.5 Hyperlipidemia, unspecified; I25.10 Atherosclerotic heart disease of native coronary artery without angina pectoris; N53.14 Retrograde ejaculation
CPT/HCPCS: 83036; 99214

== ENCOUNTER 2023-07-18 11:06 | Outpatient (AMB) | payer MEDICARE, SELFPAY ==
--- NOTE | 2023-07-18 11:34 | AM.OFFWIN_ITS ---
<Statement entered by Sloane Beard, FRUIT INSPECTOR-BC - 07/18/23 16:28> I did not see this patient. Patient was seen by Dr. Elbert Zhao Vital Signs 07/18/23 11:35 BP 120/56 L Blood Pressure Location Rt brachial Position Sitting Respiration 12 Pulse 70 Pulse Source Pulse Oximeter Temp 96.4 F L Temp Source Temporal Artery Scan Pulse Oximetry (%) 97 Oxygen Delivery Method Room Air Intake Visit Reasons: Unable to urinate Intake Note: pt here because of increased difficulty urinating. says he has to strain. 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 and Two tabs (10 mg) p.m.. orally 2 times a day; 30 days buspirone 1 tab (5 mg) a.m. and Two tabs (10 mg) p.m.. orally 2 times a day; 30 days cholecalciferol (vitamin D3) 25 mcg PO DAILY 90 days levetiracetam 500 mg PO BID 30 days losartan 50 mg PO DAILY 30 days metformin 250 mg (1/2 x 500 mg) PO DAILY 90 days metoprolol succinate ER 25 mg PO DAILY 90 days naloxone 4 mg/actuation (Narcan) 4 mg intranasal Q3M PRN 30 days paroxetine HCl 30 mg PO DAILY 90 days tamsulosin 0.4 mg PO DAILY 30 days trazodone 1-2 tabs orally bedtime PRN; 5 days Do you need a note to return to daycare/school/sports/work: No HPI Unable to urinate HPI Details Patient?has?not?been?able?to?void?significantly?for?several?days. Had?discontinue?tamsulosin?and?resumed?it?a?few?days?ago.??This?has?not?improved ?his?symptoms. Getting?lower?abdominal?pain?and?pressure. Onset 07/04/23 Location urinating Characteristics of symptom or complaint feels like not emptying bladder Relieving factors has had f/c when hospitalized in past [facility] Medical History Brain tumor Meningioma PTSD (post-traumatic stress disorder) Anxiety Depression Anemia Thrombocytopenia GERD (gastroesophageal reflux disease) CAD (coronary artery disease) Headache Low back pain Sacroiliitis Hx of thrombocytopenia Anemia Hx of small bowel obstruction GERD (gastroesophageal reflux disease) Migraine Depression Hx of meningioma of the brain PTSD (post-traumatic stress disorder) Anxiety History of blood transfusion Back pain Peyronie's disease CAD (coronary artery disease) HTN (hypertension) Surgical History H/O craniotomy Hx of CABG History of resection of meningioma History of back surgery Hx of colonoscopy History of nasal surgery History of bowel resection History of quadruple bypass Hx of CABG Family History Father No problems noted. Mother No problems noted. Brother No problems noted. Sister No problems noted. Sister No problems noted. Sister No problems noted. Social History Household Members: None Housing: Condominium Are you a primary child day care provider to a significant other at home: No Alcohol intake: never e-Cigarette/Vaping Use: Never Used Second Hand Smoke Exposure: No service: No Current occupational status: retired Current occupational exposures/hazards: No Cognitive needs: No Hearing needs: No Vision needs: Yes (Reading glasses) Review of Systems Const Denies chills, Denies fatigue, Denies fever(s), Denies headache(s) and Denies weakness ENT Denies dizziness and Denies headache(s) Card Denies chest pain, Denies lightheadedness, Denies dyspnea and Denies other (Palpitations) Resp Denies cough, Denies dyspnea, Denies wheezing and Denies other ( shortness of breath) Details: See?HPI Musc Denies numbness and Denies tingling Neuro Denies dizziness, Denies headache(s), Denies numbness, Denies tingling, Denies paresthesias and Denies weakness Psych Reports anxiety and Denies depression Endo Denies fatigue Aller/Immun Denies wheezing Physical Exam Vital Signs: Last Vital Signs Temp 96.4 F L 07/18/23 11:35 Pulse 70 07/18/23 11:35 Resp 12 07/18/23 11:35 BP 120/56 L 07/18/23 11:35 Pulse Ox 97 07/18/23 11:35 Oxygen Delivery Method Room Air 07/18/23 11:35 Const General: no acute distress and well developed Nutritional Appearance: well nourished Orientation/consciousness: patient oriented x3 HEENT Head: Yes normocephalic and Yes atraumatic Eyes General: appearance normal, both eyes and all related structures Pupils: Equal, round and reactive pupils present EOM: EOMs intact bilaterally Resp Effort & Inspection: normal respiratory effort Auscultation: clear to auscultation bilaterally Cardio Rate: regular rate Rhythm: regular rhythm Heart sounds: S1 normal heart sound present, S2 normal heart sound present, no gallops, no murmurs and no rubs Other: Firmness?to?palpation?over?pelvis/bladder Neuro General: patient oriented x3 and gait normal Cranial nerves: Yes Equal, round and reactive pupils present Psych Affect: Anxious affect present Results AMB Urinalysis, Automated UA Leukoctes 2 [place]/uL Last Edit by Mee Cast CMA on 07/18/23 12:42 UA Nitrite Negative Last Edit by Mee Cast CMA on 07/18/23 12:42 UA Urobilinogen 3.5 mg/dL Last Edit by Mee Cast CMA on 07/18/23 12:42 UA Protein 2 mg/dL Last Edit by Mee Cast CMA on 07/18/23 12:42 UA pH 6.0 Last Edit by Mee Cast CMA on 07/18/23 12:42 UA Blood 1 [place]/uL Last Edit by Mee Cast CMA on 07/18/23 12:42 UA Specific [place] 1.025 Last Edit by Mee Cast CMA on 07/18/23 12:4 2 UA Ketone Negative Last Edit by Mee Cast CMA on 07/18/23 12:42 UA Bilirubin 0 mg/dL Last Edit by Mee Cast CMA on 07/18/23 12:42 UA Glucose 5 mg/dL Last Edit by Mee Cast CMA on 07/18/23 12:42 Results Reviewed Results Reviewed: Laboratory Last Values Urine pH (Auto) 6.0 07/18/23 12:38 Specific [place] (Auto) 1.025 07/18/23 12:38 Urine Protein (Auto) 2 mg/dL 07/18/23 12:38 Glucose (UA)(Auto) 5 mg/dL 07/18/23 12:38 Urine Ketones (Auto) Negative 07/18/23 12:38 Urine Blood (Auto) 1 [place]/uL 07/18/23 12:38 Urine Nitrite (Auto) Negative 07/18/23 12:38 Urine Bilirubin (Auto) 0 mg/dL 07/18/23 12:38 Urine Urobilinogen (Auto) 3.5 mg/dL 07/18/23 12:38 Leukocyte Esterase (Auto) 2 [place]/uL 07/18/23 12:38 Assessment & Plan Assessment & Plan (1) Urinary retention: Code(s): R33.9 - Retention of urine, unspecified Plan: Rather?severe?urinary?retention?with?discomfort, despite?resuming?tamsulosin. Concern?for?obstruction?and?possible?acute?kidney?injury. Advised?patient?go?to?the?emergency?department. He?is?rather?ap prehensive?about?the?possibility?of?catheterization.??I?am?going?to?send?a?scrip t?for?lorazepam?which?he?can?pick?up?prior?to?going?to?the?ED. Orders: Orders UA and rflx microscopic Today R33.9 - Retention of urine, unspecified, Z00.00 - Encounter for general adult medical examination without abnormal findings Urine Culture Today R33.9 - Retention of urine, unspecified AMB Urinalysis Automated Today R30.0 - Dysuria Comprehensive Met. Panel Today R33.9 - Retention of urine, unspecified Prostate Specific Antigen Scr Today R33.9 - Retention of urine, unspecified, Z12.5 - Encounter for screening for malignant neoplasm of prostate Medications: New lorazepam 1 mg PO Q4H 1 day PRN 2 tabs 0RF anxiety Coding Level of Care Code Est Pt Level 3 (01894) Diagnoses Urinary retention R33.9
[2023-07-18 11:35] VITALS: BP 120/56; PULSE 70; RESP 12; TEMP 35.8; O2SAT 97
== END 2023-07-18 12:58 | disposition home or self-care (01) ==
PROVIDERS: PCP Family Medicine; Visit Provider Family Medicine
DX: R33.9 Retention of urine, unspecified (principal); R30.0 Dysuria
CPT/HCPCS: 81003; 99213

== ENCOUNTER 2023-07-18 11:56 | Outpatient (REF) | payer MEDICARE, SELFPAY ==
[2023-07-18 15:02] LABS: Appearance Urine Turbid; Color Urine Yellow; Glucose Urine UA 500 mg/dL (Negative); Leukocyte Esterase Urine Large (3+) (Negative); Nitrite Urine Negative (Negative); PH 5.5 (5.0-9.0); UMIC TRIGGER UA YES; Urine Blood Moderate (2+) (Negative); Urine Ketones Negative (Negative); Urine Protein 100 (2+) mg/dL (Neg-Trace)
[2023-07-18 15:23] LABS: Bacteria Urine 4+ (None Seen); WBC Urine >50 /HPF (0-5)
== END 2023-07-18 11:57 | disposition home or self-care (01) ==
LOC: HO.LAB 11:56
PROVIDERS: Visit Provider Family Medicine
DX: R33.9 Retention of urine, unspecified (principal)
CPT/HCPCS: 81001; 81003; 87086

== ENCOUNTER 2023-07-18 13:43 | Emergency (ER) | payer MEDICARE, SELFPAY ==
--- NOTE | 2023-07-18 14:18 | ED_ITS ---
HPI - Male Genitourinary General Chief complaint: General Medical Stated complaint: Unable to Urinate Time Seen by Provider: 07/18/23 16:36 Source: patient and family (patient's daughter) Mode of arrival: ambulatory Limitations: no limitations History of Present Illness HPI Narrative: Patient is a 73 year old assigned male at with a history of BPH presenting to the emergency department today with increased difficulty urinating over the last 5 days. Patient states that he was on tamsulosin but had stopped taking it because he was having ejaculation issues on it. Patient states that over the last 5 days he has felt that he has had increased issues urinating. Patient states that he has an appointment with his urologist on 07/22/2023. Patient denies any dizziness, lightheadedness, abdominal pain, nausea, vomiting, fever, chills, blurry vision, double vision, loss of vision, chest pain, difficulty breathing, shortness of breath, back pain, night sweats, pain with urination, increased urinary frequency, blood in his urine or stool, syncope or a near syncopal episode, recent trauma or falls, bowel incontinence, bladder incontinence, bowel retention, or any other complaints at this time. Onset (ago): day(s) (5) Severity scale (1-10): 2 Related Data Previous Rx's Medication Instructions Recorded naloxone 4 mg/actuation nasal 4 mg intranasal Q3M PRN opioid 12/26/21 spray (Narcan) overdose 30 days #2 ea buspirone 5 mg tablet See Rx Instructions PO BID 30 days 01/08/23 #90 tabs paroxetine HCl 30 mg tablet 30 mg PO DAILY 90 days #90 tabs 01/08/23 cholecalciferol (vitamin D3) 25 25 mcg PO DAILY 90 days #90 caps 04/14/23 mcg (1,000 unit) capsule aripiprazole 2 mg tablet (Abilify) 2 mg PO BEDTIME 30 days #30 tabs 07/16/23 atorvastatin 80 mg tablet 80 mg PO BEDTIME 30 days #30 tabs 07/16/23 buspirone 5 mg tablet See Rx Instructions PO BID 30 days 07/16/23 #90 tabs levetiracetam 500 mg tablet 500 mg PO BID 30 days #60 tabs 07/16/23 losartan 50 mg tablet 50 mg PO DAILY 30 days #30 tabs 07/16/23 metformin 500 mg tablet 250 mg (1/2 x 500 mg) PO DAILY 90 07/16/23 days #45 tabs metoprolol succinate 25 mg 25 mg PO DAILY 90 days #90 tabs 07/16/23 tablet,extended release 24 hr tamsulosin 0.4 mg capsule 0.4 mg PO DAILY 30 days #30 caps 07/16/23 trazodone 100 mg tablet See Rx Instructions PO BEDTIME PRN 07/16/23 Insomnia 5 days #45 tabs cefuroxime axetil 250 mg tablet 250 mg PO BID 7 days #14 tabs 07/18/23 lorazepam 1 mg tablet 1 mg PO Q4H PRN anxiety 1 day #2 07/18/23 tabs Allergies Allergy/AdvReac Type Severity Reaction Status Date / Time acetaminophen [From TYLENOL] AdvReac Intermediate gi upset Verified 04/29/23 09:32 Review of Systems 2 Constitutional: Constitutional: Reports no additional constitutional complaints, Denies chills, Denies fever(s) and Denies night sweats Eyes: Eyes: Reports no additional eye complaints, Denies blurry vision, Denies change in vision, Denies diplopia, Denies eye discharge, Denies loss of vision and Denies eye pain ENT: Denies dizziness Cardiovascular: Cardiovascular: Reports no additional cardiovascular complaints, Denies chest pain, Denies lightheadedness, Denies Loss of Consciousness and Denies dyspnea Respiratory: Respiratory: Reports no additional respiratory complaints and Denies dyspnea Gastrointestinal: Gastrointestinal: Reports no additional gastrointestinal complaints, Denies abdominal pain, Denies melena, Denies hematochezia, Denies change in bowel habits and Denies change in stool character Genitourinary: Genitourinary: Reports no additional male genitourinary complaints, Denies hematuria, Reports difficulty urinating, Denies dysuria, Denies urinary hesitancy, Denies urinary incontinence and Reports urinary urgency Musculoskeletal: Musculoskeletal: Reports no additional musculoskeletal complaints, Denies numbness and Denies tingling Neurologic: Denies dizziness, Denies loss of vision, Denies numbness and Denies tingling Psychiatric: Psychiatric: Reports no additional psychiatric complaints Endocrine: Endocrine: Reports no additional endocrine complaints Hematologic/Lymphatic: Hematologic/Lymphatic: Reports no additional hematologic/lymphatic complaints Allergic/Immunologic: Allergic/Immunologic: Reports no additional allergic/immunologic complaints PMFSH Past Medical History Attestation statement: The following information was validated with the patient. (all information validated with the patient's daughter) Source: old records reviewed, obtained from family (patient's daughter provided additional history and confirmed the history provided by the patient.) and nursing notes reviewed Medical History Elevated liver enzymes Pre-diabetes Immunization counseling Opioid dependence, uncomplicated Chronic, continuous use of opioids Pneumothorax, left Fall Closed fracture nasal bone Abrasion of face Screening for osteoporosis Low HDL (under 40) Right elbow pain Opioid use Frontal headache Adult general medical exam Screening for prostate cancer Colon cancer screening Headache Mild dehydration Low back pain Muscle spasm History of blood transfusion Back pain Brain tumor Meningioma PTSD (post-traumatic stress disorder) Anxiety Depression Anemia Thrombocytopenia GERD (gastroesophageal reflux disease) CAD (coronary artery disease) Sacroiliitis Hx of thrombocytopenia Anemia Hx of small bowel obstruction GERD (gastroesophageal reflux disease) Migraine Depression Hx of meningioma of the brain PTSD (post-traumatic stress disorder) Anxiety Peyronie's disease CAD (coronary artery disease) HTN (hypertension) Surgical History H/O craniotomy Hx of CABG History of resection of meningioma History of back surgery Hx of colonoscopy History of nasal surgery History of bowel resection History of quadruple bypass Hx of CABG Family History Family History Father No problems noted. Mother No problems noted. Brother No problems noted. Sister No problems noted. Sister No problems noted. Sister No problems noted. Social History Social History Household Members: None Housing: Condominium Are you a primary pediatric critical care nurse to a significant other at home: No Alcohol intake: never e-Cigarette/Vaping Use: Never Used Second Hand Smoke Exposure: No Advance Directives: No Advance Directives Information Provided: No service: No Current occupational status: retired Current occupational exposures/hazards: No Cognitive needs: No Hearing needs: No Vision needs: Yes (Reading glasses) Physical Exam 2 Vital Signs: Vital Signs: Last Vital Signs Temp 98.4 F 07/18/23 14:21 Pulse 70 07/18/23 14:21 Resp 16 01/26/24 14:21 BP 115/74 07/18/23 14:21 Pulse Ox 100 07/18/23 14:21 O2 Del Method Room Air 07/18/23 14:21 BMI result Body Mass Index 24.1 Const: General: cooperative, no acute distress, alert and awake Nutritional Appearance: well nourished Orientation/consciousness: patient oriented x3 Limitations: no limitations HEENT: Head: Yes normal to inspection and Yes atraumatic Ears: hearing grossly normal bilaterally and external ears normal General nose exam: Normal external nose present, no nasal discharge noted and no epistaxis Face and sinus: Yes normal facial exam, No abrasion and No laceration Mouth: Normal oral and palatal mucosa present, no drooling and no muffled voice Eyes: General: appearance normal, both eyes and all related structures P eriorbital: periorbital findings normal Eyelids: Yes eyelids normal C onjunctivae: conjunctivae normal Pupils: Equal, round and reactive pupils present EOM: EOMs intact bilaterally Neck: Neck: Yes normal visual inspection, Yes full ROM and Yes no lymphadenopathy Chest: Chest palpation & inspection: normal inspection of the chest Resp: Effort & Inspection: normal respiratory effort and able to speak in complete sentences GI: Inspection: Yes normal to inspection Palpation (GI): Soft to palpation, not firm, nontender and no guarding Neuro: General: patient oriented x3 and moves all extremities Cranial nerves: Yes Equal, round and reactive pupils present Cognition (Neuro): n ormal cognition Motor exam (neuro): 5/5 motor strength present throughout Sensory Exam: Normal double simultaneous stimulation for sensation C oordination: [id number] test normal Extrem: General: Yes normal to inspection, Yes full ROM and Yes capillary refill normal Psych: Appearance: grossly normal Mental Status: mental status grossly normal Affect: normal affect Attitude: cooperative Thought process: N ormal thought process present Thought content: Normal thought content present Insight: Good insight present (Psych) Course Course Course Narrative: This is an RME: Additional HPI, ROS, PE not included below will be deferred to primary provider. Patient is a 73-year-old male who presents to the emergency department reporting difficulty with urination over past 4 days, and suprapubic discomfort. Dneies dysuria, hematuria, penile discharge. Reports last voided at PCP office earlier today, was advised to come to the ED, to have catheterization. Plan: bladder scan, U/A, labs Medical Decision Making Medical Decision Making [facility] Narrative: Patient is a 73 year old assigned male at with a history of BPH presenting to the emergency department today with increased difficulty urinating. Patient's physical exam was unremarkable. Patient's blood work was unremarkable. Patient's urine showed a possible UTI and given the patient's current complaints, will treat with ABX. Patient's bladder scan showed >400 however, the patient was able to urinate successfully while in the department. Myself, the patient, and the patient's daughter discussed the possibility of placing a catheter and the patient declined. I instructed the patient to restart his tamsulosin and to keep his appointment with his urologist. I explained my physical exam findings as well as all test results to the patient and the patient's daughter. I answered all questions asked by the patient and the patient's daughter. I stressed the importance of the patient taking his medication as prescribed. I stressed the importance of the patient following up with his primary care provider and his urologist. I stressed the importance of the patient returning to the emergency department immediately if his symptoms were to worsen or if he were to develop any dizziness, shortness of breath, difficulty breathing, chest pain, blurry vision, loss of vision, nausea, vomiting, abdominal pain, fever, chills, back pain, or any other complaints. Patient and the patient's daughter verbalized agreement and understanding with this treatment plan and discharge. Differential Diagnosis Differential Diagnoses: The differential diagnosis associated with the presentation includes Urinary retention UTI BPH Admission/Observation Consideration of admission/observation: Escalation of care including admission/observation considered Patient would have been admitted to the hospital had his work up had any findings where hospital admission was appropriate and his clinical presentation warranted hospital admission. Lab Data [facility] Lab Attestation statement: I reviewed the patient's lab results. My interpretation of these results are in the [facility] Rationale portion of this note. 07/18/23 14:36 07/18/23 14:36 Labs: Lab Results 07/18/23 Range/Units 14:36 WBC 9.8 (4.8-10.8) X10*3/uL RBC 4.26 L (4.60-5.80) X10*6/uL Hgb 12.5 L (14.0-18.0) g/dl Hct 36.3 L (42.0-52.0) % MCV 85.2 (80.0-98.0) fL MCH 29.3 (27.0-33.0) pg MCHC 34.4 (31.0-36.0) g/dl RDW 12.7 (11.0-16.0) % Plt Count 201 D (160-400) X10*3/uL MPV 9.5 (9.4-12.4) fL Immature Gran % (Auto) 0.8 H (0.0-0.4) % Neut % (Auto) 72.8 (45-73) % Lymph % (Auto) 16.8 L (20-40) % Antelope % (Auto) 7.5 (2-11) % Eos % (Auto) 1.4 (0-4) % Baso % (Auto) 0.7 (0-2) % Lymph # (Auto) 1.7 (1.2-4.9) X10*3/uL Antelope # (Auto) 0.7 (0.1-1.2) X10*3/uL Eos # (Auto) 0.1 (0.0-0.4) X10*3/uL Baso # (Auto) 0.1 (0.0-0.2) X10*3/uL Abs Immat Gran (auto) 0.08 H (0.00-0.03) X10*3/uL Absolute Neuts (auto) 7.2 (2.0-8.3) x10*3/uL Absolute Nucleated RBC 0.000 (0.0-0.012) X10*3/uL Nucleated RBC % (auto) 0.0 (0.0-0.2) /100WBC Sodium 137 (135-145) mmol/L Potassium 3.8 (3.3-5.1) mmol/L Chloride 106 (96-108) mmol/L Carbon Dioxide 21 L (22-29) mmol/L Anion Gap 14 (12-20) BUN 20 H (9-16) mg/dL Creatinine 0.92 (0.5-1.4) mg/dL Estim Creat Clear Calc 70.2 Estimated GFR > 60 Random Glucose 130 H (60-115) mg/dL Calcium 9.3 (8.4-10.2) mg/dL Total Bilirubin 0.8 (0.0-1.0) mg/dL AST 28 (5-37) U/L ALT 26 (0-40) U/L Alkaline Phosphatase 69 (39-117) U/L Total Protein 7.3 (6.5-8.0) g/dL Albumin 4.0 (3.5-5.0) g/dL Independent Historian Clinical information obtained from an independent historian. History obtained from or confirmed by: Other (patient's daughter provided additional history and confirmed the history provided by the patient.) Discharge Plan Discharge Clinical Impression: Acute UTI, Urinary retention Patient Disposition: Home, Self-Care Instructions: Urinary Tract Infection in Men (DC), Urinary Retention in Men (ED) Additional Instructions: Follow up with your primary care provider and your urologist. Return to the emergency department immediately if your symptoms worsen or if you develop any dizziness, shortness of breath, difficulty breathing, chest pain, blurry vision, loss of vision, nausea, vomiting, abdominal pain, fever, chills, back pain, or any other complaints. Prescriptions: New cefuroxime axetil 250 mg tablet 250 mg PO BID 7 Days Qty: 14 0RF No Action cholecalciferol (vitamin D3) 25 mcg (1,000 unit) capsule 25 mcg PO DAILY 90 Days Qty: 90 1RF metoprolol succinate 25 mg tablet extended release 24 hr 25 mg PO DAILY 90 Days Qty: 90 2RF losartan 50 mg tablet 50 mg PO DAILY 30 Days Qty: 30 1RF metformin 500 mg tablet 250 mg PO DAILY 90 Days Qty: 45 2RF atorvastatin 80 mg tablet 80 mg PO BEDTIME 30 Days Qty: 30 2RF aripiprazole [Abilify] 2 mg tablet 2 mg PO BEDTIME 30 Days Qty: 30 4RF trazodone 100 mg tablet See Rx Instructions PO BEDTIME PRN (Reason: Insomnia) 5 Days Qty: 45 0RF Rx Instructions: 1-2 tabs orally bedtime PRN; tamsulosin 0.4 mg capsule 0.4 mg PO DAILY 30 Days Qty: 30 2RF buspirone 5 mg tablet See Rx Instructions PO BID 30 Days Qty: 90 2RF Rx Instructions: 1 tab (5 mg) a.m. and Two tabs (10 mg) p.m.. orally 2 times a day; levetiracetam 500 mg tablet 500 mg PO BID 30 Days Qty: 60 0RF naloxone [Narcan] 4 mg/actuation spray,non-aerosol 4 mg intranasal Q3M PRN (Reason: opioid overdose) 30 Days Qty: 2 3RF Rx Instructions: spray 1 dose into ONE nostril; alternate nostrils w each dose until help arrives buspirone 5 mg tablet See Rx Instructions PO BID 30 Days Qty: 90 2RF Rx Instructions: 1 tab (5 mg) a.m. and Two tabs (10 mg) p.m.. orally 2 times a day; paroxetine HCl 30 mg tablet 30 mg PO DAILY 90 Days Qty: 90 3RF lorazepam 1 mg tablet 1 mg PO Q4H PRN (Reason: anxiety) 1 Days Qty: 2 0RF Referrals: [facility] [Provider Group] Ari Shell MD [Primary Care Provider] - Interventions: ED Discharge Assessment Last Done: 07/18/23 16:59 Discharge Date/Time: 07/18/23 17:00 Print Language: Yakut
[2023-07-18 14:21] VITALS: BP 115/74; PULSE 70; RESP 16; TEMP 36.9; O2SAT 100; BMI 24.1
[2023-07-18 14:40] LABS: MANUAL DIFF FLAG NO
[2023-07-18 14:48] LABS: Basophils Absolute Auto 0.1 X10*3/uL (0.0-0.2); Basophils Percent Auto 0.7 % (0-2); Eosinophils Absolute Auto 0.1 X10*3/uL (0.0-0.4); Eosinophils Percent Auto 1.4 % (0-4); Hematocrit 36.3 % (42.0-52.0); Hemoglobin 12.5 g/dl (14.0-18.0); Imm Gran Abs Auto 0.08 X10*3/uL (0.00-0.03); Imm Gran Pct Auto 0.8 % (0.0-0.4); Lymphocytes Absolute Auto 1.7 X10*3/uL (1.2-4.9); Lymphocytes Percent Auto 16.8 % (20-40); Mean Corpuscular HGB Conc 34.4 g/dl (31.0-36.0); Mean Corpuscular Hemoglobin 29.3 pg (27.0-33.0); Mean Corpuscular Volume 85.2 fL (80.0-98.0); Mean Platelet Volume 9.5 fL (9.4-12.4); Monocytes Absolute Auto 0.7 X10*3/uL (0.1-1.2); Monocytes Percent Auto 7.5 % (2-11); Neutrophils Absolute Auto 7.2 x10*3/uL (2.0-8.3); Neutrophils Percent Auto 72.8 % (45-73); Platelet Count 201 X10*3/uL (160-400); Red Blood Count 4.26 X10*6/uL (4.60-5.80); Red Cell Distribution Width 12.7 % (11.0-16.0); White Blood Count 9.8 X10*3/uL (4.8-10.8)
[2023-07-18 14:57] LABS: Alanine Aminotransferase 26 U/L (0-40); Alkaline Phosphatase 69 U/L (39-117); Anion Gap 14 (12-20); Aspartate Amino Transferase 28 U/L (5-37); Bilirubin Total 0.8 mg/dL (0.0-1.0); Blood Urea Nitrogen 20 mg/dL (9-16); Calcium 9.3 mg/dL (8.4-10.2); Carbon Dioxide 21 mmol/L (22-29); Chloride 106 mmol/L (96-108); Creatinine Clr Calc Pharmacy 70.2; Estimated Glomerular Filt Rate > 60; Glucose Random 130 mg/dL (60-115); Potassium 3.8 mmol/L (3.3-5.1); Sodium 137 mmol/L (135-145); Total Protein 7.3 g/dL (6.5-8.0)
== END 2023-07-18 17:00 | disposition home or self-care (01) ==
PROVIDERS: Nurse Practitioner Family; Emergency Provider Emergency Medicine Emergency Medical Services; PCP Family Medicine
DX: N39.0 Urinary tract infection, site not specified (principal); R33.9 Retention of urine, unspecified; E11.9 Type 2 diabetes mellitus without complications; I10 Essential (primary) hypertension; E78.00 Pure hypercholesterolemia, unspecified; Z79.02 Long term (current) use of antithrombotics/antiplatelets; Z79.899 Other long term (current) drug therapy
CPT/HCPCS: 36415; 51798; 80053; 85025; 99283

== ENCOUNTER 2023-07-22 11:02 | Outpatient (AMB) | payer MEDICARE, SELFPAY ==
--- NOTE | 2023-07-22 11:09 | MHC.OFFVIS ---
Intake Intake Visit Reasons: Difficulty Urinating Intake Note: New Patient presents for initial visit difficulty urinating (recent uti 07/18/23) Urology Medications: Cefuroxime, ? D/C Tamsulosin Blood Thinner: none PVR: 338ml's Assistant Clinical Nurse Manager Required: No Accompanied by: Self / Same As Patient Allergies acetaminophen [From TYLENOL] Adverse Reaction (Intermediate, Verified 07/22/23 11:52) gi upset Medication List - Last Reconciled 07/22/23 by LA MckinleyP- aripiprazole (Abilify) 2 mg PO BEDTIME 30 days atorvastatin 80 mg PO BEDTIME 30 days buspirone 1 tab (5 mg) a.m. and Two tabs (10 mg) p.m.. orally 2 times a day; 30 days cefuroxime axetil 250 mg PO BID 7 days cholecalciferol (vitamin D3) 25 mcg PO DAILY 90 days levetiracetam 500 mg PO BID 30 days losartan 50 mg PO DAILY 30 days metformin 250 mg (1/2 x 500 mg) PO DAILY 90 days metoprolol succinate ER 25 mg PO DAILY 90 days naloxone 4 mg/actuation (Narcan) 4 mg intranasal Q3M PRN 30 days paroxetine HCl 30 mg PO DAILY 90 days terazosin 5 mg PO BEDTIME 30 days trazodone 1-2 tabs orally bedtime PRN; 5 days HPI HPI Comments History of Present Illness Details Adrián is a very pleasant 73-year-old male patient of . 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 He presents to the office today as a new patient for ongoing lower urinary tract symptoms. In discussion with the patient today reports previously following up with Dr. Rucker many years ago due to ongoing issues with his urination and has been on Flomax. He reports urinary symptoms have worsened over the last 1-2 months noting difficulty with urination. He reports having seeked emergency room care on Tuesday 07/18 for increased difficulty urinating at which time he was noted to have a urinary tract infection and has been on antibiotic therapy. He reports compliance with cefuroxime 250 mg b.i.d.. He reports noting somewhat improvement in lower urinary tract symptoms since his ER visit. He reports he previously had been on Flomax 0.4 mg and following this helpful for his lower urinary tract symptoms however due to ejaculation issues he stopped taking the medication. In office urinalysis results reviewed with the patient today 2+ leukocytes and 2+ glucose. PVR 338 mL. Discussed at length potential causes for lower urinary tract symptoms patient is experiencing as well as incomplete bladder emptying. Discussed importance of completing antibiotic therapy as prescribed by ER physician. Will obtain retroperitoneal ultrasound for further assessment evaluation. In review of patient's chart it appears PSA 10/13--0.6. He otherwise denies hematuria, dysuria, foul smelling urine, changes to urinary stream, flank pain, fever, and or chills. PFS Medical History Elevated liver enzymes Pre-diabetes Immunization counseling Opioid dependence, uncomplicated Chronic, continuous use of opioids Pneumothorax, left Fall Closed fracture nasal bone Abrasion of face Screening for osteoporosis Low HDL (under 40) Right elbow pain Opioid use Frontal headache Adult general medical exam Screening for prostate cancer Colon cancer screening Headache Mild dehydration Low back pain Muscle spasm History of blood transfusion Back pain Brain tumor Meningioma PTSD (post-traumatic stress disorder) Anxiety Depression Anemia Thrombocytopenia GERD (gastroesophageal reflux disease) CAD (coronary artery disease) Sacroiliitis Hx of thrombocytopenia Anemia Hx of small bowel obstruction GERD (gastroesophageal reflux disease) Migraine Depression Hx of meningioma of the brain PTSD (post-traumatic stress disorder) Anxiety Peyronie's disease CAD (coronary artery disease) HTN (hypertension) Surgical History H/O craniotomy Hx of CABG History of resection of meningioma History of back surgery Hx of colonoscopy History of nasal surgery History of bowel resection History of quadruple bypass Hx of CABG Family History Father No problems noted. Mother No problems noted. Brother No problems noted. Sister No problems noted. Sister No problems noted. Sister No problems noted. Social History Household Members: None Housing: Condominium Are you a primary care management associate to a significant other at home: No Alcohol intake: never e-Cigarette/Vaping Use: Never Used Second Hand Smoke Exposure: No service: No Current occupational status: retired Current occupational exposures/hazards: No Cognitive needs: No Hearing needs: No Vision needs: Yes (Reading glasses) Review of Systems Const Reports as per HPI Eyes Reports no additional complaints ENT Reports no additional complaints Card Reports as per HPI Resp Reports no additional complaints GI Reports as per HPI Reports as per HPI Musc Reports as per HPI Neuro Reports as per HPI Psych Reports no additional complaints Endo Reports no additional complaints Luis/Lymph Reports no additional complaints Aller/Immun Reports no additional complaints Physical Exam Const General: cooperative, comfortable, no acute distress, well developed, alert and awake Orientation/consciousness: patient oriented x3 Limitations: no limitations HEENT Head: Yes normal to inspection, Yes normocephalic and Yes atraumatic Ears: hearing grossly normal bilaterally Eyes General: appearance normal, both eyes and all related structures Neck Neck: Yes normal visual inspection and Yes trachea midline Chest Chest palpation & inspection: normal inspection of the chest Resp Effort & Inspection: normal respiratory effort and able to speak in complete sentences Cardio Rate: regular rate GI Inspection: Yes normal to inspection General: Yes no CVA tenderness Back/Spine/Pelvis Back: no CVA tenderness Skin General skin exam: no rashes or lesions noted Neuro General: patient oriented x3 Extrem General: Yes normal to inspection Psych Appearance: grossly normal and well kempt Mental Status: mental status grossly normal Speech and movement: Normal speech and movement present and Clear speech present Affect: normal affect Attitude: cooperative Thought process: Normal thought process present Thought content: Normal thought content present Insight: Fair insight present (Psych) Judgement: Fair judgement present (Psych) Office Procedures Post Void Residual Post Residual Void Post Void Residual (PVR): 338 [id number] Void Residual by ultrasound Results AMB Urinalysis, Automated UA Leukoctes 125 [place]/uL Last Edit by [employer] Rubio on 07/22/23 11:37 UA Nitrite Negative Last Edit by Jumionevin Bergeron on 07/22/23 11:37 UA Urobilinogen 0.2 mg/dL Last Edit by [employer] on 07/22/23 11:37 UA Protein 0 mg/dL Last Edit by [employer] Rubio on 07/22/23 11:37 UA pH 6.0 Last Edit by [employer] on 07/22/23 11:37 UA Blood 0 Popeye/uL Last Edit by René Lettygian on 07/22/23 11:37 UA Specific Smoot 1.020 Last Edit by René Bergeron on 07/22/23 11:37 UA Ketone Negative Last Edit by René Bergeron on 07/22/23 11:37 UA Bilirubin 0 mg/dL Last Edit by René Lettygian on 07/22/23 11:37 UA Glucose 500 mg/dL Last Edit by René Bergeron on 07/22/23 11:37 Results Reviewed Results Reviewed: Laboratory Last Values Urine pH (Auto) 6.0 07/22/23 11:11 Specific Smoot (Auto) 1.020 07/22/23 11:11 Urine Protein (Auto) 0 mg/dL 07/22/23 11:11 Glucose (UA)(Auto) 500 mg/dL 07/22/23 11:11 Urine Ketones (Auto) Negative 07/22/23 11:11 Urine Blood (Auto) 0 Popeye/uL 07/22/23 11:11 Urine Nitrite (Auto) Negative 07/22/23 11:11 Urine Bilirubin (Auto) 0 mg/dL 07/22/23 11:11 Urine Urobilinogen (Auto) 0.2 mg/dL 07/22/23 11:11 Leukocyte Esterase (Auto) 125 [place]/uL 07/22/23 11:11 Assessment & Plan Assessment & Plan (1) Lower urinary tract symptoms: Code(s): R39.9 - Unspecified symptoms and signs involving the genitourinary system (2) Incomplete bladder emptying: Code(s): R33.9 - Retention of urine, unspecified (3) Urinary tract infection: Code(s): N39.0 - Urinary tract infection, site not specified Plan In office urinalysis results reviewed with the patient today; as noted above. PVR 338ml's Discussed and stressed the importance of finishing antibiotic therapy as prescribed by ER physician. Discussed at length potential causes for lower urinary tract symptoms patient is experiencing. Discussed at length potential causes and affects of incomplete bladder emptying. Will obtain retroperitoneal ultrasound for further assessment evaluation. Stop Flomax as discussed and prescribed. Start terazosin 5 mg at bedtime for 2 weeks and increase to 10 mg at bedtime if tolerating 5 mg after 2 weeks Discussed possible near future in office cystoscopy for further assessment evaluation Follow-up in 6 weeks with imaging to be completed prior; or sooner with any issues, concerns, and or questions. Orders: Orders AMB Urinalysis Automated Today Z13.9 - Encounter for screening, unspecified US retroperitoneal comp Today R33.9 - Retention of urine, unspecified, R39.9 - Unspecified symptoms and signs involving the genitourinary system AMB Post Void Residual by ultrasound Today R33.9 - Retention of urine, unspecified Medications: New terazosin Start with 5 mg once at HS; if tolerating medication for 2 weeks increase to 10 mg at night 5 mg PO BEDTIME 30 days 30 caps 1RF N40.1 - Benign prostatic hyperplasia with lower urinary tract symptoms, R35.0 - Frequency of micturition Discontinued tamsulosin Discontinued Reason: Doctor's Order 0.4 mg PO DAILY 30 days 30 caps 2RF Patient Instructions: The patient had an opportunity to ask questions regarding the treatment plan. All questions were answered. Physical exam, labs, and imaging were discussed and reviewed in detail. As well as risks, benefits, and discussion of treatment choices. No major barriers to understanding were identified. The patient expressed understanding and agreement with the above treatment plan. The patient was made aware they should contact our office by phone for worsening of their current condition, the appearance of new symptoms, or with any questions or concerns. Compliance is encouraged with any medications and follow up testing that is ordered. It is a privilege to be allowed the opportunity to participate in? your urological care.? Again, if you have any questions or concerns If you have any questions or concerns please do not hesitate to contact me. The office is [phone]. This note is constructed using voice recognition software. While every effort has been made to ensure accuracy straight line edger errors may have been included. Yours sincerely, JASON Mckinley Coding Level of Care Code New Pt Level 4 (22031) Diagnoses Lower urinary tract symptoms R39.9 Incomplete bladder emptying R33.9 Urinary tract infection N39.0 CPT Codes Post Residual Void - PVR CPT Code: 81000-Juld Void Residual by ultrasound ([id number])
== END 2023-07-22 12:07 | disposition home or self-care (01) ==
PROVIDERS: PCP Family Medicine; Visit Provider Nurse Practitioner Family
DX: R39.9 Unspecified symptoms and signs involving the genitourinary system (principal); R33.9 Retention of urine, unspecified; N39.0 Urinary tract infection, site not specified
CPT/HCPCS: 99204; 99214

== ENCOUNTER → 2023-07-22 11:02 | Outpatient (BNVA) | payer MEDICARE, SELFPAY | PROVIDERS: PCP Family Medicine; Visit Provider Nurse Practitioner Family | DX: R33.9 Retention of urine, unspecified (principal); R39.9 Unspecified symptoms and signs involving the genitourinary system; N39.0 Urinary tract infection, site not specified | CPT/HCPCS: 51798; 81003; 99202 ==

== ENCOUNTER 2023-08-27 17:59 | Inpatient (IN) | payer MEDICARE, SELFPAY ==
[2023-08-27] VITALS (10 sets, daily range): BP systolic 106–119; BP diastolic 60–77; PULSE 94–121; RESP 16–22; TEMP 36.5–36.8; O2SAT 90–93; BMI 23.1
--- NOTE | ~2023-08-27 | CT_ITS ---
EXAMINATION: CT HEAD WITHOUT CONTRAST CLINICAL INFORMATION: Brain mass. COMPARISON: Brain MRI 11/20/2021. TECHNIQUE: Contiguous axial imaging was performed from the skull base to vertex without intravenous administration of contrast. This CT examination was performed using dose optimization techniques as appropriate, variously including the following: *Automated exposure control *Adjustment of mA and/or kV according to patient size (this includes techniques or standardized protocols for targeted exams where dose is matched to indication/reason for exam; i.e. extremities or head) *Use of iterative reconstruction technique DLP: 604 mGy-cm FINDINGS: There are grossly stable post craniotomy changes with extensive gliosis and encephalomalacia involving the frontal lobes. No evidence of acute intracranial hemorrhage. No intracranial mass effect or hydrocephalus. Scattered nonspecific foci of hypoattenuation are visualized within the periventricular white matter. Munroe-white matter differentiation is otherwise preserved and there is no evidence of acute territorial infarct. The skull base is grossly intact. No mastoid or middle ear effusion. No active paranasal sinus disease. Globes and orbits are grossly symmetric. CT/CT head/brain wo IV con IMPRESSION: There are grossly stable post craniotomy changes with extensive gliosis and encephalomalacia involving the frontal lobes. Scattered chronic small vessel ischemic changes are visualized within the periventricular white matter. No evidence of acute territorial infarct or hemorrhage.
--- NOTE | ~2023-08-27 | XR_ITS ---
EXAMINATION: XR CHEST CLINICAL INFORMATION: Shortness of breath. COMPARISON: Chest radiograph 11/22/2021. TECHNIQUE: AP view of the chest was obtained. FINDINGS: Unchanged cardiomediastinal silhouette. Midline sternotomy wires and mediastinal surgical clips are seen. Mild streaky opacities in the left lower lobe favoring to represent subsegmental atelectasis or scarring. Mild chronic diffuse interstitial prominence. No consolidative airspace opacities, pleural effusion or pneumothorax. No findings to suggest pulmonary edema. No acute osseous abnormalities. XR/XR chest 1V IMPRESSION: 1. Subsegmental atelectasis and/or scarring in the left lower lobe. 2. No consolidation or pleural effusion. 3. Mild chronic interstitial prominence.
--- NOTE | 2023-08-27 18:25 | ED.GENADULT ---
HPI - General Adult General Chief complaint: Altered Mental Status Stated complaint: ams,600 sugar,91% on 4lpm Time Seen by Provider: 08/27/23 18:00 Source: EMS Mode of arrival: EMS Limitations: altered mental status History of Present Illness HPI narrative: Patient is 73 years old history of coronary disease status post CABG, history of meningioma status post resection , diabetes on metformin with history of chronic pain on fentanyl and oxycodone lives alone friend did a wellness check and found him altered and not himself alert and oriented x1 to himself only POC noticed to be more than 600 saturating 88% at room air apparently patient dog about 10 days ago and patient has been depressed eating much lately Related Data Home Medications Medication Instructions Recorded Confirmed buspirone 5 mg tablet 5 mg PO DAILY 08/27/23 08/27/23 buspirone 5 mg tablet 10 mg PO BEDTIME 08/27/23 08/27/23 levetiracetam 250 mg tablet 250 mg PO BID 08/27/23 08/27/23 phenobarbital 30 mg tablet 30 mg PO BEDTIME 08/27/23 08/27/23 trazodone 100 mg tablet 100 - 200 mg PO BEDTIME PRN 08/27/23 08/27/23 Insomnia Previous Rx's Medication Instructions Recorded paroxetine HCl 30 mg tablet 30 mg PO DAILY 90 days #90 tabs 01/08/23 cholecalciferol (vitamin D3) 25 25 mcg PO DAILY 90 days #90 caps 04/14/23 mcg (1,000 unit) capsule aripiprazole 2 mg tablet (Abilify) 2 mg PO BEDTIME 30 days #30 tabs 07/16/23 atorvastatin 80 mg tablet 80 mg PO BEDTIME 30 days #30 tabs 07/16/23 losartan 50 mg tablet 50 mg PO DAILY 30 days #30 tabs 07/16/23 metformin 500 mg tablet 250 mg (1/2 x 500 mg) PO DAILY 90 07/16/23 days #45 tabs metoprolol succinate 25 mg 25 mg PO DAILY 90 days #90 tabs 07/16/23 tablet,extended release 24 hr terazosin 10 mg capsule 10 mg PO BEDTIME 30 days #30 caps 08/26/23 levetiracetam 500 mg tablet 500 mg PO BID 30 days #60 tabs 08/27/23 Allergies Allergy/AdvReac Type Severity Reaction Status Date / Time acetaminophen [From TYLENOL] AdvReac Intermediate gi upset Verified 07/22/23 11:52 Review of Systems Review of Systems: Yes Unobtainable due to mental status PMFSH Past Medical History Medical History Elevated liver enzymes Pre-diabetes Immunization counseling Opioid dependence, uncomplicated Chronic, continuous use of opioids Pneumothorax, left Fall Closed fracture nasal bone Abrasion of face Screening for osteoporosis Low HDL (under 40) Right elbow pain Opioid use Frontal headache Adult general medical exam Screening for prostate cancer Colon cancer screening Headache Mild dehydration Low back pain Muscle spasm History of blood transfusion Back pain Brain tumor Meningioma PTSD (post-traumatic stress disorder) Anxiety Depression Anemia Thrombocytopenia GERD (gastroesophageal reflux disease) CAD (coronary artery disease) Sacroiliitis Hx of thrombocytopenia Anemia Hx of small bowel obstruction GERD (gastroesophageal reflux disease) Migraine Depression Hx of meningioma of the brain PTSD (post-traumatic stress disorder) Anxiety Peyronie's disease CAD (coronary artery disease) HTN (hypertension) Surgical History H/O craniotomy Hx of CABG History of resection of meningioma History of back surgery Hx of colonoscopy History of nasal surgery History of bowel resection History of quadruple bypass Hx of CABG Family History Family History Father No problems noted. Mother No problems noted. Brother No problems noted. Sister No problems noted. Sister No problems noted. Sister No problems noted. Social History Social History Household Members: None Housing: Condominium Are you a primary customer care consultant to a significant other at home: No Alcohol intake: never Smoked in Last 30 Days: No e-Cigarette/Vaping Use: Never Used Second Hand Smoke Exposure: No Use of substances other than those prescribed or required for medical reasons: No Advance Directives: No Advance Directives Information Provided: No service: No Current occupational status: retired Current occupational exposures/hazards: No Cognitive needs: No Hearing needs: No Vision needs: Yes (Reading glasses) Physical Exam ED Vital Signs: Vital Signs - 24 hr 08/27/23 18:11 08/27/23 19:23 08/27/23 19:42 Temperature 97.9 F 98.1 F Pulse Rate 112 H 121 H 100 Respiratory Rate 18 22 H 22 H Blood Pressure 111/71 116/74 118/73 Pulse Oximetry 92 92 92 Oxygen Delivery Method Nasal Cannula Nasal Cannula Nasal Cannula Oxygen Flow Rate 4 4 08/27/23 19:47 08/27/23 19:53 08/27/23 20:08 Temperature 98.0 F 98.1 F Pulse Rate 114 H 108 H 108 H Respiratory Rate 22 H 22 H 22 H Blood Pressure 110/71 116/70 106/60 Pulse Oximetry 92 92 92 Oxygen Delivery Method Nasal Cannula Nasal Cannula Nasal Cannula Oxygen Flow Rate 4 4 4 08/27/23 21:08 08/27/23 21:38 08/27/23 21:47 Temperature 97.7 F 97.9 F 98.1 F Pulse Rate 100 94 96 Respiratory Rate 22 H 18 19 Blood Pressure 112/73 116/65 116/65 Pulse Oximetry 93 92 91 L Oxygen Delivery Method Nasal Cannula Nasal Cannula Nasal Cannula with ETCO2 Oxygen Flow Rate 4 4 4 08/27/23 22:44 08/28/23 00:30 Temperature 98.2 F 98.4 F Pulse Rate 99 95 Respiratory Rate 16 18 Blood Pressure 108/60 132/77 Pulse Oximetry 91 L 96 Oxygen Delivery Method Nasal Cannula Nasal Cannula Oxygen Flow Rate 4 4 BMI result Body Mass Index 23.1 Appearance: Confused alert to himself only, No acute distress. Eyes: No pallor ENT: Pharynx normal. Oral Mucosa dry Neck: Normal inspection. Neck supple. CVS: Normal heart rate and rhythm. Pulses normal. Respiratory: No respiratory distress. Equal air entry bilateral, no wheezing/rales/rhonchi Abdomen: Soft and nontender. Bowel sounds are present, no mass palpable, no CVA tenderness Skin: Skin warm and dry. Normal skin color. Normal skin turgor. Extremities: No lower extremity edema. No calf tenderness Neuro: Oriented X 1. Moving all 4 extremities Medications Administered Generic Name Dose Route Start Last Admin Trade Name Freq PRN Reason Stop Dose Admin Insulin Human Regular 100 unit in 100 mls @ 6 mls/hr 08/27/23 19:45 08/28/23 01:35 Myxredlin IVCONT 0 unit/hr .[id number] ARELY 0 mls/hr Titration Protocol 6 UNIT/HR Sodium Chloride 1,000 mls @ 250 mls/hr 08/28/23 00:15 08/28/23 00:26 Sodium Chloride 0.45 % IVCONT 250 mls/hr .Q4H ARELY Administration Discontinued Medications Generic Name Dose Route Start Last Admin Trade Name Freq PRN Reason Stop Dose Admin Sodium Chloride 1,000 mls @ 999 mls/hr 08/27/23 18:25 08/27/23 21:36 Ns IV 08/27/23 19:25 Infused .Q1H1M ONE Infusion Sodium Chloride 1,000 mls @ 999 mls/hr 08/27/23 18:37 08/27/23 21:00 Ns IV 08/27/23 19:37 Infused .Q1H1M ONE Infusion Ceftriaxone Sodium 1 gm/ 50 mls @ 100 mls/hr 08/27/23 20:03 08/27/23 21:00 Sodium Chloride IV 08/27/23 20:32 Infused ONCE ONE Infusion Sodium Chloride 1,000 mls @ 999 mls/hr 08/27/23 20:03 08/27/23 21:18 Ns IV 08/27/23 21:03 Infused .Q1H1M ONE Infusion Insulin Glargine 30 unit 08/28/23 01:28 08/28/23 01:41 Insulin Glargine,Hum.Rec.Anlog 100 Unit/Ml 10 Ml Vial SUBCUT 08/28/23 01:29 30 unit ONCE ONE Administration Insulin Human Regular 10 unit 08/27/23 18:26 08/27/23 19:02 Insulin Regular, Human 100 Unit/Ml 3 Ml Vial IVPUSH 08/27/23 18:27 10 unit ONCE ONE Administration Medical Decision Making Medical Decision Making [facility] Narrative: Patient with hyperglycemia with diabetic ketoacidosis given IV fluids started on insulin drip anion gap is closed continue continue IV fluids started on Lantus insulin patient taking p.o. fluids will admit to medical floor elevated lactic acidosis is from MARYSOL and metformin use not from sepsis Differential Diagnosis Differential Diagnoses: The differential diagnosis associated with the presentation includes DKA/hyperosmolar coma/CVA/metabolic encephalopathy/UTI Admission/Observation Consideration of admission/observation: Escalation of care including admission/observation considered Consult Healthcare Provider Management of the patient was discussed with: Hospitalist Lab Data [facility] Lab Attestation statement: I reviewed the patient's lab results. 08/27/23 18:49 08/28/23 01:40 Labs: Lab Results 08/27/23 08/27/23 08/27/23 Range/Units 18:05 18:10 18:48 WBC (4.8-10.8) X10*3/uL RBC (4.60-5.80) X10*6/uL Hgb (14.0-18.0) g/dl Hct (42.0-52.0) % MCV (80.0-98.0) fL MCH (27.0-33.0) pg MCHC (31.0-36.0) g/dl RDW (11.0-16.0) % Plt Count (160-400) X10*3/uL MPV (9.4-12.4) fL Immature Gran % (Auto) (0.0-0.4) % Neut % (Auto) (45-73) % Lymph % (Auto) (20-40) % [place] % (Auto) (2-11) % Eos % (Auto) (0-4) % Baso % (Auto) (0-2) % Lymph # (Auto) (1.2-4.9) X10*3/uL [place] # (Auto) (0.1-1.2) X10*3/uL Eos # (Auto) (0.0-0.4) X10*3/uL Baso # (Auto) (0.0-0.2) X10*3/uL Abs Immat Gran (auto) (0.00-0.03) X10*3/uL Absolute Neuts (auto) (2.0-8.3) x10*3/uL Absolute Nucleated RBC (0.0-0.012) X10*3/uL Nucleated RBC % (auto) (0.0-0.2) /100WBC PT (11.1-13.3) SEC INR (0.9-1.1) APTT (26.0-36.8) SEC VBG pH (7.32-7.43) VBG pCO2 mmHg VBG pO2 mmHg VBG HCO3 (22-26) mmol/L VBG O2 Saturation % VBG Base Excess mmol/L Sodium (135-145) mmol/L Potassium (3.3-5.1) mmol/L Chloride (96-108) mmol/L Carbon Dioxide (22-29) mmol/L Anion Gap (12-20) BUN (9-16) mg/dL Creatinine (0.5-1.4) mg/dL Estim Creat Clear Calc Estimated GFR POC Glucose > 600 H* > 600 H* (60-115) mg/dL Random Glucose (60-115) mg/dL Lactic Acid (0.5-2.0) mmol/L Lactic Acid F/U @ 2Hr (0.5-2.0) mmol/L Calcium (8.4-10.2) mg/dL Magnesium (1.6-2.6) mg/dL Total Bilirubin (0.0-1.0) mg/dL AST (5-37) U/L ALT (0-40) U/L Alkaline Phosphatase (39-117) U/L Troponin I High Sens (<3.5-35.0) ng/L B-Natriuretic Peptide (<100) pg/mL Total Protein (6.5-8.0) g/dL Albumin (3.5-5.0) g/dL Beta-Hydroxybutyrate (0.02-0.27) mmol/L Urine Color Yellow Urine Appearance Clear Urine pH 5.0 (5.0-9.0) Ur Specific [place] >= 1.030 H (1.005-1.025) Urine Protein Trace (Neg-Trace) mg/dL Urine Glucose (UA) >=1000 H (Negative) mg/dL Urine Ketones Trace (Negative) mg/dL Urine Blood Large (3+) H (Negative) Urine Nitrite Negative (Negative) Ur Leukocyte Esterase Small (1+) H (Negative) Urine RBC 3-5 H (0-2) /HPF Urine WBC 11-20 (0-5) /HPF Urine WBC Clumps Present Ur Squamous Epith Cells 0-2 (0-2) /HPF Urine Bacteria None Seen (None Seen) Hyaline Casts 0-2 (0-2) /LPF 08/27/23 08/27/23 08/27/23 Range/Units 18:49 18:56 19:35 WBC 15.7 H (4.8-10.8) X10*3/uL RBC 5.12 D (4.60-5.80) X10*6/uL Hgb 14.7 (14.0-18.0) g/dl Hct 43.5 (42.0-52.0) % MCV 85.0 (80.0-98.0) fL MCH 28.7 (27.0-33.0) pg MCHC 33.8 (31.0-36.0) g/dl RDW 13.8 (11.0-16.0) % Plt Count 219 (160-400) X10*3/uL MPV 11.4 (9.4-12.4) fL Immature Gran % (Auto) 1.8 H (0.0-0.4) % Neut % (Auto) 86.4 H (45-73) % Lymph % (Auto) 5.2 L (20-40) % [place] % (Auto) 6.4 (2-11) % Eos % (Auto) 0.0 (0-4) % Baso % (Auto) 0.2 (0-2) % Lymph # (Auto) 0.8 L (1.2-4.9) X10*3/uL [place] # (Auto) 1.0 (0.1-1.2) X10*3/uL Eos # (Auto) 0.0 (0.0-0.4) X10*3/uL Baso # (Auto) 0.0 (0.0-0.2) X10*3/uL Abs Immat Gran (auto) 0.29 H (0.00-0.03) X10*3/uL Absolute Neuts (auto) 13.6 H (2.0-8.3) x10*3/uL Absolute Nucleated RBC 0.000 (0.0-0.012) X10*3/uL Nucleated RBC % (auto) 0.0 (0.0-0.2) /100WBC PT 11.9 (11.1-13.3) SEC INR 1.0 (0.9-1.1) APTT 23.8 L (26.0-36.8) SEC VBG pH 7.23 L (7.32-7.43) VBG pCO2 34 mmHg VBG pO2 55 mmHg VBG HCO3 14 L (22-26) mmol/L VBG O2 Saturation 78.0 % VBG Base Excess -11.6 mmol/L Sodium 148 H (135-145) mmol/L Potassium 4.3 (3.3-5.1) mmol/L Chloride 107 (96-108) mmol/L Carbon Dioxide 16 L (22-29) mmol/L Anion Gap 29 H (12-20) BUN 72 H (9-16) mg/dL Creatinine 2.75 H (0.5-1.4) mg/dL Estim Creat Clear Calc 21.9 Estimated GFR 23 POC Glucose > 600 H* (60-115) mg/dL Random Glucose 1115 H* (60-115) mg/dL Lactic Acid 5.5 H* (0.5-2.0) mmol/L Lactic Acid F/U @ 2Hr (0.5-2.0) mmol/L Calcium 9.7 (8.4-10.2) mg/dL Magnesium 3.5 H* (1.6-2.6) mg/dL Total Bilirubin 0.5 (0.0-1.0) mg/dL AST 16 (5-37) U/L ALT 19 (0-40) U/L Alkaline Phosphatase 136 H (39-117) U/L Troponin I High Sens 19.2 (<3.5-35.0) ng/L B-Natriuretic Peptide 85 (<100) pg/mL Total Protein 8.1 H (6.5-8.0) g/dL Albumin 4.5 (3.5-5.0) g/dL Beta-Hydroxybutyrate 4.92 H (0.02-0.27) mmol/L Urine Color Urine Appearance Urine pH (5.0-9.0) Ur Specific [place] (1.005-1.025) Urine Protein (Neg-Trace) mg/dL Urine Glucose (UA) (Negative) mg/dL Urine Ketones (Negative) mg/dL Urine Blood (Negative) Urine Nitrite (Negative) Ur Leukocyte Esterase (Negative) Urine RBC (0-2) /HPF Urine WBC (0-5) /HPF Urine WBC Clumps Ur Squamous Epith Cells (0-2) /HPF Urine Bacteria (None Seen) Hyaline Casts (0-2) /LPF 08/27/23 08/27/23 08/27/23 Range/Units 19:41 20:55 21:03 WBC (4.8-10.8) X10*3/uL RBC (4.60-5.80) X10*6/uL Hgb (14.0-18.0) g/dl Hct (42.0-52.0) % MCV (80.0-98.0) fL MCH (27.0-33.0) pg MCHC (31.0-36.0) g/dl RDW (11.0-16.0) % Plt Count (160-400) X10*3/uL MPV (9.4-12.4) fL Immature Gran % (Auto) (0.0-0.4) % Neut % (Auto) (45-73) % Lymph % (Auto) (20-40) % [place] % (Auto) (2-11) % Eos % (Auto) (0-4) % Baso % (Auto) (0-2) % Lymph # (Auto) (1.2-4.9) X10*3/uL [place] # (Auto) (0.1-1.2) X10*3/uL Eos # (Auto) (0.0-0.4) X10*3/uL Baso # (Auto) (0.0-0.2) X10*3/uL Abs Immat Gran (auto) (0.00-0.03) X10*3/uL Absolute Neuts (auto) (2.0-8.3) x10*3/uL Absolute Nucleated RBC (0.0-0.012) X10*3/uL Nucleated RBC % (auto) (0.0-0.2) /100WBC PT (11.1-13.3) SEC INR (0.9-1.1) APTT (26.0-36.8) SEC VBG pH (7.32-7.43) VBG pCO2 mmHg VBG pO2 mmHg VBG HCO3 (22-26) mmol/L VBG O2 Saturation % VBG Base Excess mmol/L Sodium (135-145) mmol/L Potassium (3.3-5.1) mmol/L Chloride (96-108) mmol/L Carbon Dioxide (22-29) mmol/L Anion Gap (12-20) BUN (9-16) mg/dL Creatinine (0.5-1.4) mg/dL Estim Creat Clear Calc Estimated GFR POC Glucose > 600 H* > 600 H* > 600 H* (60-115) mg/dL Random Glucose (60-115) mg/dL Lactic Acid (0.5-2.0) mmol/L Lactic Acid F/U @ 2Hr (0.5-2.0) mmol/L Calcium (8.4-10.2) mg/dL Magnesium (1.6-2.6) mg/dL Total Bilirubin (0.0-1.0) mg/dL AST (5-37) U/L ALT (0-40) U/L Alkaline Phosphatase (39-117) U/L Troponin I High Sens (<3.5-35.0) ng/L B-Natriuretic Peptide (<100) pg/mL Total Protein (6.5-8.0) g/dL Albumin (3.5-5.0) g/dL Beta-Hydroxybutyrate (0.02-0.27) mmol/L Urine Color Urine Appearance Urine pH (5.0-9.0) Ur Specific [place] (1.005-1.025) Urine Protein (Neg-Trace) mg/dL Urine Glucose (UA) (Negative) mg/dL Urine Ketones (Negative) mg/dL Urine Blood (Negative) Urine Nitrite (Negative) Ur Leukocyte Esterase (Negative) Urine RBC (0-2) /HPF Urine WBC (0-5) /HPF Urine WBC Clumps Ur Squamous Epith Cells (0-2) /HPF Urine Bacteria (None Seen) Hyaline Casts (0-2) /LPF 08/27/23 08/27/23 08/27/23 Range/Units 21:14 21:59 22:01 WBC (4.8-10.8) X10*3/uL RBC (4.60-5.80) X10*6/uL Hgb (14.0-18.0) g/dl Hct (42.0-52.0) % MCV (80.0-98.0) fL MCH (27.0-33.0) pg MCHC (31.0-36.0) g/dl RDW (11.0-16.0) % Plt Count (160-400) X10*3/uL MPV (9.4-12.4) fL Immature Gran % (Auto) (0.0-0.4) % Neut % (Auto) (45-73) % Lymph % (Auto) (20-40) % [place] % (Auto) (2-11) % Eos % (Auto) (0-4) % Baso % (Auto) (0-2) % Lymph # (Auto) (1.2-4.9) X10*3/uL [place] # (Auto) (0.1-1.2) X10*3/uL Eos # (Auto) (0.0-0.4) X10*3/uL Baso # (Auto) (0.0-0.2) X10*3/uL Abs Immat Gran (auto) (0.00-0.03) X10*3/uL Absolute Neuts (auto) (2.0-8.3) x10*3/uL Absolute Nucleated RBC (0.0-0.012) X10*3/uL Nucleated RBC % (auto) (0.0-0.2) /100WBC PT (11.1-13.3) SEC INR (0.9-1.1) APTT (26.0-36.8) SEC VBG pH (7.32-7.43) VBG pCO2 mmHg VBG pO2 mmHg VBG HCO3 (22-26) mmol/L VBG O2 Saturation % VBG Base Excess mmol/L Sodium (135-145) mmol/L Potassium (3.3-5.1) mmol/L Chloride (96-108) mmol/L Carbon Dioxide (22-29) mmol/L Anion Gap (12-20) BUN (9-16) mg/dL Creatinine (0.5-1.4) mg/dL Estim Creat Clear Calc Estimated GFR POC Glucose > 600 H* 490 H* (60-115) mg/dL Random Glucose (60-115) mg/dL Lactic Acid (0.5-2.0) mmol/L Lactic Acid F/U @ 2Hr 3.2 H* (0.5-2.0) mmol/L Calcium (8.4-10.2) mg/dL Magnesium (1.6-2.6) mg/dL Total Bilirubin (0.0-1.0) mg/dL AST (5-37) U/L ALT (0-40) U/L Alkaline Phosphatase (39-117) U/L Troponin I High Sens (<3.5-35.0) ng/L B-Natriuretic Peptide (<100) pg/mL Total Protein (6.5-8.0) g/dL Albumin (3.5-5.0) g/dL Beta-Hydroxybutyrate (0.02-0.27) mmol/L Urine Color Urine Appearance Urine pH (5.0-9.0) Ur Specific [place] (1.005-1.025) Urine Protein (Neg-Trace) mg/dL Urine Glucose (UA) (Negative) mg/dL Urine Ketones (Negative) mg/dL Urine Blood (Negative) Urine Nitrite (Negative) Ur Leukocyte Esterase (Negative) Urine RBC (0-2) /HPF Urine WBC (0-5) /HPF Urine WBC Clumps Ur Squamous Epith Cells (0-2) /HPF Urine Bacteria (None Seen) Hyaline Casts (0-2) /LPF 08/27/23 08/27/23 08/28/23 Range/Units 22:57 23:11 00:00 WBC (4.8-10.8) X10*3/uL RBC (4.60-5.80) X10*6/uL Hgb (14.0-18.0) g/dl Hct (42.0-52.0) % MCV (80.0-98.0) fL MCH (27.0-33.0) pg MCHC (31.0-36.0) g/dl RDW (11.0-16.0) % Plt Count (160-400) X10*3/uL MPV (9.4-12.4) fL Immature Gran % (Auto) (0.0-0.4) % Neut % (Auto) (45-73) % Lymph % (Auto) (20-40) % [place] % (Auto) (2-11) % Eos % (Auto) (0-4) % Baso % (Auto) (0-2) % Lymph # (Auto) (1.2-4.9) X10*3/uL [place] # (Auto) (0.1-1.2) X10*3/uL Eos # (Auto) (0.0-0.4) X10*3/uL Baso # (Auto) (0.0-0.2) X10*3/uL Abs Immat Gran (auto) (0.00-0.03) X10*3/uL Absolute Neuts (auto) (2.0-8.3) x10*3/uL Absolute Nucleated RBC (0.0-0.012) X10*3/uL Nucleated RBC % (auto) (0.0-0.2) /100WBC PT (11.1-13.3) SEC INR (0.9-1.1) APTT (26.0-36.8) SEC VBG pH (7.32-7.43) VBG pCO2 mmHg VBG pO2 mmHg VBG HCO3 (22-26) mmol/L VBG O2 Saturation % VBG Base Excess mmol/L Sodium 158 H (135-145) mmol/L Potassium 3.6 (3.3-5.1) mmol/L Chloride 127 H (96-108) mmol/L Carbon Dioxide 18 L (22-29) mmol/L Anion Gap 17 (12-20) BUN 56 H (9-16) mg/dL Creatinine 1.96 H (0.5-1.4) mg/dL Estim Creat Clear Calc 30.7 Estimated GFR 34 POC Glucose 441 H* 400 H* (60-115) mg/dL Random Glucose 549 H* (60-115) mg/dL Lactic Acid (0.5-2.0) mmol/L Lactic Acid F/U @ 2Hr (0.5-2.0) mmol/L Calcium 8.9 D (8.4-10.2) mg/dL Magnesium (1.6-2.6) mg/dL Total Bilirubin 0.3 (0.0-1.0) mg/dL AST 22 (5-37) U/L ALT 18 (0-40) U/L Alkaline Phosphatase 109 (39-117) U/L Troponin I High Sens (<3.5-35.0) ng/L B-Natriuretic Peptide (<100) pg/mL Total Protein 7.1 (6.5-8.0) g/dL Albumin 3.8 (3.5-5.0) g/dL Beta-Hydroxybutyrate (0.02-0.27) mmol/L Urine Color Urine Appearance Urine pH (5.0-9.0) Ur Specific [place] (1.005-1.025) Urine Protein (Neg-Trace) mg/dL Urine Glucose (UA) (Negative) mg/dL Urine Ketones (Negative) mg/dL Urine Blood (Negative) Urine Nitrite (Negative) Ur Leukocyte Esterase (Negative) Urine RBC (0-2) /HPF Urine WBC (0-5) /HPF Urine WBC Clumps Ur Squamous Epith Cells (0-2) /HPF Urine Bacteria (None Seen) Hyaline Casts (0-2) /LPF 08/28/23 08/28/23 Range/Units 01:03 01:40 WBC (4.8-10.8) X10*3/uL RBC (4.60-5.80) X10*6/uL Hgb (14.0-18.0) g/dl Hct (42.0-52.0) % MCV (80.0-98.0) fL MCH (27.0-33.0) pg MCHC (31.0-36.0) g/dl RDW (11.0-16.0) % Plt Count (160-400) X10*3/uL MPV (9.4-12.4) fL Immature Gran % (Auto) (0.0-0.4) % Neut % (Auto) (45-73) % Lymph % (Auto) (20-40) % [place] % (Auto) (2-11) % Eos % (Auto) (0-4) % Baso % (Auto) (0-2) % Lymph # (Auto) (1.2-4.9) X10*3/uL [place] # (Auto) (0.1-1.2) X10*3/uL Eos # (Auto) (0.0-0.4) X10*3/uL Baso # (Auto) (0.0-0.2) X10*3/uL Abs Immat Gran (auto) (0.00-0.03) X10*3/uL Absolute Neuts (auto) (2.0-8.3) x10*3/uL Absolute Nucleated RBC (0.0-0.012) X10*3/uL Nucleated RBC % (auto) (0.0-0.2) /100WBC PT (11.1-13.3) SEC INR (0.9-1.1) APTT (26.0-36.8) SEC VBG pH (7.32-7.43) VBG pCO2 mmHg VBG pO2 mmHg VBG HCO3 (22-26) mmol/L VBG O2 Saturation % VBG Base Excess mmol/L Sodium 156 H (135-145) mmol/L Potassium 3.5 (3.3-5.1) mmol/L Chloride 125 H (96-108) mmol/L Carbon Dioxide 18 L (22-29) mmol/L Anion Gap 17 (12-20) BUN 55 H (9-16) mg/dL Creatinine 1.60 H (0.5-1.4) mg/dL Estim Creat Clear Calc 37.6 Estimated GFR 43 POC Glucose 340 H (60-115) mg/dL Random Glucose 368 H* (60-115) mg/dL Lactic Acid (0.5-2.0) mmol/L Lactic Acid F/U @ 2Hr (0.5-2.0) mmol/L Calcium 8.7 (8.4-10.2) mg/dL Magnesium (1.6-2.6) mg/dL Total Bilirubin (0.0-1.0) mg/dL AST (5-37) U/L ALT (0-40) U/L Alkaline Phosphatase (39-117) U/L Troponin I High Sens (<3.5-35.0) ng/L B-Natriuretic Peptide (<100) pg/mL Total Protein (6.5-8.0) g/dL Albumin (3.5-5.0) g/dL Beta-Hydroxybutyrate (0.02-0.27) mmol/L Urine Color Urine Appearance Urine pH (5.0-9.0) Ur Specific Liguori (1.005-1.025) Urine Protein (Neg-Trace) mg/dL Urine Glucose (UA) (Negative) mg/dL Urine Ketones (Negative) mg/dL Urine Blood (Negative) Urine Nitrite (Negative) Ur Leukocyte Esterase (Negative) Urine RBC (0-2) /HPF Urine WBC (0-5) /HPF Urine WBC Clumps Ur Squamous Epith Cells (0-2) /HPF Urine Bacteria (None Seen) Hyaline Casts (0-2) /LPF Independent Interpretation I performed an independent interpretation of an: EKG Interpretation: Sinus tachycardia heart rate 113 beats per minute left atrial enlargement normal intervals normal axis no acute ST wave changes Critical Care Time Critical Care Time Critical Care Time: Yes Total Critical Care Time: 90 Attestation: The patient was critically ill with a high probability of imminent or life threatening deterioration. I spent greater than 100???minutes of discontinuous time evaluating the patient,delivering critical care at the bedside, discussing and evaluating pertinent data with consultants. Critical care time does not include time spent performing separately billable procedures or teaching. Total time spent performing critical care was 90???minutes. Discharge Plan Discharge Clinical Impression: Diabetic ketoacidosis, MARYSOL (acute kidney injury), Acute hypernatremia, Acute alteration in mental status Patient Disposition: Admitted As Inpatient
[2023-08-27 18:27] LABS: Glucose, Whole Blood > 600 mg/dL (60-115)
[2023-08-27 18:27] LABS: Glucose, Whole Blood > 600 mg/dL (60-115)
--- NOTE | 2023-08-27 18:33 | ECG_ITS ---
Test Reason : AMS Blood Pressure : / mmHG Vent. Rate : 113 BPM Atrial Rate : 113 BPM P-R Int : 132 ms QRS Dur : 090 ms QT Int : 376 ms P-R-T Axes : 024 021 -48 degrees QTc Int : 515 ms Sinus tachycardia Possible Left atrial enlargement Possible Inferior infarct , age undetermined Abnormal ECG When compared to the previous EKG of No significant changes seen Referred By: Hasmukh Ayon Electronically Signed By:Kal Bryant
[2023-08-27 18:57] LABS: MANUAL DIFF FLAG NO
[2023-08-27 19:00] LABS: Basophils Percent Auto 0.2 % (0-2); Hematocrit 43.5 % (42.0-52.0); Hemoglobin 14.7 g/dl (14.0-18.0); Imm Gran Abs Auto 0.29 X10*3/uL (0.00-0.03); Imm Gran Pct Auto 1.8 % (0.0-0.4); Lymphocytes Absolute Auto 0.8 X10*3/uL (1.2-4.9); Lymphocytes Percent Auto 5.2 % (20-40); Mean Corpuscular HGB Conc 33.8 g/dl (31.0-36.0); Mean Corpuscular Hemoglobin 28.7 pg (27.0-33.0); Mean Platelet Volume 11.4 fL (9.4-12.4); Monocytes Percent Auto 6.4 % (2-11); Neutrophils Absolute Auto 13.6 x10*3/uL (2.0-8.3); Neutrophils Percent Auto 86.4 % (45-73); Platelet Count 219 X10*3/uL (160-400); Red Blood Count 5.12 X10*6/uL (4.60-5.80); Red Cell Distribution Width 13.8 % (11.0-16.0); White Blood Count 15.7 X10*3/uL (4.8-10.8)
[2023-08-27] MEDS: 0.9 % Sodium Chloride 1,000 ML 999 ML IV ×3 (19:02→20:12)
[2023-08-27] MEDS: Insulin Regular, Human 100 UNIT/ML 3 ML VIAL 10 UNIT IVPUSH (19:02)
[2023-08-27 19:04] LABS: VBG Base Excess -11.6 mmol/L; VBG HCO3 14 mmol/L (22-26); VBG pCO2 34 mmHg; VBG pH 7.23 (7.32-7.43); VBG pO2 55 mmHg
[2023-08-27 19:06] LABS: Prothrombin Time 11.9 SEC (11.1-13.3)
[2023-08-27 19:09] LABS: Venous Blood Gas Refer to POC result
[2023-08-27 19:12] LABS: Appearance Urine Clear; Color Urine Yellow; Glucose Urine UA >=1000 mg/dL (Negative); Leukocyte Esterase Urine Small (1+) (Negative); Nitrite Urine Negative (Negative); Specific Gravity - Urine >= 1.030 (1.005-1.025); UMIC TRIGGER UACC YES; Urine Blood Large (3+) (Negative); Urine Ketones Trace mg/dL (Negative); Urine Protein Trace mg/dL (Neg-Trace)
[2023-08-27 19:21] LABS: B Type Natriuretic Peptide 85 pg/mL (<100)
[2023-08-27 19:24] LABS: Troponin-I High Sensitivity 19.2 ng/L (<3.5-35.0)
[2023-08-27 19:26] LABS: Partial Thromboplastin Time 23.8 SEC (26.0-36.8)
[2023-08-27 19:32] LABS: Bacteria Urine None Seen (None Seen); Hyaline Casts Urine 0-2 /LPF (0-2); Squamous Epithelial Cell Urine 0-2 /HPF (0-2); UACC Culture Trigger YES; WBC Clumps Urine Present
[2023-08-27 19:36] LABS: Alanine Aminotransferase 19 U/L (0-40); Albumin Level 4.5 g/dL (3.5-5.0); Alkaline Phosphatase 136 U/L (39-117); Anion Gap 29 (12-20); Aspartate Amino Transferase 16 U/L (5-37); Beta-Hydroxybutyrate 4.92 mmol/L (0.02-0.27); Bilirubin Total 0.5 mg/dL (0.0-1.0); Blood Urea Nitrogen 72 mg/dL (9-16); Calcium 9.7 mg/dL (8.4-10.2); Carbon Dioxide 16 mmol/L (22-29); Chloride 107 mmol/L (96-108); Creatinine Clr Calc Pharmacy 21.9; Estimated Glomerular Filt Rate 23; Glucose Random 1115 mg/dL (60-115); Potassium 4.3 mmol/L (3.3-5.1); Sodium 148 mmol/L (135-145); Total Protein 8.1 g/dL (6.5-8.0)
[2023-08-27 19:37] LABS: Lactic Acid 5.5 mmol/L (0.5-2.0); Magnesium 3.5 mg/dL (1.6-2.6)
[2023-08-27 19:45] LABS: Glucose, Whole Blood > 600 mg/dL (60-115)
[2023-08-27 19:45] LABS: Glucose, Whole Blood > 600 mg/dL (60-115)
[2023-08-27] MEDS: Insulin Regular/NS 100 UNIT/100 ML PLAST..BAG 6 UNIT IVCONT (19:53)
--- NOTE | 2023-08-27 20:11 | PC.NURSE ---
Patient found to have POC > 1000, provider made aware. Insulin gtt started @ 6 units, recheck POC in 1 hour. Patient bladder scanned, retaining > 600, FC placed with good immediate output.
[2023-08-27] MEDS: cefTRIAXone sodium 1 GM in 0.9 % Sodium Chloride 50 ML IV (20:12)
[2023-08-27 20:56] LABS: Reflex Lactate? Lactic Acid Added
--- NOTE | 2023-08-27 21:05 | PC.NURSE ---
Patient POC recheck >600, provider made aware, insulin gtt titrated per protocol with Amberly LOPEZ. 1 L bolus done, 2 more running.
--- NOTE | 2023-08-27 21:17 | PHA.MEDREC ---
Pharmacy Consult ? Medication Reconciliation Pharmacy has completed the medication reconciliation. Patient with AMS. Patient very confused. Was able to confirmed medications based on claim history, however he could not confirm any doses. Patient has filled both Keprra 250 mg and 500 mg. Patient stated 250 however he was not too sure. Will have pharmacist F/U in the morning. Ester Raymond, KevinD
[2023-08-27 21:40] LABS: ~Lactic Acid-LAB USE ONLY 3.2 mmol/L (0.5-2.0)
[2023-08-27 21:40] LABS: Glucose, Whole Blood > 600 mg/dL (60-115)
[2023-08-27 21:41] LABS: Glucose, Whole Blood > 600 mg/dL (60-115)
[2023-08-27 22:05] LABS: Glucose, Whole Blood 490 mg/dL (60-115)
[2023-08-27 22:05] LABS: Glucose, Whole Blood > 600 mg/dL (60-115)
--- NOTE | 2023-08-27 22:08 | PC.NURSE ---
Bedside POC 490, Insulin gtt titrated following protocol, confirmed with provider.
[2023-08-27 22:43] LABS: Cancel Lactic Acid Canceled
--- NOTE | 2023-08-27 22:58 | PC.NURSE ---
Bedside POC 441, Insulin gtt followed per protocol, no adjustment needed at this time, confirmed with second rn elvin.
[2023-08-27 23:01] LABS: Glucose, Whole Blood 441 mg/dL (60-115)
[2023-08-27 23:33] LABS: Alanine Aminotransferase 18 U/L (0-40); Albumin Level 3.8 g/dL (3.5-5.0); Alkaline Phosphatase 109 U/L (39-117); Anion Gap 17 (12-20); Aspartate Amino Transferase 22 U/L (5-37); Bilirubin Total 0.3 mg/dL (0.0-1.0); Blood Urea Nitrogen 56 mg/dL (9-16); Calcium 8.9 mg/dL (8.4-10.2); Carbon Dioxide 18 mmol/L (22-29); Chloride 127 mmol/L (96-108); Creatinine Clr Calc Pharmacy 30.7; Estimated Glomerular Filt Rate 34; Glucose Random 549 mg/dL (60-115); Potassium 3.6 mmol/L (3.3-5.1); Sodium 158 mmol/L (135-145); Total Protein 7.1 g/dL (6.5-8.0)
[2023-08-28] VITALS (10 sets, daily range): BP systolic 103–136; BP diastolic 62–77; PULSE 72–95; RESP 12–20; TEMP 36.4–37.2; O2SAT 86–97
[2023-08-28 00:03] LABS: Glucose, Whole Blood 400 mg/dL (60-115)
[2023-08-28] MEDS: Sodium Chloride 0.45 % 1,000 ML 250 ML IVCONT (00:26)
[2023-08-28 01:10] LABS: Glucose, Whole Blood 340 mg/dL (60-115)
[2023-08-28] MEDS: Insulin Glargine,Hum.rec.anlog 100 UNIT/ML 10 ML VIAL 30 UNIT SUBCUT (01:41)
[2023-08-28 02:00] LABS: Anion Gap 17 (12-20); Blood Urea Nitrogen 55 mg/dL (9-16); Calcium 8.7 mg/dL (8.4-10.2); Carbon Dioxide 18 mmol/L (22-29); Chloride 125 mmol/L (96-108); Creatinine Clr Calc Pharmacy 37.6; Estimated Glomerular Filt Rate 43; Glucose Random 368 mg/dL (60-115); Potassium 3.5 mmol/L (3.3-5.1); Sodium 156 mmol/L (135-145)
--- NOTE | 2023-08-28 02:31 | PC.NURSE ---
Assumed care of pt. Pt lyingon stretcher, no acute distress at this time. Repositioned for comfort and to improve respiratory capability. Additional labs obtained.
[2023-08-28 02:53] LABS: Venous Blood Gas Refer to POC result
[2023-08-28 02:55] LABS: VBG Base Excess -3.5 mmol/L; VBG HCO3 20 mmol/L (22-26); VBG pCO2 32 mmHg; VBG pO2 47 mmHg
[2023-08-28 03:00] LABS: Lactic Acid 1.7 mmol/L (0.5-2.0)
[2023-08-28 03:04] LABS: Glucose, Whole Blood 448 mg/dL (60-115)
[2023-08-28] MEDS: levETIRAcetam 250 MG in 0.9 % Sodium Chloride 100 ML 410 MG IV (03:56)
[2023-08-28] MEDS: Insulin Regular, Human 100 UNIT/ML 3 ML VIAL IVPUSH (03:56)
[2023-08-28 04:02] LABS: Glucose, Whole Blood 282 mg/dL (60-115)
[2023-08-28 05:09] LABS: Glucose, Whole Blood 256 mg/dL (60-115)
[2023-08-28 05:26] LABS: Alanine Aminotransferase 18 U/L (0-40); Albumin Level 3.7 g/dL (3.5-5.0); Alkaline Phosphatase 103 U/L (39-117); Anion Gap 15 (12-20); Aspartate Amino Transferase 33 U/L (5-37); Bilirubin Total 0.3 mg/dL (0.0-1.0); Blood Urea Nitrogen 51 mg/dL (9-16); Calcium 8.4 mg/dL (8.4-10.2); Carbon Dioxide 21 mmol/L (22-29); Chloride 123 mmol/L (96-108); Creatinine Clr Calc Pharmacy 41.5; Estimated Glomerular Filt Rate 48; Glucose Random 280 mg/dL (60-115); Potassium 3.8 mmol/L (3.3-5.1); Sodium 155 mmol/L (135-145); Total Protein 6.6 g/dL (6.5-8.0)
[2023-08-28] MEDS: Sodium Chloride 0.45 % 1,000 ML 100 ML IVCONT ×2 (05:42→17:34)
--- NOTE | 2023-08-28 07:00 | P.HPHOSP_ITS ---
History of Present Illness Date of Service: 08/28/23 Attending physician on admission: Andrea Wade Chief Complaint: Altered mental status Adrián Cano is a 73 years old man with past medical history significant for meningioma s/p resection and type 2 diabetes on metformin was brought to the emergency department after he was found to be altered. A friend did a wellness checks and found him altered. HPI was difficult to obtain due to patient's confusion. He was able to say that everything hurts. According to ED provider patient has been very depressed because his dog . In the ED, he was initially found to have sinus tachycardia and tachypnea. The pressure is normal and there is no fever. His oxygen saturation was found to be in the 88% and is currently requiring 4 L/min supplemental oxygen. His blood workup showed leukocytosis, 15.7. His glucose was initially found to be 1115, creatinine 2.75, bicarb 16 and hyponatremia of 155, pH 7.23. INR is normal. His CT scan showed his least stable post craniotomy shortness with extensive gliosis and encephalomalacia involving the frontal lobes. CXR showed subsegmental atelectasis and/or hearing of the left lower lobe. There is no consolidations or pleural effusions. ED tx: Insulin IV infusion >> started on Lantus 30 units subcut, insulin R 10 units IV, NS, 3L NS, ceftriaxone 1 g IV. Review of Systems 2 Review of Systems: All 12 systems were reviewed and normal except as noted in HPI. [facility] Medical History Elevated liver enzymes Pre-diabetes Immunization counseling Opioid dependence, uncomplicated Chronic, continuous use of opioids Pneumothorax, left Fall Closed fracture nasal bone Abrasion of face Screening for osteoporosis Low HDL (under 40) Right elbow pain Opioid use Frontal headache Adult general medical exam Screening for prostate cancer Colon cancer screening Headache Mild dehydration Low back pain Muscle spasm History of blood transfusion Back pain Brain tumor Meningioma PTSD (post-traumatic stress disorder) Anxiety Depression Anemia Thrombocytopenia GERD (gastroesophageal reflux disease) CAD (coronary artery disease) Sacroiliitis Hx of thrombocytopenia Anemia Hx of small bowel obstruction GERD (gastroesophageal reflux disease) Migraine Depression Hx of meningioma of the brain PTSD (post-traumatic stress disorder) Anxiety Peyronie's disease CAD (coronary artery disease) HTN (hypertension) Family History Father No problems noted. Mother No problems noted. Brother No problems noted. Sister No problems noted. Sister No problems noted. Sister No problems noted. Surgical History H/O craniotomy Hx of CABG History of resection of meningioma History of back surgery Hx of colonoscopy History of nasal surgery History of bowel resection History of quadruple bypass Hx of CABG Social History Household Members: None [facility] Are you a primary palliative care nurse to a significant other at home: No Alcohol intake: never Patient Tobacco Use Status: Tobacco use Unknown e-Cigarette/Vaping Use: Never Used Second Hand Smoke Exposure: No service: No Current occupational status: retired Current occupational exposures/hazards: No Cognitive needs: No Hearing needs: No Vision needs: Yes (Reading glasses) Meds Allergies Allergy/AdvReac Type Severity Reaction Status Date / Time acetaminophen [From TYLENOL] AdvReac Intermediate gi upset Verified 07/22/23 11:52 Active Medications: Current Medications Acetaminophen (Acetaminophen 325 Mg Tablet) 650 mg PO Q6H PRN PRN Reason: Pain, Mild (Pain Scale 1-3) Dextrose (Dextrose 50 % 25 Gm/50 Ml Syringe) 25 gm IVPUSH Q30M PRN PRN Reason: BG < 70 Dextrose (Dextrose 50 % 25 Gm/50 Ml Syringe) 25 gm IVPUSH Q15M PRN; Protocol PRN Reason: per Hypoglycemia Standing Ord. Glucose (Glucose Gel 15 Gm Gel..Gram.) 15 gm PO Q15M PRN; Protocol PRN Reason: per Hypoglycemia Standing Ord. Heparin Sodium (Porcine) (Heparin Sodium,Porcine 5,000 Unit/Ml Vial) 5,000 unit SUBCUT Q8H ARELY Sodium Chloride (Sodium Chloride 0.45 %) 1,000 mls @ 100 mls/hr IVCONT .Q10H ARELY Last Admin: 08/28/23 05:42 Dose: 100 mls/hr Insulin Glargine (Insulin Glargine,Hum.Rec.Anlog 100 Unit/Ml 10 Ml Vial) 20 unit SUBCUT BEDTIME ARELY Insulin Human Lispro (Insulin Lispro 100 Unit/Ml 3 Ml Vial) 0 unit SUBCUT QIDACHS [facility]; Protocol Sodium Chloride (0.9 % Sodium Chloride Flush 3 Ml Syringe) 3 ml IVFLUSH QSHIFT [facility] Home Medications Medication Instructions Recorded Confirmed Last Taken Type buspirone 5 mg tablet 5 mg PO DAILY 08/27/23 08/27/23 Unknown History buspirone 5 mg tablet 10 mg PO BEDTIME 08/27/23 08/27/23 Unknown History levetiracetam 250 mg tablet 250 mg PO BID 08/27/23 08/27/23 Unknown History phenobarbital 30 mg tablet 30 mg PO BEDTIME 08/27/23 08/27/23 Unknown History trazodone 100 mg tablet 100 - 200 mg PO BEDTIME PRN 08/27/23 08/27/23 Unknown History Insomnia Physical Exam 2 Vital Signs and Narrative: Vital Signs: Last Vital Signs Temp 98.2 F 08/28/23 05:18 Pulse 85 08/28/23 05:18 Resp 12 08/28/23 05:18 BP 129/76 08/28/23 05:18 Pulse Ox 96 08/28/23 05:18 O2 Del Method Nasal Cannula wit h Capnography 08/28/23 05:18 O2 Flow Rate 4 08/28/23 05:18 Oxygen Flow Rate 2 08/27/23 18:11 BMI result Body Mass Index 23.1 Constitutional - Awake and Alert, No apparent distress. Confused. HEENT- PERRLA, EOMI. Normal sclerae. Dry oral mucosa. Heart - RRR. No murmurs Lungs - Normal lung expansion, Normal respiratory effort, No respiratory distress, decreased breath sound at bases. No wheezing. No crackles Abdomen - NT / ND; +BS; No rebound or guarding Extremities - no calf tenderness bilaterally, no swelling Musculoskeletal - Normal inspection, normal ROM Skin - Warm/Dry Neurological - Alert & oriented x2. No focal weakness grossly noted. Normal speech. Follows simple commands. Confused at time. Psychological - Appropriate affect Results Labs 08/27/23 18:49 08/28/23 05:05 Labs: Laboratory Results - last 24 hr 08/27/23 08/27/23 08/27/23 18:05 18:10 18:48 MCV MCH MCHC RDW Plt Count MPV Immature Gran % (Auto) Neut % (Auto) Lymph % (Auto) [place] % (Auto) Eos % (Auto) Baso % (Auto) Lymph # (Auto) [place] # (Auto) Eos # (Auto) Baso # (Auto) Abs Immat Gran (auto) Absolute Neuts (auto) Absolute Nucleated RBC Nucleated RBC % (auto) PT INR APTT VBG pH VBG pCO2 VBG pO2 VBG HCO3 VBG O2 Saturation VBG Base Excess Anion Gap Estim Creat Clear Calc Estimated GFR POC Glucose > 600 H* > 600 H* Random Glucose Lactic Acid Lactic Acid F/U @ 2Hr Calcium Magnesium Total Bilirubin AST ALT Alkaline Phosphatase Troponin I High Sens B-Natriuretic Peptide Total Protein Albumin Beta-Hydroxybutyrate Urine Color Yellow Urine Appearance Clear Urine pH 5.0 Ur Specific [place] >= 1.030 H Urine Protein Trace Urine Glucose (UA) >=1000 H Urine Ketones Trace Urine Blood Large (3+) H Urine Nitrite Negative Ur Leukocyte Esterase Small (1+) H Urine RBC 3-5 H Urine WBC 11-20 Urine WBC Clumps Present Ur Squamous Epith Cells 0-2 Urine Bacteria None Seen Hyaline Casts 0-2 08/27/23 08/27/23 08/27/23 18:49 18:56 19:35 MCV 85.0 MCH 28.7 MCHC 33.8 RDW 13.8 Plt Count 219 MPV 11.4 Immature Gran % (Auto) 1.8 H Neut % (Auto) 86.4 H Lymph % (Auto) 5.2 L [place] % (Auto) 6.4 Eos % (Auto) 0.0 Baso % (Auto) 0.2 Lymph # (Auto) 0.8 L [place] # (Auto) 1.0 Eos # (Auto) 0.0 Baso # (Auto) 0.0 Abs Immat Gran (auto) 0.29 H Absolute Neuts (auto) 13.6 H Absolute Nucleated RBC 0.000 Nucleated RBC % (auto) 0.0 PT 11.9 INR 1.0 APTT 23.8 L VBG pH 7.23 L VBG pCO2 34 VBG pO2 55 VBG HCO3 14 L VBG O2 Saturation 78.0 VBG Base Excess -11.6 Anion Gap 29 H Estim Creat Clear Calc 21.9 Estimated GFR 23 POC Glucose > 600 H* Random Glucose 1115 H* Lactic Acid 5.5 H* Lactic Acid F/U @ 2Hr Calcium 9.7 Magnesium 3.5 H* Total Bilirubin 0.5 AST 16 ALT 19 Alkaline Phosphatase 136 H Troponin I High Sens 19.2 B-Natriuretic Peptide 85 Total Protein 8.1 H Albumin 4.5 Beta-Hydroxybutyrate 4.92 H Urine Color Urine Appearance Urine pH Ur Specific [place] Urine Protein Urine Glucose (UA) Urine Ketones Urine Blood Urine Nitrite Ur Leukocyte Esterase Urine RBC Urine WBC Urine WBC Clumps Ur Squamous Epith Cells Urine Bacteria Hyaline Casts 08/27/23 08/27/23 08/27/23 19:41 20:55 21:03 MCV MCH MCHC RDW Plt Count MPV Immature Gran % (Auto) Neut % (Auto) Lymph % (Auto) [place] % (Auto) Eos % (Auto) Baso % (Auto) Lymph # (Auto) [place] # (Auto) Eos # (Auto) Baso # (Auto) Abs Immat Gran (auto) Absolute Neuts (auto) Absolute Nucleated RBC Nucleated RBC % (auto) PT INR APTT VBG pH VBG pCO2 VBG pO2 VBG HCO3 VBG O2 Saturation VBG Base Excess Anion Gap Estim Creat Clear Calc Estimated GFR POC Glucose > 600 H* > 600 H* > 600 H* Random Glucose Lactic Acid Lactic Acid F/U @ 2Hr Calcium Magnesium Total Bilirubin AST ALT Alkaline Phosphatase Troponin I High Sens B-Natriuretic Peptide Total Protein Albumin Beta-Hydroxybutyrate Urine Color Urine Appearance Urine pH Ur Specific [place] Urine Protein Urine Glucose (UA) Urine Ketones Urine Blood Urine Nitrite Ur Leukocyte Esterase Urine RBC Urine WBC Urine WBC Clumps Ur Squamous Epith Cells Urine Bacteria Hyaline Casts 08/27/23 08/27/23 08/27/23 21:14 21:59 22:01 MCV MCH MCHC RDW Plt Count MPV Immature Gran % (Auto) Neut % (Auto) Lymph % (Auto) [place] % (Auto) Eos % (Auto) Baso % (Auto) Lymph # (Auto) [place] # (Auto) Eos # (Auto) Baso # (Auto) Abs Immat Gran (auto) Absolute Neuts (auto) Absolute Nucleated RBC Nucleated RBC % (auto) PT INR APTT VBG pH VBG pCO2 VBG pO2 VBG HCO3 VBG O2 Saturation VBG Base Excess Anion Gap Estim Creat Clear Calc Estimated GFR POC Glucose > 600 H* 490 H* Random Glucose Lactic Acid Lactic Acid F/U @ 2Hr 3.2 H* Calcium Magnesium Total Bilirubin AST ALT Alkaline Phosphatase Troponin I High Sens B-Natriuretic Peptide Total Protein Albumin Beta-Hydroxybutyrate Urine Color Urine Appearance Urine pH Ur Specific [place] Urine Protein Urine Glucose (UA) Urine Ketones Urine Blood Urine Nitrite Ur Leukocyte Esterase Urine RBC Urine WBC Urine WBC Clumps Ur Squamous Epith Cells Urine Bacteria Hyaline Casts 08/27/23 08/27/23 08/28/23 22:57 23:11 00:00 MCV MCH MCHC RDW Plt Count MPV Immature Gran % (Auto) Neut % (Auto) Lymph % (Auto) [place] % (Auto) Eos % (Auto) Baso % (Auto) Lymph # (Auto) [place] # (Auto) Eos # (Auto) Baso # (Auto) Abs Immat Gran (auto) Absolute Neuts (auto) Absolute Nucleated RBC Nucleated RBC % (auto) PT INR APTT VBG pH VBG pCO2 VBG pO2 VBG HCO3 VBG O2 Saturation VBG Base Excess Anion Gap 17 Estim Creat Clear Calc 30.7 Estimated GFR 34 POC Glucose 441 H* 400 H* Random Glucose 549 H* Lactic Acid Lactic Acid F/U @ 2Hr Calcium 8.9 D Magnesium Total Bilirubin 0.3 AST 22 ALT 18 Alkaline Phosphatase 109 Troponin I High Sens B-Natriuretic Peptide Total Protein 7.1 Albumin 3.8 Beta-Hydroxybutyrate Urine Color Urine Appearance Urine pH Ur Specific [place] Urine Protein Urine Glucose (UA) Urine Ketones Urine Blood Urine Nitrite Ur Leukocyte Esterase Urine RBC Urine WBC Urine WBC Clumps Ur Squamous Epith Cells Urine Bacteria Hyaline Casts 08/28/23 08/28/23 08/28/23 01:03 01:40 02:43 MCV MCH MCHC RDW Plt Count MPV Immature Gran % (Auto) Neut % (Auto) Lymph % (Auto) [place] % (Auto) Eos % (Auto) Baso % (Auto) Lymph # (Auto) [place] # (Auto) Eos # (Auto) Baso # (Auto) Abs Immat Gran (auto) Absolute Neuts (auto) Absolute Nucleated RBC Nucleated RBC % (auto) PT INR APTT VBG pH VBG pCO2 VBG pO2 VBG HCO3 VBG O2 Saturation VBG Base Excess Anion Gap 17 Estim Creat Clear Calc 37.6 Estimated GFR 43 POC Glucose 340 H Random Glucose 368 H* Lactic Acid 1.7 Lactic Acid F/U @ 2Hr Calcium 8.7 Magnesium Total Bilirubin AST ALT Alkaline Phosphatase Troponin I High Sens B-Natriuretic Peptide Total Protein Albumin Beta-Hydroxybutyrate Urine Color Urine Appearance Urine pH Ur Specific [place] Urine Protein Urine Glucose (UA) Urine Ketones Urine Blood Urine Nitrite Ur Leukocyte Esterase Urine RBC Urine WBC Urine WBC Clumps Ur Squamous Epith Cells Urine Bacteria Hyaline Casts 08/28/23 08/28/23 08/28/23 02:45 03:00 03:57 MCV MCH MCHC RDW Plt Count MPV Immature Gran % (Auto) Neut % (Auto) Lymph % (Auto) [place] % (Auto) Eos % (Auto) Baso % (Auto) Lymph # (Auto) [place] # (Auto) Eos # (Auto) Baso # (Auto) Abs Immat Gran (auto) Absolute Neuts (auto) Absolute Nucleated RBC Nucleated RBC % (auto) PT INR APTT VBG pH 7.40 VBG pCO2 32 VBG pO2 47 VBG HCO3 20 L VBG O2 Saturation 80.0 VBG Base Excess -3.5 Anion Gap Estim Creat Clear Calc Estimated GFR POC Glucose 448 H* 282 H Random Glucose Lactic Acid Lactic Acid F/U @ 2Hr Calcium Magnesium Total Bilirubin AST ALT Alkaline Phosphatase Troponin I High Sens B-Natriuretic Peptide Total Protein Albumin Beta-Hydroxybutyrate Urine Color Urine Appearance Urine pH Ur Specific [place] Urine Protein Urine Glucose (UA) Urine Ketones Urine Blood Urine Nitrite Ur Leukocyte Esterase Urine RBC Urine WBC Urine WBC Clumps Ur Squamous Epith Cells Urine Bacteria Hyaline Casts 08/28/23 05:05 MCV MCH MCHC RDW Plt Count MPV Immature Gran % (Auto) Neut % (Auto) Lymph % (Auto) [place] % (Auto) Eos % (Auto) Baso % (Auto) Lymph # (Auto) [place] # (Auto) Eos # (Auto) Baso # (Auto) Abs Immat Gran (auto) Absolute Neuts (auto) Absolute Nucleated RBC Nucleated RBC % (auto) PT INR APTT VBG pH VBG pCO2 VBG pO2 VBG HCO3 VBG O2 Saturation VBG Base Excess Anion Gap 15 Estim Creat Clear Calc 41.5 Estimated GFR 48 POC Glucose 256 H Random Glucose 280 H Lactic Acid Lactic Acid F/U @ 2Hr Calcium 8.4 Magnesium Total Bilirubin 0.3 AST 33 ALT 18 Alkaline Phosphatase 103 Troponin I High Sens B-Natriuretic Peptide Total Protein 6.6 Albumin 3.7 Beta-Hydroxybutyrate Urine Color Urine Appearance Urine pH Ur Specific [place] Urine Protein Urine Glucose (UA) Urine Ketones Urine Blood Urine Nitrite Ur Leukocyte Esterase Urine RBC Urine WBC Urine WBC Clumps Ur Squamous Epith Cells Urine Bacteria Hyaline Casts Imaging Radiologist's Impressions: Impressions Chest X-Ray 08/27/23 19:10 IMPRESSION: 1. Subsegmental atelectasis and/or scarring in the left lower lobe. 2. No consolidation or pleural effusion. 3. Mild chronic interstitial prominence. Head CT 08/27/23 19:22 IMPRESSION: There are grossly stable post craniotomy changes with extensive gliosis and encephalomalacia involving the frontal lobes. Scattered chronic small vessel ischemic changes are visualized within the periventricular white matter. No evidence of acute territorial infarct or hemorrhage. Assessment and Plan (1) Diabetic ketoacidosis: Qualifiers: Diabetes mellitus type: type 2 Diabetes mellitus complication detail: w ithout coma Qualified Code(s): E11.10 - Type 2 diabetes mellitus with ketoacidosis without coma Status: Acute (2) MARYSOL (acute kidney injury): Status: Acute (3) Hypernatremia: Status: Acute (4) Hyperlipidemia: Qualifiers: Hyperlipidemia type: unspecified Qualified Code(s): E78.5 - Hyperlipidemia, unspecified Status: Acute (5) HTN (hypertension): Qualifiers: Hypertension type: primary hypertension Qualified Code(s): I10 - Essential (primary) hypertension Status: Acute Plan Adrián Cano is a 73 years old man admitted with: * s/p DKA. Admit to hospitalist service. Continue IV fluids: 0.45 SS. Continue treatment with Lantus and insulin sliding scale. Start diabetic diet. Discontinue metformin. Check hemoglobin A1c. * Acute kidney injury, secondary to above; renal function improving. Continue IV fluids. Continue to monitor renal function. Hold lisinopril. * Hypernatremia. Continue therapy with 0.45 SS. Continue to monitor Na level. * Lactic acidosis, resolved. * History of meningioma s/p resection. Continue Depakote * Hypertension. Continue home medications * Hyperlipidemia. Continue home medication. * CAD s/p CABG. Home med list to be verified by pharmacy DVT prophylaxis: Heparin subcut Code status: Full Quality Stroke Does the patient have a stroke diagnosis?: No VTE Prior VTE?: No VTE Risk Level:: Medical - moderate - high VTE Device Contraindication: N/A - Device Ordered VTE Drug Contraindication: N/A - Med Ordered
[2023-08-28 07:11] LABS: Glucose, Whole Blood 254 mg/dL (60-115)
[2023-08-28] MEDS: Heparin Sodium,Porcine 5,000 UNIT/ML VIAL 5000 UNIT SUBCUT ×3 (07:23→20:20)
[2023-08-28] MEDS: Insulin Lispro 100 UNIT/ML 3 ML VIAL SUBCUT ×4 (07:27→20:20)
--- NOTE | 2023-08-28 08:10 | PHA.MEDREC ---
Pharmacy Consult ? Medication Reconciliation Pharmacy has completed the medication reconciliation. Patient confirms that he is taking levetiracetam 250mg BID.
--- NOTE | 2023-08-28 08:36 | MHC.CM.PN ---
Patient is here with Acute AMS/Confusion; CM spoke with Primary Contact/Daughter/Key @ [phone] and addressed IMM with her(original will be mailed certified letter to Key and a copy will be placed on the chart). 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 Home/self care is the goal and CM has initiated and will follow for dc planning.Patient's Son is the HCP and the PCP is Dr. Ari Shell.
[2023-08-28 09:09] LABS: Glucose, Whole Blood 355 mg/dL (60-115)
--- NOTE | 2023-08-28 10:26 | MHC.CM.PN ---
Patient is confused. Neither [facility] nor the PCP have a copy of the HCP. CM awaits a return call from [facility], where Patient has been before for STR and family continues to attempt to locate a copy. CM will follow.
[2023-08-28] MEDS: oxyCODONE HCl Immed Release 5 MG TABLET PO (10:35)
[2023-08-28] MEDS: Metoprolol Succinate ER 25 MG TAB.ER.24H PO (10:36)
[2023-08-28] MEDS: levETIRAcetam 250 MG TABLET PO ×2 (10:36→20:19)
--- NOTE | 2023-08-28 10:40 | PC.NURSE ---
removed pt from O2 at this time, he is maintaining O2 sat at 95% on room air.
--- NOTE | 2023-08-28 11:02 | MHC.CM.PN ---
Copy of HCP has been received from [facility] and Daughter/Amberly us the Agent.
[2023-08-28 11:07] LABS: Estimated Average Glucose 303 mg/dL; Hemoglobin A1c % 12.2 % (<6.0)
[2023-08-28 11:11] LABS: Osmolality, Serum 354 mosm/kg (281-305)
[2023-08-28 11:14] LABS: Alanine Aminotransferase 27 U/L (0-40); Albumin Level 3.7 g/dL (3.5-5.0); Alkaline Phosphatase 102 U/L (39-117); Anion Gap 12 (12-20); Aspartate Amino Transferase 53 U/L (5-37); Bilirubin Total 0.4 mg/dL (0.0-1.0); Blood Urea Nitrogen 44 mg/dL (9-16); Calcium 8.5 mg/dL (8.4-10.2); Carbon Dioxide 23 mmol/L (22-29); Chloride 120 mmol/L (96-108); Creatinine Clr Calc Pharmacy 45.9; Estimated Glomerular Filt Rate 54; Glucose Random 405 mg/dL (60-115); Potassium 4.1 mmol/L (3.3-5.1); Sodium 151 mmol/L (135-145); Total Protein 6.6 g/dL (6.5-8.0)
[2023-08-28 11:38] LABS: Glucose, Whole Blood 328 mg/dL (60-115)
--- NOTE | 2023-08-28 12:22 | PM.EVENT ---
Event Note Date of Service: 08/29/23 Event Note: 73-year-old gentleman with past medical history of meningioma status post resection, type 2 diabetes mellitus on metformin history of anxiety, depression, PTSD was brought in to [facility] due to altered mental status, Patient was unable to provide history but noted to have tachycardia tachypnea, hypoxia finger oximetry 88% on 4 L he was noted to have elevated blood sugars of 1115, creatinine 2.75 bicarb 16 sodium of 155 and a pH of 7.23 CT scan showed no acute abnormality chest x-ray showed subsegmental atelectasis patient admitted to [facility] acute DKA and treated with IV fluids, Lantus and regular insulin blood sugar improved. At present patient is awake alert complaining of generalized pain denies history of fall or trauma, is very depressed about of his dog in May, he does complain of increased thirst, increased urinary frequency, he has been less ambulatory, denies alcohol denies smoking. ROS General no headache, no dizziness no fever chills. CVS no chest pain, no palpitation. Respiratory no cough ,no sob. Gastrointestinal no nausea, no vomiting, no abdominal pain On examination General resting comfortably in no acute distress. Anicteric sclera Neck supple no JVD. CVS regular rate rhythm, Respiratory lungs clear to auscultation, no respiratory distress, no wheeze, no rhonchi. Gastrointestinal abdomen soft, non tender, bowel sounds audible, no guarding , no rigidity. Extremities no edema. Neuro non focal Psych depressed affect Assessment plan Acute toxic metabolic encephalopathy present on admission resolved with treatment of hyperglycemia, no evidence of infection normal UA and chest x-ray Status post DKA Blood sugar trending up now in 400 range, hemoglobin A1c 12.2, continue IV fluids, diabetic diet, adjust insulin sliding scale and continue Lantus Obtain nutrition consult, will require teaching to monitor blood sugar and administer insulin Acute kidney injury due to above improving with IV fluids hold nephrotoxins. Acute lactic acidosis no sepsis, tachycardia tachypnea due to DKA, resolved likely due to dehydration. Hypernatremia due to dehydration will replete and follow labs. Hypertension resume home medications metoprolol. Hyperlipidemia continue Lipitor 80 mg. Coronary artery disease status post CABG no chest pain, EKG showed sinus tachycardia, no acute ischemic change, continue beta-arianna and statin, not on aspirin. Mood disorder resume all home medications. DVT prophylaxis on heparin. Full code. Time Spent With Patient Time: Total time managing care of this patient today ____ minutes.
[2023-08-28 13:08] LABS: Glucose, Whole Blood 368 mg/dL (60-115)
[2023-08-28 14:04] LABS: Glucose, Whole Blood 297 mg/dL (60-115)
[2023-08-28] MEDS: Acetaminophen 325 MG TABLET 650 MG PO (14:52)
[2023-08-28 16:59] LABS: Anion Gap 13 (12-20); Blood Urea Nitrogen 37 mg/dL (9-16); Carbon Dioxide 18 mmol/L (22-29); Chloride 121 mmol/L (96-108); Estimated Glomerular Filt Rate > 60; Glucose Random 229 mg/dL (60-115); Potassium 3.5 mmol/L (3.3-5.1); Sodium 148 mmol/L (135-145)
[2023-08-28 17:32] LABS: Glucose, Whole Blood 181 mg/dL (60-115)
[2023-08-28 17:58] LABS: Glucose, Whole Blood 169 mg/dL (60-115)
[2023-08-28 20:17] LABS: Glucose, Whole Blood 168 mg/dL (60-115)
[2023-08-28] MEDS: ARIPiprazole 2 MG TABLET PO (20:19)
[2023-08-28] MEDS: busPIRone HCl 10 MG TABLET PO (20:19)
[2023-08-28] MEDS: Atorvastatin Calcium 80 MG TABLET PO (20:19)
[2023-08-28] MEDS: PHENobarbitaL 30 MG TABLET PO (20:19)
[2023-08-28] MEDS: Doxazosin Mesylate 2 MG TABLET 8 MG PO (20:20)
[2023-08-28] MEDS: Insulin Glargine,Hum.rec.anlog 100 UNIT/ML 10 ML VIAL 20 UNIT SUBCUT (20:20)
[2023-08-28] MEDS: Melatonin 3 MG TABLET 6 MG PO (22:11)
[2023-08-28 22:27] LABS: Anion Gap 14 (12-20); Blood Urea Nitrogen 32 mg/dL (9-16); Carbon Dioxide 22 mmol/L (22-29); Chloride 118 mmol/L (96-108); Creatinine Clr Calc Pharmacy 61.4; Estimated Glomerular Filt Rate > 60; Glucose Random 115 mg/dL (60-115); Magnesium 2.3 mg/dL (1.6-2.6); Potassium 3.2 mmol/L (3.3-5.1); Sodium 151 mmol/L (135-145)
[2023-08-28] MEDS: Dextrose 5 % 1,000 ML 50 ML IVCONT (22:53)
[2023-08-28] MEDS: Potassium Chloride ER 20 MEQ TAB.ER.PRT 40 MEQ PO (22:53)
[2023-08-29] VITALS (7 sets, daily range): BP systolic 103–124; BP diastolic 51–66; PULSE 77–85; RESP 20; TEMP 36.3–37.2; O2SAT 94–98
[2023-08-29 02:05] LABS: Glucose, Whole Blood 170 mg/dL (60-115)
[2023-08-29] MEDS: Heparin Sodium,Porcine 5,000 UNIT/ML VIAL 5000 UNIT SUBCUT ×2 (05:05→13:38)
[2023-08-29 06:39] LABS: Anion Gap 10 (12-20); Blood Urea Nitrogen 27 mg/dL (9-16); Calcium 7.9 mg/dL (8.4-10.2); Carbon Dioxide 22 mmol/L (22-29); Chloride 121 mmol/L (96-108); Creatinine Clr Calc Pharmacy 68.4; Estimated Glomerular Filt Rate > 60; Glucose Random 168 mg/dL (60-115); Potassium 3.8 mmol/L (3.3-5.1); Sodium 149 mmol/L (135-145)
[2023-08-29 08:21] LABS: Glucose, Whole Blood 156 mg/dL (60-115)
[2023-08-29 08:29] LABS: Basophils Absolute Auto 0.1 X10*3/uL (0.0-0.2); Basophils Percent Auto 0.6 % (0-2); Eosinophils Absolute Auto 0.2 X10*3/uL (0.0-0.4); Eosinophils Percent Auto 2.6 % (0-4); Hematocrit 34.3 % (42.0-52.0); Hemoglobin 11.7 g/dl (14.0-18.0); Imm Gran Abs Auto 0.07 X10*3/uL (0.00-0.03); Imm Gran Pct Auto 0.8 % (0.0-0.4); Lymphocytes Absolute Auto 2.4 X10*3/uL (1.2-4.9); Lymphocytes Percent Auto 28.4 % (20-40); MANUAL DIFF FLAG SCAN; Mean Corpuscular HGB Conc 34.1 g/dl (31.0-36.0); Mean Corpuscular Hemoglobin 29.2 pg (27.0-33.0); Mean Corpuscular Volume 85.5 fL (80.0-98.0); Monocytes Absolute Auto 0.5 X10*3/uL (0.1-1.2); Monocytes Percent Auto 5.8 % (2-11); NRBC Pct Auto 0.2 /100WBC (0.0-0.2); Neutrophils Absolute Auto 5.3 x10*3/uL (2.0-8.3); Neutrophils Percent Auto 61.8 % (45-73); PLT CLUMP 1; Red Blood Count 4.01 X10*6/uL (4.60-5.80); Red Cell Distribution Width 13.9 % (11.0-16.0); SCAN SMEAR FLAG 1; White Blood Count 8.5 X10*3/uL (4.8-10.8)
[2023-08-29 08:47] LABS: Mean Platelet Volume 12.2 fL (9.4-12.4)
[2023-08-29] MEDS: Insulin Lispro 100 UNIT/ML 3 ML VIAL SUBCUT ×4 (08:47→22:02)
[2023-08-29] MEDS: Cholecalciferol (Vitamin D3) 25 MCG TABLET PO (08:48)
[2023-08-29] MEDS: PARoxetine HCL 30 MG TABLET PO (08:48)
[2023-08-29] MEDS: busPIRone HCl 5 MG TABLET PO (08:48)
[2023-08-29] MEDS: 0.9 % Sodium Chloride Flush 3 ML SYRINGE IVFLUSH ×2 (08:48→22:18)
[2023-08-29] MEDS: levETIRAcetam 250 MG TABLET PO ×2 (08:48→22:02)
[2023-08-29] MEDS: Metoprolol Succinate ER 25 MG TAB.ER.24H PO (08:48)
[2023-08-29 08:52] LABS: Platelet Count 66 X10*3/uL (160-400); SLIDE REVIEW VERIFIED
[2023-08-29 11:46] LABS: Glucose, Whole Blood 176 mg/dL (60-115)
--- NOTE | 2023-08-29 12:11 | MHC.CLN ---
RE: CONSULT SPOKE WITH PT REGARDING RECENT DKA EPISODE. PT WITH REMOTE HX DM AND USING INSULIN AFTER HIS BRAIN TUMOR IN 2012 . PT RECEPTIVE TO DIET EDUCATION AND ABLE TO VERBALIZE UNDERSTANDING OF FOODS THAT AFFECT BS. RECOMMEND REFERRAL TO OUT PT RD UPON DISCHARGE. PT GIVEN HANDOUT OF LOCAL AREA RDs FOR FUTURE F/U
--- NOTE | 2023-08-29 13:48 | P.PNIM_ITS ---
Subjective Subjective Date of Service: 08/29/23 Interval History: Sitting comfortably, eating breakfast denies nausea, no vomiting, no abdominal pain, no diarrhea, offers no acute complaints, not on home oxygen denies shortness of breath, no cough, no acute issues overnight. Review of Systems All other system reviewed and negative. Physical Exam 2 Vital Signs: Vital Signs: Last Vital Signs Temp 97.8 F 08/29/23 11:34 Pulse 77 08/29/23 11:34 Resp 20 08/29/23 11:34 BP 124/65 08/29/23 11:34 Pulse Ox 97 08/29/23 11:34 O2 Del Method Nasal Cannula 08/29/23 11:34 O2 Flow Rate 2 08/29/23 11:34 Oxygen Flow Rate 2 08/27/23 18:11 BMI result Body Mass Index 23.1 Const: Other: General awake alert x3, sitting comfortably in no acute distress. Anicteric sclera Neck supple no JVD. CVS regular rate rhythm, Respiratory lungs clear to auscultation, no respiratory distress, no wheeze, no rhonchi. Gastrointestinal abdomen soft, non tender, bowel sounds audible. Extremities no edema. Neuro non focal Skin no rash Psych appropriate affect Objective Data Active Medications Acetaminophen (Acetaminophen 325 Mg Tablet) 650 mg PO Q6H PRN PRN Reason: Pain, Mild (Pain Scale 1-3) Last Admin: 08/28/23 14:52 Dose: 650 mg Documented By: GENOVEVA Aripiprazole (Aripiprazole 2 Mg Tablet) 2 mg PO BEDTIME [facility] Last Admin: 08/28/23 20:19 Dose: 2 mg Documented By: BARBARA Atorvastatin Calcium (Atorvastatin Calcium 80 Mg Tablet) 80 mg PO BEDTIME [facility] Last Admin: 08/28/23 20:19 Dose: 80 mg Documented By: BARBARA Buspirone HCl (Buspirone Hcl 10 Mg Tablet) 10 mg PO BEDTIME [facility] Last Admin: 08/28/23 20:19 Dose: 10 mg Documented By: BARBARA Buspirone HCl (Buspirone Hcl 5 Mg Tablet) 5 mg PO DAILY [facility] Last Admin: 08/29/23 08:48 Dose: 5 mg Documented By: SARAHI Dextrose (Dextrose 50 % 25 Gm/50 Ml Syringe) 25 gm IVPUSH Q30M PRN PRN Reason: BG < 70 Dextrose (Dextrose 50 % 25 Gm/50 Ml Syringe) 25 gm IVPUSH Q15M PRN; Protocol PRN Reason: per Hypoglycemia Standing Ord. Doxazosin Mesylate (Doxazosin Mesylate 2 Mg Tablet) 8 mg PO BEDTIME [facility] Last Admin: 08/28/23 20:20 Dose: 8 mg Documented By: BARBARA Glucose (Glucose Gel 15 Gm Gel..Gram.) 15 gm PO Q15M PRN; Protocol PRN Reason: per Hypoglycemia Standing Ord. Heparin Sodium (Porcine) (Heparin Sodium,Porcine 5,000 Unit/Ml Vial) 5,000 unit SUBCUT Q8H [facility] Last Admin: 08/29/23 13:38 Dose: 5,000 unit Documented By: SARAHI Dextrose (D5w) 1,000 mls @ 50 mls/hr IVCONT .Q20H [facility] Last Infusion: 08/29/23 08:55 Dose: Infused Documented By: SARAHI Insulin Glargine (Insulin Glargine,Hum.Rec.Anlog 100 Unit/Ml 10 Ml Vial) 20 unit SUBCUT BEDTIME [facility] Last Admin: 08/28/23 20:20 Dose: 20 unit Documented By: BARBARA Insulin Human Lispro (Insulin Lispro 100 Unit/Ml 3 Ml Vial) 0 unit SUBCUT QIDACHS [facility]; Protocol Last Admin: 08/29/23 12:08 Dose: 4 unit Documented By: SARAHI Levetiracetam (Levetiracetam 250 Mg Tablet) 250 mg PO BID [facility] Last Admin: 08/29/23 08:48 Dose: 250 mg Documented By: SARAHI Melatonin (Melatonin 3 Mg Tablet) 6 mg PO BEDTIME PRN PRN Reason: Insomnia Last Admin: 08/28/23 22:11 Dose: 6 mg Documented By: BARBARA Metoprolol Succinate (Metoprolol Succinate Er 25 Mg Tab.Er.24h) 25 mg PO DAILY [facility]; Protocol Last Admin: 08/29/23 08:48 Dose: 25 mg Documented By: SARAHI Paroxetine HCl (Paroxetine Hcl 30 Mg Tablet) 30 mg PO DAILY [facility] Last Admin: 08/29/23 08:48 Dose: 30 mg Documented By: SARAHI Phenobarbital (Phenobarbital 30 Mg Tablet) 30 mg PO BEDTIME [facility] Last Admin: 08/28/23 20:19 Dose: 30 mg Documented By: BARBARA Sodium Chloride (0.9 % Sodium Chloride Flush 3 Ml Syringe) 3 ml IVFLUSH QSHIFT [facility] Last Admin: 08/29/23 08:48 Dose: 3 ml Documented By: SARAHI Vitamin D (Cholecalciferol (Vitamin D3) 25 Mcg Tablet) 25 mcg PO DAILY [facility] Last Admin: 08/29/23 08:48 Dose: 25 mcg Documented By: SARAHI Labs 08/29/23 08:06 08/29/23 06:11 Labs: Laboratory Results - last 24 hr 08/28/23 08/28/23 08/28/23 13:57 16:34 17:28 MCV MCH MCHC RDW Plt Count MPV Immature Gran % (Auto) Neut % (Auto) Lymph % (Auto) [place] % (Auto) Eos % (Auto) Baso % (Auto) Lymph # (Auto) [place] # (Auto) Eos # (Auto) Baso # (Auto) Abs Immat Gran (auto) Absolute Neuts (auto) Absolute Nucleated RBC Nucleated RBC % (auto) Smear Tech's Comments Anion Gap 13 Estim Creat Clear Calc 59.0 Estimated GFR > 60 POC Glucose 297 H 181 H Random Glucose 229 H Calcium 8.0 L Magnesium 08/28/23 08/28/23 08/28/23 17:50 20:14 22:05 MCV MCH MCHC RDW Plt Count MPV Immature Gran % (Auto) Neut % (Auto) Lymph % (Auto) [place] % (Auto) Eos % (Auto) Baso % (Auto) Lymph # (Auto) [place] # (Auto) Eos # (Auto) Baso # (Auto) Abs Immat Gran (auto) Absolute Neuts (auto) Absolute Nucleated RBC Nucleated RBC % (auto) Smear Tech's Comments Anion Gap 14 Estim Creat Clear Calc 61.4 Estimated GFR > 60 POC Glucose 169 H 168 H Random Glucose 115 Calcium 8.0 L Magnesium 2.3 08/29/23 08/29/23 08/29/23 02:01 06:11 07:56 MCV MCH MCHC RDW Plt Count MPV Immature Gran % (Auto) Neut % (Auto) Lymph % (Auto) [place] % (Auto) Eos % (Auto) Baso % (Auto) Lymph # (Auto) [place] # (Auto) Eos # (Auto) Baso # (Auto) Abs Immat Gran (auto) Absolute Neuts (auto) Absolute Nucleated RBC Nucleated RBC % (auto) Smear Tech's Comments Anion Gap 10 L Estim Creat Clear Calc 68.4 Estimated GFR > 60 POC Glucose 170 H 156 H Random Glucose 168 H Calcium 7.9 L Magnesium 08/29/23 08/29/23 08:06 11:37 MCV 85.5 MCH 29.2 MCHC 34.1 RDW 13.9 Plt Count 66 L D MPV 12.2 Immature Gran % (Auto) 0.8 H Neut % (Auto) 61.8 Lymph % (Auto) 28.4 [place] % (Auto) 5.8 Eos % (Auto) 2.6 Baso % (Auto) 0.6 Lymph # (Auto) 2.4 [place] # (Auto) 0.5 Eos # (Auto) 0.2 Baso # (Auto) 0.1 Abs Immat Gran (auto) 0.07 H Absolute Neuts (auto) 5.3 Absolute Nucleated RBC 0.020 H Nucleated RBC % (auto) 0.2 Smear Tech's Comments VERIFIED Anion Gap Estim Creat Clear Calc Estimated GFR POC Glucose 176 H Random Glucose Calcium Magnesium Microbiology Microbiology Results: Microbiology 08/27/23 Unknown Urine Culture - Final Urine clean catch - Urine uriostegui top 08/27/23 18:54 Blood Culture - Preliminary Blood - Venous No growth after 24 hours. 08/27/23 18:49 Blood Culture - Preliminary Blood - Venous No growth after 24 hours. Assessment and Plan (1) Acute hypernatremia: Status: Acute (2) MARYSOL (acute kidney injury): Status: Acute (3) Diabetic ketoacidosis: Status: Acute Plan 73-year-old gentleman with past medical history significant for type 2 diabetes mellitus on metformin, history of meningioma status post resection, coronary artery disease status post CABG was brought in to [facility] due to acute mental status change noted by a friend in the ER patient was found to be confused and noted to have blood sugar of 1115, creatinine of 2.75, bicarb of 16 and a sodium of 155, CT scan of head showed no acute abnormality, chest x-ray showed subsegmental atelectasis, pH 7.23, bicarb 14. Acute toxic metabolic encephalopathy present on admission resolved with treatment of hyperglycemia, no evidence of infection, normal UA and chest x-ray Status post DKA Blood sugar trending up now in 400 range, hemoglobin A1c 12.2, continue IV fluids, diabetic diet, adjust insulin sliding scale and continue Lantus Obtain nutrition consult, will require teaching to monitor blood sugar and administer insulin Acute kidney injury with acute metabolic acidosis resolved with IV fluids and correction of hyperglycemia,hold nephrotoxins. Acute lactic acidosis no sepsis, tachycardia tachypnea due to DKA, resolved likely due to dehydration. Hypernatremia due to dehydration improving, encourage by mouth fluids ,follow labs. Hypertension stable continue metoprolol XL 25 mg daily.. Hyperlipidemia continue Lipitor 80 mg. Coronary artery disease status post CABG no chest pain, EKG showed sinus tachycardia, no acute ischemic change, continue beta-arianna and statin, not on aspirin. Mood disorder resume all home medications. DVT prophylaxis on heparin. Full code. In my clinical judgment patient need continued inpatient hospitalization for management of diabetes mellitus/DKA requiring close monitoring of electrolytes. Quality Stroke Does the patient have a stroke diagnosis?: No VTE Prior VTE?: No VTE Risk Level:: Medical - moderate - high VTE Device Contraindication: N/A - Device Ordered VTE Drug Contraindication: N/A - Med Ordered
--- NOTE | 2023-08-29 13:55 | MHC.CM.PN ---
pt is not yet ready for DC, CM to follow and assist with DC planning.
[2023-08-29 14:46] LABS: Hematocrit 33.7 % (42.0-52.0); Hemoglobin 11.3 g/dl (14.0-18.0); Mean Corpuscular HGB Conc 33.5 g/dl (31.0-36.0); Mean Corpuscular Hemoglobin 28.8 pg (27.0-33.0); Mean Corpuscular Volume 85.8 fL (80.0-98.0); Mean Platelet Volume 11.1 fL (9.4-12.4); Platelet Count 140 X10*3/uL (160-400); Red Blood Count 3.93 X10*6/uL (4.60-5.80); Red Cell Distribution Width 13.6 % (11.0-16.0); White Blood Count 9.7 X10*3/uL (4.8-10.8)
[2023-08-29 15:02] LABS: Anion Gap 11 (12-20); Blood Urea Nitrogen 25 mg/dL (9-16); Calcium 8.2 mg/dL (8.4-10.2); Carbon Dioxide 25 mmol/L (22-29); Chloride 114 mmol/L (96-108); Creatinine Clr Calc Pharmacy 66.2; Estimated Glomerular Filt Rate > 60; Glucose Random 236 mg/dL (60-115); Potassium 3.7 mmol/L (3.3-5.1); Sodium 146 mmol/L (135-145)
[2023-08-29] MEDS: Acetaminophen 325 MG TABLET 650 MG PO ×2 (15:03→22:29)
[2023-08-29 16:39] LABS: Glucose, Whole Blood 216 mg/dL (60-115)
[2023-08-29 19:31] LABS: Appearance Urine Clear; Color Urine Yellow; Glucose Urine UA >=1000 mg/dL (Negative); Leukocyte Esterase Urine Negative (Negative); Nitrite Urine Negative (Negative); PH 5.5 (5.0-9.0); Specific Gravity - Urine >= 1.030 (1.005-1.025); UMIC TRIGGER UACC YES; Urine Blood Small (1+) (Negative); Urine Ketones Negative (Negative); Urine Protein Trace mg/dL (Neg-Trace)
[2023-08-29 19:57] LABS: Bacteria Urine None Seen (None Seen); Hyaline Casts Urine 0-2 /LPF (0-2); UACC Culture Trigger YES; WBC Urine 21-50 /HPF (0-5)
[2023-08-29 20:31] LABS: Glucose, Whole Blood 177 mg/dL (60-115)
[2023-08-29] MEDS: Doxazosin Mesylate 2 MG TABLET 8 MG PO (22:02)
[2023-08-29] MEDS: PHENobarbitaL 30 MG TABLET PO (22:02)
[2023-08-29] MEDS: busPIRone HCl 10 MG TABLET PO (22:02)
[2023-08-29] MEDS: Atorvastatin Calcium 80 MG TABLET PO (22:02)
[2023-08-29] MEDS: ARIPiprazole 2 MG TABLET PO (22:02)
[2023-08-29] MEDS: Insulin Glargine,Hum.rec.anlog 100 UNIT/ML 10 ML VIAL 20 UNIT SUBCUT (22:04)
[2023-08-29] MEDS: Melatonin 3 MG TABLET 6 MG PO (22:14)
[2023-08-30] VITALS (8 sets, daily range): BP systolic 101–123; BP diastolic 55–72; PULSE 80–89; RESP 19–20; TEMP 36.2–36.7; O2SAT 90–96
[2023-08-30 07:04] LABS: Hematocrit 30.7 % (42.0-52.0); Hemoglobin 10.4 g/dl (14.0-18.0); Mean Corpuscular HGB Conc 33.9 g/dl (31.0-36.0); Mean Corpuscular Hemoglobin 28.7 pg (27.0-33.0); Mean Corpuscular Volume 84.6 fL (80.0-98.0); Platelet Count 119 X10*3/uL (160-400); Red Blood Count 3.63 X10*6/uL (4.60-5.80); Red Cell Distribution Width 13.5 % (11.0-16.0)
[2023-08-30 07:20] LABS: Anion Gap 9 (12-20); Blood Urea Nitrogen 17 mg/dL (9-16); Carbon Dioxide 26 mmol/L (22-29); Chloride 117 mmol/L (96-108); Creatinine Clr Calc Pharmacy 81.4; Estimated Glomerular Filt Rate > 60; Glucose Random 158 mg/dL (60-115); Potassium 3.8 mmol/L (3.3-5.1); Sodium 148 mmol/L (135-145)
[2023-08-30 08:02] LABS: Glucose, Whole Blood 162 mg/dL (60-115)
[2023-08-30] MEDS: 0.9 % Sodium Chloride Flush 3 ML SYRINGE IVFLUSH ×3 (09:20→20:09)
[2023-08-30] MEDS: Insulin Lispro 100 UNIT/ML 3 ML VIAL SUBCUT ×4 (09:20→20:09)
[2023-08-30] MEDS: Metoprolol Succinate ER 25 MG TAB.ER.24H PO (09:21)
[2023-08-30] MEDS: busPIRone HCl 5 MG TABLET PO (09:21)
[2023-08-30] MEDS: Cholecalciferol (Vitamin D3) 25 MCG TABLET PO (09:21)
[2023-08-30] MEDS: levETIRAcetam 250 MG TABLET PO ×2 (09:21→20:08)
[2023-08-30] MEDS: PARoxetine HCL 30 MG TABLET PO (09:21)
--- NOTE | 2023-08-30 11:38 | HO.PM.IMPN ---
Subjective Subjective Date of Service: 08/30/23 Interval History: Events from last night noted patient was noted to have high postvoid residuals therefore required straight catheterization, this morning patient is able to void on his own, he would give history of benign prostate hypertrophy and is being followed by Urology and is on terazosin 10 mg at home, denies abdominal pain, no nausea, no vomiting, no abdominal pain tolerating diet. Patient denies headache, no lightheadedness, no dizziness, no abdominal pain, no nausea, no vomiting tolerating diet, no diarrhea, no fevers, no chills. Review of Systems All other system reviewed and negative. Physical Exam Vital Signs: Vital Signs: Last Vital Signs Temp 97.4 F 08/30/23 11:31 Pulse 83 08/30/23 11:31 Resp 20 08/30/23 11:31 BP 120/68 08/30/23 11:31 Pulse Ox 94 08/30/23 11:31 O2 Del Method Room Air 08/30/23 11:31 O2 Flow Rate 1 08/30/23 07:53 Oxygen Flow Rate 2 08/27/23 18:11 BMI result Body Mass Index 23.1 Const: Other: General awake alert x3, sitting comfortably in no acute distress. Anicteric sclera Neck supple no JVD. CVS regular rate rhythm, Respiratory lungs clear to auscultation, no respiratory distress, no wheeze, no rhonchi. Gastrointestinal abdomen soft, non tender, bowel sounds audible. Extremities no edema. Neuro non focal Skin no rash Psych appropriate affect Objective Data Active Medications Acetaminophen (Acetaminophen 325 Mg Tablet) 650 mg PO Q6H PRN PRN Reason: Pain, Mild (Pain Scale 1-3) Last Admin: 08/29/23 22:29 Dose: 650 mg Documented By: JORGE Aripiprazole (Aripiprazole 2 Mg Tablet) 2 mg PO BEDTIME [facility] Last Admin: 08/29/23 22:02 Dose: 2 mg Documented By: JORGE Atorvastatin Calcium (Atorvastatin Calcium 80 Mg Tablet) 80 mg PO BEDTIME [facility] Last Admin: 08/29/23 22:02 Dose: 80 mg Documented By: JORGE Buspirone HCl (Buspirone Hcl 10 Mg Tablet) 10 mg PO BEDTIME [facility] Last Admin: 08/29/23 22:02 Dose: 10 mg Documented By: JORGE Buspirone HCl (Buspirone Hcl 5 Mg Tablet) 5 mg PO DAILY [facility] Last Admin: 08/30/23 09:21 Dose: 5 mg Documented By: ANTWON Dextrose (Dextrose 50 % 25 Gm/50 Ml Syringe) 25 gm IVPUSH Q30M PRN PRN Reason: BG < 70 Dextrose (Dextrose 50 % 25 Gm/50 Ml Syringe) 25 gm IVPUSH Q15M PRN; Protocol PRN Reason: per Hypoglycemia Standing Ord. Doxazosin Mesylate (Doxazosin Mesylate 2 Mg Tablet) 8 mg PO BEDTIME [facility] Last Admin: 08/29/23 22:02 Dose: 8 mg Documented By: JORGE Glucose (Glucose Gel 15 Gm Gel..Gram.) 15 gm PO Q15M PRN; Protocol PRN Reason: per Hypoglycemia Standing Ord. Dextrose (D5w) 1,000 mls @ 50 mls/hr IVCONT .Q20H [facility] Last Admin: 08/29/23 18:43 Dose: Not Given Documented By: SARAHI Non-Admin Reason: Physician Held Med Insulin Glargine (Insulin Glargine,Hum.Rec.Anlog 100 Unit/Ml 10 Ml Vial) 20 unit SUBCUT BEDTIME [facility] Last Admin: 08/29/23 22:04 Dose: 20 unit Documented By: JORGE Insulin Human Lispro (Insulin Lispro 100 Unit/Ml 3 Ml Vial) 0 unit SUBCUT QIDACHS [facility]; Protocol Last Admin: 08/30/23 09:20 Dose: 4 unit Documented By: ANTWON Levetiracetam (Levetiracetam 250 Mg Tablet) 250 mg PO BID [facility] Last Admin: 08/30/23 09:21 Dose: 250 mg Documented By: ANTWON Melatonin (Melatonin 3 Mg Tablet) 6 mg PO BEDTIME PRN PRN Reason: Insomnia Last Admin: 08/29/23 22:14 Dose: 6 mg Documented By: JORGE Metoprolol Succinate (Metoprolol Succinate Er 25 Mg Tab.Er.24h) 25 mg PO DAILY [facility]; Protocol Last Admin: 08/30/23 09:21 Dose: 25 mg Documented By: ANTWON Paroxetine HCl (Paroxetine Hcl 30 Mg Tablet) 30 mg PO DAILY [facility] Last Admin: 08/30/23 09:21 Dose: 30 mg Documented By: ANTWON Phenobarbital (Phenobarbital 30 Mg Tablet) 30 mg PO BEDTIME [facility] Last Admin: 08/29/23 22:02 Dose: 30 mg Documented By: JORGE Sodium Chloride (0.9 % Sodium Chloride Flush 3 Ml Syringe) 3 ml IVFLUSH QSHIFT [facility] Last Admin: 08/30/23 09:20 Dose: 3 ml Documented By: ANTWON Vitamin D (Cholecalciferol (Vitamin D3) 25 Mcg Tablet) 25 mcg PO DAILY [facility] Last Admin: 08/30/23 09:21 Dose: 25 mcg Documented By: ANTWON Labs 08/30/23 06:12 08/30/23 06:12 Labs: Laboratory Results - last 24 hr 08/29/23 08/29/23 08/29/23 11:37 14:19 16:34 MCV 85.8 MCH 28.8 MCHC 33.5 RDW 13.6 Plt Count 140 L D MPV 11.1 Absolute Nucleated RBC 0.000 Nucleated RBC % (auto) 0.0 Anion Gap 11 L Estim Creat Clear Calc 66.2 Estimated GFR > 60 POC Glucose 176 H 216 H Random Glucose 236 H Calcium 8.2 L Urine Color Urine Appearance Urine pH Ur Specific [place] Urine Protein Urine Glucose (UA) Urine Ketones Urine Blood Urine Nitrite Ur Leukocyte Esterase Urine RBC Urine WBC Ur Squamous Epith Cells Urine Bacteria Hyaline Casts 08/29/23 08/29/23 08/30/23 18:34 20:09 06:12 MCV 84.6 MCH 28.7 MCHC 33.9 RDW 13.5 Plt Count 119 L MPV 11.0 Absolute Nucleated RBC 0.000 Nucleated RBC % (auto) 0.0 Anion Gap 9 L Estim Creat Clear Calc 81.4 Estimated GFR > 60 POC Glucose 177 H Random Glucose 158 H Calcium 8.0 L Urine Color Yellow Urine Appearance Clear Urine pH 5.5 Ur Specific [place] >= 1.030 H Urine Protein Trace Urine Glucose (UA) >=1000 H Urine Ketones Negative Urine Blood Small (1+) H Urine Nitrite Negative Ur Leukocyte Esterase Negative Urine RBC 6-10 H Urine WBC 21-50 H Ur Squamous Epith Cells 3-5 Urine Bacteria None Seen Hyaline Casts 0-2 08/30/23 07:55 MCV MCH MCHC RDW Plt Count MPV Absolute Nucleated RBC Nucleated RBC % (auto) Anion Gap Estim Creat Clear Calc Estimated GFR POC Glucose 162 H Random Glucose Calcium Urine Color Urine Appearance Urine pH Ur Specific [place] Urine Protein Urine Glucose (UA) Urine Ketones Urine Blood Urine Nitrite Ur Leukocyte Esterase Urine RBC Urine WBC Ur Squamous Epith Cells Urine Bacteria Hyaline Casts Microbiology Microbiology Results: Microbiology 08/27/23 18:54 Blood Culture - Preliminary Blood - Venous No growth after 48 hours. 08/27/23 18:49 Blood Culture - Preliminary Blood - Venous No growth after 48 hours. 08/27/23 Unknown Urine Culture - Final Urine clean catch - Urine uriostegui top Assessment and Plan (1) Acute hypernatremia: Status: Acute (2) MARYSOL (acute kidney injury): Status: Acute (3) Diabetic ketoacidosis: Status: Acute Plan 73-year-old gentleman with past medical history significant for type 2 diabetes mellitus on metformin, history of meningioma status post resection, coronary artery disease status post CABG was brought in to [facility] due to acute mental status change noted by a friend in the ER patient was found to be confused and noted to have blood sugar of 1115, creatinine of 2.75, bicarb of 16 and a sodium of 155, CT scan of head showed no acute abnormality, chest x-ray showed subsegmental atelectasis, pH 7.23, bicarb 14. Acute toxic metabolic encephalopathy present on admission resolved with treatment of hyperglycemia, no evidence of infection, normal UA and chest x-ray. Status post DKA Blood sugars improved, hemoglobin A1c 12.2, on diabetic diet, continue insulin sliding scale and Lantus Receive nutrition consult for diabetic diet/receive teachings to administer blood sugar and monitor blood sugars Recommend compliance with home medications Acute thrombocytopenia heparin discontinued, hit antibody pending, repeat platelet count improved less likely HIT, follow CBC Urinary retention with history of BPH required straight catheterization last night, able to void this morning recommend out of bed to chair and ambulation continue Cardura and resume terazosin 10 mg upon discharge Recommend follow-up with Urology as outpatient Acute kidney injury with acute metabolic acidosis resolved with IV fluids and correction of hyperglycemia,hold nephrotoxins. Acute lactic acidosis no sepsis, tachycardia tachypnea due to DKA, resolved likely due to dehydration. Hypernatremia due to dehydration improving, encourage by mouth fluids ,follow labs. Hypertension stable continue metoprolol XL 25 mg daily.. Hyperlipidemia continue Lipitor 80 mg. Coronary artery disease status post CABG no chest pain, EKG showed sinus tachycardia, no acute ischemic change, continue beta-arianna and statin, not on aspirin. Mood disorder resume all home medications. DVT prophylaxis on heparin. Full code. In my clinical judgment patient need continued inpatient hospitalization for management of diabetes mellitus/DKA requiring close monitoring of electrolytes. Quality Stroke Does the patient have a stroke diagnosis?: No VTE Prior VTE?: No VTE Risk Level:: Medical - moderate - high VTE Device Contraindication: N/A - Device Ordered VTE Drug Contraindication: N/A - Med Ordered
[2023-08-30 11:41] LABS: Glucose, Whole Blood 359 mg/dL (60-115)
[2023-08-30 16:49] LABS: Glucose, Whole Blood 375 mg/dL (60-115)
[2023-08-30] MEDS: Atorvastatin Calcium 80 MG TABLET PO (20:08)
[2023-08-30] MEDS: busPIRone HCl 10 MG TABLET PO (20:08)
[2023-08-30] MEDS: PHENobarbitaL 30 MG TABLET PO (20:08)
[2023-08-30] MEDS: Doxazosin Mesylate 2 MG TABLET 8 MG PO (20:09)
[2023-08-30] MEDS: Melatonin 3 MG TABLET 6 MG PO (20:09)
[2023-08-30] MEDS: ARIPiprazole 2 MG TABLET PO (20:09)
[2023-08-30] MEDS: Insulin Glargine,Hum.rec.anlog 100 UNIT/ML 10 ML VIAL 20 UNIT SUBCUT (20:10)
[2023-08-30 20:12] LABS: Glucose, Whole Blood 190 mg/dL (60-115)
[2023-08-30] MEDS: Nystatin Powder 15 GM BOTTLE 1 APPL TOPICAL (21:48)
[2023-08-31 03:26] VITALS: BP 109/64; PULSE 85; RESP 20; TEMP 36.2; O2SAT 95
[2023-08-31 07:39] VITALS: BP 118/71; PULSE 77; RESP 20; TEMP 36.3; O2SAT 95
[2023-08-31 07:45] LABS: Glucose, Whole Blood 178 mg/dL (60-115)
[2023-08-31] MEDS: Metoprolol Succinate ER 25 MG TAB.ER.24H PO (07:50)
[2023-08-31] MEDS: PARoxetine HCL 30 MG TABLET PO (07:50)
[2023-08-31] MEDS: levETIRAcetam 250 MG TABLET PO ×2 (07:51→20:09)
[2023-08-31] MEDS: Insulin Lispro 100 UNIT/ML 3 ML VIAL SUBCUT ×4 (07:51→20:16)
[2023-08-31] MEDS: Cholecalciferol (Vitamin D3) 25 MCG TABLET PO (07:51)
[2023-08-31] MEDS: 0.9 % Sodium Chloride Flush 3 ML SYRINGE IVFLUSH ×3 (07:51→20:11)
[2023-08-31] MEDS: busPIRone HCl 5 MG TABLET PO (07:51)
[2023-08-31] MEDS: Nystatin Powder 15 GM BOTTLE 1 APPL TOPICAL ×2 (07:54→20:11)
[2023-08-31 08:59] LABS: Anion Gap 10 (12-20); Blood Urea Nitrogen 15 mg/dL (9-16); Calcium 8.4 mg/dL (8.4-10.2); Carbon Dioxide 25 mmol/L (22-29); Chloride 116 mmol/L (96-108); Creatinine Clr Calc Pharmacy 72.5; Estimated Glomerular Filt Rate > 60; Glucose Random 167 mg/dL (60-115); Potassium 4.1 mmol/L (3.3-5.1); Sodium 147 mmol/L (135-145)
[2023-08-31 11:14] VITALS: BP 117/87; PULSE 81; RESP 20; TEMP 36.1; O2SAT 93
[2023-08-31 11:21] LABS: Glucose, Whole Blood 255 mg/dL (60-115)
--- NOTE | 2023-08-31 12:32 | PC.NURSE ---
Patient is alert and oriented to person, place, time, and event. Diabetic education provided prior to insulin given: See MAR. Patient is concerned around self injection once discharged, supportive documents provided on diabetic basics printed from [facility]. As will as outsource phone number for diabetes education classes supported by [facility] [place] [facility]. Discussed with Dr. Roman visiting nursing services as supplemental to patient needs in education after discharge. to follow up with service with case management.
--- NOTE | 2023-08-31 13:37 | HO.PM.IMPN ---
Subjective Subjective Date of Service: 08/31/23 Interval History: Feeling better this morning, nervous about administrating insulin and checking blood sugars, lives alone, denies headache no lightheadedness, no dizziness, no fever, no chills, voiding without difficulty, no acute issues overnight. Review of Systems All other system reviewed and negative. Physical Exam Vital Signs: Vital Signs: Last Vital Signs Temp 97.0 F 08/31/23 11:14 Pulse 81 08/31/23 11:14 Resp 20 08/31/23 11:14 BP 117/87 08/31/23 11:14 Pulse Ox 93 08/31/23 11:14 O2 Del Method Room Air 08/31/23 11:14 O2 Flow Rate 1 08/31/23 07:39 Oxygen Flow Rate 2 08/27/23 18:11 BMI result Body Mass Index 23.1 Const: Other: General awake alert x3, sitting comfortably in no acute distress. Anicteric sclera Neck supple no JVD. CVS regular rate rhythm, Respiratory lungs clear to auscultation, no respiratory distress, no wheeze, no rhonchi. Gastrointestinal abdomen soft, non tender, bowel sounds audible. Extremities no edema. Neuro non focal Skin no rash Psych appropriate affect Objective Data Active Medications Acetaminophen (Acetaminophen 325 Mg Tablet) 650 mg PO Q6H PRN PRN Reason: Pain, Mild (Pain Scale 1-3) Last Admin: 08/29/23 22:29 Dose: 650 mg Documented By: JORGE Aripiprazole (Aripiprazole 2 Mg Tablet) 2 mg PO BEDTIME [facility] Last Admin: 08/30/23 20:09 Dose: 2 mg Documented By: JORGE Atorvastatin Calcium (Atorvastatin Calcium 80 Mg Tablet) 80 mg PO BEDTIME [facility] Last Admin: 08/30/23 20:08 Dose: 80 mg Documented By: JORGE Buspirone HCl (Buspirone Hcl 10 Mg Tablet) 10 mg PO BEDTIME [facility] Last Admin: 08/30/23 20:08 Dose: 10 mg Documented By: OJRGE Buspirone HCl (Buspirone Hcl 5 Mg Tablet) 5 mg PO DAILY [facility] Last Admin: 08/31/23 07:51 Dose: 5 mg Documented By: ANTWON Dextrose (Dextrose 50 % 25 Gm/50 Ml Syringe) 25 gm IVPUSH Q30M PRN PRN Reason: BG < 70 Dextrose (Dextrose 50 % 25 Gm/50 Ml Syringe) 25 gm IVPUSH Q15M PRN; Protocol PRN Reason: per Hypoglycemia Standing Ord. Doxazosin Mesylate (Doxazosin Mesylate 2 Mg Tablet) 8 mg PO BEDTIME [facility] Last Admin: 08/30/23 20:09 Dose: 8 mg Documented By: JORGE Glucose (Glucose Gel 15 Gm Gel..Gram.) 15 gm PO Q15M PRN; Protocol PRN Reason: per Hypoglycemia Standing Ord. Insulin Glargine (Insulin Glargine,Hum.Rec.Anlog 100 Unit/Ml 10 Ml Vial) 20 unit SUBCUT BEDTIME [facility] Last Admin: 08/30/23 20:10 Dose: 20 unit Documented By: JORGE Insulin Human Lispro (Insulin Lispro 100 Unit/Ml 3 Ml Vial) 0 unit SUBCUT QIDACHS [facility]; Protocol Last Admin: 08/31/23 12:04 Dose: 10 unit Documented By: ANTWON Levetiracetam (Levetiracetam 250 Mg Tablet) 250 mg PO BID [facility] Last Admin: 08/31/23 07:51 Dose: 250 mg Documented By: ANTWON Melatonin (Melatonin 3 Mg Tablet) 6 mg PO BEDTIME PRN PRN Reason: Insomnia Last Admin: 08/30/23 20:09 Dose: 6 mg Documented By: JORGE Metoprolol Succinate (Metoprolol Succinate Er 25 Mg Tab.Er.24h) 25 mg PO DAILY [facility]; Protocol Last Admin: 08/31/23 07:50 Dose: 25 mg Documented By: ANTWON Nystatin (Nystatin Powder 15 Gm Bottle) 1 appl TOPICAL BID [facility]; Protocol Last Admin: 08/31/23 07:54 Dose: 1 appl Documented By: ANTWON Paroxetine HCl (Paroxetine Hcl 30 Mg Tablet) 30 mg PO DAILY [facility] Last Admin: 08/31/23 07:50 Dose: 30 mg Documented By: ANTWON Phenobarbital (Phenobarbital 30 Mg Tablet) 30 mg PO BEDTIME [facility] Last Admin: 08/30/23 20:08 Dose: 30 mg Documented By: JORGE Sodium Chloride (0.9 % Sodium Chloride Flush 3 Ml Syringe) 3 ml IVFLUSH QSHIFT [facility] Last Admin: 08/31/23 07:51 Dose: 3 ml Documented By: ANTWON Vitamin D (Cholecalciferol (Vitamin D3) 25 Mcg Tablet) 25 mcg PO DAILY [facility] Last Admin: 08/31/23 07:51 Dose: 25 mcg Documented By: ANTWON Labs 08/30/23 06:12 08/31/23 07:17 Labs: Laboratory Results - last 24 hr 08/30/23 08/30/23 08/31/23 16:22 19:50 07:17 Anion Gap 10 L Estim Creat Clear Calc 72.5 Estimated GFR > 60 POC Glucose 375 H* 190 H Random Glucose 167 H Calcium 8.4 08/31/23 08/31/23 07:41 11:16 Anion Gap Estim Creat Clear Calc Estimated GFR POC Glucose 178 H 255 H Random Glucose Calcium Assessment and Plan (1) Acute hypernatremia: Status: Acute (2) MARYSOL (acute kidney injury): Status: Acute (3) Diabetic ketoacidosis: Status: Acute Plan 73-year-old gentleman with past medical history significant for type 2 diabetes mellitus on metformin, history of meningioma status post resection, coronary artery disease status post CABG was brought in to [facility] due to acute mental status change noted by a friend in the ER patient was found to be confused and noted to have blood sugar of 1115, creatinine of 2.75, bicarb of 16 and a sodium of 155, CT scan of head showed no acute abnormality, chest x-ray showed subsegmental atelectasis, pH 7.23, bicarb 14. Acute toxic metabolic encephalopathy present on admission resolved with treatment of hyperglycemia, no evidence of infection, normal UA and chest x-ray. Recommend ambulation. Status post DKA Blood sugars improved, but remains elevated at lunch and dinner hemoglobin A1c 12.2, on diabetic diet, continue insulin sliding scale and Lantus Receive nutrition consult for diabetic diet/receive teachings to administer blood sugar and monitor blood sugars Will arrange for VNA services for continued teachings for blood sugar monitoring and insulin administration. Acute thrombocytopenia heparin discontinued, hit antibody nonreactive, repeat platelet count improved. Urinary retention with history of BPH required straight catheterization x1 Now voiding without difficulty continue Cardura and resume terazosin 10 mg upon discharge Recommend follow-up with Urology as outpatient. Acute kidney injury with acute metabolic acidosis resolved with IV fluids and correction of hyperglycemia,hold nephrotoxins. Acute lactic acidosis no sepsis, tachycardia tachypnea due to DKA, resolved likely due to dehydration. Hypernatremia due to dehydration improving, encourage by mouth fluids ,follow labs. Hypertension stable continue metoprolol XL 25 mg daily.. Hyperlipidemia continue Lipitor 80 mg. Coronary artery disease status post CABG no chest pain, EKG showed sinus tachycardia, no acute ischemic change, continue beta-arianna and statin, not on aspirin. Mood disorder resume all home medications. DVT prophylaxis on heparin. Full code. In my clinical judgment patient need continued inpatient hospitalization for management of diabetes mellitus/DKA requiring close monitoring of electrolytes. Quality Stroke Does the patient have a stroke diagnosis?: No VTE Prior VTE?: No VTE Risk Level:: Medical - moderate - high VTE Device Contraindication: N/A - Device Ordered VTE Drug Contraindication: N/A - Med Ordered
[2023-08-31 16:00] VITALS: BP 127/62; PULSE 84; RESP 20; TEMP 36.4; O2SAT 94
[2023-08-31 16:33] LABS: Glucose, Whole Blood 264 mg/dL (60-115)
[2023-08-31] MEDS: metFORMIN HCl 500 MG TABLET PO (16:55)
[2023-08-31 19:22] VITALS: BP 133/78; PULSE 88; RESP 20; TEMP 36.3; O2SAT 95
[2023-08-31 19:59] LABS: Glucose, Whole Blood 219 mg/dL (60-115)
[2023-08-31] MEDS: busPIRone HCl 10 MG TABLET PO (20:09)
[2023-08-31] MEDS: Atorvastatin Calcium 80 MG TABLET PO (20:09)
[2023-08-31] MEDS: PHENobarbitaL 30 MG TABLET PO (20:09)
[2023-08-31] MEDS: ARIPiprazole 2 MG TABLET PO (20:09)
[2023-08-31] MEDS: Melatonin 3 MG TABLET 6 MG PO (20:10)
[2023-08-31] MEDS: Doxazosin Mesylate 2 MG TABLET 8 MG PO (20:10)
[2023-08-31] MEDS: Insulin Glargine,Hum.rec.anlog 100 UNIT/ML 10 ML VIAL 20 UNIT SUBCUT (20:11)
[2023-09-01] VITALS: BP 112/71; PULSE 86; RESP 20; TEMP 36.2; O2SAT 93
[2023-09-01 03:36] VITALS: BP 115/71; PULSE 84; RESP 20; TEMP 36.3; O2SAT 94
[2023-09-01 07:40] VITALS: BP 115/75; PULSE 74; RESP 20; TEMP 36.2; O2SAT 92
[2023-09-01 07:47] LABS: Glucose, Whole Blood 193 mg/dL (60-115)
[2023-09-01] MEDS: levETIRAcetam 250 MG TABLET PO (07:52)
[2023-09-01] MEDS: busPIRone HCl 5 MG TABLET PO (07:52)
[2023-09-01] MEDS: Metoprolol Succinate ER 25 MG TAB.ER.24H PO (07:52)
[2023-09-01] MEDS: Cholecalciferol (Vitamin D3) 25 MCG TABLET PO (07:53)
[2023-09-01] MEDS: PARoxetine HCL 30 MG TABLET PO (07:53)
[2023-09-01] MEDS: Insulin Lispro 100 UNIT/ML 3 ML VIAL SUBCUT ×2 (07:53→11:54)
[2023-09-01] MEDS: 0.9 % Sodium Chloride Flush 3 ML SYRINGE IVFLUSH (07:53)
[2023-09-01] MEDS: metFORMIN HCl 500 MG TABLET PO (07:56)
[2023-09-01] MEDS: Nystatin Powder 15 GM BOTTLE 1 APPL TOPICAL (07:56)
--- NOTE | 2023-09-01 10:36 | MHC.CM.PN ---
Addendum entered by Josephine López, RN 09/03/23 09:34: CLARIFICATION PT DISCHARGED TO [facility] [address] [place] [address] RD [facility] W/[facility]ELSON AND SISTER/HCP DAT FOR TRANSPORT Original Note: IMM 09/01/23 DELIVERED TO BEDSIDE, ANTIC PT TO BE MEDICALLY CLEARED FOR DC TO [facility] FOR BLS TRANSPORT
[2023-09-01 10:49] LABS: Anion Gap 11 (12-20); Blood Urea Nitrogen 17 mg/dL (9-16); Calcium 8.3 mg/dL (8.4-10.2); Carbon Dioxide 23 mmol/L (22-29); Chloride 111 mmol/L (96-108); Creatinine Clr Calc Pharmacy 64.7; Estimated Glomerular Filt Rate > 60; Glucose Random 281 mg/dL (60-115); Potassium 3.9 mmol/L (3.3-5.1); Sodium 141 mmol/L (135-145)
--- NOTE | 2023-09-01 11:02 | PM.DS ---
DS: Providers Provider Date of Service: 09/01/23 Date of admission: 08/28/23 05:37 Primary care physician: Ari Shell MD DS: Diagnosis Discharge Diagnosis (1) Acute hypernatremia: Status: Acute (2) MARYSOL (acute kidney injury): Status: Resolved (3) Diabetic ketoacidosis: Status: Resolved DS: Summary Hospital Course Hospital Course: Date of Service: 08/28/23 Attending physician on admission: Andrea Wade Chief Complaint: Altered mental status Adrián Cano is a 73 years old man with past medical history significant for meningioma s/p resection and type 2 diabetes on metformin was brought to the emergency department after he was found to be altered. A friend did a wellness checks and found him altered. HPI was difficult to obtain due to patient's confusion. He was able to say that everything hurts. According to ED provider patient has been very depressed because his dog . In the ED, he was initially found to have sinus tachycardia and tachypnea. The pressure is normal and there is no fever. His oxygen saturation was found to be in the 88% and is currently requiring 4 L/min supplemental oxygen. His blood workup showed leukocytosis, 15.7. His glucose was initially found to be 1115, creatinine 2.75, bicarb 16 and hyponatremia of 155, pH 7.23. INR is normal. His CT scan showed his least stable post craniotomy shortness with extensive gliosis and encephalomalacia involving the frontal lobes. CXR showed subsegmental atelectasis and/or hearing of the left lower lobe. There is no consolidations or pleural effusions. ED tx: Insulin IV infusion >> started on Lantus 30 units subcut, insulin R 10 units IV, NS, 3L NS, ceftriaxone 1 g IV. Hospital course : 73-year-old gentleman with past medical history significant for type 2 diabetes mellitus on metformin, history of meningioma status post resection, coronary artery disease status post CABG was brought in to [facility] due to acute mental status change noted by a friend in the ER patient was found to be confused and noted to have blood sugar of 1115, creatinine of 2.75, bicarb of 16 and a sodium of 155, CT scan of head showed no acute abnormality, chest x-ray showed subsegmental atelectasis, pH 7.23, bicarb 14. Acute toxic metabolic encephalopathy present on admission resolved with treatment of hyperglycemia, no evidence of infection noted, normal UA and chest x-ray. Status post DKA noted to have blood sugars greater than 1000 treated in the emergency room with regular insulin, Lantus gap closed,Blood sugars improved, hemoglobin A1c 12.2, patient treated with scheduled Lantus and insulin sliding scale, blood sugars improved seen by solutions sales consultant for diabetic diet, and received teachings to administer Lantus and monitor blood sugars, patient is now being discharged home with VNA services , recommend to follow diabetic diet and monitor blood sugar closely., patient noted to have significant drop in platelet count hit antibody came back nonreactive repeat platelets improved. Urinary retention with history of BPH required straight catheterization x1 , subsequently voiding without difficulty recommend to continue Cardura and terazosin, being followed by Urology as outpatient. Acute kidney injury with acute metabolic acidosis resolved with IV fluids and correction of hyperglycemia. Acute lactic acidosis likely due to dehydration with DKA, no sepsis noted. Hypernatremia due to dehydration resolved. Hypertension stable continue metoprolol XL 25 mg daily. Hyperlipidemia continue Lipitor 80 mg. Coronary artery disease status post CABG no chest pain, EKG showed sinus tachycardia, no acute ischemic change, continue beta-arianna and statin, not on aspirin. Mood disorder resume all home medications. Time Attestation Discharge Coordination Time (in mins): 40 Quality: Safe Use of Opioids Does Pt have an Active Cancer Diagnosis on the Problem List?: No Quality: Stroke Does the patient have a stroke diagnosis?: No Physical Exam Vital Signs: Vital Signs: Last Vital Signs Temp 97.2 F 09/01/23 07:40 Pulse 74 09/01/23 07:40 Resp 20 09/01/23 07:40 BP 115/75 09/01/23 07:40 Pulse Ox 92 09/01/23 07:40 O2 Del Method Nasal Cannula 09/01/23 07:40 O2 Flow Rate 1 09/01/23 07:40 Oxygen Flow Rate 2 08/27/23 18:11 BMI result Body Mass Index 23.1 Const: Other: General awake alert x3, sitting comfortably in no acute distress. Anicteric sclera Neck supple no JVD. CVS regular rate rhythm, Respiratory lungs clear to auscultation, no respiratory distress, no wheeze, no rhonchi. Gastrointestinal abdomen soft, non tender, bowel sounds audible. Extremities no edema. Neuro non focal Skin no rash Psych appropriate affect DS: Data Data Completed and Pending Completed studies during hospitalization [Text1]: Procedures Drainage of Left Pleural Cavity with Drainage Device, Percutaneous Approach (11/17/21) Labs on day of discharge: Laboratory Results - last 24 hr 08/31/23 08/31/23 08/31/23 11:16 16:19 19:55 Hold Purple Top Sodium Potassium Chloride Carbon Dioxide Anion Gap BUN Creatinine Estim Creat Clear Calc Estimated GFR POC Glucose 255 H 264 H 219 H Random Glucose Calcium 09/01/23 09/01/23 09/01/23 06:43 07:44 09:59 Hold Purple Top SEE NOTE Sodium 141 Potassium 3.9 Chloride 111 H Carbon Dioxide 23 Anion Gap 11 L BUN 17 H Creatinine 0.93 Estim Creat Clear Calc 64.7 Estimated GFR > 60 POC Glucose 193 H Random Glucose 281 H Calcium 8.3 L Preliminary micro results at discharge 08/27/23 18:54 Blood Culture - Preliminary Blood - Venous No growth after 48 hours. 08/27/23 18:49 Blood Culture - Preliminary Blood - Venous No growth after 48 hours. Discharge Plan Discharge Anticipated Discharge Date/Time: 09/01/23 10:31 Patient Disposition: Home Health Service Discharge Diagnosis: DKA Acute kidney injury Toxic metabolic encephalopathy Referrals: Ari Shell MD [Primary Care Provider] - 1 Week Discharge Medications: New metformin 500 mg Tablet 500 mg PO BIDWM Qty: 60 0RF (DME) blood-glucose meter [FreeStyle Lite Meter] Kit Qty: 1 0RF Rx Instructions: As Directed insulin glargine [Lantus Solostar U-100 Insulin] 100 unit/mL (3 mL) insulin pen 24 unit SUBCUT DAILY Qty: 15 0RF (DME) pen needle, diabetic 32 gauge x 1/4 needle Qty: 100 0RF Rx Instructions: Use four times a day or as directed. Continued metoprolol succinate 25 mg tablet extended release 24 hr 25 mg PO DAILY 90 Days Qty: 90 2RF aripiprazole [Abilify] 2 mg tablet 2 mg PO BEDTIME 30 Days Qty: 30 4RF buspirone 5 mg tablet 5 mg PO DAILY levetiracetam 250 mg tablet 250 mg PO BID buspirone 5 mg tablet 10 mg PO BEDTIME trazodone 100 mg tablet 100 - 200 mg PO BEDTIME PRN (Reason: Insomnia) paroxetine HCl 30 mg tablet 30 mg PO DAILY 90 Days Qty: 90 3RF Discontinued losartan 50 mg tablet 50 mg PO DAILY 30 Days Qty: 30 1RF metformin 500 mg tablet 250 mg PO DAILY 90 Days Qty: 45 2RF No Action atorvastatin 80 mg tablet 80 mg PO BEDTIME 30 Days Qty: 30 2RF cholecalciferol (vitamin D3) 25 mcg (1,000 unit) capsule 25 mcg PO DAILY 90 Days Qty: 90 1RF (DME) FreeStyle Lite Strips Strip Qty: 100 1RF Rx Instructions: Test three times a day or as directed. (DME) lancets [FreeStyle Lancets] 28 gauge misc Qty: 100 0RF Rx Instructions: Test four times a day or as directed. cefuroxime axetil 500 mg tablet 500 mg PO BID Qty: 10 0RF phenobarbital 30 mg tablet 30 mg PO BEDTIME insulin aspart U-100 [Novolog FlexPen U-100 Insulin] 100 unit/mL (3 mL) insulin pen 1 sliding scale dose subcut USEASDIRECTD Qty: 15 0RF Rx Instructions: three times per day with meals as needed, following ISS: Blood Sugar: <150 - 0 units 151-200 - 4 units 201-250 - 6 units 251-300 - 8 units 301-350 - 10 units >350 - 12 units; BG <111 0 units, 111-150 - 0 units, bethanechol chloride 50 mg tablet 50 mg PO BID 30 Days Qty: 60 1RF terazosin 10 mg capsule 10 mg PO BEDTIME 90 Days Qty: 90 1RF Discharge Orders: Discharge Order (Routine); Ordered 09/01/23 Ordered By: Eugenia Roman Diet: Diabetic diet Activity on Discharge: As tolerated Stand Alone Forms: Patient Portal Discharge page Print Language: Slovenian Care Plan Goals: DKA resolved recommend to follow diabetic diet Take Lantus at bedtime 24 units Take pre meal Humalog insulin 3 times a day Take metformin 500 mg 1 tablet twice daily Monitor blood sugar before meal and at bedtime Hypernatremia resolved Health Concerns: Coronary artery disease status post CABG continue all home medication, soft blood pressure losartan discontinued Plan of Treatment: Outpatient follow-up with primary care physician, flour tester and boiler or engine operator Assessment: as above Discharge Date/Time: 09/01/23 13:30
[2023-09-01 11:20] VITALS: BP 109/64; PULSE 82; RESP 18; TEMP 36.5; O2SAT 96
[2023-09-01 11:43] LABS: Glucose, Whole Blood 266 mg/dL (60-115)
[2023-09-01 22:49] LABS: Heparin Induced Plt Ab Negative (Negative)
== END 2023-09-01 13:30 | disposition home health service (06) | DRG 637 ==
LOC: HO.ED 08-28 02:56 → HO.EDOVER 08-28 05:43 → HO.IMC 08-28 17:27
PROVIDERS: Internal Medicine; Physician Assistant Medical; Admitting Provider Internal Medicine; Emergency Provider Student in an Organized Health Care Education/Training Program; PCP Family Medicine; Visit Provider Hospitalist
DX: E11.10 Type 2 diabetes mellitus with ketoacidosis without coma (principal); G92.8 Other toxic encephalopathy; E87.0 Hyperosmolality and hypernatremia; N17.9 Acute kidney failure, unspecified; D69.6 Thrombocytopenia, unspecified; E86.0 Dehydration; N40.1 Benign prostatic hyperplasia with lower urinary tract symptoms; R33.8 Other retention of urine; E78.5 Hyperlipidemia, unspecified; I10 Essential (primary) hypertension; I25.10 Atherosclerotic heart disease of native coronary artery without angina pectoris; Z95.1 Presence of aortocoronary bypass graft; Z79.4 Long term (current) use of insulin; Z79.84 Long term (current) use of oral hypoglycemic drugs; Z79.899 Other long term (current) drug therapy
CPT/HCPCS: 0241U; 36415; 70450; 71045; 80048; 80053; 80076; 81001; 81003; 82010; 82803; 82947; 83036; 83605; 83735; 83880; 83930; 84484; 85025; 85027; 85610; 85730; 86022; 86704; 86706; 86803; 87040; 87086; 87340; 87389; 93005; 99285; C1758; J0696; J1644; J1650; J1953; J2270

== ENCOUNTER → 2023-08-27 18:33 | Outpatient (BNV) | payer MEDICARE, SELFPAY | PROVIDERS: Admitting Provider Internal Medicine; Emergency Provider Student in an Organized Health Care Education/Training Program; PCP Family Medicine; Visit Provider Internal Medicine Cardiovascular Disease | DX: R00.0 Tachycardia, unspecified (principal) | CPT/HCPCS: 93010 ==

== ENCOUNTER → 2023-08-28 05:37 | Outpatient (BNV) | payer MEDICARE, SELFPAY | PROVIDERS: Admitting Provider Internal Medicine; Emergency Provider Student in an Organized Health Care Education/Training Program; PCP Family Medicine; Visit Provider Internal Medicine | DX: E87.0 Hyperosmolality and hypernatremia (principal); N17.9 Acute kidney failure, unspecified; E11.10 Type 2 diabetes mellitus with ketoacidosis without coma | CPT/HCPCS: 99223; 99233; 99239; 99499 ==

== ENCOUNTER 2023-09-02 16:54 | Inpatient (IN) | payer MEDICARE, SELFPAY ==
[2023-09-02] VITALS (8 sets, daily range): BP systolic 112–126; BP diastolic 59–69; PULSE 83–106; RESP 13–25; TEMP 37.1–39.1; O2SAT 93–97; BMI 24.6
--- NOTE | ~2023-09-02 | XR_ITS ---
EXAMINATION: XR CHEST CLINICAL INFORMATION: Fever COMPARISON: Previous chest x-ray 08/27/2023 TECHNIQUE: Frontal view of the chest was obtained. FINDINGS: Cardiac and mediastinal contours are stable. Post-CABG changes. Subsegmental atelectasis at the left lung base. The right lung is clear. No pleural effusion or pneumothorax. XR/XR chest 1V IMPRESSION: No evidence of pneumonia. Subsegmental atelectasis of the left lung base.
[2023-09-02 17:14] LABS: Glucose, Whole Blood 110 mg/dL (60-115)
--- NOTE | 2023-09-02 17:31 | PC.NURSE ---
20g IV access established in left AC by this RN. Labs drawn and sent for analysis. Pt on continuous cardiac monitoring. Sepsis alert notification verbalized to Dr. Rai. Tachycardia 100-105bpm on monitoring at this time. Reports generalized 'all over' back pain 01/30 at this time. Discharged yesterday [place] [facility] Was previously admitted for DKA. Family member at bedside.
[2023-09-02 17:32] LABS: MANUAL DIFF FLAG NO
[2023-09-02 17:40] LABS: Basophils Percent Auto 0.5 % (0-2); Eosinophils Absolute Auto 0.1 X10*3/uL (0.0-0.4); Eosinophils Percent Auto 1.3 % (0-4); Hematocrit 33.1 % (42.0-52.0); Imm Gran Pct Auto 1.6 % (0.0-0.4); Lymphocytes Absolute Auto 0.7 X10*3/uL (1.2-4.9); Mean Corpuscular HGB Conc 33.2 g/dl (31.0-36.0); Mean Corpuscular Hemoglobin 28.8 pg (27.0-33.0); Mean Corpuscular Volume 86.6 fL (80.0-98.0); Mean Platelet Volume 10.8 fL (9.4-12.4); Monocytes Absolute Auto 0.4 X10*3/uL (0.1-1.2); Monocytes Percent Auto 6.5 % (2-11); Neutrophils Absolute Auto 4.9 x10*3/uL (2.0-8.3); Neutrophils Percent Auto 79.1 % (45-73); Platelet Count 105 X10*3/uL (160-400); Red Blood Count 3.82 X10*6/uL (4.60-5.80); Red Cell Distribution Width 13.4 % (11.0-16.0); White Blood Count 6.2 X10*3/uL (4.8-10.8)
[2023-09-02 17:43] LABS: INTERNATIONAL NORM RATIO 0.9 (0.9-1.1); Prothrombin Time 11.1 SEC (11.1-13.3)
[2023-09-02 17:44] LABS: Lactic Acid 1.1 mmol/L (0.5-2.0)
[2023-09-02 17:45] LABS: Partial Thromboplastin Time 26.2 SEC (26.0-36.8)
--- NOTE | 2023-09-02 17:45 | ED_ITS ---
HPI - General Adult General Chief complaint: General Medical Stated complaint: diabetic fever back ache Time Seen by Provider: 09/02/23 17:34 Source: patient and family Mode of arrival: ambulatory Limitations: no limitations History of Present Illness HPI narrative: patient comes to the emergency room accompanied by his [id number]. Patient states that he was discharged yesterday from the hospital, in the last 24 hours patient thought he was a bit feverish and came back to the hospital. According to the patient, patient was here for new onset diabetes, DKA and hypernatremia. At this time, patient states that he does not have any headache, neck pain, no chest pain or shortness of breath, no abdominal pain. Patient had a visiting nurse coming in today to his house to explain to him how to use both kinds of insulin. Patient states that he has mild dysuria, no hematuria. Related Data Home Medications Medication Instructions Recorded Confirmed buspirone 5 mg tablet 5 mg PO DAILY 08/27/23 09/02/23 buspirone 5 mg tablet 10 mg PO BEDTIME 08/27/23 09/02/23 levetiracetam 250 mg tablet 250 mg PO BID 08/27/23 09/02/23 phenobarbital 30 mg tablet 30 mg PO BEDTIME 08/27/23 09/02/23 trazodone 100 mg tablet 100 - 200 mg PO BEDTIME PRN 08/27/23 09/02/23 Insomnia Previous Rx's Medication Instructions Recorded paroxetine HCl 30 mg tablet 30 mg PO DAILY 90 days #90 tabs 01/08/23 cholecalciferol (vitamin D3) 25 25 mcg PO DAILY 90 days #90 caps 04/14/23 mcg (1,000 unit) capsule aripiprazole 2 mg tablet (Abilify) 2 mg PO BEDTIME 30 days #30 tabs 07/16/23 atorvastatin 80 mg tablet 80 mg PO BEDTIME 30 days #30 tabs 07/16/23 metoprolol succinate 25 mg 25 mg PO DAILY 90 days #90 tabs 07/16/23 tablet,extended release 24 hr terazosin 10 mg capsule 10 mg PO BEDTIME 30 days #30 caps 08/26/23 blood sugar diagnostic (FreeStyle #100 ea 09/01/23 Lite Strips) blood-glucose meter (FreeStyle #1 ea 09/01/23 Lite Meter kit) insulin glargine 100 unit/mL (3 24 unit (0.24 mL) subcut DAILY #15 09/01/23 mL) subcutaneous pen (Lantus mL Solostar U-100 Insulin) insulin lispro 100 unit/mL 1 sliding scale dose subcut TIDAC 09/01/23 subcutaneous pen (Humalog KwikPen #15 mL (U-100) Insulin) lancets 28 gauge (FreeStyle #100 ea 09/01/23 Lancets) metformin 500 mg tablet 500 mg PO BIDWM #60 tabs 09/01/23 pen needle, diabetic 32 gauge x #100 ea 09/01/23 1/ Allergies Allergy/AdvReac Type Severity Reaction Status Date / Time acetaminophen [From TYLENOL] AdvReac Intermediate gi upset Verified 09/02/23 17:08 Review of Systems 2 Review of Systems: Constitutional : No Weight loss, complaining of fever and chills, No Night Sweats, Complaining of fatigue, recovering from hospitalization ENT/Mouth : No Hearing loss, No Ear Pain, No Nasal Congestion, No Sinus Pain, No Hoarseness, No sore throat, No Rhinorrhea, No Swallowing Difficulty Eyes: No Eye Pain, No Swelling, No Redness, No Foreign Body, No Discharge, No Vision Changes Cardiovascular : No Chest Pain, No SOB, No Dyspnea on Exertion, No Orthopnea, No Edema, No Palpitations Respiratory : No Cough, No Sputum, No Wheezing, No Smoke Exposure, No Dyspnea Gastrointestinal : No Nausea, No Vomiting, No Diarrhea, No Constipation, No abdominal Pain, No Hematochezia, No Melena Genitourinary : no irregular bleeding, No Dysuria, No Urinary Frequency, No Hematuria, No Urinary Incontinence, No Urgency, No Flank Pain, No Urinary Flow Changes, No Hesitancy Musculoskeletal : No joint pain, No Myalgias, No Joint Swelling Skin : No Skin Lesions, No rash Neuro : No Weakness, No Numbness, No Paresthesias, No Loss of Consciousness, No Dizziness, No Headache Psych : No Anxiety/Panic, No Depression, No SI/HI/AH/VH, No Social Issues, Heme/Lymph: No Bruising, No Bleeding,No Lymphadenopathy Endocrine : No Polyuria, No Polydipsia, No Temperature Intolerance FOR[facility]LY [facility] Past Medical History Medical History (Updated 09/02/23 @ 23:01 by Jackie Rai MD) Diabetes Elevated liver enzymes Immunization counseling Opioid dependence, uncomplicated Chronic, continuous use of opioids Pneumothorax, left Fall Closed fracture nasal bone Abrasion of face Screening for osteoporosis Low HDL (under 40) Right elbow pain Opioid use Frontal headache Adult general medical exam Screening for prostate cancer Colon cancer screening Headache Mild dehydration Low back pain Muscle spasm History of blood transfusion Back pain Brain tumor Meningioma PTSD (post-traumatic stress disorder) Anxiety Depression Anemia Thrombocytopenia GERD (gastroesophageal reflux disease) CAD (coronary artery disease) Sacroiliitis Hx of thrombocytopenia Anemia Hx of small bowel obstruction GERD (gastroesophageal reflux disease) Migraine Depression Hx of meningioma of the brain PTSD (post-traumatic stress disorder) Anxiety Peyronie's disease CAD (coronary artery disease) HTN (hypertension) Surgical History H/O craniotomy Hx of CABG History of resection of meningioma History of back surgery Hx of colonoscopy History of nasal surgery History of bowel resection History of quadruple bypass Hx of CABG Family History Family History Father No problems noted. Mother No problems noted. Brother No problems noted. Sister No problems noted. Sister No problems noted. Sister No problems noted. Social History Social History Household Members: None [facility]: [facility] Are you a primary care support representative to a significant other at home: No Do you presently have visiting nurse or other home services: No Alcohol intake: never Patient Tobacco Use Status: Tobacco use Unknown Smoked in Last 30 Days: No e-Cigarette/Vaping Use: Never Used Second Hand Smoke Exposure: No Use of substances other than those prescribed or required for medical reasons: No Advance Directives: No Advance Directives Information Provided: No service: No Current occupational status: retired Current occupational exposures/hazards: No Cognitive needs: No Hearing needs: No Vision needs: Yes (Reading glasses) Physical Exam ED Vital Signs: Vital Signs - 24 hr 09/02/23 17:03 09/02/23 18:00 09/02/23 18:54 Temperature 100.1 F 102.3 F H Pulse Rate 106 H 99 96 Respiratory Rate 14 18 20 Blood Pressure 118/69 113/63 122/63 Pulse Oximetry 94 94 93 Oxygen Delivery Method Room Air Room Air Room Air 09/02/23 20:01 09/02/23 22:24 Temperature 98.8 F Pulse Rate 85 Respiratory Rate 20 Blood Pressure 120/65 120/61 Pulse Oximetry 97 Oxygen Delivery Method Room Air BMI result Body Mass Index 24.6 Const Other: Appearance: Alert. Oriented X3. No acute distress. Eyes: Pupils equal, round and reactive to light. ENT: Pharynx normal. dry oral mucosa Neck: Normal inspection. Neck supple. No lymph nodes noted. No crepitus CVS: Normal heart rate and rhythm. Pulses normal. Normal S1 and S2 Respiratory: No respiratory distress. Breath sounds normal. No Wheezing. No rales Abdomen: Soft and nontender. No rigidity. No distention. Skin: Skin warm and dry. Normal skin color. Normal skin turgor. healing ecchymosis and abdomen from Lovenox Extremities: No lower extremity edema. No Lacerations. No Rash Neuro: Oriented X 3. No motor deficit. No sensory deficit. Moving all extremities. No slurred speech. CN 2 through 12 grossly intact Psych: calm, cooperative, normal affect Course Course Course Narrative: - of patient's labs and imaging pending. - Patient was discharged yesterday from the hospital for DKA and hypernatremia, MARYSOL. Today patient presents with They complain of fever. It is possible that patient may have contracted a viral infection during his hospital stay. - Patient has a temperature of 100.1 degrees, slightly tachycardic at 01:06, normal blood pressure. At this time, sepsis not suspected. - Patient has dry oral mucosa, At this time, 17:55, Sepsis is not suspected. Medications Administered Discontinued Medications Generic Name Dose Route Start Last Admin Trade Name Freq PRN Reason Stop Dose Admin Sodium Chloride 1,000 mls @ 999 mls/hr 09/02/23 17:43 09/02/23 19:35 Ns IVCONT 09/02/23 18:43 Infused .Q1H1M ONE Infusion Sodium Chloride 1,500 mls @ 999 mls/hr 09/02/23 18:31 09/02/23 20:38 Ns IVCONT 09/02/23 20:01 Infused .Q1H31M ONE Infusion Ceftriaxone Sodium 1 gm/ 50 mls @ 100 mls/hr 09/02/23 18:31 09/02/23 20:20 Sodium Chloride IV 09/02/23 19:00 Infused ONCE ONE Infusion Morphine Sulfate 2 mg 09/02/23 20:07 09/02/23 20:37 Morphine Sulfate 2 Mg/Ml Cartridge IVPUSH 09/02/23 20:08 2 mg ONCE ONE Administration Protocol Medical Decision Making Medical Decision Making [facility] Narrative: at this time, 18:30, I was informed by the patient's nurse that the patient has a fever of 102.3 rectally. At this time, there is no source of infection, urinalysis, chest x-ray and viral panel pending. - Patient's vitals are normal other than the fever, good blood pressure 113/63, no tachycardic, heart rate 99. white blood cell count within normal limits, lactic acid normal - my interpretation of labs, as above, additionally, patient's beta hydroxybutyrate is elevated , glucose is 128, anion gap is closed. Patient likely dehydrated. Patient receiving IV fluids. - As mentioned above, some of patient's labs are still pending. I reviewed patient's labs from the previous admission, patient's urinalysis had blood in the urine, likely secondary to self straight cath, but did have a moderate amount of white blood cells but no bacteria when seen. Insert this time we do not have a clear source of infection, we will empirically treat with IV fluids and IV antibiotics. -22:30, serology test negative for COVID, influenza and RSV. chest x-ray Radiology report: No pneumonia. Urinalysis still pending. No clear source of infection at this time. As mentioned above, patient was empirically covered with antibiotics and IV fluids -I discussed with our hospitalist the patient and his recent admission, still no clear source of infection, urinalysis pending. Patient being admitted Differential Diagnosis Differential Diagnoses: The differential diagnosis associated with the presentation includes (Pneumonia, COVID, influenza, viral illness, UTI) Admission/Observation Consideration of admission/observation: Escalation of care including admission/observation considered Consult Healthcare Provider Management of the patient was discussed with: Hospitalist Lab Data [facility] Lab Attestation statement: I reviewed the patient's lab results. 09/02/23 17:25 09/02/23 17:25 Labs: Lab Results 09/02/23 09/02/23 09/02/23 Range/Units 17:07 17:25 17:48 WBC 6.2 (4.8-10.8) X10*3/uL RBC 3.82 L (4.60-5.80) X10*6/uL Hgb 11.0 L (14.0-18.0) g/dl Hct 33.1 L (42.0-52.0) % MCV 86.6 (80.0-98.0) fL MCH 28.8 (27.0-33.0) pg MCHC 33.2 (31.0-36.0) g/dl RDW 13.4 (11.0-16.0) % Plt Count 105 L (160-400) X10*3/uL MPV 10.8 (9.4-12.4) fL Immature Gran % (Auto) 1.6 H (0.0-0.4) % Neut % (Auto) 79.1 H (45-73) % Lymph % (Auto) 11.0 L (20-40) % Harvey % (Auto) 6.5 (2-11) % Eos % (Auto) 1.3 (0-4) % Baso % (Auto) 0.5 (0-2) % Lymph # (Auto) 0.7 L (1.2-4.9) X10*3/uL Harvey # (Auto) 0.4 (0.1-1.2) X10*3/uL Eos # (Auto) 0.1 (0.0-0.4) X10*3/uL Baso # (Auto) 0.0 (0.0-0.2) X10*3/uL Abs Immat Gran (auto) 0.10 H (0.00-0.03) X10*3/uL Absolute Neuts (auto) 4.9 (2.0-8.3) x10*3/uL Absolute Nucleated RBC 0.000 (0.0-0.012) X10*3/uL Nucleated RBC % (auto) 0.0 (0.0-0.2) /100WBC PT 11.1 (11.1-13.3) SEC INR 0.9 (0.9-1.1) APTT 26.2 (26.0-36.8) SEC Sodium 140 (135-145) mmol/L Potassium 3.8 (3.3-5.1) mmol/L Chloride 110 H (96-108) mmol/L Carbon Dioxide 25 (22-29) mmol/L Anion Gap 9 L (12-20) BUN 12 (9-16) mg/dL Creatinine 0.84 (0.5-1.4) mg/dL Estim Creat Clear Calc 74.3 Estimated GFR > 60 POC Glucose 110 (60-115) mg/dL Random Glucose 128 H (60-115) mg/dL Lactic Acid 1.1 (0.5-2.0) mmol/L Calcium 8.6 (8.4-10.2) mg/dL Total Bilirubin 0.8 (0.0-1.0) mg/dL Direct Bilirubin 0.3 (0.0-0.5) mg/dL AST 47 H (5-37) U/L ALT 57 H (0-40) U/L Alkaline Phosphatase 83 (39-117) U/L Total Protein 6.2 L (6.5-8.0) g/dL Albumin 3.4 L (3.5-5.0) g/dL Beta-Hydroxybutyrate 0.51 H (0.02-0.27) mmol/L Influenza Type A (PCR) NEGATIVE (Negative) Influenza Type B (PCR) NEGATIVE (Negative) RSV RNA Qual (PCR) NEGATIVE (Negative) SARS-CoV-2 RNA (RT-PCR) NEGATIVE (Negative) Independent Interpretation I performed an independent interpretation of an: Plain X-Ray (My interpretation: Atelectasis) Radiology Impression Discussion of test interpretation with radiology: I have reviewed the radiologist's reading. Radiologist Impression: Cardiac and mediastinal contours are stable. Post-CABG changes. Subsegmental atelectasis at the left lung base. The right lung is clear. No pleural effusion or pneumothorax. XR/XR chest 1V IMPRESSION: No evidence of pneumonia. Subsegmental atelectasis of the left lung base. External Record Review External record reviewed: Inpatient record Chronic Conditions Patient?s care impacted by: Diabetes Critical Care Time Critical Care Time Critical Care Time: Yes Total Critical Care Time: 75 Attestation: I have personally provided critical care time. Time includes review of lab data, radiology results, discussion with consultants, and monitoring for potential decompensation. Intervention performed as documented. Discharge Plan Discharge Clinical Impression: Fever of unknown origin, Acute dehydration Patient Disposition: Admitted As Inpatient Prescriptions: No Action cholecalciferol (vitamin D3) 25 mcg (1,000 unit) capsule 25 mcg PO DAILY 90 Days Qty: 90 1RF metoprolol succinate 25 mg tablet extended release 24 hr 25 mg PO DAILY 90 Days Qty: 90 2RF atorvastatin 80 mg tablet 80 mg PO BEDTIME 30 Days Qty: 30 2RF aripiprazole [Abilify] 2 mg tablet 2 mg PO BEDTIME 30 Days Qty: 30 4RF terazosin 10 mg capsule 10 mg PO BEDTIME 30 Days Qty: 30 1RF buspirone 5 mg tablet 5 mg PO DAILY levetiracetam 250 mg tablet 250 mg PO BID phenobarbital 30 mg tablet 30 mg PO BEDTIME buspirone 5 mg tablet 10 mg PO BEDTIME trazodone 100 mg tablet 100 - 200 mg PO BEDTIME PRN (Reason: Insomnia) metformin 500 mg Tablet 500 mg PO BIDWM Qty: 60 0RF (DME) FreeStyle Lite Strips Strip Qty: 100 0RF Rx Instructions: Test four times a day or as directed. (DME) blood-glucose meter [FreeStyle Lite Meter] Kit Qty: 1 0RF Rx Instructions: As Directed insulin lispro [Humalog KwikPen Insulin] 100 unit/mL insulin pen 1 sliding scale dose SUBCUT TIDAC Qty: 15 0RF Rx Instructions: Blood Sugar: <150 - 0 units 151-200 - 4 units 201-250 - 6 units 251-300 - 8 units 301-350 - 10 units >350 - 12 units; BG <111 0 units, 111-150 - 0 units, insulin glargine [Lantus Solostar U-100 Insulin] 100 unit/mL (3 mL) insulin pen 24 unit SUBCUT DAILY Qty: 15 0RF (DME) pen needle, diabetic 32 gauge x 1/4 needle Qty: 100 0RF Rx Instructions: Use four times a day or as directed. (DME) lancets [FreeStyle Lancets] 28 gauge misc Qty: 100 0RF Rx Instructions: Test four times a day or as directed. paroxetine HCl 30 mg tablet 30 mg PO DAILY 90 Days Qty: 90 3RF
--- NOTE | 2023-09-02 17:49 | PHA.MEDREC ---
Pharmacy Consult ? Medication Reconciliation Pharmacy has completed the medication reconciliation. Patient just discharge 08/31 from inpatient. Utilized discharge summary for med rec. Kevin PradoD
[2023-09-02 17:56] LABS: Alanine Aminotransferase 57 U/L (0-40); Albumin Level 3.4 g/dL (3.5-5.0); Alkaline Phosphatase 83 U/L (39-117); Anion Gap 9 (12-20); Aspartate Amino Transferase 47 U/L (5-37); Bilirubin Direct 0.3 mg/dL (0.0-0.5); Bilirubin Total 0.8 mg/dL (0.0-1.0); Blood Urea Nitrogen 12 mg/dL (9-16); Calcium 8.6 mg/dL (8.4-10.2); Carbon Dioxide 25 mmol/L (22-29); Chloride 110 mmol/L (96-108); Creatinine Clr Calc Pharmacy 74.3; Estimated Glomerular Filt Rate > 60; Glucose Random 128 mg/dL (60-115); Potassium 3.8 mmol/L (3.3-5.1); Sodium 140 mmol/L (135-145); Total Protein 6.2 g/dL (6.5-8.0)
--- NOTE | 2023-09-02 18:00 | PC.NURSE ---
pt alert and oriented, skin warm to the touch, respirations even and unlabored, ls clear, pt is reporting generally not feeling well and back pain/feels like it's burning, was just d/c from the hospital on friday for DKA, normal sinus on the monitor in the 90's at this time, performed a rectal temp and 102.3, aware
[2023-09-02] MEDS: 0.9 % Sodium Chloride 1,000 ML 999 ML IVCONT (18:01)
[2023-09-02 18:02] LABS: Beta-Hydroxybutyrate 0.51 mmol/L (0.02-0.27)
[2023-09-02 18:44] LABS: Influenza A PCR NEGATIVE (Negative); Influenza B PCR NEGATIVE (Negative); Resp Syncy Virus RNA Qual PCR NEGATIVE (Negative); SARS COV2 PCR INHOUSE NEGATIVE (Negative)
[2023-09-02] MEDS: cefTRIAXone sodium 1 GM in 0.9 % Sodium Chloride 50 ML IV (18:48)
[2023-09-02] MEDS: 0.9 % Sodium Chloride 1,500 ML 999 ML IVCONT (18:52)
--- NOTE | 2023-09-02 19:32 | PC.NURSE ---
this rn assumed care of pt at 1900. per previous shift rn and dr humphries pt does not meet SIRs criteria. labs, LA, blood cultures, antibiotics, and ivf initiated prior to this RN's shift. sepsis alert not called as per MD pt does not meet spesis criteria per clinical coordinator sepsis paperwork does not need to be completed.
[2023-09-02] MEDS: Morphine Sulfate 2 MG/ML CARTRIDGE IVPUSH (20:37)
--- NOTE | 2023-09-02 20:58 | PC.NURSE ---
thisrn attempted to obtain urine sample on pt. pt states spilled urine on self. this rn and educational director assisted in bed linen change. pt medicated according to mar for reported 9/10 pain pt calm and cooperative. lights dimmed to promote rest disposition pending
--- NOTE | 2023-09-02 21:12 | P.HPHOSP_ITS ---
History of Present Illness Date of Service: 09/02/23 Attending physician on admission: Abelino Estrada Chief Complaint: fevers 73-year-old male with history of hyperlipidemia, BPH with urinary retention, cad, gerd, mood disorder, htn, hx meningioma s/p resectionand insulin dependent type 2 diabetes with recent admission from 08/27-08/31 for diabetic ketoacidosis presented to the ED earlier today for evaluation of chills sweats, fevers of 103 at home that started earlier today. He reports diffuse backache as well. He also endorses dysuria but denies any hematuria, abdominal pain, nausea, vomiting. He has had polyuria related to hyperglycemia but states this has improved with better glucose control. He denies any other recent illness. No sore throat, congestion, cough, rhinorrhea, diarrhea, shortness of breath, lightheadedness, chest pain. No known sick contacts. On arrival, patient did develop fever of 102.3 and has been slightly tachycardic in the 90s, vital signs otherwise stable. No leukocytosis. Renal function and electrolyte levels normal. Lactic acid 1.1. Negative for COVID-19, influenza, RSV. Chest x-ray unremarkable. Urinalysis to be recollected. In the ED, given 2 mg morphine, 2.5 L IVF, and 1 g IV ceftriaxone. Patient to be admitted for further management of presumed UTI with sepsis. Review of Systems 2 Review of Systems: General: No fevers, malaise, unintentional weight loss HEENT: No blurred vision, diplopia. No sore throat, nasal congestion, rhinorrhea, sinus pain, ear pain Cardiovascular: No chest pain, palpitations, or leg edema Respiratory: No shortness of breath, wheezing, cough GI: No abdominal pain, nausea, vomiting, diarrhea, constipation, melena, hematochezia : +dysuria. No hematuria, increased urinary frequency, decreased urinary output MSK: No myalgia. +back pain Neuro: No headaches, weakness, paresthesias Skin: No rashes or lesions [facility] Medical History (Updated 09/02/23 @ 21:44 by LÓPEZ Baumann) Diabetes Elevated liver enzymes Immunization counseling Opioid dependence, uncomplicated Chronic, continuous use of opioids Pneumothorax, left Fall Closed fracture nasal bone Abrasion of face Screening for osteoporosis Low HDL (under 40) Right elbow pain Opioid use Frontal headache Adult general medical exam Screening for prostate cancer Colon cancer screening Headache Mild dehydration Low back pain Muscle spasm History of blood transfusion Back pain Brain tumor Meningioma PTSD (post-traumatic stress disorder) Anxiety Depression Anemia Thrombocytopenia GERD (gastroesophageal reflux disease) CAD (coronary artery disease) Sacroiliitis Hx of thrombocytopenia Anemia Hx of small bowel obstruction GERD (gastroesophageal reflux disease) Migraine Depression Hx of meningioma of the brain PTSD (post-traumatic stress disorder) Anxiety Peyronie's disease CAD (coronary artery disease) HTN (hypertension) Family History Father No problems noted. Mother No problems noted. Brother No problems noted. Sister No problems noted. Sister No problems noted. Sister No problems noted. Surgical History H/O craniotomy Hx of CABG History of resection of meningioma History of back surgery Hx of colonoscopy History of nasal surgery History of bowel resection History of quadruple bypass Hx of CABG Social History Household Members: None [facility] Are you a primary healthcare financial analyst to a significant other at home: No Do you presently have visiting nurse or other home services: No Alcohol intake: never Patient Tobacco Use Status: Tobacco use Unknown Smoked in Last 30 Days: No e-Cigarette/Vaping Use: Never Used Second Hand Smoke Exposure: No Use of substances other than those prescribed or required for medical reasons: No Advance Directives: No Advance Directives Information Provided: No service: No Current occupational status: retired Current occupational exposures/hazards: No Cognitive needs: No Hearing needs: No Vision needs: Yes (Reading glasses) Meds Allergies Allergy/AdvReac Type Severity Reaction Status Date / Time acetaminophen [From TYLENOL] AdvReac Intermediate gi upset Verified 09/02/23 17:08 Home Medications Medication Instructions Recorded Confirmed Last Taken Type buspirone 5 mg tablet 5 mg PO DAILY 08/27/23 09/02/23 Unknown History buspirone 5 mg tablet 10 mg PO BEDTIME 08/27/23 09/02/23 Unknown History levetiracetam 250 mg tablet 250 mg PO BID 08/27/23 09/02/23 08/27/23 History phenobarbital 30 mg tablet 30 mg PO BEDTIME 08/27/23 09/02/23 Unknown History trazodone 100 mg tablet 100 - 200 mg PO BEDTIME PRN 08/27/23 09/02/23 Unknown History Insomnia Physical Exam 2 Vital Signs and Narrative: Vital Signs: Last Vital Signs Temp 102.3 F H 09/02/23 18:00 Pulse 96 09/02/23 18:54 Resp 20 09/02/23 18:54 BP 120/65 09/02/23 20:01 Pulse Ox 93 09/02/23 18:54 O2 Del Method Room Air 09/02/23 18:54 BMI result Body Mass Index 24.6 Constitutional - Awake and Alert, No apparent distress Eyes - PERRLA, EOMI Cardiovascular - S1S2, RRR, No edema Respiratory - Normal lung expansion, Normal respiratory effort, No respiratory distress, CTA bilaterally Gastrointestinal - NT / ND; +BS; No rebound or guarding - No CVA tenderness Extremities - no calf tenderness bilaterally, no swelling Skin - Warm/Dry Neurological - Alert & oriented x3 Psychological - Appropriate affect Results Labs 09/02/23 17:25 09/02/23 17:25 Labs: Laboratory Results - last 24 hr 09/02/23 09/02/23 09/02/23 17:07 17:25 17:48 MCV 86.6 MCH 28.8 MCHC 33.2 RDW 13.4 Plt Count 105 L MPV 10.8 Immature Gran % (Auto) 1.6 H Neut % (Auto) 79.1 H Lymph % (Auto) 11.0 L [place] % (Auto) 6.5 Eos % (Auto) 1.3 Baso % (Auto) 0.5 Lymph # (Auto) 0.7 L [place] # (Auto) 0.4 Eos # (Auto) 0.1 Baso # (Auto) 0.0 Abs Immat Gran (auto) 0.10 H Absolute Neuts (auto) 4.9 Absolute Nucleated RBC 0.000 Nucleated RBC % (auto) 0.0 PT 11.1 INR 0.9 APTT 26.2 Anion Gap 9 L Estim Creat Clear Calc 74.3 Estimated GFR > 60 POC Glucose 110 Random Glucose 128 H Lactic Acid 1.1 Calcium 8.6 Total Bilirubin 0.8 Direct Bilirubin 0.3 AST 47 H ALT 57 H Alkaline Phosphatase 83 Total Protein 6.2 L Albumin 3.4 L Beta-Hydroxybutyrate 0.51 H Influenza Type A (PCR) NEGATIVE Influenza Type B (PCR) NEGATIVE RSV RNA Qual (PCR) NEGATIVE SARS-CoV-2 RNA (RT-PCR) NEGATIVE Imaging Radiologist's Impressions: Impressions Chest X-Ray 09/02/23 18:21 IMPRESSION: No evidence of pneumonia. Subsegmental atelectasis of the left lung base. Assessment and Plan (1) Sepsis: Status: Acute Plan 73-year-old male with history of hyperlipidemia, BPH with urinary retention, cad, gerd, mood disorder, htn, hx meningioma s/p resectionand insulin dependent type 2 diabetes with recent admission from 08/27-08/31 for diabetic ketoacidosis admitted for presumed UTI with sepsis #sepsis due to suspected UTI -symptomatic with dysuria, low back pain. Febrile to 102.6, tachycardic. No lactic acidosis or end-organ damage. No hypotension -negative for COVID-19, RSV, influenza. CXR unremarkable. -UA/UC pending -IV ceftriaxone (initiated 09/01) -follow CBC, cultures # insulin-dependent type 2 diabetes -most recent hemoglobin A1c 12.2% -dose adjusted basal insulin -Humalog on sliding scale. Hold oral antihyperglycemics -POC glucose, diabetic diet # hypertension -blood pressure reasonably controlled -continue metoprolol # unspecified seizure disorder -continue Keppra, phenobarbital # unspecified mood disorder -continue mood stabilizers # hyperlipidemia/CAD -no anginal chest pain -statin, beta-arianna # BPH with LUTS -continue terazosin DVT prophylaxis-Lovenox DNR/DNI Patient requires inpatient stay at least 2 midnights due to sepsis suspected to be related to UTI requiring IV antibiotics, close monitoring of vital signs, and monitoring of blood cultures. Quality Stroke Does the patient have a stroke diagnosis?: No VTE Prior VTE?: No VTE Risk Level:: Medical - moderate - high VTE Device Contraindication: Treatment Not Indicated VTE Drug Contraindication: N/A - Med Ordered
[2023-09-02 22:49] LABS: Appearance Urine Clear; Color Urine Yellow; Glucose Urine UA 500 mg/dL (Negative); Leukocyte Esterase Urine Moderate (2+) (Negative); Nitrite Urine Negative (Negative); PH 5.5 (5.0-9.0); UMIC TRIGGER UACC YES; Urine Blood Trace (Negative); Urine Ketones Trace mg/dL (Negative); Urine Protein Negative (Neg-Trace)
[2023-09-02] MEDS: busPIRone HCl 10 MG TABLET PO (22:52)
[2023-09-02] MEDS: ARIPiprazole 2 MG TABLET PO (22:52)
[2023-09-02] MEDS: Enoxaparin Sodium 40 MG/0.4 ML SYRINGE SUBCUT (22:52)
[2023-09-02] MEDS: levETIRAcetam 250 MG TABLET PO (22:52)
[2023-09-02] MEDS: PHENobarbitaL 30 MG TABLET PO (22:52)
[2023-09-02 23:07] LABS: Bacteria Urine 1+ (None Seen); Hyaline Casts Urine 0-2 /LPF (0-2); RBC Urine 0-2 /HPF (0-2); Squamous Epithelial Cell Urine 0-2 /HPF (0-2); UACC Culture Trigger YES; WBC Urine >50 /HPF (0-5)
[2023-09-03] MEDS: 0.9 % Sodium Chloride Flush 3 ML SYRINGE IVFLUSH ×2 (00:30→10:26)
--- NOTE | 2023-09-03 03:50 | MHC.EDTECH ---
PT used his call izaguirre to have help to stand up and use the urinal. pt is safe back in bed with his call izaguirre. All set at this time
--- NOTE | 2023-09-03 06:10 | PC.NURSE ---
this rn called and spoke with pharmacy regarding missing medication from ed pyxis. order placed for 10mg po ketorolac, per pharmacy aide to bring down med
[2023-09-03 06:24] LABS: MANUAL DIFF FLAG NO
[2023-09-03 06:47] LABS: Anion Gap 12 (12-20); Blood Urea Nitrogen 10 mg/dL (9-16); Calcium 7.8 mg/dL (8.4-10.2); Carbon Dioxide 20 mmol/L (22-29); Chloride 112 mmol/L (96-108); Creatinine Clr Calc Pharmacy 83.2; Estimated Glomerular Filt Rate > 60; Glucose Random 117 mg/dL (60-115); Potassium 3.5 mmol/L (3.3-5.1); Sodium 140 mmol/L (135-145)
[2023-09-03 07:02] LABS: Basophils Percent Auto 0.3 % (0-2); Eosinophils Percent Auto 0.3 % (0-4); Hematocrit 30.3 % (42.0-52.0); Hemoglobin 10.3 g/dl (14.0-18.0); Imm Gran Abs Auto 0.12 X10*3/uL (0.00-0.03); Lymphocytes Absolute Auto 0.8 X10*3/uL (1.2-4.9); Lymphocytes Percent Auto 13.4 % (20-40); Mean Corpuscular Hemoglobin 29.2 pg (27.0-33.0); Mean Corpuscular Volume 85.8 fL (80.0-98.0); Mean Platelet Volume 10.9 fL (9.4-12.4); Monocytes Absolute Auto 0.6 X10*3/uL (0.1-1.2); Monocytes Percent Auto 10.9 % (2-11); Neutrophils Absolute Auto 4.3 x10*3/uL (2.0-8.3); Neutrophils Percent Auto 73.1 % (45-73); Platelet Count 107 X10*3/uL (160-400); Red Blood Count 3.53 X10*6/uL (4.60-5.80); Red Cell Distribution Width 13.7 % (11.0-16.0); White Blood Count 5.9 X10*3/uL (4.8-10.8)
[2023-09-03] MEDS: Ketorolac Tromethamine 10 MG TABLET PO (07:15)
[2023-09-03 07:18] LABS: Glucose, Whole Blood 114 mg/dL (60-115)
--- NOTE | 2023-09-03 10:14 | MHC.CM.PN ---
IMM 09/03/2023, PT ADMITTED W/UTI AND SEPSIS, PT REPORTS HE HAD A FEVER AND WASN'T FEELING WELL AND CAME BACK TO THE HOSPITAL, PT REPORTS HE WILL RETURN TO HIS SISTER/HCP DAT'S HOUSE FOR A FEW DAYS AFTER DC HOWEVER NORMALLY LIVES ALONE, IS FULLY INDEP W/CARE, DENIES USE OF DME/SERVICES HOWEVER DID RECENTLY START W/[facility] FOR SN HE WAS DC'D 08/31 W/NEW INSULIN, REF PLACED TO [facility]. PT DOES VERIFY HIS PCP IS MELANIE DUNCAN AND HIS HCP ON FILE IS HIS SISTER DAT SHETH, PT REPORTS HE IS UP TO DATE ON COVID/FLU VACCINES. DCP: RETURN TO SISTERS AT [address] [place] [address] W/RESUMP OF [facility] (PT WILL NEED F2F) W/DAT FOR TRANSPORT
[2023-09-03 10:19] LABS: Glucose, Whole Blood 198 mg/dL (60-115)
[2023-09-03] MEDS: Cholecalciferol (Vitamin D3) 25 MCG TABLET PO (10:24)
[2023-09-03] MEDS: levETIRAcetam 250 MG TABLET PO ×2 (10:24→21:26)
[2023-09-03] MEDS: busPIRone HCl 5 MG TABLET PO (10:24)
[2023-09-03] MEDS: Insulin Glargine,Hum.rec.anlog 100 UNIT/ML 10 ML VIAL 18 UNIT SUBCUT (10:25)
[2023-09-03] MEDS: Metoprolol Succinate ER 25 MG TAB.ER.24H PO (10:25)
[2023-09-03 10:31] VITALS: BP 107/62; PULSE 93; RESP 16; TEMP 37.2; O2SAT 97
[2023-09-03] MEDS: PARoxetine HCL 30 MG TABLET PO (10:33)
--- NOTE | 2023-09-03 10:36 | PC.NURSE ---
Pt is alert and oriented. Denies pain and restful with eyes closed. Awakes easily. NSR on tele, VSS. Meds given. Voided 200ml of dark yellow urine in urinal. POC prior to Lantus 198. Breathing easy, non labored. Skin pwd.
--- NOTE | 2023-09-03 11:50 | HO.PM.IMPN ---
Subjective Subjective Date of Service: 09/03/23 Interval History: back pain improved Physical Exam Vital Signs: Vital Signs: Last Vital Signs Temp 99.0 F 09/03/23 10:31 Pulse 93 09/03/23 10:31 Resp 16 09/03/23 10:31 BP 107/62 09/03/23 10:31 Pulse Ox 97 09/03/23 10:31 O2 Del Method Room Air 09/03/23 10:31 BMI result Body Mass Index 24.6 General: AO X 3, no acute distress Resp: CTA bilateral, no accessory muscles used CVS: S1,S2,RRR GI: soft, non tender, non distended Neuro: motor grossly intact, alert Psych: appropriate affect, appropriate insight Objective Data Active Medications Aripiprazole (Aripiprazole 2 Mg Tablet) 2 mg PO BEDTIME [facility] Last Admin: 09/02/23 22:52 Dose: 2 mg Documented By: RACHEL Atorvastatin Calcium (Atorvastatin Calcium 80 Mg Tablet) 80 mg PO BEDTIME [facility] Buspirone HCl (Buspirone Hcl 5 Mg Tablet) 5 mg PO DAILY [facility] Last Admin: 09/03/23 10:24 Dose: 5 mg Documented By: JOSE Buspirone HCl (Buspirone Hcl 10 Mg Tablet) 10 mg PO BEDTIME [facility] Last Admin: 09/02/23 22:52 Dose: 10 mg Documented By: RACHEL Dextrose (Dextrose 50 % 25 Gm/50 Ml Syringe) 25 gm IVPUSH Q15M PRN; Protocol PRN Reason: per Hypoglycemia Standing Ord. Doxazosin Mesylate (Doxazosin Mesylate 2 Mg Tablet) 8 mg PO BEDTIME [facility] Enoxaparin Sodium (Enoxaparin Sodium 40 Mg/0.4 Ml Syringe) 40 mg SUBCUT Q24H [facility] Last Admin: 09/02/23 22:52 Dose: 40 mg Documented By: RACHEL Glucose (Glucose Gel 15 Gm Gel..Gram.) 15 gm PO Q15M PRN; Protocol PRN Reason: per Hypoglycemia Standing Ord. Ceftriaxone Sodium 1 gm/ (Sodium Chloride) 50 mls @ 100 mls/hr IV Q24H [facility] Insulin Glargine (Insulin Glargine,Hum.Rec.Anlog 100 Unit/Ml 10 Ml Vial) 18 unit SUBCUT DAILY [facility] Last Admin: 09/03/23 10:25 Dose: 18 unit Documented By: JOSE Insulin Human Lispro (Insulin Lispro 100 Unit/Ml 3 Ml Vial) 0 unit SUBCUT QIDACHS [facility]; Protocol Last Admin: 09/03/23 07:31 Dose: Not Given Documented By: JOSE Non-Admin Reason: No Insulin Coverage Levetiracetam (Levetiracetam 250 Mg Tablet) 250 mg PO BID [facility] Last Admin: 09/03/23 10:24 Dose: 250 mg Documented By: JOSE Metoprolol Succinate (Metoprolol Succinate Er 25 Mg Tab.Er.24h) 25 mg PO DAILY [facility]; Protocol Last Admin: 09/03/23 10:25 Dose: 25 mg Documented By: JOSE Ondansetron HCl (Ondansetron Hcl 4 Mg/2 Ml Vial) 4 mg IVPUSH Q8H PRN PRN Reason: Nausea and Vomiting Paroxetine HCl (Paroxetine Hcl 30 Mg Tablet) 30 mg PO DAILY [facility] Last Admin: 09/03/23 10:33 Dose: 30 mg Documented By: JOSE Phenobarbital (Phenobarbital 30 Mg Tablet) 30 mg PO BEDTIME [facility] Last Admin: 09/02/23 22:52 Dose: 30 mg Documented By: RACHEL Senna (Sennosides 8.6 Mg Tablet) 17.2 mg PO BEDTIME PRN PRN Reason: Constipation Sodium Chloride (0.9 % Sodium Chloride Flush 3 Ml Syringe) 3 ml IVFLUSH QSHIFT [facility] Last Admin: 09/03/23 10:26 Dose: 3 ml Documented By: JOSE Trazodone HCl (Trazodone Hcl 100 Mg Tablet) 100 mg PO BEDTIME PRN PRN Reason: Insomnia Vitamin D (Cholecalciferol (Vitamin D3) 25 Mcg Tablet) 25 mcg PO DAILY [facility] Last Admin: 09/03/23 10:24 Dose: 25 mcg Documented By: JOSE Labs 09/03/23 05:02 09/03/23 05:02 Labs: Laboratory Results - last 24 hr 09/02/23 09/02/23 09/02/23 17:07 17:25 17:48 MCV 86.6 MCH 28.8 MCHC 33.2 RDW 13.4 Plt Count 105 L MPV 10.8 Immature Gran % (Auto) 1.6 H Neut % (Auto) 79.1 H Lymph % (Auto) 11.0 L [place] % (Auto) 6.5 Eos % (Auto) 1.3 Baso % (Auto) 0.5 Lymph # (Auto) 0.7 L [place] # (Auto) 0.4 Eos # (Auto) 0.1 Baso # (Auto) 0.0 Abs Immat Gran (auto) 0.10 H Absolute Neuts (auto) 4.9 Absolute Nucleated RBC 0.000 Nucleated RBC % (auto) 0.0 PT 11.1 INR 0.9 APTT 26.2 Anion Gap 9 L Estim Creat Clear Calc 74.3 Estimated GFR > 60 POC Glucose 110 Random Glucose 128 H Lactic Acid 1.1 Calcium 8.6 Total Bilirubin 0.8 Direct Bilirubin 0.3 AST 47 H ALT 57 H Alkaline Phosphatase 83 Total Protein 6.2 L Albumin 3.4 L Beta-Hydroxybutyrate 0.51 H Urine Color Urine Appearance Urine pH Ur Specific [place] Urine Protein Urine Glucose (UA) Urine Ketones Urine Blood Urine Nitrite Ur Leukocyte Esterase Urine RBC Urine WBC Ur Squamous Epith Cells Urine Bacteria Hyaline Casts Influenza Type A (PCR) NEGATIVE Influenza Type B (PCR) NEGATIVE RSV RNA Qual (PCR) NEGATIVE SARS-CoV-2 RNA (RT-PCR) NEGATIVE 09/02/23 09/03/23 09/03/23 22:28 05:02 07:13 MCV 85.8 MCH 29.2 MCHC 34.0 RDW 13.7 Plt Count 107 L MPV 10.9 Immature Gran % (Auto) 2.0 H Neut % (Auto) 73.1 H Lymph % (Auto) 13.4 L [place] % (Auto) 10.9 Eos % (Auto) 0.3 Baso % (Auto) 0.3 Lymph # (Auto) 0.8 L [place] # (Auto) 0.6 Eos # (Auto) 0.0 Baso # (Auto) 0.0 Abs Immat Gran (auto) 0.12 H Absolute Neuts (auto) 4.3 Absolute Nucleated RBC 0.000 Nucleated RBC % (auto) 0.0 PT INR APTT Anion Gap 12 Estim Creat Clear Calc 83.2 Estimated GFR > 60 POC Glucose 114 Random Glucose 117 H Lactic Acid Calcium 7.8 L D Total Bilirubin Direct Bilirubin AST ALT Alkaline Phosphatase Total Protein Albumin Beta-Hydroxybutyrate Urine Color Yellow Urine Appearance Clear Urine pH 5.5 Ur Specific [place] 1.010 Urine Protein Negative Urine Glucose (UA) 500 H Urine Ketones Trace Urine Blood Trace H Urine Nitrite Negative Ur Leukocyte Esterase Moderate (2+) H Urine RBC 0-2 Urine WBC >50 H Ur Squamous Epith Cells 0-2 Urine Bacteria 1+ Hyaline Casts 0-2 Influenza Type A (PCR) Influenza Type B (PCR) RSV RNA Qual (PCR) SARS-CoV-2 RNA (RT-PCR) 09/03/23 10:14 MCV MCH MCHC RDW Plt Count MPV Immature Gran % (Auto) Neut % (Auto) Lymph % (Auto) [place] % (Auto) Eos % (Auto) Baso % (Auto) Lymph # (Auto) [place] # (Auto) Eos # (Auto) Baso # (Auto) Abs Immat Gran (auto) Absolute Neuts (auto) Absolute Nucleated RBC Nucleated RBC % (auto) PT INR APTT Anion Gap Estim Creat Clear Calc Estimated GFR POC Glucose 198 H Random Glucose Lactic Acid Calcium Total Bilirubin Direct Bilirubin AST ALT Alkaline Phosphatase Total Protein Albumin Beta-Hydroxybutyrate Urine Color Urine Appearance Urine pH Ur Specific [place] Urine Protein Urine Glucose (UA) Urine Ketones Urine Blood Urine Nitrite Ur Leukocyte Esterase Urine RBC Urine WBC Ur Squamous Epith Cells Urine Bacteria Hyaline Casts Influenza Type A (PCR) Influenza Type B (PCR) RSV RNA Qual (PCR) SARS-CoV-2 RNA (RT-PCR) Assessment and Plan (1) Sepsis: Status: Acute Plan 73M PMH hld, bph, cad, gerd, mood disorder, htn, hx meningioma s/p resectionand insulin dependent type 2 diabetes with recent admission from 08/27-08/31 for diabetic ketoacidosis, presented with fevers and back pain sepsis due to suspected uti rocephin, follow up cultures dm basal bolus insulin htn metoprolol seizure disorder keppra, phenobarb mood disorder buspar, abilify cad statin bph doxazosin dvt prophylaxis - lovenox DNR/DNI reason for continued hospitalization: awaiting cultures Quality Stroke Does the patient have a stroke diagnosis?: No VTE Prior VTE?: No VTE Risk Level:: Medical - moderate - high VTE Device Contraindication: Treatment Not Indicated VTE Drug Contraindication: N/A - Med Ordered
[2023-09-03 12:52] LABS: Glucose, Whole Blood 155 mg/dL (60-115)
--- NOTE | 2023-09-03 13:10 | PC.NURSE ---
Repeat POC taken and 145, will hold 1130 insulin
[2023-09-03 13:13] LABS: Glucose, Whole Blood 145 mg/dL (60-115)
[2023-09-03 15:45] VITALS: BP 133/63; PULSE 67; RESP 16; TEMP 36.7; O2SAT 97
--- NOTE | 2023-09-03 16:00 | PC.NURSE ---
assumed care of patient in overflow, moved into hospital bed, patient has remained afebrile, VSS, alert and oriented x3. resting in bed quietly
[2023-09-03 16:50] LABS: Glucose, Whole Blood 176 mg/dL (60-115)
[2023-09-03] MEDS: Insulin Lispro 100 UNIT/ML 3 ML VIAL SUBCUT ×2 (17:24→21:26)
[2023-09-03] MEDS: cefTRIAXone sodium 1 GM in 0.9 % Sodium Chloride 50 ML IV (18:48)
[2023-09-03 19:47] LABS: Glucose, Whole Blood 172 mg/dL (60-115)
[2023-09-03 19:52] VITALS: BP 109/46; PULSE 64; RESP 18; TEMP 36.6; O2SAT 96
[2023-09-03 21:06] VITALS: BMI 24.8
[2023-09-03] MEDS: Atorvastatin Calcium 80 MG TABLET PO (21:25)
[2023-09-03] MEDS: PHENobarbitaL 30 MG TABLET PO (21:25)
[2023-09-03] MEDS: ARIPiprazole 2 MG TABLET PO (21:26)
[2023-09-03] MEDS: busPIRone HCl 10 MG TABLET PO (21:26)
[2023-09-03] MEDS: Enoxaparin Sodium 40 MG/0.4 ML SYRINGE SUBCUT (21:26)
[2023-09-03] MEDS: Doxazosin Mesylate 2 MG TABLET 8 MG PO (21:26)
[2023-09-04] MEDS: 0.9 % Sodium Chloride Flush 3 ML SYRINGE IVFLUSH ×2 (00:22→21:25)
[2023-09-04 04:00] VITALS: BP 123/55; PULSE 79; RESP 18; TEMP 36.4; O2SAT 94
[2023-09-04 06:35] LABS: Hematocrit 27.6 % (42.0-52.0); Hemoglobin 9.4 g/dl (14.0-18.0); Mean Corpuscular HGB Conc 34.1 g/dl (31.0-36.0); Mean Corpuscular Hemoglobin 28.9 pg (27.0-33.0); Mean Corpuscular Volume 84.9 fL (80.0-98.0); Mean Platelet Volume 10.5 fL (9.4-12.4); Platelet Count 121 X10*3/uL (160-400); Red Blood Count 3.25 X10*6/uL (4.60-5.80); Red Cell Distribution Width 13.8 % (11.0-16.0); White Blood Count 5.7 X10*3/uL (4.8-10.8)
[2023-09-04 06:50] LABS: Anion Gap 9 (12-20); Blood Urea Nitrogen 10 mg/dL (9-16); Carbon Dioxide 24 mmol/L (22-29); Chloride 112 mmol/L (96-108); Estimated Glomerular Filt Rate > 60; Glucose Fasting 147 mg/dL (60-99); Potassium 3.5 mmol/L (3.3-5.1); Sodium 141 mmol/L (135-145)
[2023-09-04 07:35] VITALS: BP 90/51; PULSE 77; RESP 18; TEMP 36.2; O2SAT 93
[2023-09-04 07:48] LABS: Glucose, Whole Blood 150 mg/dL (60-115)
--- NOTE | 2023-09-04 08:03 | PC.NURSE ---
informed MD of pt's low bp this am, informed of trend and meds ordered. per md administer all but metop
--- NOTE | 2023-09-04 08:09 | PM.EVENT ---
Event Note Date of Service: 09/04/23 Event Note: hypotension due to meds not sepsis Time Spent With Patient Time: Total time managing care of this patient today ____ minutes.
[2023-09-04] MEDS: PARoxetine HCL 30 MG TABLET PO (08:55)
[2023-09-04] MEDS: Insulin Glargine,Hum.rec.anlog 100 UNIT/ML 10 ML VIAL 18 UNIT SUBCUT (08:55)
[2023-09-04] MEDS: levETIRAcetam 250 MG TABLET PO ×2 (08:55→21:25)
[2023-09-04] MEDS: busPIRone HCl 5 MG TABLET PO (08:55)
[2023-09-04] MEDS: Cholecalciferol (Vitamin D3) 25 MCG TABLET PO (08:55)
[2023-09-04] MEDS: 0.9 % Sodium Chloride 500 ML IV (08:56)
--- NOTE | 2023-09-04 09:41 | P.PNIM_ITS ---
Subjective Subjective Date of Service: 09/04/23 Interval History: back pain improved, feeling stronger Physical Exam 2 Vital Signs: Vital Signs: Last Vital Signs Temp 97.2 F 09/04/23 07:35 Pulse 77 09/04/23 07:35 Resp 18 09/04/23 07:35 BP 90/51 L 09/04/23 07:35 Pulse Ox 93 09/04/23 07:35 O2 Del Method Room Air 09/04/23 07:35 BMI result Body Mass Index 24.8 General: AO X 3, no acute distress Resp: CTA bilateral, no accessory muscles used CVS: S1,S2,RRR GI: soft, non tender, non distended Neuro: motor grossly intact, alert Psych: appropriate affect, appropriate insight Objective Data Active Medications Aripiprazole (Aripiprazole 2 Mg Tablet) 2 mg PO BEDTIME [facility] Last Admin: 09/03/23 21:26 Dose: 2 mg Documented By: VANESSA Atorvastatin Calcium (Atorvastatin Calcium 80 Mg Tablet) 80 mg PO BEDTIME [facility] Last Admin: 09/03/23 21:25 Dose: 80 mg Documented By: VANESSA Buspirone HCl (Buspirone Hcl 5 Mg Tablet) 5 mg PO DAILY [facility] Last Admin: 09/04/23 08:55 Dose: 5 mg Documented By: SOFFAA Buspirone HCl (Buspirone Hcl 10 Mg Tablet) 10 mg PO BEDTIME [facility] Last Admin: 09/03/23 21:26 Dose: 10 mg Documented By: VANESSA Dextrose (Dextrose 50 % 25 Gm/50 Ml Syringe) 25 gm IVPUSH Q15M PRN; Protocol PRN Reason: per Hypoglycemia Standing Ord. Doxazosin Mesylate (Doxazosin Mesylate 2 Mg Tablet) 8 mg PO BEDTIME [facility] Last Admin: 09/03/23 21:26 Dose: 8 mg Documented By: VANESSA Enoxaparin Sodium (Enoxaparin Sodium 40 Mg/0.4 Ml Syringe) 40 mg SUBCUT Q24H [facility] Last Admin: 09/03/23 21:26 Dose: 40 mg Documented By: VANESSA Glucose (Glucose Gel 15 Gm Gel..Gram.) 15 gm PO Q15M PRN; Protocol PRN Reason: per Hypoglycemia Standing Ord. Ceftriaxone Sodium 1 gm/ (Sodium Chloride) 50 mls @ 100 mls/hr IV Q24H [facility] Last Infusion: 09/03/23 21:19 Dose: Infused Documented By: VANESSA Insulin Glargine (Insulin Glargine,Hum.Rec.Anlog 100 Unit/Ml 10 Ml Vial) 18 unit SUBCUT DAILY [facility] Last Admin: 09/04/23 08:55 Dose: 18 unit Documented By: JAIME Insulin Human Lispro (Insulin Lispro 100 Unit/Ml 3 Ml Vial) 0 unit SUBCUT QIDACHS [facility]; Protocol Last Admin: 09/04/23 07:51 Dose: Not Given Documented By: JAIME Non-Admin Reason: See Note Levetiracetam (Levetiracetam 250 Mg Tablet) 250 mg PO BID [facility] Last Admin: 09/04/23 08:55 Dose: 250 mg Documented By: JAIME Metoprolol Succinate (Metoprolol Succinate Er 25 Mg Tab.Er.24h) 25 mg PO DAILY [facility]; Protocol Last Admin: 09/04/23 07:58 Dose: Not Given Documented By: JAIME Non-Admin Reason: low bp Ondansetron HCl (Ondansetron Hcl 4 Mg/2 Ml Vial) 4 mg IVPUSH Q8H PRN PRN Reason: Nausea and Vomiting Paroxetine HCl (Paroxetine Hcl 30 Mg Tablet) 30 mg PO DAILY [facility] Last Admin: 09/04/23 08:55 Dose: 30 mg Documented By: JAIME Phenobarbital (Phenobarbital 30 Mg Tablet) 30 mg PO BEDTIME [facility] Last Admin: 09/03/23 21:25 Dose: 30 mg Documented By: VANESSA Senna (Sennosides 8.6 Mg Tablet) 17.2 mg PO BEDTIME PRN PRN Reason: Constipation Sodium Chloride (0.9 % Sodium Chloride Flush 3 Ml Syringe) 3 ml IVFLUSH QSHIFT [facility] Last Admin: 09/04/23 07:32 Dose: Not Given Documented By: JAIME Non-Admin Reason: See Note Trazodone HCl (Trazodone Hcl 100 Mg Tablet) 100 mg PO BEDTIME PRN PRN Reason: Insomnia Vitamin D (Cholecalciferol (Vitamin D3) 25 Mcg Tablet) 25 mcg PO DAILY [facility] Last Admin: 09/04/23 08:55 Dose: 25 mcg Documented By: JAIME Labs 09/04/23 05:50 09/04/23 05:50 Labs: Laboratory Results - last 24 hr 09/03/23 09/03/23 09/03/23 10:14 12:48 13:09 MCV MCH MCHC RDW Plt Count MPV Absolute Nucleated RBC Nucleated RBC % (auto) Anion Gap Estim Creat Clear Calc Estimated GFR POC Glucose 198 H 155 H 145 H Fasting Glucose Calcium 09/03/23 09/03/23 09/04/23 16:42 19:43 05:50 MCV 84.9 MCH 28.9 MCHC 34.1 RDW 13.8 Plt Count 121 L MPV 10.5 Absolute Nucleated RBC 0.000 Nucleated RBC % (auto) 0.0 Anion Gap 9 L Estim Creat Clear Calc 81.0 Estimated GFR > 60 POC Glucose 176 H 172 H Fasting Glucose 147 H Calcium 8.0 L 09/04/23 07:42 MCV MCH MCHC RDW Plt Count MPV Absolute Nucleated RBC Nucleated RBC % (auto) Anion Gap Estim Creat Clear Calc Estimated GFR POC Glucose 150 H Fasting Glucose Calcium Microbiology Microbiology Results: Microbiology 09/02/23 17:40 Blood Culture - Preliminary Blood - Venous No growth after 24 hours. 09/02/23 17:25 Blood Culture - Preliminary Blood - Venous No growth after 24 hours. Assessment and Plan (1) Sepsis: Status: Acute Plan 73M PMH hld, bph, cad, gerd, mood disorder, htn, hx meningioma s/p resectionand insulin dependent type 2 diabetes with recent admission from 08/27-08/31 for diabetic ketoacidosis, presented with fevers and back pain sepsis due to suspected uti rocephin, follow up cultures sepsis improved hypotension due to meds, not sepsis, hold metoprolol, will give 500cc bolus asymptomatic, monitor dm basal bolus insulin htn metoprolol held for low bp seizure disorder keppra, phenobarb mood disorder buspar, abilify cad statin bph doxazosin dvt prophylaxis - lovenox DNR/DNI reason for continued hospitalization: awaiting cultures Quality Stroke Does the patient have a stroke diagnosis?: No VTE Prior VTE?: No VTE Risk Level:: Medical - moderate - high VTE Device Contraindication: Treatment Not Indicated VTE Drug Contraindication: N/A - Med Ordered
[2023-09-04 10:10] VITALS: BP 115/57; PULSE 82
[2023-09-04 11:35] LABS: Glucose, Whole Blood 251 mg/dL (60-115)
[2023-09-04] MEDS: Insulin Lispro 100 UNIT/ML 3 ML VIAL SUBCUT ×2 (11:52→21:24)
[2023-09-04] MEDS: oxyCODONE HCl Immed Release 5 MG TABLET PO (13:50)
[2023-09-04 15:30] VITALS: BP 116/62; PULSE 80; RESP 16; TEMP 36.7; O2SAT 93
[2023-09-04 17:16] LABS: Glucose, Whole Blood 143 mg/dL (60-115)
[2023-09-04] MEDS: cefTRIAXone sodium 1 GM in 0.9 % Sodium Chloride 50 ML IV (18:26)
[2023-09-04 19:30] VITALS: BP 117/59; PULSE 87; RESP 18; TEMP 36.3; O2SAT 93
[2023-09-04 20:15] LABS: Glucose, Whole Blood 219 mg/dL (60-115)
[2023-09-04] MEDS: Enoxaparin Sodium 40 MG/0.4 ML SYRINGE SUBCUT (21:24)
[2023-09-04] MEDS: Doxazosin Mesylate 2 MG TABLET 8 MG PO (21:24)
[2023-09-04] MEDS: PHENobarbitaL 30 MG TABLET PO (21:24)
[2023-09-04] MEDS: ARIPiprazole 2 MG TABLET PO (21:25)
[2023-09-04] MEDS: traZODone HCL 100 MG TABLET PO (21:25)
[2023-09-04] MEDS: busPIRone HCl 10 MG TABLET PO (21:25)
[2023-09-04] MEDS: Atorvastatin Calcium 80 MG TABLET PO (21:25)
[2023-09-05 03:20] VITALS: BP 119/59; PULSE 84; RESP 16; TEMP 36.4; O2SAT 94
[2023-09-05 04:28] LABS: HBS Num1 0.09 mIU/mL (0-7.99); HBc Num1 0.08 S/CO (0.00-0.79); HBsAGNum1 0.51 S/CO (0.00-0.99); HIV AB/AG Nonreactive (Nonreactive); HIV Num 1 0.04 S/CO (0.00-0.99); Hepatitis B Core Antibody Nonreactive (Nonreactive); Hepatitis B Surface Antigen Negative (Negative); ~HepC Num1 0.06 S/CO (0.00-0.79); ~Hepatitis B Surface Antibody NONREACTIVE (Nonreactive); ~Hepatitis C Antibody Nonreactive (Nonreactive)
[2023-09-05] MEDS: oxyCODONE HCl Immed Release 5 MG TABLET PO ×2 (06:39→11:35)
[2023-09-05 06:44] LABS: Hematocrit 30.3 % (42.0-52.0); Hemoglobin 10.1 g/dl (14.0-18.0); Mean Corpuscular HGB Conc 33.3 g/dl (31.0-36.0); Mean Corpuscular Hemoglobin 28.9 pg (27.0-33.0); Mean Corpuscular Volume 86.8 fL (80.0-98.0); Mean Platelet Volume 10.4 fL (9.4-12.4); Platelet Count 138 X10*3/uL (160-400); Red Blood Count 3.49 X10*6/uL (4.60-5.80); Red Cell Distribution Width 13.9 % (11.0-16.0); White Blood Count 4.7 X10*3/uL (4.8-10.8)
[2023-09-05 06:56] LABS: Anion Gap 9 (12-20); Blood Urea Nitrogen 10 mg/dL (9-16); Calcium 8.2 mg/dL (8.4-10.2); Carbon Dioxide 24 mmol/L (22-29); Chloride 114 mmol/L (96-108); Creatinine Clr Calc Pharmacy 75.2; Estimated Glomerular Filt Rate > 60; Glucose Fasting 151 mg/dL (60-99); Potassium 3.5 mmol/L (3.3-5.1); Sodium 143 mmol/L (135-145)
[2023-09-05 07:11] VITALS: BP 128/60; PULSE 74; RESP 18; TEMP 36.3; O2SAT 92
[2023-09-05 07:17] LABS: Glucose, Whole Blood 147 mg/dL (60-115)
--- NOTE | 2023-09-05 08:01 | P.DS_ITS ---
DS: Providers Provider Date of Service: 09/05/23 Date of admission: 09/02/23 22:09 Primary care physician: Ari Shell MD Consults: 09/04/23 10:46 Consult to Cardiology Routine Consulting Provider: [facility] Reason for consultation: sob, history of CAD DS: Diagnosis Discharge Diagnosis (1) Sepsis: Status: Acute DS: Summary Hospital Course Hospital Course: from initial hpi: 73-year-old male with history of hyperlipidemia, BPH with urinary retention, cad, gerd, mood disorder, htn, hx meningioma s/p resectionand insulin dependent type 2 diabetes with recent admission from 08/27-08/31 for diabetic ketoacidosis presented to the ED earlier today for evaluation of chills sweats, fevers of 103 at home that started earlier today. He reports diffuse backache as well. He also endorses dysuria but denies any hematuria, abdominal pain, nausea, vomiting. He has had polyuria related to hyperglycemia but states this has improved with better glucose control. He denies any other recent illness. No sore throat, congestion, cough, rhinorrhea, diarrhea, shortness of breath, lightheadedness, chest pain. No known sick contacts. On arrival, patient did develop fever of 102.3 and has been slightly tachycardic in the 90s, vital signs otherwise stable. No leukocytosis. Renal function and electrolyte levels normal. Lactic acid 1.1. Negative for COVID-19, influenza, RSV. Chest x-ray unremarkable. Urinalysis to be recollected. In the ED, given 2 mg morphine, 2.5 L IVF, and 1 g IV ceftriaxone. Patient to be admitted for further management of presumed UTI with sepsis. hospital course: Patient was admitted for sepsis secondary to urinary tract infection. His urine culture grew mixed marcelina. He was treated empirically with ceftriaxone and sepsis resolved. He will be discharged on 5 more days of cefuroxime. For diabetes he was continued on basal bolus insulin. For seizure disorder he was continued on Keppra and phenobarbital. For mood disorder was continue BuSpar and Abilify. For coronary disease was continued on statin. For BPH was continued on doxazosin. Patient is feeling better will be discharged home. Time Attestation Discharge Coordination Time (in mins): 35 Quality: Safe Use of Opioids Does Pt have an Active Cancer Diagnosis on the Problem List?: No Quality: Stroke Does the patient have a stroke diagnosis?: No Physical Exam Vital Signs: Vital Signs: Last Vital Signs Temp 97.3 F 09/05/23 07:11 Pulse 74 09/05/23 07:11 Resp 18 09/05/23 07:11 BP 128/60 09/05/23 07:11 Pulse Ox 92 09/05/23 07:11 O2 Del Method Room Air 09/05/23 07:11 BMI result Body Mass Index 24.8 General: AO X 3, no acute distress Resp: CTA bilateral, no accessory muscles used CVS: S1,S2,RRR GI: soft, non tender, non distended Neuro: motor grossly intact, alert Psych: appropriate affect, appropriate insight DS: Data Data Completed and Pending Completed studies during hospitalization [Text1]: Procedures Drainage of Left Pleural Cavity with Drainage Device, Percutaneous Approach (11/17/21) Labs on day of discharge: Laboratory Results - last 24 hr 09/04/23 09/04/23 09/04/23 11:24 13:21 16:20 WBC RBC Hgb Hct MCV MCH MCHC RDW Plt Count MPV Absolute Nucleated RBC Nucleated RBC % (auto) Sodium Potassium Chloride Carbon Dioxide Anion Gap BUN Creatinine Estim Creat Clear Calc Estimated GFR POC Glucose 251 H 143 H Fasting Glucose Calcium Hep Bs Antigen Negative Hep Bs Antibody NONREACTIVE Hep B Core Total Ab Nonreactive Hepatitis C Ab (EIA) Nonreactive HIV 1&2 Ab/P24 Ag 4thGn Nonreactive 09/04/23 09/05/23 09/05/23 20:08 05:54 07:10 WBC 4.7 L RBC 3.49 L Hgb 10.1 L Hct 30.3 L MCV 86.8 MCH 28.9 MCHC 33.3 RDW 13.9 Plt Count 138 L MPV 10.4 Absolute Nucleated RBC 0.000 Nucleated RBC % (auto) 0.0 Sodium 143 Potassium 3.5 Chloride 114 H Carbon Dioxide 24 Anion Gap 9 L BUN 10 Creatinine 0.83 Estim Creat Clear Calc 75.2 Estimated GFR > 60 POC Glucose 219 H 147 H Fasting Glucose 151 H Calcium 8.2 L Hep Bs Antigen Hep Bs Antibody Hep B Core Total Ab Hepatitis C Ab (EIA) HIV 1&2 Ab/P24 Ag 4thGn Preliminary micro results at discharge 09/02/23 17:40 Blood Culture - Preliminary Blood - Venous No growth after 48 hours. 09/02/23 17:25 Blood Culture - Preliminary Blood - Venous No growth after 48 hours. Discharge Plan Discharge Anticipated Discharge Date/Time: 09/05/23 07:59 Patient Disposition: Home, Self-Care Discharge Diagnosis: uti, sepsis Referrals: Ari Shell MD [Primary Care Provider] - 1 Week Discharge Medications: New cefuroxime axetil 500 mg tablet 500 mg PO BID Qty: 10 0RF Continued metoprolol succinate 25 mg tablet extended release 24 hr 25 mg PO DAILY 90 Days Qty: 90 2RF aripiprazole [Abilify] 2 mg tablet 2 mg PO BEDTIME 30 Days Qty: 30 4RF terazosin 10 mg capsule 10 mg PO BEDTIME 30 Days Qty: 30 1RF atorvastatin 80 mg tablet 80 mg PO BEDTIME 30 Days Qty: 30 2RF cholecalciferol (vitamin D3) 25 mcg (1,000 unit) capsule 25 mcg PO DAILY 90 Days Qty: 90 1RF buspirone 5 mg tablet 5 mg PO DAILY levetiracetam 250 mg tablet 250 mg PO BID phenobarbital 30 mg tablet 30 mg PO BEDTIME buspirone 5 mg tablet 10 mg PO BEDTIME trazodone 100 mg tablet 100 - 200 mg PO BEDTIME PRN (Reason: Insomnia) metformin 500 mg Tablet 500 mg PO BIDWM Qty: 60 0RF (DME) FreeStyle Lite Strips Strip Qty: 100 0RF Rx Instructions: Test four times a day or as directed. (DME) blood-glucose meter [FreeStyle Lite Meter] Kit Qty: 1 0RF Rx Instructions: As Directed insulin lispro [Humalog KwikPen Insulin] 100 unit/mL insulin pen 1 sliding scale dose SUBCUT TIDAC Qty: 15 0RF Rx Instructions: Blood Sugar: <150 - 0 units 151-200 - 4 units 201-250 - 6 units 251-300 - 8 units 301-350 - 10 units >350 - 12 units; BG <111 0 units, 111-150 - 0 units, insulin glargine [Lantus Solostar U-100 Insulin] 100 unit/mL (3 mL) insulin pen 24 unit SUBCUT DAILY Qty: 15 0RF (DME) pen needle, diabetic 32 gauge x 1/4 needle Qty: 100 0RF Rx Instructions: Use four times a day or as directed. (DME) lancets [FreeStyle Lancets] 28 gauge misc Qty: 100 0RF Rx Instructions: Test four times a day or as directed. paroxetine HCl 30 mg tablet 30 mg PO DAILY 90 Days Qty: 90 3RF Discharge Orders: Discharge Order (Routine); Ordered 09/05/23 Ordered By: Aashish العلي Diet: Advance to usual diet Activity on Discharge: As tolerated Care Plan Goals: recovery Health Concerns: sepsis, uti Plan of Treatment: 5 more days of ceftin 500mg twice daily Assessment: see above
[2023-09-05] MEDS: Cholecalciferol (Vitamin D3) 25 MCG TABLET PO (08:30)
[2023-09-05] MEDS: PARoxetine HCL 30 MG TABLET PO (08:30)
[2023-09-05] MEDS: levETIRAcetam 250 MG TABLET PO (08:30)
[2023-09-05] MEDS: busPIRone HCl 5 MG TABLET PO (08:31)
[2023-09-05] MEDS: 0.9 % Sodium Chloride Flush 3 ML SYRINGE IVFLUSH (08:31)
[2023-09-05] MEDS: Insulin Glargine,Hum.rec.anlog 100 UNIT/ML 10 ML VIAL 18 UNIT SUBCUT (08:31)
--- NOTE | 2023-09-05 08:47 | MHC.CM.PN ---
DP:PT HAS BEEN MEDICALLY CLEARED FOR DC HOME WITH RESUMPTION OF [facility]. FAMILY WILL TRANSPORT
[2023-09-05 11:07] LABS: Glucose, Whole Blood 242 mg/dL (60-115)
[2023-09-05] MEDS: Insulin Lispro 100 UNIT/ML 3 ML VIAL SUBCUT (11:35)
== END 2023-09-05 13:36 | disposition home or self-care (01) | DRG 872 ==
LOC: HO.ED 17:55 → HO.EDOVER 22:59 → HO.S3 09-03 19:46
PROVIDERS: Admitting Provider Physician Assistant; Emergency Provider Emergency Medicine; PCP Family Medicine; Visit Provider Internal Medicine
DX: A41.9 Sepsis, unspecified organism (principal); N39.0 Urinary tract infection, site not specified; Z66 Do not resuscitate; I25.10 Atherosclerotic heart disease of native coronary artery without angina pectoris; E86.0 Dehydration; I10 Essential (primary) hypertension; I95.9 Hypotension, unspecified; F39 Unspecified mood [affective] disorder; E78.5 Hyperlipidemia, unspecified; N40.1 Benign prostatic hyperplasia with lower urinary tract symptoms; R33.8 Other retention of urine; Z20.822 Contact with and (suspected) exposure to COVID-19; Z95.1 Presence of aortocoronary bypass graft; Z79.4 Long term (current) use of insulin; Z79.84 Long term (current) use of oral hypoglycemic drugs; Z79.899 Other long term (current) drug therapy
CPT/HCPCS: 0241U; 36415; 71045; 80048; 80076; 81001; 81003; 82010; 82947; 83605; 85025; 85027; 85610; 85730; 86704; 86706; 86803; 87040; 87086; 87340; 87389; 99285; J0696; J1650; J2270

== ENCOUNTER → 2023-09-02 17:54 | Outpatient (BNV) | payer MEDICARE, SELFPAY | PROVIDERS: Emergency Provider Emergency Medicine; PCP Family Medicine; Visit Provider Physician Assistant | DX: A41.9 Sepsis, unspecified organism (principal); N39.0 Urinary tract infection, site not specified | CPT/HCPCS: 99223; 99233; 99239 ==

== ENCOUNTER 2023-09-11 11:01 | Outpatient (AMB) | payer MEDICARE, SELFPAY ==
[2023-09-11 11:09] VITALS: BP 110/61; PULSE 88; TEMP 36.4; BMI 24.3
--- NOTE | 2023-09-11 11:09 | A.OFFPC_ITS ---
Vital Signs 09/11/23 11:09 Height 5 ft 7 in Weight 155 lb 2 oz BMI 24.3 BP 110/61 Pulse 88 Temp 97.5 F Intake Visit Reasons: [facility], New Diabetic, Referral to Endo,Cardiology Intake Note: Hospital discharge follow up. Allergies acetaminophen [From TYLENOL] Adverse Reaction (Intermediate, Verified 09/11/23 11:23) gi upset Medication List - Last Reconciled 09/11/23 by Sloane Beard, [facility]- aripiprazole (Abilify) 2 mg PO BEDTIME 30 days atorvastatin 80 mg PO BEDTIME 30 days blood sugar diagnostic (FreeStyle Lite Strips) Test four times a day or as directed. blood-glucose meter (FreeStyle Lite Meter kit) As Directed buspirone 5 mg PO DAILY buspirone 10 mg PO BEDTIME cefuroxime axetil 500 mg PO BID cholecalciferol (vitamin D3) 25 mcg PO DAILY 90 days insulin glargine (Lantus Solostar U-100 Insulin) 24 units (0.24 mL) subcut DAILY insulin lispro (Humalog KwikPen (U-100) Insulin) 1 sliding scale dose subcut TIDAC lancets (FreeStyle Lancets) Test four times a day or as directed. levetiracetam 250 mg PO BID metformin 500 mg PO BIDWM metoprolol succinate ER 25 mg PO DAILY 90 days paroxetine HCl 30 mg PO DAILY 90 days pen needle, diabetic Use four times a day or as directed. phenobarbital 30 mg PO BEDTIME terazosin 10 mg PO BEDTIME 30 days trazodone 100 - 200 mg PO BEDTIME PRN Tobacco use date assessed: 09/11/23 Fall risk assessment: No Falls in past year Last assessed Fall Risk: 09/11/23 Dental Screening Dental Screen Date: 09/11/23 Did you have a dental visit in the last 12 months?: Yes Did you have a dental problem in the last 6 months where you did not have access to dental care?: No Was dental information given to patient?: Patient has dentist HPI HPI Comments History of Present Illness Details 73-year-old male with hyperlipidemia, MD Mayra, generalized anxiety disorder, vitamin-D deficiency, seizure disorder, migraines, Peyronie's disease, meningioma of the brain, hypertension, GERD, CAD, BPH urinary retention, insulin-dependent diabetes, opioid dependence with complication Status post craniotomy, CABG x 4 2004, resection of meningioma 2012, back surgery 2015, nasal surgery, bowel resection status post small-bowel obstruction Health maintenance Colonoscopy March 2020 Dr. Bernstein Hga1c 12.2% 08/28/23 [facility] GI Neurology Pain management Psychiatry Urology Addiction medicine Here today for hospital discharge follow-up. Was admitted to [facility] August 27 through 09/01/2023 for diabetic ketoacidosis. Return to the emergency room the next day with elevated temperature. Diagnosed with urosepsis. Urine culture grew mixed marcelina. Treated empirically with ceftriaxone with resolution of septic symptoms. He was discharged home on 5 more days of cefuroxime on 09/05/2023 & [facility]. cefuroxime axetil 500 mg tablet 500 mg PO BID Qty: 10 0RF Here today with his sister. Reports he is feeling okay. Checking blood glucose at home. Feels it is better than before. Managing insulin at home however there is a high co-pay on the [employer]. Nurse navigator was able to come in today during the visit and discuss. Recommendation to send an insulin NovoLog as this will be more affordable. He is tolerating his Lantus. Reports no financial barriers. Taking antibiotics as directed. Would like a referral to endocrinology. This will be placed today. Would also like a referral to Cardiology for routine surveillance. CABG x4 in 2014. Denies any current chest pain. Denies any fever or chills. Reports his urination is normal. Using terazosin at bedtime and this creates nocturnal incontinence. He does not think he was using this medication while he was in the hospital but he is really unsure. Reports he had no problems urinating well in the hospital. Be that as it may he was on terazosin prior to going in and he was recommended continue this on discharge. He does not have a follow up with Urology until October. He is hoping he can get in sooner for further evaluation and treatment. [facility] Medical History Diabetes Elevated liver enzymes Immunization counseling Opioid dependence, uncomplicated Chronic, continuous use of opioids Pneumothorax, left Fall Closed fracture nasal bone Abrasion of face Screening for osteoporosis Low HDL (under 40) Right elbow pain Opioid use Frontal headache Adult general medical exam Screening for prostate cancer Colon cancer screening Headache Mild dehydration Low back pain Muscle spasm History of blood transfusion Back pain Brain tumor Meningioma PTSD (post-traumatic stress disorder) Anxiety Depression Anemia Thrombocytopenia GERD (gastroesophageal reflux disease) CAD (coronary artery disease) Sacroiliitis Hx of thrombocytopenia Anemia Hx of small bowel obstruction GERD (gastroesophageal reflux disease) Migraine Depression Hx of meningioma of the brain PTSD (post-traumatic stress disorder) Anxiety Peyronie's disease CAD (coronary artery disease) HTN (hypertension) Surgical History H/O craniotomy Hx of CABG History of resection of meningioma History of back surgery Hx of colonoscopy History of nasal surgery History of bowel resection History of quadruple bypass Hx of CABG Family History Father No problems noted. Mother No problems noted. Brother No problems noted. Sister No problems noted. Sister No problems noted. Sister No problems noted. Social History Household Members: None [facility]: [facility] Are you a primary patient care secretary to a significant other at home: No Do you presently have visiting nurse or other home services: Yes (DM teaching) Alcohol intake: never Patient Tobacco Use Status: Never used Tobacco e-Cigarette/Vaping Use: Never Used Second Hand Smoke Exposure: No service: No Current occupational status: retired Current occupational exposures/hazards: No Cognitive needs: No Hearing needs: No Vision needs: Yes (Reading glasses) Questionnaire PHQ-9 Over the last 2 weeks, how often have you been bothered by any of the following problems? 1. Little interest or pleasure in doing things: more than half the days 2. Feeling down, depressed, or hopeless: not at all 3. Trouble falling or staying asleep, or sleeping too much: not at all 4. Feeling tired or having little energy: more than half the days 5. Poor appetite or overeating: not at all 6. Feeling bad about yourself - or that you are a failure or have let yourself or your family down: not at all 7. Trouble concentrating on things, such as reading the newspaper or watching television: not at all 8. Moving or speaking so slowly that other people could have noticed. Or the opposite - being so fidgety or restless that you have been moving around a lot more than usual: not at all 9. Thoughts that you would be better off or of hurting yourself in some way: not at all Total score: 4 Depression Screening Interpretation: Negative Depression Screening Done: Yes 86455 - PHQ-9 Billing: Yes Source: Developed by Drs. Malcolm Garrido, Brenda Garner, Roberto Fraser and colleagues, with an educational lobo from [id number]. Thrive Questionnaire Date Thrive assessed: 09/03/23 AUDIT C Alcohol Use Questionnaire (AUDIT-C) 1. How often do you have a drink containing alcohol?: Never 3. How often do you have six or more drinks on one occasion?: Never Total Score: 0 SUJATA-7 AMB Questionnaire SUJATA-7 Date SUJATA - 7 assessed: 09/11/23 Feeling nervous, anxious, or on edge: 2 = More than half the days Not being able to stop or control worryin = Not at all Worrying too much about different things: 2 = More than half the days Trouble relaxin = Nearly every day Being so restless that it is hard to sit still: 0 = Not at all Becoming easily annoyed or irritable: 2 = More than half the days Feeling afraid as if something awful might happen: 0 = Not at all Total SUJATA-7 score (0-4 normal; 5-9 mild; 10-14 moderate; 15-21 severe): 9 Source: Developed by Drs. Malcolm Garrido, Brenda Garner, Roberto Fraser and colleagues, with an educational lobo from [id number]. SUJATA-7 Assessment Billing SUJATA-7 Assessment Tool: SUJATA-7 Assessment 48823 Review of Systems Const All systems reviewed & are unremarkable except as noted in HPI and below Physical exam (Primary Care) Vital Signs: Last Vital Signs Temp 97.5 F 09/11/23 11:09 Pulse 88 09/11/23 11:09 BP 110/61 09/11/23 11:09 BMI result Body Mass Index 24.3 Tobacco/Smoking Status: Tobacco use Status Tobacco use date assessed 09/11/23 09/11/23 11:24 Patient Tobacco Use Status Never used Tobacco 09/11/23 11:16 e-Cigarette/Vaping Use Never Used 09/11/23 11:16 PHQ-9: PHQ-9 Score PHQ-9: Total score 4 09/11/23 12:08 Depression Screening Interpretation: Negative Thrive Assessment: Date of Thrive Assessment Date Thrive assessed 09/03/23 09/11/23 11:16 Const Other: Awake alert oriented Mucous membranes moist Regular rate and rhythm Lung sounds clear auscultation though diminished throughout Results AMB Hemoglobin A1c AMB Hemoglobin A1c 11.2 % Last Edit by Tricia Roy CMA on 4 11:39 Results Reviewed Results Reviewed: Laboratory Last Values Hgb A1c (Clinic) 11.2 % (4.0-6.0) H 09/11/23 11:38 Assessment and Plan Assessment & Plan (1) Hospital discharge follow-up: Code(s): Z09 - Encounter for follow-up examination after completed treatment for conditions other than malignant neoplasm Plan: Complex patient seen today. Urgent referral sent to [facility] to request a sooner appointment in the next 1-2 weeks for further management. Advised he should complete his antibiotics as directed. Continue his terazosin. Recommended close follow up with his primary care in the next 1-2 weeks to ensure that his needs are met to keep him out of the hospital. (2) Insulin-treated type 2 diabetes mellitus: Comment: New requirement for insulin. New prescription sent in for insulin NovoLog to be use as insulin sliding scale. Humalog was not affordable. Continue insulin Lantus. Refer to [facility] endocrinology for further evaluation and treatment. Handout provided for a diabetic diet to help him make proper food choices. Code(s): E11.9 - Type 2 diabetes mellitus without complications; Z79.4 - care home (current) use of insulin (3) Seizure disorder: Comment: No seizures managed well on current seizure medications Code(s): G40.909 - Epilepsy, unspecified, not intractable, without status epilepticus (4) CAD (coronary artery disease): Comment: Per request refer to [facility] Cardiology for management. Code(s): I25.10 - Atherosclerotic heart disease of [place] coronary artery without angina pectoris Qualifiers: Coronary Disease-Associated Artery/Lesion type: bypass graft Platinum vs. transplanted heart: [place] heart Associated angina: without angina Qualified Code(s): I25.810 - Atherosclerosis of coronary artery bypass graft(s) without angina pectoris Plan This note is constructed using voice recognition software. While every effort has been made to ensure accuracy in air intelligence specialist, still errors may have been included Sometimes, these errors may affect the content or meaning of the given sentence . Total time spent caring for the patient today was 60 minutes. This includes time spent before the visit reviewing the chart, time spent during the visit, and time spent after the visit on documentation Orders: Orders AMB Hemoglobin A1c Today E11.9 - Type 2 diabetes mellitus without complications Referrals Cardiology Referral I25.10 - Atherosclerotic heart disease of [place] coronary artery without angina pectoris Endocrinology Referral E11.9 - Type 2 diabetes mellitus without complications, Z79.4 - care home (current) use of insulin Medications: New insulin aspart U-100 (Novolog FlexPen U-100 Insulin aspart) three times per day with meals as needed, following ISS: Blood Sugar: <150 - 0 units 151-200 - 4 units 201-250 - 6 units 251-300 - 8 units 301-350 - 10 units >350 - 12 units; BG <111 0 units, 111-150 - 0 units, 1 sliding scale dose subcut USEASDIRECTD 15 mL 0RF Discontinued insulin lispro (Humalog KwikPen (U-100) Insulin) Blood Sugar: <150 - 0 units 151-200 - 4 units 201-250 - 6 units 251-300 - 8 units 301-350 - 10 units >350 - 12 units; BG <111 0 units, 111-150 - 0 units, Discontinued Reason: Insurance Denied 1 sliding scale dose subcut TIDAC 15 mL 0RF Coding Level of Care Code TCM High MDM <= 7 Days Diagnoses Hospital discharge follow-up Z09 Insulin-treated type 2 diabetes mellitus E11.9; Z79.4 Seizure disorder G40.909 Coronary artery disease involving coronary bypass graft of [place] heart without angina pectoris I25.810 Coronary Disease-Associated Artery/Lesion type: bypass graft Platinum vs. transplanted heart: [place] heart Associated angina: without angina Additional Codes SUJATA-7 Assessment Billing - SUJATA-7 Assessment Tool: SUJATA-7 Assessment 90700 ([id number])
== END 2023-09-11 12:36 | disposition home or self-care (01) ==
PROVIDERS: PCP Family Medicine; Visit Provider Nurse Practitioner Family
DX: E11.9 Type 2 diabetes mellitus without complications (principal); Z79.4 Long term (current) use of insulin; G40.909 Epilepsy, unspecified, not intractable, without status epilepticus; Z09 Encounter for follow-up examination after completed treatment for conditions other than malignant neoplasm; I25.810 Atherosclerosis of coronary artery bypass graft(s) without angina pectoris
CPT/HCPCS: 83036; 99496

== ENCOUNTER 2023-09-19 13:10 | Outpatient (AMB) | payer MEDICARE, SELFPAY ==
[2023-09-19 13:26] VITALS: BP 118/60; PULSE 64; O2SAT 95; BMI 24.2
--- NOTE | 2023-09-19 13:26 | MHC.PC.OV ---
Vital Signs 09/19/23 13:26 Height 5 ft 7 in Weight 154 lb 4 oz BMI 24.2 BP 118/60 Blood Pressure Location Lt brachial Position Sitting Pulse 64 Pulse Source Pulse Oximeter Pulse Oximetry (%) 95 Oxygen Delivery Method Room Air Intake Visit Reasons: IDDM Intake Note: Patient is here to follow up on his diabetes. Allergies acetaminophen [From TYLENOL] Adverse Reaction (Intermediate, Verified 09/19/23 13:28) gi upset Tobacco use date assessed: 09/19/23 Fall risk assessment: No Falls in past year Last assessed Fall Risk: 09/19/23 Dental Screening Dental Screen Date: 09/19/23 HPI IDDM HPI Details Pt presents to f/u diabetes and hyperlipidemia with coronary artery disease. Lasr A1c 09/11/23 11.2%. Recent hospital visit 08/27-08/31 for diabetic ketoacidosis and at 09/05/23 for sepsis secondary to urinary tract infection. Was discharged on 5 days of cefuroxime. He denies any fevers/chills today. He is urinating well. He states he tests 3 times a day - is on insulin novolog, insulin glargine 24 units, metformin 500mg b.i.d. w/ meals. Has not been taking lispro due to costs. HPI Comments History of Present Illness Details Documentation assistance for Ari Shell MD, was provided by Luis Fernando Jeffery, Sample Color Maker on 09/19/2023 2:03 PM EST. I, Dr. Shell, have read, observed, and verified documentation. FORMERLY [facility], [facility]–1983 Medical History Diabetes Elevated liver enzymes Immunization counseling Opioid dependence, uncomplicated Chronic, continuous use of opioids Pneumothorax, left Fall Closed fracture nasal bone Abrasion of face Screening for osteoporosis Low HDL (under 40) Right elbow pain Opioid use Frontal headache Adult general medical exam Screening for prostate cancer Colon cancer screening Headache Mild dehydration Low back pain Muscle spasm History of blood transfusion Back pain Brain tumor Meningioma PTSD (post-traumatic stress disorder) Anxiety Depression Anemia Thrombocytopenia GERD (gastroesophageal reflux disease) CAD (coronary artery disease) Sacroiliitis Hx of thrombocytopenia Anemia Hx of small bowel obstruction GERD (gastroesophageal reflux disease) Migraine Depression Hx of meningioma of the brain PTSD (post-traumatic stress disorder) Anxiety Peyronie's disease CAD (coronary artery disease) HTN (hypertension) Surgical History H/O craniotomy Hx of CABG History of resection of meningioma History of back surgery Hx of colonoscopy History of nasal surgery History of bowel resection History of quadruple bypass Hx of CABG Family History Father No problems noted. Mother No problems noted. Brother No problems noted. Sister No problems noted. Sister No problems noted. Sister No problems noted. Social History Household Members: None Housing: Condominium Are you a primary care partner to a significant other at home: No Do you presently have visiting nurse or other home services: Yes (DM teaching) Alcohol intake: never Patient Tobacco Use Status: Never used Tobacco e-Cigarette/Vaping Use: Never Used Second Hand Smoke Exposure: No service: No Current occupational status: retired Current occupational exposures/hazards: No Cognitive needs: No Hearing needs: No Vision needs: Yes (Reading glasses) Questionnaire Thrive Questionnaire Date Thrive assessed: 09/03/23 SUJATA-7 AMB Questionnaire SUJATA-7 Date SUJATA - 7 assessed: 09/11/23 Source: Developed by Drs. Malcolm Garrido, Brenda Garner, Roberto Fraser and colleagues, with an educational lobo from [employer]. Review of Systems Const Denies chills, Denies fatigue, Denies fever(s), Denies headache(s) and Denies weakness ENT Denies dizziness and Denies headache(s) Card Denies dyspnea Resp Denies cough, Denies dyspnea, Denies wheezing and Denies other (shortness of breath) Musc Denies numbness and Denies tingling Neuro Denies dizziness, Denies headache(s), Denies numbness, Denies tingling and Denies weakness Psych Denies anxiety and Denies depression Endo Denies fatigue Aller/Immun Denies wheezing Physical exam (Primary Care) Vital Signs: Last Vital Signs Pulse 64 09/19/23 13:26 BP 118/60 09/19/23 13:26 Pulse Ox 95 09/19/23 13:26 Oxygen Delivery Method Room Air 09/19/23 13:26 BMI result Body Mass Index 24.2 Tobacco/Smoking Status: Tobacco use Status Tobacco use date assessed 09/19/23 09/19/23 13:29 Patient Tobacco Use Status Never used Tobacco 09/19/23 13:27 e-Cigarette/Vaping Use Never Used 09/19/23 13:27 Thrive Assessment: Date of Thrive Assessment Date Thrive assessed 09/03/23 09/19/23 13:27 Const General: well developed; No acute distress Nutritional Appearance: well nourished Orientation/consciousness: patient oriented x3 HENRI Head: Yes normocephalic and Yes atraumatic Eyes General: appearance normal, both eyes and all related structures Pupils: Equal, round and reactive pupils present EOM: EOMs intact bilaterally Resp Effort & Inspection: normal respiratory effort Neuro General: patient oriented x3 and gait normal Cranial nerves: Yes Equal, round and reactive pupils present Psych Affect: normal affect Assessment and Plan Assessment & Plan (1) Insulin-treated type 2 diabetes mellitus: Comment: New requirement for insulin. New prescription sent in for insulin NovoLog to be use as insulin sliding scale. Humalog was not affordable. Continue insulin Lantus. Refer to [facility] endocrinology for further evaluation and treatment. Handout provided for a diabetic diet to help him make proper food choices. Code(s): E11.9 - Type 2 diabetes mellitus without complications; Z79.4 - senior care (current) use of insulin Plan: New?insulin?requirement.??Patient?is?taking?Lantus?24?units?daily?and?also?taking?his?metformin He?has?not?taking?lispro?as?his?blood?sugars?in?his?log?have?been?well?controlled?and?the?medication?was?very?expensive. Continue?Lantus?and?metformin Will?check?labs?prior?to?his?next?visit Hydrate?well Will?ask?the?nurse?navigator?to?work?with?him?for?diabetic?teaching?and?Carmen?system (2) Urinary tract infection: Code(s): N39.0 - Urinary tract infection, site not specified Plan: Recent?urine?infection?and?patient?was?given?cefuroxime?which?he?completed No?burning?or?acute?urinary?symptoms.??No?change?in?mental?status Hydrate?well Follow-up?with?urology?for?baseline?urinary?retention Orders: Referrals Nurse Navigator Referral E11.9 - Type 2 diabetes mellitus without complications, Z79.4 - senior care (current) use of insulin Coding Level of Care Code Est Pt Level 3 (03502) Diagnoses Insulin-treated type 2 diabetes mellitus E11.9; Z79.4 Urinary tract infection N39.0
== END 2023-09-19 14:23 | disposition home or self-care (01) ==
PROVIDERS: PCP Family Medicine; Visit Provider Family Medicine
DX: E11.9 Type 2 diabetes mellitus without complications (principal); Z79.4 Long term (current) use of insulin; N39.0 Urinary tract infection, site not specified
CPT/HCPCS: 99213

== ENCOUNTER 2023-09-24 09:48 | Outpatient (REF) | payer MEDICARE, SELFPAY ==
--- NOTE | ~2023-09-24 | US_ITS ---
EXAMINATION: US RETROPERITONEAL COMPLETE (RENAL) CLINICAL INFORMATION: Retention of urine, unspecified. COMPARISON: CT abdomen and pelvis 11/17/2021. TECHNIQUE: Real-time imaging of the kidneys and bladder. FINDINGS: RIGHT KIDNEY: 10.3 x 5.4 x 5.2 cm (SAG x AP x TRV). The kidney is normal in size, contour, and echogenicity. Renal cortical thickness is normal. No renal calculi or hydronephrosis. At the upper pole laterally, a 1.4 x 0.8 x 1.0 cm benign, simple cyst is seen, which requires no imaging follow-up. LEFT KIDNEY: 9.7 x 5.0 x 4.9 cm (SAG x AP x TRV). The kidney is normal in size, contour, and echogenicity. Renal cortical thickness is normal. No renal calculi or hydronephrosis. At the interpolar aspect laterally, a 2.8 cm benign, simple cyst is seen. At the lower pole, a 4 mm benign, simple exophytic cyst is seen. These require no imaging follow-up. BLADDER: Well distended. Left ureteral jet is demonstrated; right is not. Prevoid bladder volume is 344 mL. Postvoid bladder volume is 213 mL. There are prominent trabeculations. OTHER: Prostate dimensions are 4.4 x 3.2 x 3.5 cm, volume 25.6 mL. There are central prostate calcifications. The seminal vesicles are somewhat prominent. US/US retroperitoneal comp IMPRESSION: 1. Unremarkable ultrasound appearance of the kidneys. 2. There is bladder wall hypertrophy, with trabeculations. An increased postvoid residual volume is seen.
== END 2023-09-24 09:49 | disposition home or self-care (01) ==
LOC: HO.US 09:48
PROVIDERS: PCP Family Medicine; Visit Provider Nurse Practitioner Family
DX: R33.9 Retention of urine, unspecified (principal); R39.9 Unspecified symptoms and signs involving the genitourinary system
CPT/HCPCS: 76770

== ENCOUNTER 2023-09-29 10:18 | Outpatient (REF) | payer MEDICARE, SELFPAY | END 2023-09-29 10:19 | disposition home or self-care (01) | LOC: HO.US 10:18 | PROVIDERS: PCP Family Medicine; Visit Provider Nurse Practitioner Family | DX: N40.1 Benign prostatic hyperplasia with lower urinary tract symptoms (principal); R33.8 Other retention of urine; R39.14 Feeling of incomplete bladder emptying; R39.9 Unspecified symptoms and signs involving the genitourinary system; R35.0 Frequency of micturition; N39.0 Urinary tract infection, site not specified; N32.89 Other specified disorders of bladder; Z79.899 Other long term (current) drug therapy | CPT/HCPCS: 51798; 81003; 99212 ==

== ENCOUNTER 2023-09-29 10:26 | Outpatient (AMB) | payer MEDICARE, SELFPAY ==
--- NOTE | 2023-09-29 10:34 | A.OFFVIS_ITS ---
Intake Intake Visit Reasons: 6w/US/PVR Intake Note: Patient presents for follow up visit difficulty urinating and ultrasound results Urology Medications: terazosin Blood Thinner: none PVR: 185ml's Body Shop Technician Required: No Accompanied by: Self / Same As Patient Allergies acetaminophen [From TYLENOL] Adverse Reaction (Intermediate, Verified 09/29/23 11:11) gi upset Medication List - Last Reconciled 09/29/23 by LA MckinleyP- aripiprazole (Abilify) 2 mg PO BEDTIME 30 days atorvastatin 80 mg PO BEDTIME 30 days bethanechol chloride 50 mg PO BID 30 days blood sugar diagnostic (FreeStyle Lite Strips) Test four times a day or as directed. blood-glucose meter (FreeStyle Lite Meter kit) As Directed buspirone 5 mg PO DAILY buspirone 10 mg PO BEDTIME cefuroxime axetil 500 mg PO BID cholecalciferol (vitamin D3) 25 mcg PO DAILY 90 days insulin aspart U-100 (Novolog FlexPen U-100 Insulin aspart) 1 sliding scale dose subcut USEASDIRECTD insulin glargine (Lantus Solostar U-100 Insulin) 24 units (0.24 mL) subcut DAILY lancets (FreeStyle Lancets) Test four times a day or as directed. levetiracetam 250 mg PO BID metformin 500 mg PO BIDWM metoprolol succinate ER 25 mg PO DAILY 90 days paroxetine HCl 30 mg PO DAILY 90 days pen needle, diabetic Use four times a day or as directed. phenobarbital 30 mg PO BEDTIME terazosin 10 mg PO BEDTIME 90 days trazodone 100 - 200 mg PO BEDTIME PRN HPI HPI Comments History of Present Illness Details Adrián is a very pleasant 73-year-old male patient of . He has a past medical history of hyperlipidemia, MDD, generalized anxiety disorder, vitamin-D deficiency, seizure disorder, migraines, Peyronie's disease, meningioma of the brain, hypertension, GERD, CAD, BPH urinary retention, insulin-dependent diabetes, opioid dependence with complication, status post craniotomy, CABG x 4 2004, resection of meningioma 2012, back surgery 2015, nasal surgery, bowel resection status post small-bowel obstruction. He presents to the office today for follow-up of his incomplete bladder emptying and recurrent urinary tract infections. Of note since last office visit approximately 2 months ago patient has been hospitalized 08/28/23- 09/01/23 for diabetic ketoacidosis. Return to the emergency room the next day with elevated temperature. Diagnosed with urosepsis. Urine culture grew mixed marcelina. Treated empirically with ceftriaxone with resolution of septic symptoms. He was discharged home on 5 more days of cefuroxime on 09/05/2023 & [facility] services. In discussion with the patient today he reports to be doing and feeling much better. He reports checking sugars at home approximately 3 to 4 times a day. He reports feeling issues with his urination that he had been experiencing have also somewhat improved. He continues with 10 mg of terazosin at bedtime. In office urinalysis results reviewed with the patient today. PVR 185 mL. However this is slowly decreasing as previous PVR during last office visit was 338 mL. Discussed initiation of bethanechol to assist with incomplete bladder emptying. Discussed affects of bethanechol with history of seizures. Recent retroperitoneal ultrasound results reviewed with the patient today. Bilateral kidneys with no calculi or hydronephrosis noted. Bilateral renal cysts are present that require no imaging follow-up per radiology report. The bladder is well distended. Pre void bladder volume is approximately 345 mL. Postvoid bladder volume is approximately 215 mL. There are prominent trabeculations. Prostate measures approximately 26 mL. There are central prostate calcifications. The seminal vesicles are somewhat prominent. Patient previously had been on Flomax however this was discontinued and the patient was started on terazosin. We discussed potential causes for lower urinary tract symptoms patient is experiencing as well as incomplete bladder emptying. Discussed obtaining PSA as ordered by PCP in June of this year. In review of patient's chart it appears PSA 10/13--0.6. He otherwise denies hematuria, dysuria, foul smelling urine, changes to urinary stream, flank pain, fever, and or chills. Discussed in office cystoscopy for further assessment evaluation. He otherwise offers no other issues or concerns at this time. [facility] Medical History Hyperlipidemia Diabetes Elevated liver enzymes Immunization counseling Opioid dependence, uncomplicated Chronic, continuous use of opioids Pneumothorax, left Fall Closed fracture nasal bone Abrasion of face Screening for osteoporosis Low HDL (under 40) Right elbow pain Opioid use Frontal headache Adult general medical exam Screening for prostate cancer Colon cancer screening Headache Mild dehydration Low back pain Muscle spasm History of blood transfusion Back pain Brain tumor Meningioma PTSD (post-traumatic stress disorder) Anxiety Depression Anemia Thrombocytopenia GERD (gastroesophageal reflux disease) CAD (coronary artery disease) Sacroiliitis Hx of thrombocytopenia Anemia Hx of small bowel obstruction GERD (gastroesophageal reflux disease) Migraine Depression Hx of meningioma of the brain PTSD (post-traumatic stress disorder) Anxiety Peyronie's disease CAD (coronary artery disease) HTN (hypertension) Surgical History H/O craniotomy Hx of CABG History of resection of meningioma History of back surgery Hx of colonoscopy History of nasal surgery History of bowel resection History of quadruple bypass Hx of CABG Family History Father No problems noted. Mother No problems noted. Brother No problems noted. Sister No problems noted. Sister No problems noted. Sister No problems noted. Social History Household Members: None [facility] Are you a primary career representative to a significant other at home: No Do you presently have visiting nurse or other home services: Yes (DM teaching) Alcohol intake: never Patient Tobacco Use Status: Never used Tobacco e-Cigarette/Vaping Use: Never Used Second Hand Smoke Exposure: No service: No Current occupational status: retired Current occupational exposures/hazards: No Cognitive needs: No Hearing needs: No Vision needs: Yes (Reading glasses) Review of Systems Const Reports as per HPI Eyes Reports no additional complaints ENT Reports no additional complaints Card Reports as per [facility] Resp Reports no additional complaints GI Reports as per HPI Reports as per HPI Musc Reports as per [facility] Neuro Reports as per HPI Psych Reports no additional complaints Endo Reports no additional complaints Luis/Lymph Reports no additional complaints Aller/Immun Reports no additional complaints Physical Exam Const General: cooperative, comfortable, no acute distress, well developed, alert and awake Orientation/consciousness: patient oriented x3 Limitations: no limitations HEENT Head: Yes normal to inspection, Yes normocephalic and Yes atraumatic Ears: hearing grossly normal bilaterally Eyes General: appearance normal, both eyes and all related structures Neck Neck: Yes normal visual inspection and Yes trachea midline Chest Chest palpation & inspection: normal inspection of the chest Resp Effort & Inspection: normal respiratory effort and able to speak in complete sentences Cardio Rate: regular rate GI Inspection: Yes normal to inspection General: Yes no CVA tenderness Back/Spine/Pelvis Back: no CVA tenderness Skin General skin exam: no rashes or lesions noted Neuro General: patient oriented x3 Extrem General: Yes normal to inspection Psych Appearance: grossly normal and well kempt Mental Status: mental status grossly normal Speech and movement: Normal speech and movement present and Clear speech present Affect: normal affect Attitude: cooperative Thought process: Normal thought process present Thought content: Normal thought content present Insight: Fair insight present (Psych) Judgement: Fair judgement present (Psych) Office Procedures Post Void Residual Post Residual Void Post Void Residual (PVR): 185 [id number] Void Residual by ultrasound Results AMB Urinalysis, Automated UA Leukoctes 0 [place]/uL Last Edit by [employer] on 09/29/23 10:56 UA Nitrite Negative Last Edit by [employer] on 09/29/23 10:56 UA Urobilinogen 0.2 mg/dL Last Edit by [employer] on 09/29/23 10:56 UA Protein 0 mg/dL Last Edit by [employer] on 09/29/23 10:56 UA pH 6.0 Last Edit by [employer] on 09/29/23 10:56 UA Blood 0 Popeye/uL Last Edit by [employer] on 09/29/23 10:56 UA Specific [place] 1.020 Last Edit by [employer] on 09/29/23 10:56 UA Ketone Negative Last Edit by [employer] on 09/29/23 10:56 UA Bilirubin 0 mg/dL Last Edit by [employer] on 09/29/23 10:56 UA Glucose 0 mg/dL Last Edit by [employer] on 09/29/23 10:56 Results Reviewed Results Reviewed: Laboratory Last Values Urine pH (Auto) 6.0 09/29/23 10:39 Specific [place] (Auto) 1.020 09/29/23 10:39 Urine Protein (Auto) 0 mg/dL 09/29/23 10:39 Glucose (UA)(Auto) 0 mg/dL 09/29/23 10:39 Urine Ketones (Auto) Negative 04/08/24 10:39 Urine Blood (Auto) 0 Popeye/uL 09/29/23 10:39 Urine Nitrite (Auto) Negative 09/29/23 10:39 Urine Bilirubin (Auto) 0 mg/dL 09/29/23 10:39 Urine Urobilinogen (Auto) 0.2 mg/dL 09/29/23 10:39 Leukocyte Esterase (Auto) 0 [place]/uL 09/29/23 10:39 Date of Service: 09/24/23 EXAMINATION: US RETROPERITONEAL COMPLETE (RENAL) FINDINGS: RIGHT KIDNEY: 10.3 x 5.4 x 5.2 cm (SAG x AP x TRV). The kidney is normal in size, contour, and echogenicity. Renal cortical thickness is normal. No renal calculi or hydronephrosis. At the upper pole laterally, a 1.4 x 0.8 x 1.0 cm benign, simple cyst is seen, which requires no imaging follow-up. LEFT KIDNEY: 9.7 x 5.0 x 4.9 cm (SAG x AP x TRV). The kidney is normal in size, contour, and echogenicity. Renal cortical thickness is normal. No renal calculi or hydronephrosis. At the interpolar aspect laterally, a 2.8 cm benign, simple cyst is seen. At the lower pole, a 4 mm benign, simple exophytic cyst is seen. These require no imaging follow-up. BLADDER: Well distended. Left ureteral jet is demonstrated; right is not. Prevoid bladder volume is 344 mL. Postvoid bladder volume is 213 mL. There are prominent trabeculations. OTHER: Prostate dimensions are 4.4 x 3.2 x 3.5 cm, volume 25.6 mL. There are central prostate calcifications. The seminal vesicles are somewhat prominent. IMPRESSION: 1. Unremarkable ultrasound appearance of the kidneys. 2. There is bladder wall hypertrophy, with trabeculations. An increased postvoid residual volume is seen. Assessment & Plan Assessment & Plan (1) Lower urinary tract symptoms: Code(s): R39.9 - Unspecified symptoms and signs involving the genitourinary system (2) Incomplete bladder emptying: Code(s): R33.9 - Retention of urine, unspecified (3) Urinary tract infection: Code(s): N39.0 - Urinary tract infection, site not specified (4) Bladder trabeculation: Code(s): N32.89 - Other specified disorders of bladder Plan In office urinalysis results reviewed with the patient today; as noted above. PVR 185 mL. Recent retroperitoneal ultrasound results reviewed with the patient today; as noted above. Continue terazosin 10 mg daily Start bethanechol 50 mg b.i.d.; discussed potential side effects with history of seizures. Will obtain PSA for further assessment evaluation; it appears 1 has been ordered by PCP; educated patient on importance of obtaining blood work with no sex the night before, no caffeine morning of, and no heavy lifting 1-2 days prior. He currently denies any UTI like symptoms. Follow-up in office cystoscopy for further assessment evaluation; or sooner with any issues, concerns, and or questions. Orders: Orders AMB Post Void Residual by ultrasound 09/29/23 R33.9 - Retention of urine, unspecified Prostate Specific Antigen Scr 07/18/23 R33.9 - Retention of urine, unspecified, Z12.5 - Encounter for screening for malignant neoplasm of prostate AMB Urinalysis Automated 09/29/23 Z13.9 - Encounter for screening, unspecified Medications: New bethanechol chloride 50 mg PO BID 30 days 60 tabs 1RF N39.0 - Urinary tract infection, site not specified Changed From terazosin 10 mg PO BEDTIME 30 days 30 caps 1RF N40.1 - Benign prostatic hyperplasia with lower urinary tract symptoms, R35.0 - Frequency of micturition To terazosin 10 mg PO BEDTIME 90 days 90 caps 1RF N40.1 - Benign prostatic hyperplasia with lower urinary tract symptoms, R35.0 - Frequency of micturition Patient Instructions: The patient had an opportunity to ask questions regarding the treatment plan. All questions were answered. Physical exam, labs, and imaging were discussed and reviewed in detail. As well as risks, benefits, and discussion of treatment choices. No major barriers to understanding were identified. The patient expressed understanding and agreement with the above treatment plan. The patient was made aware they should contact our office by phone for worsening of their current condition, the appearance of new symptoms, or with any questions or concerns. Compliance is encouraged with any medications and follow up testing that is ordered. It is a privilege to be allowed the opportunity to participate in? your urological care.? Again, if you have any questions or concerns If you have any questions or concerns please do not hesitate to contact me. The office is [phone]. This note is constructed using voice recognition software. While every effort has been made to ensure accuracy refueling ramp attendant errors may have been included. Yours sincerely, JASON Mckinley Coding Level of Care Code Est Pt Level 4 (18542) Diagnoses Lower urinary tract symptoms R39.9 Incomplete bladder emptying R33.9 Urinary tract infection N39.0 Bladder trabeculation N32.89 CPT Codes Post Residual Void - PVR CPT Code: 57056-Zftx Void Residual by ultrasound ([id number])
== END 2023-09-29 11:03 | disposition home or self-care (01) ==
PROVIDERS: PCP Family Medicine; Visit Provider Nurse Practitioner Family
DX: R39.9 Unspecified symptoms and signs involving the genitourinary system (principal); R33.9 Retention of urine, unspecified; N39.0 Urinary tract infection, site not specified; N32.89 Other specified disorders of bladder
CPT/HCPCS: 99214

== ENCOUNTER 2023-10-14 08:01 | Outpatient (REF) | payer MEDICARE, SELFPAY ==
[2023-10-14 08:15] LABS: MANUAL DIFF FLAG NO
[2023-10-14 08:41] LABS: Basophils Absolute Auto 0.1 X10*3/uL (0.0-0.2); Basophils Percent Auto 1.3 % (0-2); Eosinophils Absolute Auto 0.1 X10*3/uL (0.0-0.4); Eosinophils Percent Auto 2.2 % (0-4); Hematocrit 39.1 % (42.0-52.0); Hemoglobin 12.5 g/dl (14.0-18.0); Imm Gran Abs Auto 0.02 X10*3/uL (0.00-0.03); Imm Gran Pct Auto 0.4 % (0.0-0.4); Lymphocytes Absolute Auto 1.4 X10*3/uL (1.2-4.9); Lymphocytes Percent Auto 25.5 % (20-40); Mean Corpuscular Hemoglobin 27.8 pg (27.0-33.0); Mean Corpuscular Volume 87.1 fL (80.0-98.0); Mean Platelet Volume 11.1 fL (9.4-12.4); Monocytes Absolute Auto 0.4 X10*3/uL (0.1-1.2); Monocytes Percent Auto 7.1 % (2-11); Neutrophils Absolute Auto 3.4 x10*3/uL (2.0-8.3); Neutrophils Percent Auto 63.5 % (45-73); Platelet Count 155 X10*3/uL (160-400); Red Blood Count 4.49 X10*6/uL (4.60-5.80); Red Cell Distribution Width 13.9 % (11.0-16.0); White Blood Count 5.4 X10*3/uL (4.8-10.8)
[2023-10-14 08:44] LABS: Appearance Urine Clear; Color Urine Yellow; Glucose Urine UA Negative (Negative); Leukocyte Esterase Urine Negative (Negative); Nitrite Urine Negative (Negative); PH 6.5 (5.0-9.0); Specific Gravity - Urine 1.025 (1.005-1.025); Urine Blood Negative (Negative); Urine Ketones Negative (Negative); Urine Protein Negative (Neg-Trace)
[2023-10-14 09:03] LABS: Alanine Aminotransferase 13 U/L (0-40); Albumin Level 4.4 g/dL (3.5-5.0); Alkaline Phosphatase 68 U/L (39-117); Anion Gap 13 (12-20); Aspartate Amino Transferase 18 U/L (5-37); Bilirubin Total 0.9 mg/dL (0.0-1.0); Blood Urea Nitrogen 15 mg/dL (9-16); Calcium 9.4 mg/dL (8.4-10.2); Carbon Dioxide 24 mmol/L (22-29); Chloride 110 mmol/L (96-108); Estimated Glomerular Filt Rate > 60; Glucose Fasting 100 mg/dL (60-99); Potassium 3.8 mmol/L (3.3-5.1); Sodium 143 mmol/L (135-145); Total Protein 7.2 g/dL (6.5-8.0)
[2023-10-14 09:04] LABS: Creatinine Urine 153.68 mg/dL; Microalbum/Creatinine Ratio Ur 6.5 ug/mg cr (<30)
== END 2023-10-14 08:02 | disposition home or self-care (01) ==
LOC: HO.LAB 08:01
PROVIDERS: PCP Family Medicine; Visit Provider Family Medicine
DX: Z00.00 Encounter for general adult medical examination without abnormal findings (principal)
CPT/HCPCS: 36415; 80053; 81003; 82043; 82570; 85025

== ENCOUNTER 2023-10-16 09:26 | Outpatient (AMB) | payer MEDICARE, SELFPAY ==
--- NOTE | 2023-10-16 09:29 | MHC.PC.OV ---
Vital Signs 10/16/23 09:31 Height 5 ft 7 in Weight 149 lb BMI 23.3 BP 118/66 Blood Pressure Location Lt brachial Position Sitting Pulse 61 Pulse Source Pulse Oximeter Pulse Oximetry (%) 95 Oxygen Delivery Method Room Air Intake Visit Reasons: f/u diabetes Intake Note: Patient is here for follow up on diabetes. Patient needs refill on his Metformin. Allergies acetaminophen [From TYLENOL] Adverse Reaction (Intermediate, Verified 10/16/23 09:32) gi upset Medication List - Last Reconciled 10/16/23 by Ari Shell MD aripiprazole (Abilify) 2 mg PO BEDTIME 30 days atorvastatin 80 mg PO BEDTIME 30 days bethanechol chloride 50 mg PO BID 30 days blood sugar diagnostic (FreeStyle Lite Strips) Test three times a day or as directed. blood-glucose meter (FreeStyle Lite Meter kit) As Directed buspirone 5 mg PO DAILY buspirone 10 mg PO BEDTIME cefuroxime axetil 500 mg PO BID cholecalciferol (vitamin D3) 25 mcg PO DAILY 90 days insulin aspart U-100 (Novolog FlexPen U-100 Insulin aspart) 1 sliding scale dose subcut USEASDIRECTD insulin glargine (Lantus Solostar U-100 Insulin) 24 units (0.24 mL) subcut DAILY lancets (FreeStyle Lancets) Test four times a day or as directed. levetiracetam 250 mg PO BID metformin 500 mg PO BIDWM 90 days metoprolol succinate ER 25 mg PO DAILY 90 days paroxetine HCl 30 mg PO DAILY 90 days pen needle, diabetic Use four times a day or as directed. phenobarbital 30 mg PO BEDTIME terazosin 10 mg PO BEDTIME 90 days trazodone 100 - 200 mg PO BEDTIME PRN Tobacco use date assessed: 10/16/23 Fall risk assessment: No Falls in past year Last assessed Fall Risk: 10/16/23 Dental Screening Dental Screen Date: 09/19/23 HPI f/u diabetes HPI Details 73 y/o male presents to f/u diabetes. Patient was hospitalized for diabetic ketoacidosis or hyperosmolar nonketotic hyperglycemia. Now requiring insulin and he is taking Lantus 24 units daily along with his metformin. Last A1c 09/11/23 11.2%. A1c today 10/16/23 is 8.1%. Pt notes he has been strict with his diet. Blood sugars at home have improved. He has an appt. with endocrinology November 02. Recent diabetic eye exam showed no diabetic retinopathy. Pt reports back pain. He reports he has been using aspirin as tylenol does not help him. Pt notes back pain since his visit to the hospital. [facility] Medical History Hyperlipidemia Diabetes Elevated liver enzymes Immunization counseling Opioid dependence, uncomplicated Chronic, continuous use of opioids Pneumothorax, left Fall Closed fracture nasal bone Abrasion of face Screening for osteoporosis Low HDL (under 40) Right elbow pain Opioid use Frontal headache Adult general medical exam Screening for prostate cancer Colon cancer screening Headache Mild dehydration Low back pain Muscle spasm History of blood transfusion Back pain Brain tumor Meningioma PTSD (post-traumatic stress disorder) Anxiety Depression Anemia Thrombocytopenia GERD (gastroesophageal reflux disease) CAD (coronary artery disease) Sacroiliitis Hx of thrombocytopenia Anemia Hx of small bowel obstruction GERD (gastroesophageal reflux disease) Migraine Depression Hx of meningioma of the brain PTSD (post-traumatic stress disorder) Anxiety Peyronie's disease CAD (coronary artery disease) HTN (hypertension) Surgical History H/O craniotomy Hx of CABG History of resection of meningioma History of back surgery Hx of colonoscopy History of nasal surgery History of bowel resection History of quadruple bypass Hx of CABG Family History Father No problems noted. Mother No problems noted. Brother No problems noted. Sister No problems noted. Sister No problems noted. Sister No problems noted. Social History Household Members: None Housing: Condominium Are you a primary care professional to a significant other at home: No Do you presently have visiting nurse or other home services: Yes (DM teaching) Alcohol intake: never Patient Tobacco Use Status: Never used Tobacco e-Cigarette/Vaping Use: Never Used Second Hand Smoke Exposure: No service: No Current occupational status: retired Current occupational exposures/hazards: No Cognitive needs: No Hearing needs: No Vision needs: Yes (Reading glasses) Questionnaire Thrive Questionnaire Date Thrive assessed: 09/03/23 SUJATA-7 AMB Questionnaire SUJATA-7 Date SUJATA - 7 assessed: 09/11/23 Source: Developed by Drs. Malcolm Garrido, Brenda Garner, Roberto Fraser and colleagues, with an educational lobo from [employer]. Review of Systems Const Denies chills, Denies fatigue, Denies fever(s), Denies headache(s) and Denies weakness ENT Denies dizziness and Denies headache(s) Card Denies chest pain, Denies lightheadedness, Denies dyspnea and Denies other (Palpitations) Resp Denies cough, Denies dyspnea, Denies wheezing and Denies other ( shortness of breath) Musc Reports back pain, Denies numbness and Denies tingling Neuro Denies dizziness, Denies headache(s), Denies numbness, Denies tingling, Denies paresthesias and Denies weakness Psych Denies anxiety and Denies depression Endo Denies fatigue Aller/Immun Denies wheezing Physical exam (Primary Care) Vital Signs: Last Vital Signs Pulse 61 10/16/23 09:31 BP 118/66 10/16/23 09:31 Pulse Ox 95 10/16/23 09:31 Oxygen Delivery Method Room Air 10/16/23 09:31 BMI result Body Mass Index 23.3 Tobacco/Smoking Status: Tobacco use Status Tobacco use date assessed 10/16/23 10/16/23 09:35 Patient Tobacco Use Status Never used Tobacco 10/16/23 09:31 e-Cigarette/Vaping Use Never Used 10/16/23 09:31 Thrive Assessment: Date of Thrive Assessment Date Thrive assessed 09/03/23 10/16/23 09:31 Const General: no acute distress and well developed Nutritional Appearance: well nourished Orientation/consciousness: patient oriented x3 HENMT Head: Yes normocephalic and Yes atraumatic Eyes General: appearance normal, both eyes and all related structures Pupils: Equal, round and reactive pupils present EOM: EOMs intact bilaterally Resp Effort & Inspection: normal respiratory effort Auscultation: clear to auscultation bilaterally Cardio Rate: regular rate Rhythm: regular rhythm Heart sounds: S1 normal heart sound present, S2 normal heart sound present, no gallops, no murmurs and no rubs Neuro General: patient oriented x3 and gait normal Cranial nerves: Yes Equal, round and reactive pupils present Psych Affect: normal affect Results AMB Hemoglobin A1c AMB Hemoglobin A1c 8.1 % Last Edit by Mee Cast CMA on 10/16/23 09:53 Assessment and Plan Assessment & Plan (1) Insulin-treated type 2 diabetes mellitus: Comment: New requirement for insulin. New prescription sent in for insulin NovoLog to be use as insulin sliding scale. Humalog was not affordable. Continue insulin Lantus. Refer to [facility] endocrinology for further evaluation and treatment. Handout provided for a diabetic diet to help him make proper food choices. 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 He?is?likely?not?yet?at?steady?state?as?A1c?was?repeated?early?due?to?significantly?high?A1c.??Goal?is?7.0%. Morning?blood?sugars?show?excellent?control?with?most?readings?between?87?and?115.??No?low?blood?sugars. Continue?current?medication?regimen. ?? Recent?eye?exam?showed?no?diabetic?retinopathy He?has?an?upcoming?appointment?with?endocrinology?in?May Will?follow-up?in?3?months (2) Low back pain: Code(s): M54.5 - Low back pain Plan: Significant?low?back?pain?around?L2?level?since?his?hospitalization?for?diabetic?ketoacidosis,?he?says?that?he?was?lying?and?sitting?in?bed?too?much.??No?recalled?trauma?however. Will?check?an?x-ray Will?have?him?take?some?naproxen Also?advised?walking?and?I?am?referring?him?to?physical?therapy. If?not?improving?will?refer?to?ortho?or?pain?management. Orders: Orders Comprehensive [place]. Panel Fast Today Z00.00 - Encounter for general adult medical examination without abnormal findings Complete Blood Count Auto Diff Today Z00.00 - Encounter for general adult medical examination without abnormal findings TSH reflex Free T4 Today Z00.00 - Encounter for general adult medical examination without abnormal findings UA and rflx microscopic Today Z00.00 - Encounter for general adult medical examination without abnormal findings XR lumbar spine 2-3V Today M54.5 - Low back pain PT Evaluation and Treatment Today M54.5 - Low back pain AMB Hemoglobin A1c Today Z13.9 - Encounter for screening, unspecified Lipid Panel Today Z00.00 - Encounter for general adult medical examination without abnormal findings Microalbumin, Random (w Creat) Today I10 - Essential (primary) hypertension Medications: New naproxen 500 mg PO BID 30 days PRN 60 tabs 0RF pain Changed From metformin 500 mg PO BIDWM 60 tabs 0RF To metformin 500 mg PO BIDWM 90 days 180 tabs 3RF Refilled metformin 500 mg PO BIDWM 60 tabs 0RF Coding Level of Care Code Est Pt Level 3 (67274) Diagnoses Insulin-treated type 2 diabetes mellitus E11.9; Z79.4 Low back pain M54.5
[2023-10-16 09:31] VITALS: BP 118/66; PULSE 61; O2SAT 95; BMI 23.3
== END 2023-10-16 10:33 | disposition home or self-care (01) ==
PROVIDERS: PCP Family Medicine; Visit Provider Family Medicine
DX: E11.9 Type 2 diabetes mellitus without complications (principal); M54.50 Low back pain, unspecified
CPT/HCPCS: 83036; 99214

== ENCOUNTER 2023-10-27 11:03 | Outpatient (REF) | payer MEDICARE, SELFPAY ==
--- NOTE | ~2023-10-27 | XR_ITS ---
EXAMINATION: XR LUMBOSACRAL SPINE CLINICAL INFORMATION: Low back pain, chronic low back pain for 2 years, no recent trauma. COMPARISON: CT abdomen and pelvis November 17, 2021. TECHNIQUE: Three views of the lumbosacral spine. FINDINGS: Dextroscoliosis of the lumbar spine. The bones are diffusely demineralized. Facet arthritis in the lower lumbar spine. Advanced degenerative changes in the imaged lower thoracic spine. Redemonstration of chronic compression fracture of T12 vertebral body. Multilevel degenerative changes with multilevel loss of disc space height. The bones are diffusely demineralized. Multilevel superior and inferior endplate concavities most notable are redemonstrated at L5 and at the inferior endplate of L3. XR/XR lumbar spine 2-3V IMPRESSION: 1. Multilevel degenerative disc disease. 2. Chronic compression fracture of T12 vertebral body. 3. Facet arthritis in the lower lumbar spine.
== END 2023-10-27 11:04 | disposition home or self-care (01) ==
LOC: HO.XRAY 11:03
PROVIDERS: PCP Family Medicine; Visit Provider Family Medicine
DX: M54.50 Low back pain, unspecified (principal)
CPT/HCPCS: 72100

== ENCOUNTER 2023-11-12 10:50 | Outpatient (AMB) | payer MEDICARE, SELFPAY ==
--- NOTE | 2023-11-12 11:00 | A.OFFVIS_ITS ---
Intake Visit Reasons: cysto Intake Note: Patient presents today for a CYSTOSCOPY Procedure: Meds: Terazosin Allergies to Antibiotic: No Known Allergies Blood Thinner: None Urinalysis test clear for Cysto? YES Disposable Uro-G HD Cystoscope Cannula: Lot: [id number] Exp: 06/24/2026 Allergies acetaminophen [From TYLENOL] Adverse Reaction (Intermediate, Verified 10/16/23 09:32) gi upset Medication List - Last Reconciled 11/12/23 by Andrews Justice MD aripiprazole (Abilify) 2 mg PO BEDTIME 30 days atorvastatin 80 mg PO BEDTIME 30 days bethanechol chloride 50 mg PO BID 90 days blood sugar diagnostic (FreeStyle Lite Strips) Test three times a day or as directed. blood-glucose meter (FreeStyle Lite Meter kit) As Directed buspirone 5 mg PO DAILY buspirone 10 mg PO BEDTIME cefuroxime axetil 500 mg PO BID cholecalciferol (vitamin D3) 25 mcg PO DAILY 90 days insulin aspart U-100 (Novolog FlexPen U-100 Insulin aspart) 1 sliding scale dose subcut USEASDIRECTD insulin glargine (Lantus Solostar U-100 Insulin) 24 units (0.24 mL) subcut DAILY lancets (FreeStyle Lancets) Test four times a day or as directed. levetiracetam 250 mg PO BID 90 days metformin 500 mg PO BIDWM 90 days metoprolol succinate ER 25 mg PO DAILY 90 days naproxen 500 mg PO BID PRN 30 days paroxetine HCl 30 mg PO DAILY 90 days pen needle, diabetic Use four times a day or as directed. phenobarbital 30 mg PO BEDTIME terazosin 10 mg PO BEDTIME 90 days trazodone 100 - 200 mg PO BEDTIME PRN HPI Comments Details: Reagan is a pleasant male. He is a patient of Dr. Shell. He is seen for the following urologic conditions - recurrent UTI - incomplete bladder emptying Episode of urosepsis 09/13 - diagnosed as new onset diabetic with ketoacidosis. Trialed bethanechol for bladder emptying with terazosin He tells me he thinks this is going well in his cleared the bethanechol with his neurologist PVRs 200 cc Cystoscopy today open bladder neck, grade 3 trabeculations. Would continue terazosin and bethanechol Six-month follow-up nurse-practitioner [facility] Medical History (Updated 10/16/23 @ 10:01 by Luis Fernando Jeffery) Low back pain Hyperlipidemia Diabetes Elevated liver enzymes Immunization counseling Opioid dependence, uncomplicated Chronic, continuous use of opioids Pneumothorax, left Fall Closed fracture nasal bone Abrasion of face Screening for osteoporosis Low HDL (under 40) Right elbow pain Opioid use Frontal headache Adult general medical exam Screening for prostate cancer Colon cancer screening Headache Mild dehydration Muscle spasm History of blood transfusion Back pain Brain tumor Meningioma PTSD (post-traumatic stress disorder) Anxiety Depression Anemia Thrombocytopenia GERD (gastroesophageal reflux disease) CAD (coronary artery disease) Sacroiliitis Hx of thrombocytopenia Anemia Hx of small bowel obstruction GERD (gastroesophageal reflux disease) Migraine Depression Hx of meningioma of the brain PTSD (post-traumatic stress disorder) Anxiety Peyronie's disease CAD (coronary artery disease) HTN (hypertension) Surgical History H/O craniotomy Hx of CABG History of resection of meningioma History of back surgery Hx of colonoscopy History of nasal surgery History of bowel resection History of quadruple bypass Hx of CABG Family History Father No problems noted. Mother No problems noted. Brother No problems noted. Sister No problems noted. Sister No problems noted. Sister No problems noted. Social History Household Members: None Housing: Condominium Are you a primary palliative care nurse to a significant other at home: No Do you presently have visiting nurse or other home services: Yes (DM teaching) Alcohol intake: never Patient Tobacco Use Status: Never used Tobacco e-Cigarette/Vaping Use: Never Used Second Hand Smoke Exposure: No service: No Current occupational status: retired Current occupational exposures/hazards: No Cognitive needs: No Hearing needs: No Vision needs: Yes (Reading glasses) Review of Systems Const Denies chills and Denies fever(s) Card Reports no additional complaints and Denies syncope Resp Denies cough GI Denies abdominal pain and Denies heartburn Reports as per HPI and Denies change in libido Neuro Denies syncope Psych Denies change in libido Endo Denies change in libido Physical Exam Const General: cooperative, healthy appearing, comfortable and no acute distress Orientation/consciousness: patient oriented x3 HEENT Face and sinus: Yes normal facial exam Mouth: moist mucous membranes Neck Neck: Yes normal visual inspection, Yes full ROM and Yes trachea midline Chest Chest palpation & inspection: normal inspection of the chest Resp Effort & Inspection: normal respiratory effort, able to speak in complete sentences and no respiratory distress GI Inspection: Yes normal to inspection Back/Spine/Pelvis Cervical Spine: normal cervical lordosis Thoracic/Lumbar Spine: thoracic and lumbar spine normal to inspection Skin General skin exam: no rashes or lesions noted Neuro General: patient oriented x3, gait normal, tone normal and moves all extremities Extrem General: Yes normal to inspection and Yes capillary refill normal Office Procedures Cystoscopy Consent Discussed risk and benefit or proposed procedure with the patient. Information consent for procedure given to the patient. Discussed technical aspects, risks, benefits and alternatives in full. Addressed all of the patient's questions and concerns regarding the procedure. The patient demonstrated knowledge and understanding. They wish to proceed with this procedure. Preparation The patient was prepped in the usual manner. A fund development manager was present and in the room. Genitalia was prepped with betadine solution in a sterile manner. Lidocaine Jelly 2% was placed into the urethra and 16Fr flexible Olympus cystoscope was inserted into the meatus after adequate lubrication. Procedure Cystoscopy performed using a disposable Urovue digital 16 [place] cystoscope. Meatus circumcised Urethra anterior and posterior urethra Prostatic Urethra unremarkable small Bladder examination with retroflexion of cystoscope Bladder Orifices normal shape and position Bladder Capacity more than average Trabeculations grade 2/3 Cellule Formation yes Diverticulum Formation none Mucosal Erythema -- Bladder Tumor - [id number] DISPOSABLE SCOPE URO-G FLEXIBLE SCOPE Procedure code (CPT) selection complete Office Meds lidocaine HCl 2 % mucosal jelly in applicator Performing Provider: Andrews Justice MD [facility] Administered by: Mk Goodrich LPN on 11/12/23 11:13 Dose Route Admin Location Dispensed Lot Number Expiration Date ND [employer]ist 10 mL intra-urethral 10 mL nitrofurantoin monohydrate/macrocrystals 100 mg capsule Performing Provider: Andrews Justice MD Performing Location: [facility] [place] [facility] Administered by: Mk Goodrich LPN on 11/12/23 11:13 Dose Route Admin Location Dispensed Lot Number Expiration Date NDC [employer]ist 100 mg PO 1 cap naproxen 500 mg tablet Performing Provider: Andrews Justice MD Performing Location: [facility] [place] [facility] Administered by: Mk Goodrich LPN on 11/12/23 11:13 Dose Route Admin Location Dispensed Lot Number Expiration Date NDC Internet [employer]ist 500 mg PO 1 tab Results AMB Urinalysis, Automated UA Leukoctes 0 [place]/uL Last Edit by ERGAN Mejias on 11/12/23 11:08 UA Nitrite Negative Last Edit by REGAN Mejias on 11/12/23 11:08 UA Urobilinogen 0.2 mg/dL Last Edit by REGAN Mejias on 11/12/23 11:0 8 UA Protein 15 mg/dL Last Edit by REGAN Mejias on 11/12/23 11:08 UA pH 5.5 Last Edit by REGAN Mejias on 11/12/23 11:08 UA Blood 0 Pope[place]/uL Last Edit by REGAN Mejias on 11/12/23 11:08 UA Specific [place] 1.020 Last Edit by REGAN Mejias on 11/12/23 11: 08 UA Ketone Negative Last Edit by REGAN Mejias on 11/12/23 11:08 UA Bilirubin 0 mg/dL Last Edit by REGAN Mejias on 11/12/23 11:08 UA Glucose 0 mg/dL Last Edit by REGAN Mejias on 11/12/23 11:08 Results Reviewed Results Reviewed: Laboratory Last Values Urine pH (Auto) 5.5 11/12/23 11:02 Specific [place] (Auto) 1.020 11/12/23 11:02 Urine Protein (Auto) 15 mg/dL 11/12/23 11:02 Glucose (UA)(Auto) 0 mg/dL 11/12/23 11:02 Urine Ketones (Auto) Negative 11/12/23 11:02 Urine Blood (Auto) 0 [place]/uL 11/12/23 11:02 Urine Nitrite (Auto) Negative 11/12/23 11:02 Urine Bilirubin (Auto) 0 mg/dL 11/12/23 11:02 Urine Urobilinogen (Auto) 0.2 mg/dL 11/12/23 11:02 Leukocyte Esterase (Auto) 0 [place]/uL 11/12/23 11:02 Assessment & Plan Assessment & Plan (1) Bladder trabeculation: Code(s): N32.89 - Other specified disorders of bladder Category: Medical (2) Incomplete bladder emptying: Code(s): R33.9 - Retention of urine, unspecified Category: Medical (3) Lower urinary tract symptoms: Code(s): R39.9 - Unspecified symptoms and signs involving the genitourinary system Category: Medical Plan Continue bethanechol and terazosin Six-month follow-up PVR Orders: Orders AMB Urinalysis Automated 11/12/23 Z13.9 - Encounter for screening, unspecified AMB Cystoscopy 11/12/23 N32.89 - Other specified disorders of bladder, N39.0 - Urinary tract infection, site not specified, R33.9 - Retention of urine, unspecified, R39.9 - Unspecified symptoms and signs involving the genitourinary system Medications: Changed From bethanechol chloride 50 mg PO BID 30 days 60 tabs 1RF N39.0 - Urinary tract infection, site not specified To bethanechol chloride 50 mg PO BID 180 tabs 1RF 90 days N39.0 - Urinary tract infection, site not specified Patient Instructions: Imaging studies, laboratory and physical exam results were discussed and reviewed in detail. No major barriers to patient understanding were identified. An opportunity to ask questions regarding the treatment plan was provided. All questions were answered. The patient expressed understanding and agreement with the above treatment plan. The patient is aware they should contact our office by phone for worsening of their current condition or the appearance of new urologic symptoms. Compliance is encouraged with any medications and followup testing that is ordered. It is a privilege to participate in the urologic care of your patient. If you have any questions or concerns regarding treatment for the above conditions, or other urologic issues, please do not hesitate to contact me. The office telephone contact is [phone]. This note is constructed using voice recognition software. While every effort has been made to ensure accuracy cost accounting clerk errors may have been included. Yours sincerely, Dr Andrews Justice MD, [facility] - Urology Providers of Expert, Compassionate Care for the Genitourinary System Coding Level of Care Code Est Pt Level 3 (26518) Diagnoses Bladder trabeculation N32.89 Incomplete bladder emptying R33.9 Lower urinary tract symptoms R39.9 CPT Codes Cystoscopy - CPT: 42266-[id number] ([id number])
== END 2023-11-12 11:49 | disposition home or self-care (01) ==
PROVIDERS: PCP Family Medicine; Visit Provider Urology
DX: N32.89 Other specified disorders of bladder (principal); N39.0 Urinary tract infection, site not specified; R39.9 Unspecified symptoms and signs involving the genitourinary system; R33.9 Retention of urine, unspecified; Z13.9 Encounter for screening, unspecified
CPT/HCPCS: 52000; 99213

== ENCOUNTER → 2023-11-12 10:50 | Outpatient (BNVA) | payer MEDICARE, SELFPAY | PROVIDERS: PCP Family Medicine; Visit Provider Urology | DX: N32.89 Other specified disorders of bladder (principal); R33.9 Retention of urine, unspecified; R39.9 Unspecified symptoms and signs involving the genitourinary system | CPT/HCPCS: 52000; 81003; 99212 ==

== ENCOUNTER 2023-11-24 10:48 | Outpatient (AMB) | payer MEDICARE, SELFPAY ==
--- NOTE | 2023-11-24 10:53 | MHC.PC.OV ---
Vital Signs 11/24/23 11:04 Height 5 ft 7 in Weight 150 lb BMI 23.5 BP 119/74 Blood Pressure Location Lt brachial Position Sitting Respiration 16 Pulse 84 Pulse Source Pulse Oximeter Temp 98.6 F Temp Source Temporal Artery Scan Pulse Oximetry (%) 92 Oxygen Delivery Method Room Air Intake Visit Reasons: Possible UTI Intake Note: Urinary frequency, fatigue. Allergies acetaminophen [From TYLENOL] Adverse Reaction (Intermediate, Verified 11/24/23 10:54) gi upset Tobacco use date assessed: 10/16/23 Dental Screening Dental Screen Date: 09/19/23 HPI Possible UTI HPI Details 73 y/o male presents with ? UTI. He reports urinary frequency. He notes he feels he has to urinate every 15 minutes. Also reports some fatigue. He denies any fevers. He did note some chills yesterday. Denies any nausea/dysuria. [facility] Medical History (Updated 11/24/23 @ 11:43 by Luis Fernando Jeffery) Low back pain Hyperlipidemia Diabetes Elevated liver enzymes Immunization counseling Opioid dependence, uncomplicated Chronic, continuous use of opioids Pneumothorax, left Fall Closed fracture nasal bone Abrasion of face Screening for osteoporosis Low HDL (under 40) Right elbow pain Opioid use Frontal headache Adult general medical exam Screening for prostate cancer Colon cancer screening Headache Mild dehydration Muscle spasm History of blood transfusion Back pain Brain tumor Meningioma PTSD (post-traumatic stress disorder) Anxiety Depression Anemia Thrombocytopenia GERD (gastroesophageal reflux disease) CAD (coronary artery disease) Sacroiliitis Hx of thrombocytopenia Anemia Hx of small bowel obstruction GERD (gastroesophageal reflux disease) Migraine Depression Hx of meningioma of the brain PTSD (post-traumatic stress disorder) Anxiety Peyronie's disease CAD (coronary artery disease) HTN (hypertension) Surgical History H/O craniotomy Hx of CABG History of resection of meningioma History of back surgery Hx of colonoscopy History of nasal surgery History of bowel resection History of quadruple bypass Hx of CABG Family History Father No problems noted. Mother No problems noted. Brother No problems noted. Sister No problems noted. Sister No problems noted. Sister No problems noted. Social History Household Members: None Housing: Condominium Are you a primary resident care aid to a significant other at home: No Do you presently have visiting nurse or other home services: Yes (DM teaching) Alcohol intake: never Patient Tobacco Use Status: Never used Tobacco e-Cigarette/Vaping Use: Never Used Second Hand Smoke Exposure: No service: No Current occupational status: retired Current occupational exposures/hazards: No Cognitive needs: No Hearing needs: No Vision needs: Yes (Reading glasses) Questionnaire Thrive Questionnaire Date Thrive assessed: 09/03/23 SUJATA-7 AMB Questionnaire SUJATA-7 Date SUJATA - 7 assessed: 09/11/23 Source: Developed by Drs. Malcolm Garrido, Brenda Garner, Roberto Fraser and colleagues, with an educational lobo from [employer]. Review of Systems Const Reports fatigue, Denies headache(s) and Denies weakness ENT Denies dizziness and Denies headache(s) Card Denies chest pain, Denies lightheadedness, Denies dyspnea and Denies other (Palpitations) Resp Denies cough, Denies dyspnea, Denies wheezing and Denies other ( shortness of breath) Musc Denies numbness and Denies tingling Neuro Denies dizziness, Denies headache(s), Denies numbness, Denies tingling, Denies paresthesias and Denies weakness Psych Denies anxiety and Denies depression Endo Reports fatigue Aller/Immun Denies wheezing Physical exam (Primary Care) Vital Signs: Last Vital Signs Temp 98.6 F 11/24/23 11:04 Pulse 84 11/24/23 11:04 Resp 16 11/24/23 11:04 BP 119/74 11/24/23 11:04 Pulse Ox 92 11/24/23 11:04 Oxygen Delivery Method Room Air 11/24/23 11:04 BMI result Body Mass Index 23.5 Tobacco/Smoking Status: Tobacco use Status Tobacco use date assessed 10/16/23 11/24/23 11:10 Patient Tobacco Use Status Never used Tobacco 11/24/23 11:10 e-Cigarette/Vaping Use Never Used 11/24/23 11:10 Thrive Assessment: Date of Thrive Assessment Date Thrive assessed 09/03/23 11/24/23 11:10 Const General: no acute distress and well developed Nutritional Appearance: well nourished Orientation/consciousness: patient oriented x3 HENMT Head: Yes normocephalic and Yes atraumatic Eyes General: appearance normal, both eyes and all related structures Pupils: Equal, round and reactive pupils present EOM: EOMs intact bilaterally Resp Effort & Inspection: normal respiratory effort Auscultation: clear to auscultation bilaterally Cardio Rate: regular rate Rhythm: regular rhythm Heart sounds: S1 normal heart sound present, S2 normal heart sound present, no gallops, no murmurs and no rubs Neuro General: patient oriented x3 and gait normal Cranial nerves: Yes Equal, round and reactive pupils present Psych Affect: normal affect Results AMB Urinalysis Dipstick UR Leukocytes Large Last Edit by Elicia Benitez CMA on 11/24/23 12:17 UR Nitrite Negative Last Edit by Elicia Benitez CMA on 11/24/23 12:17 UR Urobilinogen Normal Last Edit by Elicia Benitez CMA on 11/24/23 12:17 UR Protein 100 Last Edit by Elicia Benitez CMA on 11/24/23 12:17 UR Ph 6.0 Last Edit by Elicia Benitez CMA on 11/24/23 12:17 UR Blood Moderate Last Edit by Elicia Benitez CMA on 11/24/23 12:17 UR Specific [place] 1.015 Last Edit by Elicia Benitez CMA on 11/24/23 12:17 UR Ketone Negative Last Edit by Elicia Benitez CMA on 11/24/23 12:17 UR Bilirubin Negative Last Edit by Elicia Benitez CMA on 11/24/23 12:17 UR Glucose Negative Last Edit by Elicia Benitez CMA on 11/24/23 12:17 Results Reviewed Results Reviewed: Laboratory Last Values Urine pH (Clinic) 6.0 11/24/23 12:12 Specific [place] (Clinic) 1.015 11/24/23 12:12 Ur Protein (Clinic) 100 11/24/23 12:12 Ur Ketones (Clinic) Negative 11/24/23 12:12 Urine Blood (Clinic) Moderate 11/24/23 12:12 Urine Nitrite Negative 11/24/23 12:12 Urine Bilirubin (Clinic) Negative 11/24/23 12:12 Urobilinogen (Clinic) Normal 11/24/23 12:12 Leukocyte Esterase (Clinic) Large 11/24/23 12:12 Urine Glucose (Clinic) Negative 11/24/23 12:12 Assessment and Plan Assessment & Plan (1) Urinary frequency: Code(s): R35.0 - Frequency of micturition Orders: Orders AMB Urinalysis Dipstick 11/24/23 R35.0 - Frequency of micturition Coding Level of Care Code Est Pt Level 3 (48383) Diagnoses Urinary frequency R35.0
[2023-11-24 11:04] VITALS: BP 119/74; PULSE 84; RESP 16; TEMP 37; O2SAT 92; BMI 23.5
== END 2023-11-24 12:39 | disposition home or self-care (01) ==
PROVIDERS: PCP Family Medicine; Visit Provider Nurse Practitioner Family
DX: R35.0 Frequency of micturition (principal)
CPT/HCPCS: 81002

== ENCOUNTER → 2023-11-24 11:42 | Outpatient (BNV) | payer MEDICARE, SELFPAY ==
--- NOTE | 2023-11-24 11:42 | MHC.OFFWIV ---
Intake Intake Visit Reasons: Amb Documentation Patient Tobacco Use Status: Never used Tobacco Allergies acetaminophen [From TYLENOL] Adverse Reaction (Intermediate, Verified 11/24/23 10:54) gi upset HPI Amb Documentation HPI Details Patient?presents?as?walk-in?with?complaint?urinary?frequency. Some?chills Urine?dip?shows?leukocytes?and?blood PFSH Medical History (Updated 11/24/23 @ 11:43 by Luis Fernando Jeffery) Low back pain Hyperlipidemia Diabetes Elevated liver enzymes Immunization counseling Opioid dependence, uncomplicated Chronic, continuous use of opioids Pneumothorax, left Fall Closed fracture nasal bone Abrasion of face Screening for osteoporosis Low HDL (under 40) Right elbow pain Opioid use Frontal headache Adult general medical exam Screening for prostate cancer Colon cancer screening Headache Mild dehydration Muscle spasm History of blood transfusion Back pain Brain tumor Meningioma PTSD (post-traumatic stress disorder) Anxiety Depression Anemia Thrombocytopenia GERD (gastroesophageal reflux disease) CAD (coronary artery disease) Sacroiliitis Hx of thrombocytopenia Anemia Hx of small bowel obstruction GERD (gastroesophageal reflux disease) Migraine Depression Hx of meningioma of the brain PTSD (post-traumatic stress disorder) Anxiety Peyronie's disease CAD (coronary artery disease) HTN (hypertension) Surgical History H/O craniotomy Hx of CABG History of resection of meningioma History of back surgery Hx of colonoscopy History of nasal surgery History of bowel resection History of quadruple bypass Hx of CABG Family History Father No problems noted. Mother No problems noted. Brother No problems noted. Sister No problems noted. Sister No problems noted. Sister No problems noted. Social History Household Members: None Housing: Condominium Are you a primary memory care program resident to a significant other at home: No Do you presently have visiting nurse or other home services: Yes (DM teaching) Alcohol intake: never Patient Tobacco Use Status: Never used Tobacco e-Cigarette/Vaping Use: Never Used Second Hand Smoke Exposure: No service: No Current occupational status: retired Current occupational exposures/hazards: No Cognitive needs: No Hearing needs: No Vision needs: Yes (Reading glasses) Review of Systems Const Details: See?HPI Reports chills, Denies fatigue, Denies fever(s), Denies headache(s) and Denies weakness ENT Denies dizziness and Denies headache(s) Card Denies dyspnea Resp Denies cough, Denies dyspnea, Denies wheezing and Denies other ( shortness of breath) Musc Denies numbness and Denies tingling Neuro Denies dizziness, Denies headache(s), Denies numbness, Denies tingling, Denies paresthesias and Denies weakness Psych Denies anxiety and Denies depression Endo Denies fatigue Aller/Immun Denies wheezing Physical Exam Const General: no acute distress and well developed Nutritional Appearance: well nourished Orientation/consciousness: patient oriented x3 HEENT Head: Yes normocephalic and Yes atraumatic Eyes General: appearance normal, both eyes and all related structures Pupils: Equal, round and reactive pupils present EOM: EOMs intact bilaterally Resp Effort & Inspection: normal respiratory effort Auscultation: clear to auscultation bilaterally Cardio Rate: regular rate Rhythm: regular rhythm Heart sounds: S1 normal heart sound present, S2 normal heart sound present, no gallops, no murmurs and no rubs Neuro General: patient oriented x3 and gait normal Cranial nerves: Yes Equal, round and reactive pupils present Psych Affect: normal affect Assessment & Plan Assessment & Plan (1) Urinary frequency: Code(s): R35.0 - Frequency of micturition Plan: Urine?dip?positive?for?leukocytes?and?blood Suspicious?for?UTI Start?Macrobid Will?send?urine?for?culture?and?sensitivities Orders: Orders UA and rflx microscopic Today R35.0 - Frequency of micturition, Z00.00 - Encounter for general adult medical examination without abnormal findings Urine Culture Today R35.0 - Frequency of micturition Medications: New nitrofurantoin monohyd/m-cryst 100 mg (Macrobid) must administer with a meal/food 100 mg PO BID 10 days 20 caps 0RF Coding Level of Care Code Est Pt Level 3 (40501) Diagnoses Urinary frequency R35.0
== END ==
PROVIDERS: PCP Family Medicine; Visit Provider Family Medicine
DX: R35.0 Frequency of micturition (principal)
CPT/HCPCS: 99213

== ENCOUNTER 2023-11-24 11:58 | Outpatient (REF) | payer MEDICARE, SELFPAY ==
[2023-11-24 15:13] LABS: Appearance Urine Turbid; Color Urine Dark Yellow; Glucose Urine UA 100 mg/dL (Negative); Leukocyte Esterase Urine Large (3+) (Negative); Nitrite Urine Negative (Negative); PH 6.5 (5.0-9.0); UMIC TRIGGER UA YES; Urine Blood Moderate (2+) (Negative); Urine Ketones Negative (Negative); Urine Protein 100 (2+) mg/dL (Neg-Trace)
[2023-11-24 15:18] LABS: Bacteria Urine 4+ (None Seen); WBC Urine >50 /HPF (0-5)
== END 2023-11-24 11:59 | disposition home or self-care (01) ==
LOC: HO.LAB 11:58
PROVIDERS: Visit Provider Family Medicine
DX: R35.0 Frequency of micturition (principal)
CPT/HCPCS: 81001; 81003; 87086

== ENCOUNTER 2023-12-10 10:12 | Outpatient (AMB) | payer MEDICARE, SELFPAY ==
[2023-12-10 10:20] VITALS: BP 102/64; PULSE 85; BMI 21.3
--- NOTE | 2023-12-10 10:20 | MHC.OFFVIS ---
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 blood-glucose meter (FreeStyle Lite Meter kit) As Directed buspirone 5 mg PO DAILY buspirone 10 mg PO BEDTIME cholecalciferol (vitamin D3) 25 mcg PO DAILY 90 days insulin aspart U-100 (Novolog FlexPen U-100 Insulin aspart) 1 sliding scale dose subcut USEASDIRECTD insulin glargine (Lantus Solostar U-100 Insulin) 24 units (0.24 mL) subcut DAILY lancets (FreeStyle Lancets) Test four times a day or as directed. levetiracetam 250 mg PO BID 90 days metoprolol succinate ER 25 mg PO DAILY 90 days naproxen 500 mg PO BID PRN 30 days paroxetine HCl 30 mg PO DAILY 90 days pen needle, diabetic Use four times a day or as directed. phenobarbital 30 mg PO BEDTIME terazosin 10 mg PO BEDTIME 90 days trazodone 100 - 200 mg PO BEDTIME PRN HPI Comments Details: Adrián is here for consultation regarding coronary disease. History of coronary artery bypass surgery around 2004. He states he did see Cardiology in the past but nothing recently. Per patient, recently noted diabetes and it seems that he was admitted for diabetic ketoacidosis with blood sugar more than a 1000. Hemoglobin A1c was greater than 10. Overall, from the cardiac standpoint he does not really have any active complaints. No anginal-type chest pains or anything else along those lines. [facility] Medical History (Updated 12/10/23 @ 10:53 by Baudilio Diaz MD) Low back pain Hyperlipidemia Diabetes Elevated liver enzymes Immunization counseling Opioid dependence, uncomplicated Chronic, continuous use of opioids Pneumothorax, left Fall Closed fracture nasal bone Abrasion of face Screening for osteoporosis Low HDL (under 40) Right elbow pain Opioid use Frontal headache Adult general medical exam Screening for prostate cancer Colon cancer screening Headache Mild dehydration Muscle spasm History of blood transfusion Back pain Brain tumor Meningioma PTSD (post-traumatic stress disorder) Anxiety Depression Anemia Thrombocytopenia GERD (gastroesophageal reflux disease) CAD (coronary artery disease) Sacroiliitis Hx of thrombocytopenia Anemia Hx of small bowel obstruction GERD (gastroesophageal reflux disease) Migraine Depression Hx of meningioma of the brain PTSD (post-traumatic stress disorder) Anxiety Peyronie's disease CAD (coronary artery disease) HTN (hypertension) Surgical History H/O craniotomy Hx of CABG History of resection of meningioma History of back surgery Hx of colonoscopy History of nasal surgery History of bowel resection History of quadruple bypass Hx of CABG Family History Father No problems noted. Mother No problems noted. Brother No problems noted. Sister No problems noted. Sister No problems noted. Sister No problems noted. Social History Household Members: None Housing: Condominium Are you a primary senior caregiver to a significant other at home: No Do you presently have visiting nurse or other home services: Yes (DM teaching) Alcohol intake: never Patient Tobacco Use Status: Never used Tobacco e-Cigarette/Vaping Use: Never Used Second Hand Smoke Exposure: No service: No Current occupational status: retired Current occupational exposures/hazards: No Cognitive needs: No Hearing needs: No Vision needs: Yes (Reading glasses) Review of Systems Const Denies chills, Denies fatigue, Denies fever(s), Denies frequent falls, Denies weakness, Denies weight gain and Denies weight loss ENT Denies dizziness Card Denies chest pain, Denies leg edema, Denies lightheadedness, Denies palpitations, Denies dyspnea, Denies dyspnea on exertion and Denies orthopnea Resp Denies cough, Denies dyspnea and Denies dyspnea on exertion GI Denies bloating and Denies change in bowel habits Musc Denies muscle weakness, Denies numbness and Denies tingling Neuro Denies dizziness, Denies frequent falls, Denies numbness, Denies tingling and Denies weakness Endo Denies fatigue and Denies palpitations Physical Exam Vital Signs: Last Vital Signs Pulse 85 12/10/23 10:20 BP 102/64 12/10/23 10:20 BMI result Body Mass Index 21.3 Const General: comfortable and no acute distress Orientation/consciousness: patient oriented x3 HEENT Other: Unremarkable Head: Yes normal to inspection Neck Neck: Yes normal visual inspection Chest Chest palpation & inspection: normal inspection of the chest Resp Auscultation: clear to auscultation bilaterally Cardio Palpation: normal PMI Heart sounds: S1 normal heart sound present, S2 normal heart sound present, no gallops, no murmurs and no rubs GI Palpation (GI): Soft to palpation Back/Spine/Pelvis Other: unremarkable Skin General skin exam: no rashes or lesions noted Neuro General: patient oriented x3 Extrem General: Yes normal to inspection Psych Mental Status: mental status grossly normal Assessment & Plan Assessment & Plan (1) CAD (coronary artery disease): Code(s): I25.10 - Atherosclerotic heart disease of [place] coronary artery without angina pectoris Category: Medical Qualifiers: Associated angina: without angina Coronary Disease-Associated Artery/Lesion type: bypass graft [place] vs. transplanted heart: [place] heart Qualified Code(s): I25.810 - Atherosclerosis of coronary artery bypass graft(s) without angina pectoris (2) Status post aorto-coronary artery bypass graft: Code(s): Z95.1 - Presence of aortocoronary bypass graft Category: Surgical (3) Diabetes: Code(s): E11.9 - Type 2 diabetes mellitus without complications Category: Medical Plan Recent EKG from August shows sinus tachycardia at 113/Min; possible old inferior infarct; nonspecific ST-T changes somewhat diffusely; left atrial enlargement. History of uncontrolled diabetes, DKA admission, blood sugars more than a 1000. With a history of bypass surgery, abnormal EKG, risk factors, we will pursue further workup. Echocardiogram and myocardial perfusion imaging study recommended. Follow-up after the above. Orders: Orders CA echo transthoracic complete Today I25.10 - Atherosclerotic heart disease of [place] coronary artery without angina pectoris, Z95.1 - Presence of aortocoronary bypass graft CA stress test Today R07.2 - Precordial pain, Z95.1 - Presence of aortocoronary bypass graft [place] cardiolite stress test Today R07.2 - Precordial pain, Z95.1 - Presence of aortocoronary bypass graft Coding Level of Care Code New Pt Level 4 (50777) Diagnoses Coronary artery disease involving coronary bypass graft of [place] heart without angina pectoris I25.810 Associated angina: without angina Coronary Disease-Associated Artery/Lesion type: bypass graft [place] vs. transplanted heart: [place] heart Status post aorto-coronary artery bypass graft Z95.1 Diabetes E11.9
== END 2023-12-10 10:54 | disposition home or self-care (01) ==
PROVIDERS: PCP Family Medicine; Visit Provider Internal Medicine
DX: I25.810 Atherosclerosis of coronary artery bypass graft(s) without angina pectoris (principal); Z95.1 Presence of aortocoronary bypass graft; E11.9 Type 2 diabetes mellitus without complications
CPT/HCPCS: 99204

== ENCOUNTER → 2023-12-10 10:12 | Outpatient (BNVA) | payer MEDICARE, SELFPAY | PROVIDERS: PCP Family Medicine; Visit Provider Internal Medicine ==

== ENCOUNTER 2023-12-10 10:50 | Outpatient (REF) | payer MEDICARE, SELFPAY ==
[2023-12-10 15:53] LABS: Appearance Urine Turbid; Color Urine Yellow; Glucose Urine UA Negative (Negative); Leukocyte Esterase Urine Large (3+) (Negative); Nitrite Urine Negative (Negative); PH 6.5 (5.0-9.0); Specific Gravity - Urine 1.015 (1.005-1.025); UMIC TRIGGER UA YES; Urine Blood Moderate (2+) (Negative); Urine Ketones Negative (Negative); Urine Protein 30 (1+) mg/dL (Neg-Trace)
[2023-12-10 16:13] LABS: Bacteria Urine 2+ (None Seen); Hyaline Casts Urine 0-2 /LPF (0-2); Squamous Epithelial Cell Urine 0-2 /HPF (0-2); WBC Urine >50 /HPF (0-5)
== END 2023-12-10 10:51 | disposition home or self-care (01) ==
LOC: HO.LAB 10:50
PROVIDERS: PCP Family Medicine; Visit Provider Urology
DX: I25.810 Atherosclerosis of coronary artery bypass graft(s) without angina pectoris (principal); E11.9 Type 2 diabetes mellitus without complications; Z95.1 Presence of aortocoronary bypass graft; R35.0 Frequency of micturition; N39.0 Urinary tract infection, site not specified; R39.9 Unspecified symptoms and signs involving the genitourinary system; R33.9 Retention of urine, unspecified
CPT/HCPCS: 81001; 87086; 87088; 87186; 99202

== ENCOUNTER → 2023-12-31 08:30 | Outpatient (REF) | payer MEDICARE, SELFPAY ==
--- NOTE | 2023-12-31 08:34 | CA_ITS ---
Transthoracic Echocardiogram Patient (Last, First, Middle): Adrián Cano T Gender: Male Date of : 1950 Age: 73 Procedure Date: 12/31/2023 Procedure Type: Transthoracic Echocardiogram Location: OP Height: 170.18 cm Weight: 61.69 kg BSA: 1.72 m2 Heart Rate: 60 bpm BP: 108 / 64 mmHg Clinical Lab Technologist: SB Referring MD: Baudilio Diaz MD Symptoms: I25.10 - Atherosclerotic heart disease of [place] coronary artery without... Study Quality: Adequate w contrast ECG Rhythm: Sinus Conclusions: - 1. Mildly reduced LV ejection fraction 45-50% with underlying regional wall motion abnormality consistent with coronary artery disease 2. Severely reduced RV systolic function 3. Mild aortic and mitral regurgitation 4. Mildly dilated ascending aorta at 3.9 cm 5. Normal RV systolic pressure 6. No gross pericardial effusion Findings Procedure Information Contrast agent, definity, is being given per protocol without apparent complications. The quality of the study was technically difficult. The study quality is limited by lung artifact. Left Ventricle Normal left ventricular cavity size. There is normal left ventricular wall thickness. The left ventricular systolic function is mildly decreased. The visually estimated ejection fraction is between 45-50%. Spectral Doppler is indicative of an impaired relaxation filling pattern. Wall Motion Rest Echo Findings The mid inferior, apical septum, and mid inferoseptal segments are hypokinetic. The basal inferior and basal inferoseptal segments are akinetic. All other scored wall segments showed normal motion. Right Ventricle Normal right ventricular cavity size. There is severely decreased right ventricular systolic function. Atria The left atrium is likely dilated. Interatrial shunt cannot be excluded. The right atrium was not well visualized. Aortic Valve Normal aortic valve structure and function. There is mild calcification of the aortic valve. There is no aortic valve stenosis. There is mild aortic valve regurgitation. Mitral Valve There is mild anterior and posterior mitral leaflet thickening. There is mild mitral annular calcification. There is mild mitral valve regurgitation. There is no mitral valve stenosis. Pulmonic Valve The pulmonic valve was not well visualized. Tricuspid Valve Likely normal tricuspid valve structure and function. There is mild tricuspid valve regurgitation. The right ventricular systolic pressure is normal. The right ventricular systolic pressure is 31 mmHg. Normal right atrial pressure. There is no evidence of pulmonary hypertension. Great Vessels The pulmonary artery was not well visualized. There is mild dilatation of the ascending aorta measuring 3.90 cm. Small plaque is seen in the sino tubular ridge. Venous The inferior vena cava is normal in size and collapses greater than 50% with inspiration. Pericardium/Pleural There is no evidence of pericardial effusion. Prior Study Comparison No prior study available for comparison. Measurements 2D Linear Measurements IVSd: 1.08 0.6-0.9/0.6-1.0 cm LVIDd: 5.31 3.9-5.3/4.2-5.9 cm LVIDd Index: 3.09 2.4-3.2/2.2-3.1 cm/m2 LVIDs: 3.87 2.0-3.6 cm LVPWd: 0.73 0.7-1.1 cm LA Diam: 4.80 2.7-3.8/3.0-4.0 cm LAIDs Index: 2.79 1.5-2.3 cm/m2 LV Mass: 218.88 67-162/88-224 g LV Mass Index: 127.26 43-95/49-115 g/m2 LVOT Diam: 2.20 3.0+(-)1.3 cm 2D Systolic Function EF 4C: 47.50 >55% EF 2C: 48.90 >55% EF BiP: 47.20 >55% Mitral Valve MV Pk E: 0.49 MV PK A: 0.48 MV Decel Time: 235.00 E/A: 1.00 E'Lateral: 6.31 E'Medial: 4.35 E/E' Med: 11.20 E/E' Lat: 7.70 PHT: 69.00 MVA PHT: 3.19 Decel Pershing: 2.08 Aortic Valve AoV Pk Reymundo: 1.28 AoV Mn Reymundo: 0.88 AoV VTI: 0.27 AoV Pk Grad: 7.00 Aov Mn Grad: 4.00 MARY Cont.VTI: 3.39 AI Pk Reymundo: 3.24 AI Pershing: 1.26 LVOT LVOT Pk Reymundo: 1.03 LVOT Mn Reymundo: 0.68 LVOT VTI: 0.24 LVOT Pk Grad: 4.00 LVOT Mn Grad: 2.00 LVOT Diam: 2.20 LVOT Area: 3.80 Diastolic Function MV Pk E: 0.49 MV Pk A: 0.48 E/A: 1.00 E'Medial: 4.35 E/E' Med: 11.20 E' Laterial: 6.31 E/E' Lat: 7.70 Right Ventricle TAPSE (mm): 9.90 TVS' Reymundo: 6.60 Tricuspid Valve TR Pk Reymundo: 2.39 TR Pk Grad: 23.00 RA Press: 8.00 RVSP: 31.00 Great Vessels Aorta Sinus of Valsalva: 3.70 2.0-3.5 cm Ao Asc: 3.90 2.1-3.4 cm Ao Arch: 3.60 Pulmonary Valve PV Pk Reymundo: 0.98 Peak PV Grad: 4.00 [place] Pk Reymundo: 2.19 Updated in Other Vendor System with Status of Final Jaskaran Carroll MD electronically signed on 12/31/2023 4:01:16 PM with status of Final
== END ==
LOC: HO.CARD 08:30
PROVIDERS: PCP Family Medicine; Visit Provider Internal Medicine
DX: I25.10 Atherosclerotic heart disease of native coronary artery without angina pectoris (principal); Z95.1 Presence of aortocoronary bypass graft
CPT/HCPCS: 93306; Q9957

== ENCOUNTER → 2023-12-31 08:34 | Outpatient (BNV) | payer MEDICARE, SELFPAY | PROVIDERS: PCP Family Medicine; Visit Provider Internal Medicine Cardiovascular Disease | DX: I35.1 Nonrheumatic aortic (valve) insufficiency (principal); I34.0 Nonrheumatic mitral (valve) insufficiency; I36.1 Nonrheumatic tricuspid (valve) insufficiency | CPT/HCPCS: 93306 ==

== ENCOUNTER → 2024-01-21 07:53 | Outpatient (REF) | payer MEDICARE, SELFPAY ==
--- NOTE | ~2024-01-21 | NM_ITS ---
Exercise Myocardial perfusion study Indication: Precordial chest pain to evaluate for myocardial ischemia Technique: The patient was brought in for an exercise perfusion study on 01/21/2024. Patient performed exercise as per Antonio protocol and was injected 25 mCi of sestamibi was given intravenously one target HR was achieved. Images were obtained using the SPECT gamma camera interlaced with the gating device. Images were obtained in supine position. Resting perfusion study was performed on 02/09/2024. Patient was administered 25 mCi of sestamibi intravenously at rest. Images were then obtained in supine position. Images obtained with and without CT attenuation. Total DLP 83 mGy-cm. Images were processed with the software and compared side to side in short axis, horizontal long axis and vertical long axis views. Findings: The stress perfusion study showed non attenuated images show mildly reduced uptake in the basal inferior wall of the LV myocardium. Remainder of the LV myocardium is normally perfused. Attenuation corrected images show normal uptake of radiotracer in all segments of LV myocardium. The gated study shows normal LV systolic function with calculated LVEF of 52%. LV cavity is normal in size. The gated study shows normal systolic wall thickening and contraction of all segments. There is no transient ischemic dilation. Resting study shows no change in perfusion pattern compared to stress perfusion study. Gating at rest reveals systolic wall motion with ejection fraction at 53%. The findings are consistent with normal myocardial perfusion. NM/NM cardiolite stress test Impression: 1. Normal myocardial perfusion 2. Gated LVEF is 52% 3. Transient ischemic dilatation not present Stress EKG is borderline positive for ischemia
--- NOTE | 2024-01-21 07:56 | CA_ITS ---
Acquisition Time: 2024-01-21 08:03:22 Total Exercise Time: 00:07:23 Test Indications: CP Medications: SEE H Protocol: LUCIEN Max HR: 126 BPM 85% of Pred: 148 BPM Max BP: 152/080 mmHG Max Work Load: 8.0 METS Exercise stress test with exercise 7 min 23 sec of Lucien protocol ( speed in stage 3 reduced to 2.9 MPH due to inability to keep up with speed) , achieving 85% MPHR without anginal symptoms, without arrythmia, with normotensive response to exercise, with bordertline EKG changes, no clear ischemia. Nuclear images pending.Test reviewed with Dr Bryant Referred By: Baudilio Diaz Overread By: ASHLY SUTTON
== END ==
LOC: HO.CARD 07:53
PROVIDERS: PCP Family Medicine; Visit Provider Internal Medicine
DX: R07.2 Precordial pain (principal); Z95.1 Presence of aortocoronary bypass graft
CPT/HCPCS: 78452; 93017; A9500

== ENCOUNTER → 2024-01-21 07:56 | Outpatient (BNV) | payer MEDICARE, SELFPAY | PROVIDERS: PCP Family Medicine; Visit Provider Nurse Practitioner Family | DX: R07.2 Precordial pain (principal) | CPT/HCPCS: 78452; 93016; 93018 ==

== ENCOUNTER 2024-02-19 10:40 | Outpatient (AMB) | payer MEDICARE, SELFPAY ==
[2024-02-19 10:43] VITALS: BP 110/54; PULSE 71; BMI 22.7
--- NOTE | 2024-02-19 10:43 | A.OFFVIS_ITS ---
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 blood-glucose meter (FreeStyle Lite Meter kit) As Directed buspirone 10 mg PO BEDTIME cholecalciferol (vitamin D3) 25 mcg PO DAILY 90 days insulin aspart U-100 (Novolog FlexPen U-100 Insulin aspart) 1 sliding scale dose subcut USEASDIRECTD lancets (FreeStyle Lancets) Test four times a day or as directed. levetiracetam 250 mg PO BID 90 days metoprolol succinate ER 25 mg PO DAILY 90 days naproxen 500 mg PO BID PRN paroxetine HCl 30 mg PO DAILY 90 days pen needle, diabetic Use four times a day or as directed. terazosin 10 mg PO BEDTIME 90 days HPI Comments Details: Adrián returns for follow-up. Recently seen in consultation regarding coronary disease. History of coronary artery bypass surgery around 2004. He states he did see Cardiology in the past but nothing recently. Per patient, recently noted diabetes and it seems that he was admitted for diabetic ketoacidosis with blood sugar more than a 1000. Hemoglobin A1c was greater than 10. From cardiac, no specific symptoms. No angina. He has completed an echocardiogram and stress test. [facility] Medical History (Updated 12/10/23 @ 10:53 by Baudilio Diaz MD) Low back pain Hyperlipidemia Diabetes Elevated liver enzymes Immunization counseling Opioid dependence, uncomplicated Chronic, continuous use of opioids Pneumothorax, left Fall Closed fracture nasal bone Abrasion of face Screening for osteoporosis Low HDL (under 40) Right elbow pain Opioid use Frontal headache Adult general medical exam Screening for prostate cancer Colon cancer screening Headache Mild dehydration Muscle spasm History of blood transfusion Back pain Brain tumor Meningioma PTSD (post-traumatic stress disorder) Anxiety Depression Anemia Thrombocytopenia GERD (gastroesophageal reflux disease) CAD (coronary artery disease) Sacroiliitis Hx of thrombocytopenia Anemia Hx of small bowel obstruction GERD (gastroesophageal reflux disease) Migraine Depression Hx of meningioma of the brain PTSD (post-traumatic stress disorder) Anxiety Peyronie's disease CAD (coronary artery disease) HTN (hypertension) Surgical History H/O craniotomy Hx of CABG History of resection of meningioma History of back surgery Hx of colonoscopy History of nasal surgery History of bowel resection History of quadruple bypass Hx of CABG Family History Father No problems noted. Mother No problems noted. Brother No problems noted. Sister No problems noted. Sister No problems noted. Sister No problems noted. Social History Household Members: None [facility] Are you a primary healthcare receptionist to a significant other at home: No Do you presently have visiting nurse or other home services: Yes (DM teaching) Alcohol intake: never Patient Tobacco Use Status: Never used Tobacco e-Cigarette/Vaping Use: Never Used Second Hand Smoke Exposure: No service: No Current occupational status: retired Current occupational exposures/hazards: No Cognitive needs: No Hearing needs: No Vision needs: Yes (Reading glasses) Review of Systems Const Denies chills, Denies fatigue, Denies fever(s), Denies weight gain and Denies weight loss ENT Denies dizziness Card Denies chest pain, Denies leg edema, Denies lightheadedness, Denies palpitations, Denies dyspnea on exertion, Denies orthopnea and Denies other Resp Denies cough and Denies dyspnea on exertion GI Denies hematochezia and Denies change in stool character Musc Denies abnormal gait, Denies muscle weakness, Denies numbness, Denies radiating pain into limb and Denies tingling Neuro Denies abnormal gait, Denies dizziness, Denies numbness and Denies tingling Endo Denies fatigue and Denies palpitations Physical Exam Vital Signs: Last Vital Signs Pulse 71 02/19/24 10:43 BP 110/54 L 08/29/24 10:43 BMI result Body Mass Index 22.7 Const General: comfortable and no acute distress Orientation/consciousness: patient oriented x3 HEENT Other: Unremarkable Head: Yes normal to inspection Neck Neck: Yes normal visual inspection Chest Chest palpation & inspection: normal inspection of the chest Resp Auscultation: clear to auscultation bilaterally Cardio Palpation: normal PMI Heart sounds: S1 normal heart sound present, S2 normal heart sound present, no gallops, no murmurs and no rubs GI Palpation (GI): Soft to palpation Back/Spine/Pelvis Other: unremarkable Skin General skin exam: no rashes or lesions noted Neuro General: patient oriented x3 Extrem General: Yes normal to inspection Psych Mental Status: mental status grossly normal Assessment & Plan Assessment & Plan (1) CAD (coronary artery disease): Code(s): I25.10 - Atherosclerotic heart disease of [place] coronary artery without angina pectoris Category: Medical Qualifiers: Associated angina: without angina Coronary Disease-Associated Artery/Lesion type: bypass graft [place] vs. transplanted heart: [place] heart Qualified Code(s): I25.810 - Atherosclerosis of coronary artery bypass graft(s) without angina pectoris (2) Status post aorto-coronary artery bypass graft: Code(s): Z95.1 - Presence of aortocoronary bypass graft Category: Surgical (3) Diabetes: Code(s): E11.9 - Type 2 diabetes mellitus without complications Category: Medical Plan EKG from August shows sinus tachycardia at 113/Min; possible old inferior infarct; nonspecific ST-T changes somewhat diffusely; left atrial enlargement. History of uncontrolled diabetes, DKA admission, blood sugars more than a 1000. Echocardiogram reviewed including images. Mildly reduced LVEF with inferior/inferoseptal wall motion abnormality. In the perfusion imaging, reported normal but there is slightly reduced basal inferior tracer uptake and hence could indicate a prior nontransmural infarct. Overall, stable coronary disease with poorly controlled diabetes. Re-emphasized the fact that main strategy should be aggressive diabetes control which will reduce the risk of cardiovascular and other complications in the future. He understands. 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 Otherwise, aspirin, high-dose statins. He is on a small dose of beta-blockers may be continued. Follow-up in 6 months. In the interim, call with concerns. Coding Level of Care Code Est Pt Level 4 (84458) Diagnoses Coronary artery disease involving coronary bypass graft of [place] heart without angina pectoris I25.810 Associated angina: without angina Coronary Disease-Associated Artery/Lesion type: bypass graft [place] vs. transplanted heart: [place] heart Status post aorto-coronary artery bypass graft Z95.1 Diabetes E11.9
== END 2024-02-19 10:59 | disposition home or self-care (01) ==
PROVIDERS: PCP Family Medicine; Visit Provider Internal Medicine
DX: I25.810 Atherosclerosis of coronary artery bypass graft(s) without angina pectoris (principal); Z95.1 Presence of aortocoronary bypass graft; E11.9 Type 2 diabetes mellitus without complications
CPT/HCPCS: 99214

== ENCOUNTER → 2024-02-19 10:40 | Outpatient (BNVA) | payer MEDICARE, SELFPAY | PROVIDERS: PCP Family Medicine; Visit Provider Internal Medicine | DX: I25.810 Atherosclerosis of coronary artery bypass graft(s) without angina pectoris (principal); E11.9 Type 2 diabetes mellitus without complications; Z95.1 Presence of aortocoronary bypass graft | CPT/HCPCS: 99212 ==

== ENCOUNTER 2024-05-11 09:19 | Outpatient (AMB) | payer MEDICARE, SELFPAY ==
--- NOTE | 2024-05-11 09:35 | A.OFFVIS_ITS ---
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 He is a patient of Dr. Shell. He is seen for the following urologic conditions - recurrent UTI - incomplete bladder emptying PVR 400 cc Continues with incomplete emptying Switch to Jardiance recently by Dr. 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 He should call his kitchen and counter worker The kitchen and counter worker is unaware that he has extreme difficulty fully emptying his bladder and has a 500 cc residual He is extremely high risk of recurrent urosepsis if he were to continue with SGLT2 class medications Reagan did discuss his concerns today about the election results Episode of urosepsis 09/13 - diagnosed as new onset diabetic with ketoacidosis. Trialed bethanechol for bladder emptying with terazosin He tells me he thinks this is going well in his cleared the bethanechol with his neurologist Cystoscopy today open bladder neck, grade 3 trabeculations - would benefit from InterStim Would continue terazosin and bethanechol Six-month follow-up nurse-practitioner PVR [facility] Medical History Low back pain Hyperlipidemia Diabetes Elevated liver enzymes Immunization counseling Opioid dependence, uncomplicated Chronic, continuous use of opioids Pneumothorax, left Fall Closed fracture nasal bone Abrasion of face Screening for osteoporosis Low HDL (under 40) Right elbow pain Opioid use Frontal headache Adult general medical exam Screening for prostate cancer Colon cancer screening Headache Mild dehydration Muscle spasm History of blood transfusion Back pain Brain tumor Meningioma PTSD (post-traumatic stress disorder) Anxiety Depression Anemia Thrombocytopenia GERD (gastroesophageal reflux disease) CAD (coronary artery disease) Sacroiliitis Hx of thrombocytopenia Anemia Hx of small bowel obstruction GERD (gastroesophageal reflux disease) Migraine Depression Hx of meningioma of the brain PTSD (post-traumatic stress disorder) Anxiety Peyronie's disease CAD (coronary artery disease) HTN (hypertension) Surgical History H/O craniotomy Hx of CABG History of resection of meningioma History of back surgery Hx of colonoscopy History of nasal surgery History of bowel resection History of quadruple bypass Hx of CABG Family History Father No problems noted. Mother No problems noted. Brother No problems noted. Sister No problems noted. Sister No problems noted. Sister No problems noted. Social History Household Members: None [facility] Are you a primary acute care nursing assistant to a significant other at home: No Do you presently have visiting nurse or other home services: Yes (DM teaching) Alcohol intake: never Patient Tobacco Use Status: Never used Tobacco e-Cigarette/Vaping Use: Never Used Second Hand Smoke Exposure: No service: No Current occupational status: retired Current occupational exposures/hazards: No Cognitive needs: No Hearing needs: No Vision needs: Yes (Reading glasses) Review of Systems Const Denies chills and Denies fever(s) Card Reports no additional complaints and Denies syncope Resp Denies cough GI Denies abdominal pain and Denies heartburn Reports as per HPI and Denies change in libido Neuro Denies syncope Psych Denies change in libido Endo Denies change in libido Physical Exam Const General: cooperative, healthy appearing, comfortable and no acute distress Orientation/consciousness: patient oriented x3 HEENT Face and sinus: Yes normal facial exam Mouth: moist mucous membranes Neck Neck: Yes normal visual inspection, Yes full ROM and Yes trachea midline Chest Chest palpation & inspection: normal inspection of the chest Resp Effort & Inspection: normal respiratory effort, able to speak in complete sentences and no respiratory distress GI Inspection: Yes normal to inspection Back/Spine/Pelvis Cervical Spine: normal cervical lordosis Thoracic/Lumbar Spine: thoracic and lumbar spine normal to inspection Skin General skin exam: no rashes or lesions noted Neuro General: patient oriented x3, gait normal, tone normal and moves all extremities Extrem General: Yes normal to inspection and Yes capillary refill normal Office Procedures Post Void Residual Post Residual Void Post Void Residual (PVR): 407 [id number] Void Residual by ultrasound Assessment & Plan Assessment & Plan (1) Peyronie's disease: Code(s): N48.6 - Induration penis plastica Category: Medical (2) Urinary retention: Code(s): R33.9 - Retention of urine, unspecified Category: Medical (3) Incomplete bladder emptying: Code(s): R33.9 - Retention of urine, unspecified Category: Medical (4) Lower urinary tract symptoms: Code(s): R39.9 - Unspecified symptoms and signs involving the genitourinary system Category: Medical Plan Six-month follow-up Orders: Orders AMB Post Void Residual by ultrasound Today R33.9 - Retention of urine, unspecified Medications: Refilled bethanechol chloride 50 mg PO BID 90 days 180 tabs 1RF N39.0 - Urinary tract infection, site not specified terazosin 10 mg PO BEDTIME 90 days 90 caps 1RF N40.1 - Benign prostatic hyperplasia with lower urinary tract symptoms, R35.0 - Frequency of micturition Patient Instructions: Imaging studies, laboratory and physical exam results were discussed and reviewed in detail. No major barriers to patient understanding were identified. An opportunity to ask questions regarding the treatment plan was provided. All questions were answered. The patient expressed understanding and agreement with the above treatment plan. The patient is aware they should contact our office by phone for worsening of their current condition or the appearance of new urologic symptoms. Compliance is encouraged with any medications and followup testing that is ordered. It is a privilege to participate in the urologic care of your patient. If you have any questions or concerns regarding treatment for the above conditions, or other urologic issues, please do not hesitate to contact me. The office telephone contact is [phone]. This note is constructed using voice recognition software. While every effort has been made to ensure accuracy computational sciences professor errors may have been included. Yours sincerely, Dr Andrews Justice MD, [facility] - Urology Providers of Expert, Compassionate Care for the Genitourinary System Coding Level of Care Code Est Pt Level 4 (51823) Diagnoses Peyronie's disease N48.6 Urinary retention R33.9 Incomplete bladder emptying R33.9 Lower urinary tract symptoms R39.9 CPT Codes Post Residual Void - PVR CPT Code: 50051-[id number] Void Residual by ultrasound ([id number])
== END 2024-05-11 10:25 | disposition home or self-care (01) ==
PROVIDERS: PCP Family Medicine; Visit Provider Urology
DX: N48.6 Induration penis plastica (principal); R33.9 Retention of urine, unspecified; R39.9 Unspecified symptoms and signs involving the genitourinary system
CPT/HCPCS: 99214

== ENCOUNTER → 2024-05-11 09:19 | Outpatient (BNVA) | payer MEDICARE, SELFPAY | PROVIDERS: PCP Family Medicine; Visit Provider Urology | DX: N48.6 Induration penis plastica (principal); R33.9 Retention of urine, unspecified; R39.9 Unspecified symptoms and signs involving the genitourinary system | CPT/HCPCS: 51798; 99212 ==

== ENCOUNTER 2024-07-09 12:47 | Outpatient (AMB) | payer MEDICARE, SELFPAY ==
--- NOTE | 2024-07-09 13:18 | A.OFFPC_ITS ---
Vital Signs 07/09/24 13:25 Height 5 ft 5 in Weight 138 lb 2 oz BMI 23.0 BP 100/60 Blood Pressure Location Lt brachial Position Sitting Respiration 14 Pulse 67 Pulse Source Pulse Oximeter Temp 97.9 F Temp Source Oral Pulse Oximetry (%) 96 Oxygen Delivery Method Room Air Intake Visit Reasons: CPE with f/u labs and health maint. Intake Note: cpe Allergies acetaminophen [From TYLENOL] Adverse Reaction (Intermediate, Verified 07/09/24 13:21) gi upset Tobacco use date assessed: 07/09/24 Fall risk assessment: No Falls in past year Last assessed Fall Risk: 07/09/24 Dental Screening Dental Screen Date: 07/09/24 Did you have a dental visit in the last 12 months?: Yes Did you have a dental problem in the last 6 months where you did not have access to dental care?: No HPI CPE with f/u labs and health maint. HPI Details 74 y/o male presents for a CPE with f/u labs and health maintenance. Notes he had been taken off Jardiance and metformin for his sugars. Notes increased stressors. No recent labs to review. [facility]LY [facility] Medical History (Updated 07/09/24 @ 14:05 by Luis Fernando Jeffery) Adult general medical exam Screening for prostate cancer Colon cancer screening Low back pain Hyperlipidemia Diabetes Elevated liver enzymes Immunization counseling Opioid dependence, uncomplicated Chronic, continuous use of opioids Pneumothorax, left Fall Closed fracture nasal bone Abrasion of face Screening for osteoporosis Low HDL (under 40) Right elbow pain Opioid use Frontal headache Headache Mild dehydration Muscle spasm History of blood transfusion Back pain Brain tumor Meningioma PTSD (post-traumatic stress disorder) Anxiety Depression Anemia Thrombocytopenia GERD (gastroesophageal reflux disease) CAD (coronary artery disease) Sacroiliitis Hx of thrombocytopenia Anemia Hx of small bowel obstruction GERD (gastroesophageal reflux disease) Migraine Depression Hx of meningioma of the brain PTSD (post-traumatic stress disorder) Anxiety Peyronie's disease CAD (coronary artery disease) HTN (hypertension) Surgical History H/O craniotomy Hx of CABG History of resection of meningioma History of back surgery Hx of colonoscopy History of nasal surgery History of bowel resection History of quadruple bypass Hx of CABG Family History Father No problems noted. Mother No problems noted. Brother No problems noted. Sister No problems noted. Sister No problems noted. Sister No problems noted. Social History Household Members: None Housing: Condominium Are you a primary home health care case manager to a significant other at home: No Do you presently have visiting nurse or other home services: Yes ( teaching) Alcohol intake: never Patient Tobacco Use Status: Never used Tobacco e-Cigarette/Vaping Use: Never Used Second Hand Smoke Exposure: No service: No Current occupational status: retired Current occupational exposures/hazards: No Cognitive needs: No Hearing needs: No Vision needs: Yes (Reading glasses) Questionnaire PHQ-9 Over the last 2 weeks, how often have you been bothered by any of the following problems? 1. Little interest or pleasure in doing things: not at all 2. Feeling down, depressed, or hopeless: not at all 3. Trouble falling or staying asleep, or sleeping too much: not at all 4. Feeling tired or having little energy: not at all 5. Poor appetite or overeating: not at all 6. Feeling bad about yourself - or that you are a failure or have let yourself or your family down: not at all 7. Trouble concentrating on things, such as reading the newspaper or watching television: not at all 8. Moving or speaking so slowly that other people could have noticed. Or the opposite - being so fidgety or restless that you have been moving around a lot more than usual: not at all 9. Thoughts that you would be better off or of hurting yourself in some way: not at all Total score: 0 Depression Screening Interpretation: Negative Depression Screening Done: Yes 76169 - PHQ-9 Billing: Yes Source: Developed by Drs. Malcolm Garrido, Brenda Garner, Roberto Fraser and colleagues, with an educational lobo from [employer]. Thrive Questionnaire Date Thrive assessed: 07/09/24 I am a: Patient What is your living situation today?: I have a steady place to live Within the past 12 months, did the food you bought not last and you didn't have the money to get more?: Never true Within the past 12 months, did you worry whether your food would run out before you got money to buy more?: Never true Do you have trouble paying for medicines?: No Do you have trouble getting transportation to medical appointments?: No Do you have trouble paying your heating and electricity bill?: No Do you have trouble taking care of your child, family member or friend?: No Do you have trouble with day-to-day activities such as bathing, preparing meals, shopping, managing finances, etc.?: No Are you currently unemployed and looking for a job?: No Are you interested in more education?: No Please select the resources that you would like help with: None Currently or been in a relationship where the following occur: No concerns reported THRIVE Score: 0 AUDIT C Alcohol Use Questionnaire (AUDIT-C) 1. How often do you have a drink containing alcohol?: Never Total Score: 0 SUJATA-7 AMB Questionnaire SUJATA-7 Date SUJATA - 7 assessed: 09/11/23 Feeling nervous, anxious, or on edge: 0 = Not at all Not being able to stop or control worryin = Not at all Source: Developed by Drs. Malcolm Garrido, Brenda Garner, Roberto Fraser and colleagues, with an educational lobo from [employer]. Review of Systems Const Denies chills, Denies fatigue, Denies fever(s), Denies headache(s) and Denies weakness Eyes Denies change in vision ENT Denies dizziness, Denies headache(s), Denies hearing loss, Denies nasal congestion, Denies sinus pain, Denies sinus pressure and Denies sore throat Card Denies chest pain, Denies lightheadedness, Denies dyspnea and Denies other (palpitations) Resp Denies cough, Denies dyspnea and Denies wheezing GI Denies abdominal pain, Denies melena, Denies hematochezia, Denies change in bowel habits, Denies dyspepsia and Denies nausea Denies hematuria and Denies dysuria Musc Denies abnormal gait, Denies myalgias, Denies arthralgias, Denies numbness and Denies tingling Skin/Breast Denies rash, Denies unusual bruising and Denies wounds Neuro Denies abnormal gait, Denies dizziness, Denies headache(s), Denies memory loss, Denies numbness, Denies Sensory deficit (Neuro), Denies tingling and Denies weakness Psych Denies anxiety, Denies depression and Denies memory loss Endo Denies cold intolerance, Denies fatigue, Denies heat intolerance, Denies polydipsia and Denies polyuria Luis/Lymph Denies easy bleeding and Denies easy bruising Aller/Immun Denies wheezing Physical exam (Primary Care) Vital Signs: Last Vital Signs Temp 97.9 F 07/09/24 13:25 Pulse 67 07/09/24 13:25 Resp 14 07/09/24 13:25 BP 100/60 07/09/24 13:25 Pulse Ox 96 07/09/24 13:25 Oxygen Delivery Method Room Air 07/09/24 13:25 BMI result Body Mass Index 23.0 Tobacco/Smoking Status: Tobacco use Status Tobacco use date assessed 07/09/24 07/09/24 13:30 Patient Tobacco Use Status Never used Tobacco 07/09/24 13:19 e-Cigarette/Vaping Use Never Used 07/09/24 13:19 PHQ-9: PHQ-9 Score PHQ-9: Total score 0 07/09/24 13:55 Depression Screening Interpretation: Negative Thrive Assessment: Date of Thrive Assessment Date Thrive assessed 07/09/24 07/09/24 13:19 Currently or been in a relationship where the following occur: No concerns reported Const General: no acute distress, well developed, alert and awake Nutritional Appearance: well nourished Orientation/consciousness: patient oriented x3 HENMT Head: Yes normocephalic and Yes atraumatic Ears: hearing grossly normal bilaterally and TM's normal bilaterally General nose exam: Normal external nose present and Normal nares present Mouth: Normal oral and palatal mucosa present and moist mucous membranes Teeth and gingiva: dentition normal Throat: Yes posterior oropharynx normal Eyes General: appearance normal, both eyes and all related structures Pupils: Equal, round and reactive pupils present and Pupil accommodation reflex normal EOM: EOMs intact bilaterally Neck Neck: Yes normal visual inspection, Yes no lymphadenopathy and Yes trachea midline Thyroid: Thyroid normal Carotids: no bruits Lymphatic: no lymphadenopathy noted Chest Chest palpation & inspection: normal inspection of the chest Resp Effort & Inspection: normal respiratory effort Auscultation: clear to auscultation bilaterally Cardio Rate: regular rate Rhythm: regular rhythm Heart sounds: S1 normal heart sound present, S2 normal heart sound present, no gallops, no murmurs and no rubs Bruits: no abdominal aortic bruits and no carotid bruits GI Palpation (GI): No Abdominal aortic bruit present, Soft to palpation, nontender, No hepatosplenomegaly present and No Rebound tenderness present Auscultation: normal bowel sounds General: Yes no CVA tenderness Back/Spine/Pelvis Back: no CVA tenderness Cervical Spine: cervical ROM normal and No Cervical spine tenderness Thoracic/Lumbar Spine: thoraco-lumbar ROM normal, No pain with thoraco-lumbar ROM, No thoracic spinal tenderness and No lumbar spinal tenderness Skin Lesions: no lesions Rashes: no rashes Trauma: no lacerations or abrasions Wounds: no wounds Nails: normal Neuro General: patient oriented x3 Cranial nerves: Yes Equal, round and reactive pupils present Cognition (Neuro): normal cognition Gait exam (Neuro): Normal gait present Motor exam (neuro): 5/5 motor strength present throughout Sensory Exam: No Sensory deficit (Neuro) Deep tendon reflexes (DTR's): Right patellar reflex intensity grade: 2+ and Left patellar reflex intensity grade: 2+ Extrem General: Yes normal to inspection and No edema Psych Appearance: grossly normal Affect: normal affect Attitude: cooperative Thought process: Normal thought process present Coding Level of Care Code Est Pt Prev Care >65y(64332) Diagnoses Adult general medical exam Z00.00 Diet-controlled diabetes mellitus E11.9 Anxiety F41.9 Coronary artery disease involving coronary bypass graft of [place] heart without angina pectoris I25.810 Associated angina: without angina Coronary Disease-Associated Artery/Lesion type: bypass graft [place] vs. transplanted heart: [place] heart Screening for prostate cancer Z12.5 Colon cancer screening Z12.11 Additional Codes PHQ-9 - 17153 - PHQ-9 Billing: Yes ([id number]) Assessment & Plan Assessment & Plan (1) Adult general medical exam: Code(s): Z00.00 - Encounter for general adult medical examination without abnormal findings Category: Medical Plan: 74-year-old?male?presents?for?complete?physical?exam Encouraged?healthy?diet?with?active?lifestyle?and?plenty?of?exercise (2) Diet-controlled diabetes mellitus: Code(s): E11.9 - Type 2 diabetes mellitus without complications Category: Medical Plan: Blood?sugars?have?been?very?well?controlled.??Now?essentially?diet?controlled. Followed?[place]endocrinology[place]in[place] Follow-up?is?recommended (3) Anxiety: Code(s): F41.9 - Anxiety disorder, unspecified Category: Medical Plan: Well-controlled He?notes?that?walking?his?dog?is?helping Encouraged?regular?activity?and?exercise Encouraged?stress?reduction?practices Call?or?return?to?office?if?having?any?trouble (4) CAD (coronary artery disease): Code(s): I25.10 - Atherosclerotic heart disease of [place] coronary artery without angina pectoris Category: Medical Qualifiers: Associated angina: without angina Coronary Disease-Associated Artery/Lesion type: bypass graft [place] vs. transplanted heart: [place] heart Qualified Code(s): I25.810 - Atherosclerosis of coronary artery bypass graft(s) without angina pectoris Plan: Stable Follow-up?with?Cardiology?as?recommended (5) Screening for prostate cancer: Code(s): Z12.5 - Encounter for screening for malignant neoplasm of prostate Category: Medical Plan: Followed?by??Vinh Had?some?increase?in?postvoid?residual More?recently?Jardiance?was?discontinued He?notes?urine?stream?has?improved Follow-up?Urology?as?recommended (6) Colon cancer screening: Code(s): Z12.11 - Encounter for screening for malignant neoplasm of colon Category: Medical Plan: Due?for?next?screening?colonoscopy Referred?back?to?GI Orders: Orders Lipid Panel Today Z00.00 - Encounter for general adult medical examination without abnormal findings Microalbumin, Random (w Creat) Today I10 - Essential (primary) hypertension TSH reflex Free T4 Today Z00.00 - Encounter for general adult medical examination without abnormal findings UA and rflx microscopic Today Z00.00 - Encounter for general adult medical examination without abnormal findings Hemoglobin A1c Today R73.01 - Impaired fasting glucose XR DEXA axial skeleton Today M81.0 - Age-related osteoporosis without current pathological fracture Comprehensive [place]. Panel Fast Today Z00.00 - Encounter for general adult medical examination without abnormal findings Complete Blood Count Auto Diff Today Z00.00 - Encounter for general adult medical examination without abnormal findings Referrals Gastroenterology Referral Z12.11 - Encounter for screening for malignant neoplasm of colon
[2024-07-09 13:25] VITALS: BP 100/60; PULSE 67; RESP 14; TEMP 36.6; O2SAT 96; BMI 23.0
--- OUTSIDE RECORDS SUMMARY | 2024-07-09 15:19 | XMS_ITS | Continuity of Care Document ---
Author Organization [facility] [address] [place] [address] Phone [phone] Care Team Providers Care Letter Of Credit Clerk Name Role Phone Ari Shell MD Care Team Information Painting Manager [phone] Problems Active Problems Provider Date Diabetes mellitus Pranay Aguilera M.D. Onset: 11/03/2023 Posttraumatic stress disorder Pranay Aguilera M.D. Onset: 11/03/2023 Anxiety Pranay Aguilera M.D. Onset: 0 11/03/2023 Depressive disorder Pranay Aguilera M.D. Onse t: 11/03/2023 Gastroesophageal reflux disease Pranay calix M.D. Onset: 11/03/2023 Essential hypertension Pranay Aguilera M.D. O nset: 11/03/2023 Social History Type Date Description Comments Sex Unknown Tobacco Use Start: Unknown Never Smoked Cigarettes ETOH Use Never used alcohol Allergies and adverse reactions Active Allergies Criticality Reaction Severity Comments Date Tylenol Unable to assess criticality 11/03/2023 Medications Active Medications SIG Qnty Indications Ordering Provider Date [id number] Tablets Take 1 Tablet By Mouth Twice A Day Ari Shell MD Terazosin [id number] Capsules Take 1 Capsule By Mouth AT Bedtime Unknown Atorvastatin Gyvgtzx05rl Tablets Take 1 Tablet By Mouth Everyday AT Bedtime Ari Shell MD Paroxetine [id number] Tablets 1 tab by mouth every day Ari Shell MD Metoprolol Succinate ER25mg Tablets ER 24HR 1 tab by mouth every day 90tabs Ari Shell MD History Medications Jufikfzvy61wt Tablets 1 tablet by mouth every day 90tabs Pranay Aguilera M.D. 03/17/2024 - 05/12/2024 Vital Signs Date Vital Result Comment 07/01/2024 9:26am BP Systolic 128 mmHg BP Diastolic 72 mmHg Heart Rate 78 /min Height 67 inches 5'7 Weight 140.12 lb BMI (Body Mass Index) 21.9 kg/m2 Results Test Acquired Date Facility Test Result [facility] [place] Laboratory test finding 07/01/2024 Inhouse Glucose Fingerstick 110 Hemoglobin A1c 6.1% Laboratory test finding 03/17/2024 Inhouse Glucose Fingerstick 84 Laboratory test finding 01/13/2024 Inhouse Glucose Fingerstick 115 Hemoglobin A1c 5,9% Laboratory test finding 11/03/2023 [facility] Ovidio-65 Autoantibody <5.0 U/mL 0.0-5.0 Laboratory test finding 11/03/2023 Inhouse Glucose Fingerstick 88 Medical Devices Description No Information Available Encounters Type Date Location Provider Dx Diagnosis Office Visit 07/01/2024 9:15a Main Office Pranay Aguilera M.D. E11.9 Type 2 diabetes mellitus without complications Assessments Date Code Description Provider 07/01/2024 E11.9 Type 2 diabetes mellitus without complications Pranay Aguilera M.D. Plan of Treatment Future Appointment(s):* 10/14/2024 9:30 am - Pranay Aguilera M.D. at Main Office 07/01/2024 - Pranay Aguilera M.D.* E11.9 Type 2 diabetes mellitus without complications Functional Status Description No Information Available Mental Status Description No Information Available Referrals Description No Information Available
== END 2024-07-09 14:04 | disposition home or self-care (01) ==
PROVIDERS: PCP Family Medicine; Visit Provider Family Medicine
DX: Z00.00 Encounter for general adult medical examination without abnormal findings (principal); E11.9 Type 2 diabetes mellitus without complications; F41.9 Anxiety disorder, unspecified; I25.810 Atherosclerosis of coronary artery bypass graft(s) without angina pectoris; Z12.5 Encounter for screening for malignant neoplasm of prostate; Z12.11 Encounter for screening for malignant neoplasm of colon

== ENCOUNTER → 2024-07-09 12:47 | Outpatient (BNVA) | payer MEDICARE, SELFPAY | PROVIDERS: PCP Family Medicine; Visit Provider Family Medicine | DX: Z00.00 Encounter for general adult medical examination without abnormal findings (principal); E11.9 Type 2 diabetes mellitus without complications; F41.9 Anxiety disorder, unspecified; I25.810 Atherosclerosis of coronary artery bypass graft(s) without angina pectoris | CPT/HCPCS: 96127; 99397 ==

== ENCOUNTER 2024-07-13 09:58 | Outpatient (REF) | payer MEDICARE, SELFPAY ==
[2024-07-13 10:24] LABS: MANUAL DIFF FLAG NO
[2024-07-13 10:37] LABS: Basophils Absolute Auto 0.1 X10*3/uL (0.0-0.2); Basophils Percent Auto 1.1 % (0-2); Eosinophils Absolute Auto 0.1 X10*3/uL (0.0-0.4); Imm Gran Abs Auto 0.01 X10*3/uL (0.00-0.03); Imm Gran Pct Auto 0.2 % (0.0-0.4); Lymphocytes Absolute Auto 1.5 X10*3/uL (1.2-4.9); Mean Corpuscular HGB Conc 34.1 g/dl (31.0-36.0); Mean Corpuscular Hemoglobin 29.6 pg (27.0-33.0); Mean Corpuscular Volume 86.7 fL (80.0-98.0); Mean Platelet Volume 10.4 fL (9.4-12.4); Monocytes Absolute Auto 0.4 X10*3/uL (0.1-1.2); Neutrophils Absolute Auto 3.5 x10*3/uL (2.0-8.3); Neutrophils Percent Auto 62.7 % (45-73); Platelet Count 120 X10*3/uL (160-400); Red Blood Count 4.73 X10*6/uL (4.60-5.80); Red Cell Distribution Width 12.9 % (11.0-16.0); White Blood Count 5.6 X10*3/uL (4.8-10.8)
[2024-07-13 10:58] LABS: Estimated Average Glucose 123 mg/dL; Hemoglobin A1C 150.1238 umol/L; Hemoglobin A1c % 5.9 % (<6.0); Total Hemoglobin (HGBA1C) 3621.1057 umol/L
--- OUTSIDE RECORDS SUMMARY | 2024-07-13 11:18 | XMS_ITS | Patient Health Record ---
Author Organization [facility] Address [address] [place] [address] Care Team Providers Care Data Entry Coordinator Name Role Phone Ari Shell Primary Care Provider UnavailCasey Avery Jr Unavailable ALLERGIES Allergen (clinical drug ingredient) Drug/Non Drug Allergy documented on EMR Reaction Allergy Type Onset Date Status acetaminophen Tylenol Unknown Drug Allergy Act jaclyn REASON FOR REFERRAL No Information MEDICATIONS Medication SIG (Take, Route, Frequency, Duration) Notes Start Date End Date Status Metoprolol Succinate ER 25 MG TAKE 1 TABLET BY MOUTH EVERY DAY Oral for 90 Active Pentoxifylline ER 400 MG TAKE 1 TABLET B Y MOUTH TWICE A DAY WITH MEALS Oral for 90 Active Lisinopril 20 MG TAKE 1 TABLET BY HOMERO TH EVERY DAY Oral for 90 Active Finasteride 5 MG TAKE 1 TABLET BY HOMERO TH EVERY DAY Oral for 90 Active fentaNYL 12 MCG/HR (Schedule II Drug) A PPLY 1 PATCH TO SKIN EVERY 72 HOURS Transdermal for 30 Active traZODone HCl 100 MG Orally Active Simvastatin 80 MG 1 tablet in the even ing Orally Once a day Active MiraLax (colon prep) 8.3 ounce ((238) grams mixed with Gatorade or Crystal Light orally begin at 5:00 p.m. the day before the procedure for 1 day 12/02/2019 Active PARoxetine HCl 30 MG 1 tablet in the mor adeola Orally Once a day Active IMMUNIZATIONS Vaccine Route Administration Date Status Comme nts Influenza Unknown 02/21/2019 Administered SOCIAL HISTORY Sex Assigned At : Social History Observation Description Sex Assigned At Unknown PROBLEMS Problem Type ICD Code Onset Dates Problem Status W/U Status Risk SNOMED Code Notes Problem Colon cancer screening (Z12.11) Active confirmed [id number] Problem Long-term current use of high risk medication other than anticoagulant (Z79.899) Active confirmed [id number] PLAN OF TREATMENT Future Test Test Name Order Date COLONOSCOPY 07/28/2014 COLONOSCOPY 12/02/2019 Insurance Providers Payer Name Payer Address Payer Phone Subscriber Number Group Number Insured Name Patient Relationship to Insured Coverage Start Date Coverage End Date [facility] [address] [place], [place] [id number] SHAY RIVERA Self - patient is the insured MEDICAL (GENERAL) HISTORY Medical History History ICD Code colonoscopy 09/04, negative f or polyps. Five-year followup recommended because of prior history of adenomas. 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
--- OUTSIDE RECORDS SUMMARY | 2024-07-13 11:18 | XMS_ITS | Continuity of Care Document ---
Author Organization [facility] [address] [place] [address] Phone [phone] Care Team Providers Care Blacksmith Supervisor Name Role Phone Ari Shell MD Care Team Information Glue Mounter Operator [phone] Problems Active Problems Provider Date Diabetes mellitus [...] Medications SIG Qnty Indications Ordering Provider Date [id number] Tablets Take 1 Tablet By Mouth Twice A Day Ari Shell MD Terazosin [id number] Capsules Take 1 Capsule By Mouth AT Bedtime Unknown Atorvastatin Lcwscdx72pq Tablets Take 1 Tablet By Mouth Everyday AT Bedtime Ari Shell MD Paroxetine NVT24ym Tablets 1 tab by mouth every day Ari Shell MD Metoprolol Succinate ER25mg Tablets ER 24HR 1 tab by mouth every day 90tabs Ari Shell MD History Medications Jggjvamgn47fd Tablets 1 tablet by mouth every day [...]
[2024-07-13 11:32] LABS: Appearance Urine Clear; Color Urine Yellow; Glucose Urine UA Negative (Negative); Leukocyte Esterase Urine Negative (Negative); Nitrite Urine Negative (Negative); PH 5.5 (5.0-9.0); Specific Gravity - Urine 1.025 (1.005-1.025); Urine Blood Negative (Negative); Urine Ketones Negative (Negative); Urine Protein Negative (Neg-Trace)
[2024-07-13 11:44] LABS: Prostate Specific Antigen Scr 0.83 ng/mL (<0.05-4.0)
[2024-07-13 11:49] LABS: Alanine Aminotransferase 21 U/L (0-40); Albumin Level 4.2 g/dL (3.5-5.0); Alkaline Phosphatase 63 U/L (39-117); Anion Gap 9 (12-20); Aspartate Amino Transferase 25 U/L (5-37); Bilirubin Total 1.7 mg/dL (0.0-1.0); Blood Urea Nitrogen 19 mg/dL (9-16); Calcium 8.7 mg/dL (8.4-10.2); Carbon Dioxide 24 mmol/L (22-29); Chloride 112 mmol/L (96-108); Cholesterol 117 mg/dL (<200); Estimated Glomerular Filt Rate > 60; Glucose Fasting 111 mg/dL (60-99); HDL Cholesterol 44 mg/dL (>40); LDL Cholesterol Calculated 61 mg/dL (<100); Potassium 4.2 mmol/L (3.3-5.1); Sodium 141 mmol/L (135-145); TSH reflex Free T4 3.24 uIU/mL (0.32-4.0); Total Protein 7.1 g/dL (6.5-8.0); Triglycerides 63 mg/dL (<150)
[2024-07-13 12:18] LABS: Creatinine Urine 120.68 mg/dL; Microalbum/Creatinine Ratio Ur 4.9 ug/mg cr (<30)
== END 2024-07-13 09:59 | disposition home or self-care (01) ==
LOC: HO.LAB 09:58
PROVIDERS: Nurse Practitioner Family; PCP Family Medicine; Visit Provider Family Medicine
DX: Z00.00 Encounter for general adult medical examination without abnormal findings (principal); R73.01 Impaired fasting glucose; I10 Essential (primary) hypertension; R33.9 Retention of urine, unspecified; Z12.5 Encounter for screening for malignant neoplasm of prostate
CPT/HCPCS: 36415; 80053; 80061; 81003; 82043; 82570; 83036; 84153; 84443; 85025

== ENCOUNTER 2024-08-09 15:48 | Outpatient (AMB) | payer MEDICARE, SELFPAY ==
--- NOTE | 2024-08-09 15:46 | MHC.PC.OV ---
Intake Visit Reasons: f/u CPE-labs via telemedicine Intake Note: lab review Allergies acetaminophen [From TYLENOL] Adverse Reaction (Intermediate, Verified 08/09/24 15:47) gi upset Medication List - Last Reconciled 08/09/24 by Ari Shell MD aspirin (Adult Aspirin Regimen) 81 mg PO DAILY atorvastatin 80 mg PO BEDTIME 30 days bethanechol chloride 50 mg PO BID 90 days blood sugar diagnostic (FreeStyle Lite Strips) TEST THREE TIMES A DAY OR DIRECTED. blood-glucose meter (FreeStyle Lite Meter kit) As Directed buspirone 10 mg PO BEDTIME cholecalciferol (vitamin D3) 25 mcg PO DAILY 90 days lancets (FreeStyle Lancets) Test four times a day or as directed. levetiracetam 250 mg PO BID 90 days metoprolol succinate ER 25 mg PO DAILY 90 days naproxen 500 mg PO BID PRN paroxetine HCl 30 mg PO DAILY 90 days pen needle, diabetic Use four times a day or as directed. terazosin 10 mg PO BEDTIME 90 days Tobacco use date assessed: 07/09/24 Dental Screening Dental Screen Date: 07/09/24 HPI f/u CPE-labs via telemedicine HPI Details Telemedicine?encounter?to?follow-up?CPE-labs Reviewed?labs?with?patient: -- Following?a?mild?anemia?which?is?nearly?resolved. Iron?levels?and?B12?are?within?normal?limits.??Retic?count?is?appropriately?elevated. Renal?function?appears?normal A1c?5.9% Patient?is?on?atorvastatin?for?CAD?and?his?LDL?cholesterol?is?less?than?70.?? PSA?was?within?normal?limits COUNTS INCLUDE 234 BEDS AT [facility] Medical History (Updated 07/09/24 @ 14:05 by Luis Fernando Jeffery) Adult general medical exam Screening for prostate cancer Colon cancer screening Low back pain Hyperlipidemia Diabetes Elevated liver enzymes Immunization counseling Opioid dependence, uncomplicated Chronic, continuous use of opioids Pneumothorax, left Fall Closed fracture nasal bone Abrasion of face Screening for osteoporosis Low HDL (under 40) Right elbow pain Opioid use Frontal headache Headache Mild dehydration Muscle spasm History of blood transfusion Back pain Brain tumor Meningioma PTSD (post-traumatic stress disorder) Anxiety Depression Anemia Thrombocytopenia GERD (gastroesophageal reflux disease) CAD (coronary artery disease) Sacroiliitis Hx of thrombocytopenia Anemia Hx of small bowel obstruction GERD (gastroesophageal reflux disease) Migraine Depression Hx of meningioma of the brain PTSD (post-traumatic stress disorder) Anxiety Peyronie's disease CAD (coronary artery disease) HTN (hypertension) Surgical History H/O craniotomy Hx of CABG History of resection of meningioma History of back surgery Hx of colonoscopy History of nasal surgery History of bowel resection History of quadruple bypass Hx of CABG Family History Father No problems noted. Mother No problems noted. Brother No problems noted. Sister No problems noted. Sister No problems noted. Sister No problems noted. Social History Household Members: None Housing: Condominium Are you a primary inspector health care facilities to a significant other at home: No Do you presently have visiting nurse or other home services: Yes (DM teaching) Alcohol intake: never Patient Tobacco Use Status: Never used Tobacco e-Cigarette/Vaping Use: Never Used Second Hand Smoke Exposure: No service: No Current occupational status: retired Current occupational exposures/hazards: No Cognitive needs: No Hearing needs: No Vision needs: Yes (Reading glasses) Questionnaire Thrive Questionnaire Date Thrive assessed: 07/09/24 SUJATA-7 AMB Questionnaire SUJATA-7 Date SUJATA - 7 assessed: 09/11/23 Source: Developed by Drs. Malcolm Garrido, Brenda Garner, Roberto Fraser and colleagues, with an educational lobo from [employer]. Review of Systems Const Denies chills, Denies fatigue, Denies fever(s), Denies headache(s) and Denies weakness ENT Denies dizziness and Denies headache(s) Card Denies chest pain, Denies lightheadedness, Denies dyspnea and Denies other (Palpitations) Resp Denies cough, Denies dyspnea, Denies wheezing and Denies other ( shortness of breath) Musc Denies numbness and Denies tingling Neuro Denies dizziness, Denies headache(s), Denies numbness, Denies tingling, Denies paresthesias and Denies weakness Psych Denies anxiety and Denies depression Endo Denies fatigue Aller/Immun Denies wheezing Physical exam (Primary Care) Tobacco/Smoking Status: Tobacco use Status Tobacco use date assessed 07/09/24 08/09/24 15:48 Patient Tobacco Use Status Never used Tobacco 08/09/24 15:48 e-Cigarette/Vaping Use Never Used 08/09/24 15:48 Thrive Assessment: Date of Thrive Assessment Date Thrive assessed 07/09/24 08/09/24 15:48 Telehealth Telehealth Telehealth Platform: Telephone Location of provider rendering services: practice address Location of patient: address on file Patient Identification confirmed using: Name, : Yes Telehealth method: voice only Patient verbally consented to treatment: Yes Patient verbally consented to billing insurance company: Yes Patient informed of any privacy concerns related to visit: Yes Minutes spent on Phone/Video with Pt.: 6 Coding Level of Care Code Tele Est Pt Level 2 (15042) Diagnoses Hypercholesterolemia E78.00 Diet-controlled diabetes mellitus E11.9 Anemia D64.9 Screening for prostate cancer Z12.5 Assessment & Plan Assessment & Plan (1) Hypercholesterolemia: Code(s): E78.00 - Pure hypercholesterolemia, unspecified Category: Medical Plan: LDL?is?at?goal?of?less?than?70 The?remainder?of?his?lipid?panel?is?also?within?normal?limits Continue?atorvastatin (2) Diet-controlled diabetes mellitus: Code(s): E11.9 - Type 2 diabetes mellitus without complications Category: Medical Plan: A1c?5.9%.??Good?control.??Goal?is?less?than?7% Continue?diet?control (3) Anemia: Code(s): D64.9 - Anemia, unspecified Category: Medical Plan: Improving?and?nearly?resolved Will?continue?monitor (4) Screening for prostate cancer: Code(s): Z12.5 - Encounter for screening for malignant neoplasm of prostate Category: Medical Plan: PSA?is?within?normal?limits Will?continue?annual?screen Orders: Orders Complete Blood Count Auto Diff Today D64.9 - Anemia, unspecified, Z00.00 - Encounter for general adult medical examination without abnormal findings Basic Metabolic Panel Fasting Today D64.9 - Anemia, unspecified
--- OUTSIDE RECORDS SUMMARY | 2024-08-09 15:52 | XMS_ITS | Patient Health Record ---
Author Organization [facility] Address [address] [place] [address] Care Team Providers Care Highway Maintenance Supervisor Name Role Phone Ari Shell Primary Care Provider Unavailab Casey Cabrales Jr Unavailable ALLERGIES Allergen (clinical drug ingredient) [...] Problem Colon cancer screening (Z12.11) Active confirmed [id number] Problem Long-term current use of high risk medication other than anticoagulant (Z79.899) Active confirmed [id number] PLAN OF TREATMENT Future Test Test Name Order Date COLONOSCOPY 07/28/2014 COLONOSCOPY 12/02/2019 Next Appt Details Provider Name:Casey Nunez Santy holland Jr, 11/10/2024 10:40:00 AM, [address] [place] [address], [address], [place], [address], Insurance Providers Payer Name Payer Address Payer Phone Subscriber Number Group Number Insured Name Patient Relationship to Insured Coverage Start Date Coverage End Date [facility] [address] [place], [place] [id number] [phone] [id number] SHAY RIVERA Self - patient is the insured MEDICAL (GENERAL) HISTORY Medical History History ICD Code colonoscopy 09/04, negative f or polyps. Five-year followup recommended because of prior history of adenomas. 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
== END 2024-08-09 17:05 | disposition home or self-care (01) ==
LOC: HO.HMCFM 15:48
PROVIDERS: PCP Family Medicine; Visit Provider Family Medicine
DX: E78.00 Pure hypercholesterolemia, unspecified (principal); E11.9 Type 2 diabetes mellitus without complications; D64.9 Anemia, unspecified; Z12.5 Encounter for screening for malignant neoplasm of prostate

== ENCOUNTER 2024-08-12 12:53 | Outpatient (REF) | payer MEDICARE, SELFPAY ==
--- OUTSIDE RECORDS SUMMARY | 2024-08-12 13:50 | XMS_ITS | Patient Health Record ---
Author Organization [facility] Address [address] [place] [address] Care Team Providers Care Road Grader Name Role Phone Ari Shell Primary Care [...] Problem Colon cancer screening (Z12.11) Active confirmed [id number] Problem Long-term current use of high risk medication other than anticoagulant (Z79.899) Active confirmed [id number] PLAN OF TREATMENT Future Test Test Name Order Date COLONOSCOPY 07/28/2014 COLONOSCOPY 12/02/2019 Next Appt Details Provider Name:Casey Nunez Santy holland Jr, 11/10/2024 10:40:00 AM, [address] [place] [address], [address], [place], [address], Insurance Providers Payer Name Payer Address Payer Phone Subscriber Number Group Number Insured Name Patient Relationship to Insured Coverage Start Date Coverage End Date [facility] [address] [place], [place] [phone] [id number] SHAY RIVERA Self - patient is the [...]
--- OUTSIDE RECORDS SUMMARY | 2024-08-12 13:50 | XMS_ITS | Continuity of Care Document ---
Author Organization [facility] [address] [place] [address] Phone [phone] Care Team Providers Care Branch Mechanic Name Role Phone Ari Shell MD Care Team Information [employer] Engineer [phone] Problems Active Problems Provider Date Diabetes mellitus [...] 11/03/2023 Medications Active Medications SIG Qnty Indications Order ing Provider Date Freestyle Insulinx Blood Glucose Test StripsStrips test blood sugars daily 100units Pranay Aguilera M.D. 07/23/2024 [id number] Tablets Take 1 Tablet By Mouth Twice A Day Ari Shell MD Terazosin [id number] Capsules Take 1 Capsule By Mouth AT Bedtime Unknown Atorvastatin Btoxqsc57tr Tablets Take 1 Tablet By Mouth Everyday AT Bedtime Ari Shell MD Paroxetine [id number] Tablets 1 tab by mouth every day Ari Shell MD Metoprolol Succinate ER25mg Tablets ER 24HR 1 tab by mouth every day 90tabs Ari Shell MD History Medications [id number] Tablets 1 tablet by mouth every day [...]
== END 2024-08-12 12:54 | disposition home or self-care (01) ==
LOC: HO.MAMMO 12:53
PROVIDERS: PCP Family Medicine; Visit Provider Family Medicine
DX: M81.0 Age-related osteoporosis without current pathological fracture (principal)
CPT/HCPCS: 77080

== ENCOUNTER → 2024-08-12 13:00 | Outpatient (BNV) | payer MEDICARE, SELFPAY | PROVIDERS: PCP Family Medicine; Visit Provider Radiology Diagnostic Radiology | DX: E28.39 Other primary ovarian failure (principal) | CPT/HCPCS: 77080 ==

== ENCOUNTER 2024-08-18 09:14 | Outpatient (AMB) | payer MEDICARE, SELFPAY ==
[2024-08-18 09:20] VITALS: BP 100/58; PULSE 58; BMI 23.2
--- NOTE | 2024-08-18 09:20 | MHC.OFFVIS ---
Vital Signs 08/18/24 09:20 Height 5 ft 5 in Weight 139 lb 5.314 oz BMI 23.2 BP 100/58 L Blood Pressure Location Lt brachial Position Sitting Pulse 58 Intake Visit Reasons: 6m follow up Shell Grader Required: No Accompanied by: Self / Same As Patient Allergies acetaminophen [From TYLENOL] Adverse Reaction (Intermediate, Verified 08/09/24 15:47) gi upset Medication List - Last Reconciled 08/18/24 by Baudilio Diaz MD aspirin (Adult Aspirin Regimen) 81 mg PO DAILY atorvastatin 80 mg PO BEDTIME 30 days bethanechol chloride 50 mg PO BID 90 days blood sugar diagnostic (FreeStyle Lite Strips) TEST THREE TIMES A DAY OR DIRECTED. blood-glucose meter (FreeStyle Lite Meter kit) As Directed cholecalciferol (vitamin D3) 25 mcg PO DAILY 90 days lancets (FreeStyle Lancets) Test four times a day or as directed. levetiracetam 250 mg PO BID 90 days metoprolol succinate ER 25 mg PO DAILY 90 days paroxetine HCl 30 mg PO DAILY 90 days pen needle, diabetic Use four times a day or as directed. terazosin 10 mg PO BEDTIME 90 days HPI Comments Details: Adrián returns for follow-up regarding coronary artery disease. History of coronary artery bypass surgery around 2004. No regular cardiology follow-up till he started seeing us recently. He was admitted for diabetic ketoacidosis in 2023. At that time, hemoglobin A1c was more than 10. However, it seems that he has done lot of lifestyle changes including better diet and now the hemoglobin A1c is 5.9% and he is off all diabetes meds. He is only on diet control. Otherwise, he states he feels good. No cardiac symptoms whatsoever. [facility] Medical History (Updated 07/09/24 @ 14:05 by Luis Fernando Jeffery) Adult general medical exam Screening for prostate cancer Colon cancer screening Low back pain Hyperlipidemia Diabetes Elevated liver enzymes Immunization counseling Opioid dependence, uncomplicated Chronic, continuous use of opioids Pneumothorax, left Fall Closed fracture nasal bone Abrasion of face Screening for osteoporosis Low HDL (under 40) Right elbow pain Opioid use Frontal headache Headache Mild dehydration Muscle spasm History of blood transfusion Back pain Brain tumor Meningioma PTSD (post-traumatic stress disorder) Anxiety Depression Anemia Thrombocytopenia GERD (gastroesophageal reflux disease) CAD (coronary artery disease) Sacroiliitis Hx of thrombocytopenia Anemia Hx of small bowel obstruction GERD (gastroesophageal reflux disease) Migraine Depression Hx of meningioma of the brain PTSD (post-traumatic stress disorder) Anxiety Peyronie's disease CAD (coronary artery disease) HTN (hypertension) Surgical History (Reviewed 08/18/24 @ 09: by Maria Fernanda Roy CMA) H/O craniotomy Hx of CABG History of resection of meningioma History of back surgery Hx of colonoscopy History of nasal surgery History of bowel resection History of quadruple bypass Hx of CABG Family History (Reviewed 08/18/24 @ 09: by Maria Fernanda Roy CMA) Father No problems noted. Mother No problems noted. Brother No problems noted. Sister No problems noted. Sister No problems noted. Sister No problems noted. Social History (Reviewed 08/18/24 @ 09: by Maria Fernanda Roy CMA) Household Members: None [facility] Are you a primary managed care specialist to a significant other at home: No Do you presently have visiting nurse or other home services: Yes (DM teaching) Alcohol intake: never Patient Tobacco Use Status: Never used Tobacco e-Cigarette/Vaping Use: Never Used Second Hand Smoke Exposure: No service: No Current occupational status: retired Current occupational exposures/hazards: No Cognitive needs: No Hearing needs: No Vision needs: Yes (Reading glasses) Review of Systems Const Denies chills, Denies fatigue, Denies fever(s), Denies weight gain and Denies weight loss ENT Denies dizziness Card Denies chest pain, Denies leg edema, Denies lightheadedness, Denies palpitations, Denies dyspnea on exertion, Denies orthopnea and Denies other Resp Denies cough and Denies dyspnea on exertion GI Denies hematochezia and Denies change in stool character Musc Denies abnormal gait, Denies muscle weakness, Denies numbness, Denies radiating pain into limb and Denies tingling Neuro Denies abnormal gait, Denies dizziness, Denies numbness and Denies tingling Endo Denies fatigue and Denies palpitations Physical Exam Vital Signs: Last Vital Signs Pulse 58 08/18/24 09:20 BP 100/58 L 08/18/24 09:20 BMI result Body Mass Index 23.2 Const General: comfortable and no acute distress Orientation/consciousness: patient oriented x3 HEENT Other: Unremarkable Head: Yes normal to inspection Neck Neck: Yes normal visual inspection Chest Chest palpation & inspection: normal inspection of the chest Resp Auscultation: clear to auscultation bilaterally Cardio Palpation: normal PMI Heart sounds: S1 normal heart sound present, S2 normal heart sound present, no gallops, no murmurs and no rubs GI Palpation (GI): Soft to palpation Back/Spine/Pelvis Other: unremarkable Skin General skin exam: no rashes or lesions noted Neuro General: patient oriented x3 Extrem General: Yes normal to inspection Psych Mental Status: mental status grossly normal Office Procedures EKG Details: EKG with sinus bradycardia at 59/Min; old inferior infarct; nonspecific ST-[place]. [place] [address]-[id number], Complete Assessment & Plan Assessment & Plan (1) CAD (coronary artery disease): Code(s): I25.10 - Atherosclerotic heart disease of [place] coronary artery without angina pectoris Category: Medical Qualifiers: Associated angina: without angina Coronary Disease-Associated Artery/Lesion type: bypass graft [place] vs. transplanted heart: [place] heart Qualified Code(s): I25.810 - Atherosclerosis of coronary artery bypass graft(s) without angina pectoris (2) Status post aorto-coronary artery bypass graft: Code(s): Z95.1 - Presence of aortocoronary bypass graft Category: Surgical (3) Diabetes: Code(s): E11.9 - Type 2 diabetes mellitus without complications Category: Medical Plan EKG as described above. Echocardiogram reviewed including images. Mildly reduced LVEF with inferior/inferoseptal wall motion abnormality. In the perfusion imaging, reported normal but there is slightly reduced basal inferior tracer uptake and hence could indicate a prior nontransmural infarct. Overall, stable coronary disease; poorly controlled diabetes in the past but currently much better now and only on diet control. For medications, continue aspirin, beta-blockers, high-dose statins. Cholesterol is well controlled. Follow-up in 6 months. In the interim, call with concerns. Coding Level of Care Code Est Pt Level 4 (66505) Complex EM visit Add On G2211 Diagnoses Coronary artery disease involving coronary bypass graft of [place] heart without angina pectoris I25.810 Associated angina: without angina Coronary Disease-Associated Artery/Lesion type: bypass graft [place] vs. transplanted heart: [place] heart Status post aorto-coronary artery bypass graft Z95.1 Diabetes E11.9 CPT Codes EKG - CPT: 34697-[id number], Complete ([id number])
--- OUTSIDE RECORDS SUMMARY | 2024-08-18 10:17 | XMS_ITS | Continuity of Care Document ---
Author Organization [facility] [address] [place] [address] Phone [phone] Care Team Providers Care Yarn Weight And Strength Tester Name Role Phone Ari Shell MD Care Team Information Service Unit Operator [employer] [phone] Problems Active Problems Provider Date Diabetes mellitus Pranay Aguilera M.D. Onset: 11/03/2023 Posttraumatic stress disorder Pranay Aguilera M.D. Onset: 11/03/2023 Anxiety Pranay Aguilera M.D. Onset: 0 11/03/2023 Depressive disorder Pranay Aguilera M.D. Onse t: 11/03/2023 Gastroesophageal reflux disease rPanay calix M.D. Onset: 11/03/2023 Essential hypertension Pranay [...] sugars daily 100units Pranay Aguilera M.D. 07/23/2024 [id number] Tablets Take 1 Tablet By Mouth Twice A Day Ari Shell MD Terazosin JQI77de Capsules Take 1 Capsule By Mouth AT Bedtime Unknown Atorvastatin Cvrrnlj91bu Tablets Take 1 Tablet By Mouth Everyday AT Bedtime Ari Shell MD Paroxetine CAM88pd Tablets 1 tab by mouth every day Ari Shell MD Metoprolol Succinate ER25mg Tablets ER 24HR 1 tab by mouth every day 90tabs Ari Shell MD History Medications Wzwysrdsf40pu Tablets 1 tablet by mouth every day [...]
--- OUTSIDE RECORDS SUMMARY | 2024-08-18 10:17 | XMS_ITS | Patient Health Record ---
Author Organization [facility] Address [address] [place] [address] Care Team Providers Care Non Clinical Advisor Name Role Phone Ari Shell Primary Care [...] Problem Colon cancer screening (Z12.11) Active confirmed [id number] Problem Long-term current use of high risk medication other than anticoagulant (Z79.899) Active confirmed [id number] PLAN OF TREATMENT Future Test Test Name Order Date COLONOSCOPY 07/28/2014 COLONOSCOPY 12/02/2019 Next Appt Details Provider Name:Casey Nunez Santy holland Jr, 11/10/2024 10:40:00 AM, [address] [place] [address], [address], [place], [address], Insurance Providers Payer Name Payer Address Payer Phone Subscriber Number Group Number Insured Name Patient Relationship to Insured Coverage Start Date Coverage End Date [facility] [address] [place], [place] [id number] [phone] [id number] SHAY RIVERA Self - patient is the [...]
== END 2024-08-18 09:45 | disposition home or self-care (01) ==
PROVIDERS: PCP Family Medicine; Visit Provider Internal Medicine
DX: I25.810 Atherosclerosis of coronary artery bypass graft(s) without angina pectoris (principal); Z95.1 Presence of aortocoronary bypass graft; E11.9 Type 2 diabetes mellitus without complications
CPT/HCPCS: 93010; 99214; G2211

== ENCOUNTER → 2024-08-18 09:14 | Outpatient (BNVA) | payer MEDICARE, SELFPAY | PROVIDERS: PCP Family Medicine; Visit Provider Internal Medicine | DX: I25.810 Atherosclerosis of coronary artery bypass graft(s) without angina pectoris (principal); E11.9 Type 2 diabetes mellitus without complications; Z95.1 Presence of aortocoronary bypass graft | CPT/HCPCS: 93005; 99212 ==

== ENCOUNTER 2024-10-28 11:59 | Outpatient (AMB) | payer MEDICARE, SELFPAY ==
--- NOTE | 2024-10-28 12:02 | MHC.PC.OV ---
Vital Signs 10/28/24 12:11 Height 5 ft 5 in Weight 143 lb 2 oz BMI 23.8 BP 102/64 Blood Pressure Location Rt brachial Position Sitting Pulse 68 Pulse Source Pulse Oximeter Temp 97.8 F Temp Source Oral Pulse Oximetry (%) 90 L Oxygen Delivery Method Room Air Intake Visit Reasons: Re: calcium instead of bone density medication. Allergies acetaminophen [From TYLENOL] Adverse Reaction (Intermediate, Verified 10/28/24 12:08) gi upset Medication List - Last Reconciled 10/28/24 by Ari Shell MD alendronate 70 mg PO QWEEK 28 days aspirin (Adult Aspirin Regimen) 81 mg PO DAILY atorvastatin 80 mg PO BEDTIME 30 days bethanechol chloride 50 mg PO BID 90 days blood sugar diagnostic (FreeStyle Lite Strips) TEST THREE TIMES A DAY OR DIRECTED. blood-glucose meter (FreeStyle Lite Meter kit) As Directed cholecalciferol (vitamin D3) 25 mcg PO DAILY 90 days lancets (FreeStyle Lancets) Test four times a day or as directed. levetiracetam 250 mg PO BID 90 days metoprolol succinate ER 25 mg PO DAILY 90 days paroxetine HCl 30 mg PO DAILY 90 days pen needle, diabetic Use four times a day or as directed. terazosin 10 mg PO BEDTIME 90 days Tobacco use date assessed: 10/28/24 Fall risk assessment: No Falls in past year Dental Screening Dental Screen Date: 10/28/24 Did you have a dental visit in the last 12 months?: Yes Did you have a dental problem in the last 6 months where you did not have access to dental care?: Yes Was dental information given to patient?: No HPI Re: calcium instead of bone density medication. HPI Details 74 y/o male presents to f/u diabetes, chronic conditions. Bone density test had shown osteoporosis. Sent alendronate. Prior A1c 5.9%. A1c today 10/28/24 is 6.0%. Had been following up with endocrinology as well. Last labs drawn June and anemia has been improving. He reports recent dental procedure and some facial swelling. HPI Comments History of Present Illness Details Documentation assistance for Ari Shell MD, was provided by Luis Fernando Jeffery,? Commercial Property Administrator on 10/28/2024 at 12:26 PM EST. I, Dr. Shell, have read, observed, and verified documentation. ?? [facility] Medical History (Updated 10/28/24 @ 12:27 by Luis Fernando Jeffery) Adult general medical exam Screening for prostate cancer Colon cancer screening Low back pain Hyperlipidemia Diabetes Elevated liver enzymes Immunization counseling Opioid dependence, uncomplicated Chronic, continuous use of opioids Pneumothorax, left Fall Closed fracture nasal bone Abrasion of face Screening for osteoporosis Low HDL (under 40) Right elbow pain Opioid use Frontal headache Headache Mild dehydration Muscle spasm History of blood transfusion Back pain Brain tumor Meningioma PTSD (post-traumatic stress disorder) Anxiety Depression Anemia Thrombocytopenia GERD (gastroesophageal reflux disease) CAD (coronary artery disease) Sacroiliitis Hx of thrombocytopenia Anemia Hx of small bowel obstruction GERD (gastroesophageal reflux disease) Migraine Depression Hx of meningioma of the brain PTSD (post-traumatic stress disorder) Anxiety Peyronie's disease CAD (coronary artery disease) HTN (hypertension) Surgical History H/O craniotomy Hx of CABG History of resection of meningioma History of back surgery Hx of colonoscopy History of nasal surgery History of bowel resection History of quadruple bypass Hx of CABG Family History Father No problems noted. Mother No problems noted. Brother No problems noted. Sister No problems noted. Sister No problems noted. Sister No problems noted. Social History Household Members: None Housing: Condominium Are you a primary neurocritical care physician to a significant other at home: No Do you presently have visiting nurse or other home services: Yes (DM teaching) Alcohol intake: never Patient Tobacco Use Status: Never used Tobacco e-Cigarette/Vaping Use: Never Used Second Hand Smoke Exposure: No service: No Current occupational status: retired Current occupational exposures/hazards: No Cognitive needs: No Hearing needs: No Vision needs: Yes (Reading glasses) Questionnaire Thrive Questionnaire Date Thrive assessed: 07/09/24 I am a: Patient What is your living situation today?: I have a steady place to live Within the past 12 months, did the food you bought not last and you didn't have the money to get more?: Never true Within the past 12 months, did you worry whether your food would run out before you got money to buy more?: Never true Do you have trouble paying for medicines?: No Do you have trouble getting transportation to medical appointments?: No Do you have trouble paying your heating and electricity bill?: No Do you have trouble taking care of your child, family member or friend?: No Do you have trouble with day-to-day activities such as bathing, preparing meals, shopping, managing finances, etc.?: No Are you currently unemployed and looking for a job?: No Are you interested in more education?: No Please select the resources that you would like help with: None Currently or been in a relationship where the following occur: No concerns reported THRIVE Score: 0 SUJATA-7 AMB Questionnaire SUJATA-7 Date SUJATA - 7 assessed: 10/28/24 Feeling nervous, anxious, or on edge: 0 = Not at all Not being able to stop or control worryin = Not at all Worrying too much about different things: 0 = Not at all Trouble relaxin = Not at all Being so restless that it is hard to sit still: 0 = Not at all Becoming easily annoyed or irritable: 0 = Not at all Feeling afraid as if something awful might happen: 0 = Not at all Total SUJATA-7 score (0-4 normal; 5-9 mild; 10-14 moderate; 15-21 severe): 0 Source: Developed by Drs. Malcolm Garrido, Brenda Garner, Roberto Fraser and colleagues, with an educational lobo from [employer]. SUJATA-7 Assessment Billing SUJATA-7 Assessment Tool: SUJATA-7 Assessment 41694 Review of Systems Const Denies chills, Denies fatigue, Denies fever(s), Denies headache(s) and Denies weakness ENT Denies dizziness and Denies headache(s) Card Denies chest pain, Denies lightheadedness, Denies dyspnea and Denies other (Palpitations) Resp Denies cough, Denies dyspnea, Denies wheezing and Denies other ( shortness of breath) Musc Denies numbness and Denies tingling Neuro Denies dizziness, Denies headache(s), Denies numbness, Denies tingling, Denies paresthesias and Denies weakness Psych Denies anxiety and Denies depression Endo Denies fatigue Aller/Immun Denies wheezing Physical exam (Primary Care) Vital Signs: Last Vital Signs Temp 97.8 F 10/28/24 12:11 Pulse 68 10/28/24 12:11 BP 102/64 10/28/24 12:11 Pulse Ox 90 L 10/28/24 12:11 Oxygen Delivery Method Room Air 10/28/24 12:11 BMI result Body Mass Index 23.8 Tobacco/Smoking Status: Tobacco use Status Tobacco use date assessed 10/28/24 10/28/24 12:13 Patient Tobacco Use Status Never used Tobacco 10/28/24 12:03 e-Cigarette/Vaping Use Never Used 10/28/24 12:03 Thrive Assessment: Date of Thrive Assessment Date Thrive assessed 07/09/24 10/28/24 12:03 Currently or been in a relationship where the following occur: No concerns reported Const General: no acute distress and well developed Nutritional Appearance: well nourished Orientation/consciousness: patient oriented x3 HENMT Head: Yes normocephalic and Yes atraumatic Eyes General: appearance normal, both eyes and all related structures Pupils: Equal, round and reactive pupils present EOM: EOMs intact bilaterally Resp Effort & Inspection: normal respiratory effort Auscultation: clear to auscultation bilaterally Cardio Rate: regular rate Rhythm: regular rhythm Heart sounds: S1 normal heart sound present, S2 normal heart sound present, no gallops, no murmurs and no rubs Neuro General: patient oriented x3 and gait normal Cranial nerves: Yes Equal, round and reactive pupils present Psych Affect: normal affect Coding Level of Care Code Est Pt Level 4 (71778) Diagnoses Diabetes E11.9 Osteoporosis M81.0 Anemia D64.9 Facial swelling R22.0 Additional Codes SUJATA-7 Assessment Billing - SUJATA-7 Assessment Tool: SUJATA-7 Assessment 97629 ([id number]) Assessment & Plan Assessment & Plan (1) Diabetes: Code(s): E11.9 - Type 2 diabetes mellitus without complications Category: Medical Plan: A1c?6.0%.??Good?control.??Goal?is?less?than?7.0%. Currently?on?some?prednisone?due?to?facial?swelling?after?a?dental?procedure?and?he?notes?sugars?are?a?little?higher. Reassured?him?he?should?be?off?the?steroid?soon?and?blood?sugar?should?return?to?his?baseline. Continue?diabetic?diet. No?change?to?his?medication?regimen. (2) Osteoporosis: Code(s): M81.0 - Age-related osteoporosis without current pathological fracture Category: Medical Plan: Bone?density?showed?osteoporosis?in?his?hip Had?recommended?alendronate?70?mg?weekly.??Patient?is?apprehensive?about?this Will?send?script?for?35?mg?weekly We?can?discuss?at?a?follow-up?visit (3) Anemia: Code(s): D64.9 - Anemia, unspecified Category: Medical Plan: Nearly?resolved Will?continue?to?monitor. (4) Facial swelling: Code(s): R22.0 - Localized swelling, mass and lump, head Category: Medical Plan: Facial?swelling?after?dental?extractions?and?bone?graft He?is?using?pain?medication?and?I?advised?ice?and?elevation?of?head?at?bedtime Was?also?given?an?opioid.??Advised?caution?as?he?has?had?issues?with?this?in?the?past. Medications: Changed From alendronate 70 mg PO QWEEK 28 days 4 tabs 3RF M81.0 - Age-related osteoporosis without current pathological fracture To alendronate 35 mg PO QWEEK 28 days 4 tabs 3RF M81.0 - Age-related osteoporosis without current pathological fracture
[2024-10-28 12:11] VITALS: BP 102/64; PULSE 68; TEMP 36.6; O2SAT 90; BMI 23.8
--- OUTSIDE RECORDS SUMMARY | 2024-10-28 13:29 | XMS_ITS | Continuity of Care Document ---
Author Organization [facility] [address] [place] [address] Phone [phone] Care Team Providers Care Well Cleaner Name Role Phone Ari Shell MD Care Team Information Solar Sales Assessor [phone] Problems Active Problems Provider Date Diabetes mellitus [...] sugars daily 100units Pranay Aguilera M.D. 07/23/2024 [id number] Tablets Take 1 Tablet By Mouth Twice A Day Ari Shell MD Terazosin [id number] Capsules Take 1 Capsule By Mouth AT Bedtime Unknown Atorvastatin [id number] Tablets Take 1 Tablet By Mouth Everyday AT Bedtime Ari Shell MD Paroxetine [id number] Tablets 1 tab by mouth every day Ari Shell MD Metoprolol Succinate ER25mg Tablets ER 24HR 1 tab by mouth every day 90tabs Ari Shell MD History Medications Cflagmepa15fa Tablets 1 tablet by mouth every day 90tabs Pranay Aguilera M.D. 03/17/2024 - 05/12/2024 Vital Signs Date Vital Result Comment 10/14/2024 9:51am BP Systolic 120 mmHg BP Diastolic 76 mmHg Heart Rate 72 /min Height 67 inches 5'7 Weight 141.38 lb BMI (Body Mass Index) 22.1 kg/m2 Results Test Acquired Date Facility Test Result H/L Range N ote Glucose Fingerstick 10/14/2024 Inhouse Glucose Fingerstick 99 Hemoglobin A1c 10/14/2024 Inhouse Hemoglobin A1c 6.0% Glucose Fingerstick 07/01/2024 Inhouse Glucose Fingerstick 110 Hemoglobin A1c 07/01/2024 Inhouse Hemoglobin A1c 6.1% Glucose Fingerstick 03/17/2024 Inhouse Glucose Fingerstick 84 Glucose Fingerstick 01/13/2024 Inhouse Glucose Fingerstick 115 Hemoglobin A1c 01/13/2024 Inhouse Hemoglobin A1c 5,9% Ovidio-65 Autoantibody 11/03/2023 [facility] Ovidio-65 Autoantibody <5.0 U/mL 0.0-5.0 Glucose Fingerstick 11/03/2023 Inhouse Glucose Fingerstick 88 Medical Devices Description No Information Available Encounters Type Date Location Provider Dx Diagnosis Office Visit 10/14/2024 9:30a Main Office Pranay Aguilera M.D. E11.9 Type 2 diabetes mellitus without complications Assessments Date Code Description Provider 10/14/2024 E11.9 Type 2 diabetes mellitus without complications Pranay Aguilera M.D. Plan of Treatment Future Appointment(s):* 02/24/2025 10:15 am - Pranay Aguilera M.D. at Main Office 07/01/2024 - Pranay Aguilera M.D.* E11.9 Type 2 diabetes mellitus without complications Functional Status Description No Information Available Mental Status Description No Information Available Referrals Description No Information Available
--- OUTSIDE RECORDS SUMMARY | 2024-10-28 13:29 | XMS_ITS | Patient Health Record ---
Author Organization [facility] Address [address] [place] [address] Care Team Providers Care Slip Filler Name Role Phone Ari Shell Primary Care Provider Unavailab Casey Cabrales Jr Unavailable Allergies Allergen (clinical drug ingredient) Drug/Non Drug Allergy documented on EMR Reaction Allergy Type Onset Date Status acetaminophen Tylenol Unknown Drug Allergy Act jaclyn Reason For Referral No Information Medications Medication SIG (Take, Route, Frequency, Duration) Notes [...] mor adeola Orally Once a day Active Immunizations Vaccine Route Administration Date Status Comme nts Influenza Unknown 02/21/2019 Administered Problems Problem Type SNOMED Code ICD Code Onset Dates Problem Status W/U Status Risk Notes Problem 355588805 Colon cancer screening (Z12.11) Active confirmed Problem 143393712 Long-term curren t use of high risk medication other than anticoagulant (Z79.899) Active confirmed Plan Of Treatment Future Test Test Name Order Date COLONOSCOPY 07/28/2014 COLONOSCOPY 12/02/2019 Next Appt Details Provider Name:Casey Nunez Santy holland Jr, 11/10/2024 10:40:00 AM, [address], [address], [place], [address], Insurance Providers Payer Name Payer Address Payer Phone Subscriber Number Group Number Insured Name Patient Relationship to Insured Coverage Start Date Coverage End Date [facility] [address] [place], [place] [id number] SHAY RIVERA Self - patient is the insured Medical (General) History Medical History History ICD Code colonoscopy 09/04, [...]
== END 2024-10-28 12:28 | disposition home or self-care (01) ==
LOC: HO.HMCFM 12:00
PROVIDERS: PCP Family Medicine; Visit Provider Family Medicine
DX: E11.9 Type 2 diabetes mellitus without complications (principal); M81.0 Age-related osteoporosis without current pathological fracture; D64.9 Anemia, unspecified; R22.0 Localized swelling, mass and lump, head

== ENCOUNTER → 2024-10-28 11:59 | Outpatient (BNVA) | payer MEDICARE, SELFPAY | PROVIDERS: PCP Family Medicine; Visit Provider Family Medicine | DX: E55.9 Vitamin D deficiency, unspecified (principal); M81.0 Age-related osteoporosis without current pathological fracture; D64.9 Anemia, unspecified; R22.0 Localized swelling, mass and lump, head | CPT/HCPCS: 96127; 99212 ==

== ENCOUNTER 2024-11-09 09:20 | Outpatient (AMB) | payer MEDICARE, SELFPAY ==
--- NOTE | 2024-11-09 09:24 | A.OFFVIS_ITS ---
Intake Visit Reasons: 6m/PVR Intake Note: Pt presents to the office today for a 6 month follow up/PVR. PVR:477ml Allergies acetaminophen [From TYLENOL] Adverse Reaction (Intermediate, Verified 11/09/24 09:24) gi upset HPI Comments Details: Reagan is a pleasant male. He is a patient of Dr. Shell. He is seen for the following urologic conditions - recurrent UTI - incomplete bladder emptying Previously been on combination terazosin bethanechol PVR 470 cc UA normal Discussed possible InterStim for overactive bladder Proposed urodynamics He is willing to trial urodynamics to further characterize bladder emptying Lower urinary tract symptoms Continues with incomplete emptying Previous issues surrounding Jardiance He is extremely high risk of recurrent urosepsis if he were to continue with SGLT2 class medications Episode of urosepsis 09/13 - diagnosed as new onset diabetic with ketoacidosis. Trialed bethanechol for bladder emptying with terazosin He tells me he thinks this is going well in his cleared the bethanechol with his neurologist Cystoscopy today open bladder neck, grade 3 trabeculations - would benefit from InterStim Would continue terazosin and bethanechol Six-month follow-up nurse-practitioner PVR PFSH Medical History Adult general medical exam Screening for prostate cancer Colon cancer screening Low back pain Hyperlipidemia Diabetes Elevated liver enzymes Immunization counseling Opioid dependence, uncomplicated Chronic, continuous use of opioids Pneumothorax, left Fall Closed fracture nasal bone Abrasion of face Screening for osteoporosis Low HDL (under 40) Right elbow pain Opioid use Frontal headache Headache Mild dehydration Muscle spasm History of blood transfusion Back pain Brain tumor Meningioma PTSD (post-traumatic stress disorder) Anxiety Depression Anemia Thrombocytopenia GERD (gastroesophageal reflux disease) CAD (coronary artery disease) Sacroiliitis Hx of thrombocytopenia Anemia Hx of small bowel obstruction GERD (gastroesophageal reflux disease) Migraine Depression Hx of meningioma of the brain PTSD (post-traumatic stress disorder) Anxiety Peyronie's disease CAD (coronary artery disease) HTN (hypertension) Surgical History H/O craniotomy Hx of CABG History of resection of meningioma History of back surgery Hx of colonoscopy History of nasal surgery History of bowel resection History of quadruple bypass Hx of CABG Family History Father No problems noted. Mother No problems noted. Brother No problems noted. Sister No problems noted. Sister No problems noted. Sister No problems noted. Social History Household Members: None Housing: Condominium Are you a primary laboratory animal care veterinarian to a significant other at home: No Do you presently have visiting nurse or other home services: Yes (DM teaching) Alcohol intake: never Patient Tobacco Use Status: Never used Tobacco e-Cigarette/Vaping Use: Never Used Second Hand Smoke Exposure: No service: No Current occupational status: retired Current occupational exposures/hazards: No Cognitive needs: No Hearing needs: No Vision needs: Yes (Reading glasses) Review of Systems Const Denies chills and Denies fever(s) Card Reports no additional complaints and Denies syncope Resp Denies cough GI Denies abdominal pain and Denies heartburn Reports as per HPI and Denies change in libido Neuro Denies syncope Psych Denies change in libido Endo Denies change in libido Physical Exam Const General: cooperative, healthy appearing, comfortable and no acute distress Orientation/consciousness: patient oriented x3 HEENT Face and sinus: Yes normal facial exam Mouth: moist mucous membranes Neck Neck: Yes normal visual inspection, Yes full ROM and Yes trachea midline Chest Chest palpation & inspection: normal inspection of the chest Resp Effort & Inspection: normal respiratory effort, able to speak in complete sentences and no respiratory distress GI Inspection: Yes normal to inspection Back/Spine/Pelvis Cervical Spine: normal cervical lordosis Thoracic/Lumbar Spine: thoracic and lumbar spine normal to inspection Skin General skin exam: no rashes or lesions noted Neuro General: patient oriented x3, gait normal, tone normal and moves all extremities Extrem General: Yes normal to inspection and Yes capillary refill normal Office Procedures Post Void Residual Post Residual Void Post Void Residual (PVR): 477 [id number] Void Residual by ultrasound Results AMB Urinalysis, Automated UA Leukoctes 0 Lubna/uL Last Edit by Hailee Pena CMA on 11/09/24 09:30 UA Nitrite Negative Last Edit by Hailee Pena CMA on 11/09/24 09:30 UA Urobilinogen 3.5 mg/dL Last Edit by Hailee Pena CMA on 11/09/24 09:30 UA Protein 0 mg/dL Last Edit by Hailee Pena CMA on 11/09/24 09:30 UA pH 6.0 Last Edit by Hailee Pena CMA on 11/09/24 09:30 UA Blood 0 Popeye/uL Last Edit by Hailee Pena CMA on 11/09/24 09:30 UA Specific [place] 1.015 Last Edit by Hailee Pena CMA on 11/09/24 09:30 UA Ketone Negative Last Edit by Hailee Pena CMA on 11/09/24 09:30 UA Bilirubin 0 mg/dL Last Edit by Hailee Pena CMA on 11/09/24 09:30 UA Glucose 0 mg/dL Last Edit by Hailee Pena CMA on 11/09/24 09:30 Results Reviewed Results Reviewed: Laboratory Last Values Urine pH (Auto) 6.0 11/09/24 09:25 Specific [place] (Auto) 1.015 11/09/24 09:25 Urine Protein (Auto) 0 mg/dL 11/09/24 09:25 Glucose (UA)(Auto) 0 mg/dL 11/09/24 09:25 Urine Ketones (Auto) Negative 11/09/24 09:25 Urine Blood (Auto) 0 Popeye/uL 11/09/24 09:25 Urine Nitrite (Auto) Negative 11/09/24 09:25 Urine Bilirubin (Auto) 0 mg/dL 11/09/24 09:25 Urine Urobilinogen (Auto) 3.5 mg/dL 11/09/24 09:25 Leukocyte Esterase (Auto) 0 Lub[place]/uL 11/09/24 09:25 Assessment & Plan Assessment & Plan (1) Urinary retention: Code(s): R33.9 - Retention of urine, unspecified Category: Medical (2) Lower urinary tract symptoms: Code(s): R39.9 - Unspecified symptoms and signs involving the genitourinary system Category: Medical (3) Incomplete bladder emptying: Code(s): R33.9 - Retention of urine, unspecified Category: Medical Plan Urodynamics Orders: Orders AMB Post Void Residual by ultrasound Today R33.9 - Retention of urine, unspecified AMB Urinalysis Automated Today R39.9 - Unspecified symptoms and signs involving the genitourinary system Medications: Refilled bethanechol chloride 50 mg PO BID 180 tabs 1RF 90 days N39.0 - Urinary tract infection, site not specified terazosin 10 mg PO BEDTIME 90 caps 1RF 90 days N40.1 - Benign prostatic hyperplasia with lower urinary tract symptoms, R35.0 - Frequency of micturition Patient Instructions: This note is constructed using voice recognition software. While every effort has been made to ensure accuracy bow tacker errors may have been included. Imaging studies, laboratory and physical exam results were discussed and reviewed in detail. No major barriers to patient understanding were identified. An opportunity to ask questions regarding the treatment plan was provided. All questions were answered. The patient expressed understanding and agreement with the above treatment plan. The patient is aware they should contact our office by phone for worsening of their current condition or the appearance of new urologic symptoms. Compliance is encouraged with any medications and followup testing that is ordered. It is a privilege to participate in the urologic care of your patient. If you have any questions or concerns regarding treatment for the above conditions, or other urologic issues, please do not hesitate to contact me. The office telephone contact is [phone]. Sincerely, Dr Andrews Justice MD, [facility] - Urology Compassionate Specialist Care for the Genitourinary System Coding Level of Care Code Est Pt Level 4 (96721) Complex EM visit Add On G2211 Diagnoses Urinary retention R33.9 Lower urinary tract symptoms R39.9 Incomplete bladder emptying R33.9 CPT Codes Post Residual Void - PVR CPT Code: 93908-Ggfa Void Residual by ultrasound ([id number])
--- OUTSIDE RECORDS SUMMARY | 2024-11-09 10:09 | XMS_ITS | Patient Health Record ---
Author Organization [facility] Address [address] [place] [address] Care Team Providers Care Bench Carpenter Name Role Phone Ari Shell Primary Care [...] Problem Status W/U Status Risk Notes Problem [id number] Colon cancer screening (Z12.11) Active confirmed Problem 778193006 Long-term curren t use of high risk medication other than anticoagulant (Z79.899) Active confirmed Plan Of Treatment Future Test Test Name Order Date COLONOSCOPY 07/28/2014 COLONOSCOPY 12/02/2019 Next Appt Details Provider Name:Casey Nunez Santy holland Jr, 11/10/2024 10:40:00 AM, [address] [facility], [address], [place], [address], Insurance Providers Payer Name Payer Address Payer Phone Subscriber Number Group Number Insured Name Patient Relationship to Insured Coverage Start Date Coverage End Date [facility] [address] [place], [place] [id number] SHAY RIVERA Self - patient is the [...]
== END 2024-11-09 10:33 | disposition home or self-care (01) ==
LOC: HO.HUSH 09:21
PROVIDERS: PCP Family Medicine; Visit Provider Urology
DX: R33.9 Retention of urine, unspecified (principal); R39.9 Unspecified symptoms and signs involving the genitourinary system
CPT/HCPCS: 99214; G2211

== ENCOUNTER → 2024-11-09 09:20 | Outpatient (BNVA) | payer MEDICARE, SELFPAY | PROVIDERS: PCP Family Medicine; Visit Provider Urology | DX: R33.9 Retention of urine, unspecified (principal); R39.9 Unspecified symptoms and signs involving the genitourinary system | CPT/HCPCS: 51798; 81003; 99212 ==

== ENCOUNTER 2024-12-14 09:10 | Day surgery (SDC) | payer MEDICARE, SELFPAY ==
--- OUTSIDE RECORDS SUMMARY | 2024-11-10 06:40 | XMS_ITS ---
Author Organization [facility] Address [address] [place] [address] Care Team Providers Care Food Service Sales Representatives Name Role Phone Ari Shell Primary Care Provider UnavailCasey Avery Jr Unavailable [phone] Allergies Allergen (clinical drug ingredient) Drug/Non Drug Allergy documented on EMR Reaction Allergy Type Onset Date Status acetaminophen Tylenol Unknown Drug Allergy Act jaclyn REASON FOR VISIT Patient presents today for a COLON SCREENING Medications Medication SIG (Take, Route, Frequency, Duration) Notes Start Date End Date Status Metoprolol Succinate ER 25 MG TAKE 1 TABLET BY MOUTH EVERY DAY Oral for 90 Days Active Metoprolol Succinate ER 25 MG TAKE 1 TABLET BY MOUTH EVERY DAY Oral for 90 Active PARoxetine HCl 30 MG 1 tablet in the mor adeola Orally Once a day Active Atorvastatin Calcium 80 MG Oral for 90 Days Active Terazosin HCl 10 MG Oral for 90 Days Active Simvastatin 80 MG 1 tablet in the even ing Orally Once a day Active Aspirin 81 81 MG 1 tablet Orally Once a day Active D3-1000 25 MCG (1000 UT) TAKE 1 CAPSULE BY MOUTH EVERY DAY Oral for 90 Days Active Problems Problem Type SNOMED Code ICD Code Onset Dates Problem Status W/U Status Risk Notes Problem Long-term current use of aspirin ([id number]) Aspirin long-term use (Z79.82) Active confirmed Vital Signs Temperature 96.8 degrees Fahrenheit 11/11/19 25 Blood pressure systolic 001 mm Hg 11/11/19 25 Blood pressure diastolic 01 mm Hg 025 Height 64 in 11/10/2024 Weight 142.6 lbs 11/10/2024 BMI 24.47 kg/m2 11/10/2024 Encounters Encounter Location Date Provider Diagnosis [facility] [address] [place] [address] 11/10/2024 Casey Bernstein Jr Colon cancer screening Z12.11 ; Aspirin long-term use Z79.82 and History of adenomatous polyp of colon Z86.0101 Assessments Encounter Date Diagnosis (ICD Code) Assessment Notes Treatment Notes Treatment Clinical Notes Section Notes 11/10/2024 Colon cancer screening (ICD-10 - Z12.11) We discussed colonoscopy today. We discussed risks and benefits of the procedure today. He understands these and agrees to proceed. This will be scheduled at his convenience. He is advised to stop aspirin 1 week before the procedure. 11/10/2024 Aspirin long-term use (ICD-10 - Z79.82) We discussed colonoscopy today. We discussed risks and benefits of the procedure today. He understands these and agrees to proceed. This will be scheduled at his convenience. He is advised to stop aspirin 1 week before the procedure. 11/10/2024 History of adenomatous polyp of colon (ICD-10 - Z86.0101) We discussed colonoscopy today. We discussed risks and benefits of the procedure today. He understands these and agrees to proceed. This will be scheduled at his convenience. He is advised to stop aspirin 1 week before the procedure. Plan Of Treatment Future Test Test Name Order Date COLONOSCOPY 11/10/2024 Next Appt Details Follow Up: 1 Year, Reason: Provider Name:Casey holland Jr, 12/14/2024 11:00:00 AM, [address] [place] [address] , [place], [place], [phone], Progress Notes * ADRIÁN ESCOBEDODOB:1949 (74 yo M)Acc No.[id number]:11/10/2024 Progress Notes Patient: ADRIÁN LADD Provider: Gillian Bernstein MD :1950 A ge:74 Y S ex:Male Date:11/10/2024 Address:[address] [place] [address] [id number] Pcp:Ari Shell Subjective: * Chief Complaints: * 1 . Patient presents today for a COLON SCREENING. 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 He has a history of colon polyps and last underwent colonoscopy in March 2020. 5-year follow-up was recommended because of his history of prior polyps. He has no complaints of rectal bleeding. He has no change in his bowel habits. Weight and appetite have been stable. * ROS: G eneral/Constitutional: Change in appetite d enies. F atigue d enies. ? E NT: Patient denies d ifficulty swallowing. R espiratory: Patient denies s hortness of breath. C ardiovascular: Patient denies c hest pain. G astrointestinal: Comments S [facility] for details. G enitourinary: Difficulty urinating d enies. I ncontinence d enies. M usculoskeletal: Patient denies m uscle aches. S kin: Patient denies p ruritis. N eurologic: Patient denies l ow back pain. P sychiatric: Patient denies m ental or physical abuse. 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 * Surgical History: b rain surgery , heart surgery , colon bowel surgery , back surgery , quadrupal bypass . * Family History: F ather: , diagnosed with Heart disease. M other: . uncle colon cancer maternal late in age. No family history of liver cancer. * Social History: T obacco Use: T obacco Use/Smoking A re you a: nonsmoker. D rugs/Alcohol: A lcohol Screen P oints: 0, Interpretation: Negative. M iscellaneous: M arital status: single. 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 * Medications: T aking Aspirin 81 81 MG Tablet Delayed Release 1 tablet Orally Once a day , Taking Simvastatin 80 MG Tablet 1 tablet in the evening Orally Once a day , Taking PARoxetine HCl 30 MG Tablet 1 tablet in the morning Orally Once a day , Taking Metoprolol Succinate ER 25 MG Tablet Extended Release 24 Hour TAKE 1 TABLET BY MOUTH EVERY DAY Oral , Taking Terazosin HCl 10 MG Capsule Oral , Taking Atorvastatin Calcium 80 MG Tablet Oral , Taking Metoprolol Succinate ER 25 MG Tablet Extended Release 24 Hour TAKE 1 TABLET BY MOUTH EVERY DAY Oral , Taking D3-1000 25 MCG (1000 UT) Capsule TAKE 1 CAPSULE BY MOUTH EVERY DAY Oral , Discontinued traZODone HCl 100 MG Tablet Orally , Discontinued Lisinopril 20 MG Tablet TAKE 1 TABLET BY MOUTH EVERY DAY Oral , Discontinued Pentoxifylline ER 400 MG Tablet Extended Release TAKE 1 TABLET BY MOUTH TWICE A DAY WITH MEALS Oral , Discontinued fentaNYL 12 MCG/HR Patch 72 Hour (Schedule II Drug) APPLY 1 PATCH TO SKIN EVERY 72 HOURS Transdermal , Discontinued Finasteride 5 MG Tablet TAKE 1 TABLET BY MOUTH EVERY DAY Oral , Discontinued Bethanechol Chloride 50 MG Tablet Oral , Discontinued oxyCODONE HCl 5 MG Tablet Oral , Discontinued oxyCODONE HCl 5 MG Tablet 1 TABLET EVERY 4 TO 6 HOURS NEEDED Oral , Discontinued Bethanechol Chloride 50 MG Tablet TAKE 1 TABLET BY MOUTH TWICE A DAY Oral , Discontinued Alendronate Sodium 35 MG Tablet TAKE 1 TABLET ORALLY EVERY WEEK FOR 28 DAYS Oral , Discontinued MiraLax (colon prep) 8.3 ounce ((238) grams mixed with Gatorade or Crystal Light orally begin at 5:00 p.m. the day before the procedure , Medication List reviewed and reconciled with the patient * Allergies: T ylenol. Objective: * Vitals: W t:142.6lbs, Ht: 64 in, BMI:24.47Index, BP:001/01mm Hg, Temp:96.8, Wt-k.68. * Examination: G eneral Examination: GENERAL APPEARANCE: i n no acute distress. HEAD: n ormocephalic. EYES: s clera non-icteric. ORAL CAVITY: m ucosa moist. NECK/THYROID: n o lymphadenopathy. SKIN: a nicteric. HEART: S 1, S2 normal, no murmurs. LUNGS: c lear to auscultation bilaterally. CHEST: n ormal shape and expansion. ABDOMEN: s oft, nontender, nondistended, bowel sounds present, no organomegaly . EXTREMITIES: n o clubbing, cyanosis, or edema. PSYCH: c ognitive function intact. Assessment: * Assessment: 1. A spirin long-term use - Z79.82 (Primary) 2 . C olon cancer screening - Z12.11 3 . H istory of adenomatous polyp of colon - Z86.0101 We discussed colonoscopy tod ay. We discussed risks and benefits of the procedure today. He understands these and agrees to proceed. This will be scheduled at his convenience. He is advised to stop aspirin 1 week before the procedure. Plan: * Treatment: 2.?Colon cancer screening?Procedure: COLONOSCOPY (Ordered for 11/10/2024)* sched for 12/14/24 at 11:10 a mmacmiralax * Procedure Codes: 3 017F COLORECTAL CA SCREEN DOC REV, 1036F TOBACCO NON-USER, G9744 PATIENT NOT ELIG D/T ACTIVE DX HTN * Preventive Medicine: Screenings: F all Risk Screening F all Risk Assessment: N o falls in the past year, S creening: N o falls in the past year, A ssessment: N ot performed, no reason specified, P shahab of Care: N ot documented, no reason specified. 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 He has a history of colon polyps and last underwent colonoscopy in March 2020. 5-year follow-up was recommended because of his history of prior polyps. He has no complaints of rectal bleeding. He has no change in his bowel habits. Weight and appetite have been stable. Examination Category Sub-Category Detail Notes Category Not es General Examination GENERAL APPEARANCE: in no acute di stress HEAD: normocephalic EYES: sclera non-icteric NECK/THYROID: no lymphadenopathy HEART: S1, S2 normal, no mu rmurs CHEST: normal shape and exp ansion LUNGS: clear to auscultatio n bilaterally ABDOMEN: soft, nontender, non distended, bowel sounds present, no organomegaly SKIN: anicteric EXTREMITIES: no clubbing, cyanosi s, or edema PSYCH: cognitive function i ntact ORAL CAVITY: mucosa moist
[2024-12-10 14:39] VITALS: BMI 24.4
--- NOTE | 2024-12-13 10:19 | P.CONAN_ITS ---
Documented by User: Sumi Cage NP 12/13/24 10:21 HPI - Anesthesia Eval Consult details Narrative: 74yo M for Colonoscopy PMFSH Active Problems Active Problems: All Active Problems Facial swelling (Acute) Osteoporosis (Acute) Diet-controlled diabetes mellitus (Acute) Status post aorto-coronary artery bypass graft (Acute) Urinary frequency (Acute) Bladder trabeculation (Acute) Insulin-treated type 2 diabetes mellitus (Acute) Sepsis (Acute) Urinary tract infection (Acute) Lower urinary tract symptoms (Acute) Incomplete bladder emptying (Acute) Urinary retention (Acute) Depression with anxiety (Acute) Hypercholesterolemia (Acute) Elevated fasting glucose (Acute) Low vitamin D level (Acute) Opioid abuse (Acute) Chronic pain syndrome (Acute) Seizure disorder (Acute) Fracture of rib (Acute) Thoracic kyphosis (Acute) Migraine headache (Acute) Lumbar radiculopathy (Acute) Screening for prostate cancer (Acute) Colon cancer screening (Acute) Adult general medical exam (Acute) Low back pain (Acute) Diabetes (Acute) Anemia (Acute) PTSD (post-traumatic stress disorder) (Acute) Peyronie's disease (Acute) Migraine (Acute) Hx of meningioma of the brain (Acute) GERD (gastroesophageal reflux disease) (Acute) Depression (Acute) CAD (coronary artery disease) (Acute) Anxiety (Acute) Sacroiliitis (Acute) Past Medical History Medical History Adult general medical exam Screening for prostate cancer Colon cancer screening Low back pain Hyperlipidemia Diabetes Elevated liver enzymes Immunization counseling Opioid dependence, uncomplicated Chronic, continuous use of opioids Pneumothorax, left Fall Closed fracture nasal bone Abrasion of face Screening for osteoporosis Low HDL (under 40) Right elbow pain Opioid use Frontal headache Headache Mild dehydration Muscle spasm History of blood transfusion Back pain Brain tumor Meningioma Thrombocytopenia Sacroiliitis Hx of thrombocytopenia Anemia Hx of small bowel obstruction GERD (gastroesophageal reflux disease) Migraine Depression Hx of meningioma of the brain PTSD (post-traumatic stress disorder) Anxiety Peyronie's disease CAD (coronary artery disease) HTN (hypertension) Family History Family History Father No problems noted. Mother No problems noted. Brother No problems noted. Sister No problems noted. Sister No problems noted. Sister No problems noted. Surgical History Surgical History H/O craniotomy History of resection of meningioma History of back surgery Hx of colonoscopy History of nasal surgery History of bowel resection History of quadruple bypass Social History Social History Household Members: None [facility] Are you a primary healthcare social worker to a significant other at home: No Do you presently have visiting nurse or other home services: No Alcohol intake: never Patient Tobacco Use Status: Never used Tobacco e-Cigarette/Vaping Use: Never Used Second Hand Smoke Exposure: No Have you been hit, kicked, punched, or otherwise hurt by someone within the past year? If so, by whom?: No Are you DNR?: No Advance Directives: No Advance Directives Information Provided: Yes Poor oral hygiene: No service: No Current occupational status: retired Current occupational exposures/hazards: No Cognitive needs: No Hearing needs: No Vision needs: Yes (Reading glasses) Meds Allergies Allergy/AdvReac Type Severity Reaction Status Date / Time acetaminophen (From TYLENOL) AdvReac Intermediate gi upset Verified 12/14/24 09:23 Home Medications ?Medication ?Instructions ?Recorded ?Confirmed ?Last Taken ?Type aspirin 81 mg tablet,delayed 81 mg PO DAILY 12/10/23 0 12/10/24 12/07/24 History release (Adult Aspirin Regimen) simvastatin 80 mg tablet 80 mg PO QPM 12/10/24 Unknown History Exam Height,Weight and Vital Signs: Height 5 ft 4 in Weight 64.41 kg Assessment and Plan Assessment Anesthesia Assessment: Chart Reviewed Documented by User: Tammie Ellis MD 12/14/24 10:05 [facility] Active Problems Active Problems: All Active Problems Facial swelling (Acute) Osteoporosis (Acute) Diet-controlled diabetes mellitus (Acute) Status post aorto-coronary artery bypass graft (Acute) Urinary frequency (Acute) Bladder trabeculation (Acute) Insulin-treated type 2 diabetes mellitus (Acute) Sepsis (Acute) Urinary tract infection (Acute) Lower urinary tract symptoms (Acute) Incomplete bladder emptying (Acute) Urinary retention (Acute) Depression with anxiety (Acute) Hypercholesterolemia (Acute) Elevated fasting glucose (Acute) Low vitamin D level (Acute)qq Opioid abuse (Acute) Chronic pain syndrome (Acute) Seizure disorder (Acute) Fracture of rib (Acute) Thoracic kyphosis (Acute) Migraine headache (Acute) Lumbar radiculopathy (Acute) Screening for prostate cancer (Acute) Colon cancer screening (Acute) Adult general medical exam (Acute) Low back pain (Acute) Diabetes (Acute) Anemia (Acute) PTSD (post-traumatic stress disorder) (Acute) Peyronie's disease (Acute) Migraine (Acute) Hx of meningioma of the brain (Acute) GERD (gastroesophageal reflux disease) (Acute) Depression (Acute) CAD (coronary artery disease) (Acute) Anxiety (Acute) Sacroiliitis (Acute) Past Medical History Medical History Adult general medical exam Screening for prostate cancer Colon cancer screening Low back pain Hyperlipidemia Diabetes Elevated liver enzymes Immunization counseling Opioid dependence, uncomplicated Chronic, continuous use of opioids Pneumothorax, left Fall Closed fracture nasal bone Abrasion of face Screening for osteoporosis Low HDL (under 40) Right elbow pain Opioid use Frontal headache Headache Mild dehydration Muscle spasm History of blood transfusion Back pain Brain tumor Meningioma Thrombocytopenia Sacroiliitis Hx of thrombocytopenia Anemia Hx of small bowel obstruction GERD (gastroesophageal reflux disease) Migraine Depression Hx of meningioma of the brain PTSD (post-traumatic stress disorder) Anxiety Peyronie's disease CAD (coronary artery disease) HTN (hypertension) Family History Family History Father No problems noted. Mother No problems noted. Brother No problems noted. Sister No problems noted. Sister No problems noted. Sister No problems noted. Surgical History Surgical History H/O craniotomy History of resection of meningioma History of back surgery Hx of colonoscopy History of nasal surgery History of bowel resection History of quadruple bypass History of Problems with Anesthesia: No Social History Social History Household Members: None Housing: Condominium Are you a primary healthcare social worker to a significant other at home: No Do you presently have visiting nurse or other home services: No Alcohol intake: never Patient Tobacco Use Status: Never used Tobacco e-Cigarette/Vaping Use: Never Used Second Hand Smoke Exposure: No Have you been hit, kicked, punched, or otherwise hurt by someone within the past year? If so, by whom?: No Are you DNR?: No Advance Directives: No Advance Directives Information Provided: Yes Poor oral hygiene: No service: No Current occupational status: retired Current occupational exposures/hazards: No Cognitive needs: No Hearing needs: No Vision needs: Yes (Reading glasses) Meds Allergies Allergy/AdvReac Type Severity Reaction Status Date / Time acetaminophen (From TYLENOL) AdvReac Intermediate gi upset Verified 12/14/24 09:23 Home Medications ?Medication ?Instructions ?Recorded ?Confirmed ?Last Taken ?Type aspirin 81 mg tablet,delayed 81 mg PO DAILY 12/10/23 0 12/10/24 12/07/24 History release (Adult Aspirin Regimen) simvastatin 80 mg tablet 80 mg PO QPM 12/10/24 Unknown History Exam Airway Mallampati Class: III TM Dist: >3cm Neck ROM: Full Loose/Missing/Broken Teeth: No Heart: RRR Lungs: CTA Assessment and Plan Final Anesthetic Review History of Problems with Anesthesia: No NPO: Yes ASA Class: III Final Preanesthetic Review: Meds/Allgs Chart Reviewed, Consent Obtained/Reviewed and Anes Risks/Benef Reviewed Patient Risk: Intermediate Procedure Risk: Low Anesthetic Plan Anesthetic Plan: MAC: Disposition: Standard PACU
[2024-12-14 09:21] VITALS: BMI 23.3
[2024-12-14] MEDS: Lactated Ringers 1,000 ML 100 ML IVCONT (09:27)
[2024-12-14 09:34] VITALS: BP 117/62; PULSE 69; RESP 18; TEMP 36.8; O2SAT 96
--- NOTE | 2024-12-14 09:35 | PC.NURSE ---
patient states that he no longer takes medications for diabetes and it is only diet controlled.
--- NOTE | 2024-12-14 10:08 | MHC.SHP ---
Pre-Procedural Eval Section A - 24 Hr Update-Section A only Date of Service: 12/14/24 Section B - Complete if H&P > 30 days Chief Complaint: Encounter for screening for malignant neoplasm of Details of Present Illness: see H&P no changes Relevant Family History (Specify if Yes): No Relevant Social History: None Present Medications: see Short Stay Collaborative assessment Medical History: No relevant PMH History of Previous Operations: No relevant previous surgery Allergies: Allergies Allergy/AdvReac Type Severity Reaction Status Date / Time acetaminophen (From TYLENOL) AdvReac Intermediate gi upset Verified 12/14/24 09:23 Review of Systems Sugical H&P ROS: Negative: Constitution, Cardiovascular, Respiratory, Neurological, Psychiatric, Hem-Onc, Allergic/Immunologic, Gastrointestinal, Genitourinary, Musculoskeletal, Integumentary, Endocrine and Eyes/Ears/Nose/Throat Exam Surgical H&P Exam: Normal: HEENT, Normal: Heart, Normal: Lungs, Normal: Extremities, Normal: Abdomen, Normal: Skin and Normal: Neurological Plan Diagnosis/Plan: Unchanged I have reviewed the history and physical and performed a pertinent physical examination on my patient. No changes have occurred unless specified. Time Spent With Patient Time: Total time managing care of this patient today ____ minutes.
[2024-12-14 10:45] VITALS: BP 83/51; PULSE 69; RESP 18; TEMP 36.1; O2SAT 96
[2024-12-14 11:00] VITALS: BP 104/64; PULSE 61; RESP 16; TEMP 36.6; O2SAT 93
--- NOTE | 2024-12-14 11:34 | OP_ITS ---
DATE OF SERVICE: 12/14/2024 SURGEON: Casey Bernstein MD INDICATIONS: Colon cancer screening, personal history of colon polyps. PREOPERATIVE DIAGNOSIS: POSTOPERATIVE DIAGNOSIS: PROCEDURE PERFORMED: Colonoscopy to the cecum. ESTIMATED BLOOD LOSS: COMPLICATIONS: ANESTHESIA: Monitored anesthesia care. ASSISTANTS: SPECIMENS: DESCRIPTION OF PROCEDURE: A history and physical was performed. The risks and benefits of the procedure were explained to the patient. Informed consent was obtained. The patient was placed in the left lateral decubitus position. A digital rectal exam was performed and was found to be normal. The Olympus pediatric video colonoscope was introduced into the rectum and advanced to the cecum. The cecum was identified by transillumination, palpation, and identification of ileocecal valve. Examination was performed. The scope was removed. He tolerated the procedure well and was returned to the recovery area in stable condition. FINDINGS: The terminal ileum was not examined. The visualized colonic mucosa was normal. The quality of the prep was average with some liquid stool coating the mucosa, which was washed and suctioned as best possible. No polyps were identified. A retroflexed examination showed some small internal hemorrhoids. IMPRESSION: Normal colonoscopy. RECOMMENDATION: 1. Follow up as needed. 2. Repeat colonoscopy is recommended in 10 years for average-risk individuals. Further screening is optional based on his age. MD SARI Cruz/ZENA / [phone]
== END 2024-12-14 11:20 | disposition home or self-care (01) ==
PROVIDERS: PCP Family Medicine; Visit Provider Internal Medicine Gastroenterology
PROC: 0DJD8ZZ Inspection of Lower Intestinal Tract, Via Natural or Artificial Opening Endoscopic (ICD-10-PCS; CPT 45378; principal; 2024-12-14 11:00)
DX: Z12.11 Encounter for screening for malignant neoplasm of colon (principal); K64.8 Other hemorrhoids; Z86.0101 Personal history of adenomatous and serrated colon polyps; E11.9 Type 2 diabetes mellitus without complications; I10 Essential (primary) hypertension; E78.5 Hyperlipidemia, unspecified; N48.6 Induration penis plastica; Z95.1 Presence of aortocoronary bypass graft; Z79.82 Long term (current) use of aspirin; Z79.02 Long term (current) use of antithrombotics/antiplatelets; Z79.899 Other long term (current) drug therapy
CPT/HCPCS: G0105; J2003; J2371; J2704

== ENCOUNTER 2025-01-14 08:09 | Outpatient (AMB) | payer MEDICARE, SELFPAY ==
--- OUTSIDE RECORDS SUMMARY | 2024-12-14 07:00 | XMS_ITS ---
Author Organization [facility] Address [address] [place] [address] Care Team Providers Care Editor House Organ Name Role Phone Ari Shell Primary Care Provider Unavailab Casey Cabrales Jr Unavailable [phone] REASON FOR VISIT screening Encounters Encounter Location Date Provider Diagnosis [facility] [place] [place] Outpatient [address] [place], [place] [phone] 12/14/2024 Casey Bernstein Jr Colon cancer screening Z12.11 and History of adenomatous polyp of colon Z86.0101 Assessments Encounter Date Diagnosis (ICD Code) Assessment Notes Treatment Notes Treatment Clinical Notes Section Notes 12/14/2024 Colon cancer screening (ICD-10 - Z12.11) 12/14/2024 History of adenomatous polyp of colon (ICD-10 - Z86.0101) Plan Of Treatment No Information Progress Notes * SHAY ESCOBEDODOB:1949 (74 yo M)Acc No.[id number]:12/14/2024 COLON WITH MAC Patient: SHAY LADD Provider: Gillian Bernstein MD :1950 A ge:74 Y S ex:Male Date:12/14/2024 Address:[address] [place] [address] [id number] Pcp:Ari Shell Subjective: * Chief Complaints: * 1 . Screening. * Medical History: Objective: * Vitals: Assessment: * Assessment: 1. C olon cancer screening - Z12.11 (Primary) 2 . H istory of adenomatous polyp of colon - Z86.0101 Plan: * Treatment: * Procedure Codes: 4 5378 DIAGNOSTIC COLONOSCOPY, Modifiers: 33 , 0529F INTRVL 3+YRS PTS CLNSCP DOCD, 0528F RCMND FLW-UP 10 YRS DOCD * * The named appointment provid er may or may not be the originator of this progress note, and it is not deemed complete until electronically signed by the appointment provider. Sign off status: Pending * Provider: Gillian Bernstein MD Date: 0 12/14/2024 Generated for Tevin gallo/Marlene/Cindiitting on: 0 01/14/2025 08:14 AM EDT
--- OUTSIDE RECORDS SUMMARY | 2025-01-14 08:15 | XMS_ITS | Continuity of Care Document ---
Author Organization [facility] [address] [place] [address] Phone [phone] Care Team Providers Care [employer] Officer Name Role Phone Ari Shell MD Care Team Information Stile Ripsaw Operator [phone] Problems Active Problems Provider Date Diabetes mellitus Pranay Aguilera M.D. Onset: 11/03/2023 Posttraumatic stress disorder Pranay Aguilera M.D. Onset: 11/03/2023 Anxiety Pranay Aguilera M.D. Onset: 0 11/03/2023 Depressive disorder Pranay Aguilera M.D. Onse t: 11/03/2023 Gastroesophageal reflux disease Pranay calix M.D. Onset: 11/03/2023 Essential hypertension Pranay Aguilera M.D. O nset: 11/03/2023 Social History Type Date Description Comments Sex Male Sex Unknown Tobacco Use Start: Unknown Never Smoked Cigarettes ETOH Use Never used alcohol Allergies and adverse reactions Active Allergies Criticality Reaction Severity Comments Date Tylenol Unable to assess criticality 11/03/2023 Medications Active Medications SIG Qnty Indications Order ing Provider Date Freestyle Insulinx Blood Glucose Test StripsStrips test blood sugars daily 100units Pranay Aguilera M.D. 07/23/2024 [id number] Tablets Take 1 Tablet By Mouth Twice A Day Ari Shell MD Terazosin [id number] Capsules Take 1 Capsule By Mouth AT Bedtime Unknown Atorvastatin Hzqyogm31gw Tablets Take 1 Tablet By Mouth Everyday AT Bedtime Ari Shell MD Paroxetine [id number] Tablets 1 tab by mouth every day Ari Shell MD Metoprolol Succinate ER25mg Tablets ER 24HR 1 tab by mouth every day 90tabs Ari Shell MD History Medications Nunwyeszv12oe Tablets 1 tablet by mouth every day [...]
--- NOTE | 2025-01-14 09:27 | MHC.OFFVIS ---
Intake Visit Reasons: UsD Allergies acetaminophen (From TYLENOL) Adverse Reaction (Intermediate, Verified 12/14/24 09:23) gi upset Medication List - Last Reconciled 01/14/25 by Courtney Suarez MD aspirin (Adult Aspirin Regimen) 81 mg PO DAILY atorvastatin (Lipitor) 80 mg PO BEDTIME blood sugar diagnostic (FreeStyle Lite Strips) TEST THREE TIMES A DAY OR DIRECTED. blood-glucose meter (FreeStyle Lite Meter kit) As Directed cholecalciferol (vitamin D3) 25 mcg PO DAILY 90 days lancets (FreeStyle Lancets) Test four times a day or as directed. levetiracetam 250 mg PO BID 90 days metoprolol succinate ER 25 mg PO DAILY 90 days paroxetine HCl 30 mg PO DAILY 90 days pen needle, diabetic Use four times a day or as directed. terazosin 10 mg PO BEDTIME 90 days HPI Comments Details: 01/14/25--Adrián is here for urodynamics. The patient has complaints of urinary retention. He is on terasozin and bethanochol. Interpretation: During the filling phase there was first sensation at 25 mL and first desire at 97 mL, there was detrusor overativity noted. The patient was not able to void with the urethral catheter in place and had a PVR >300 mL. History of Present Illness - The patient is a 74-year-old male presenting with incomplete bladder emptying. Diabetes Comorbidity. - The patient has been experiencing incomplete bladder emptying, which was identified during testing. - Bladder spasms were noted during the evaluation, and the patient is currently on Terazosin and Bethanechol, which have only had minimal benefits. Discussion: The sacral nerves play a vital role in controlling the bladder and bowel muscles.?When these nerves are stimulated, it can help regulate their function, improving control and reducing symptoms.?I discussed that Sacral neuromodulation is a therapy the sends impulses to the sacral nerve that control bladder and bowel function. Plan - Consideration of bladder pacemaker therapy due to incomplete bladder emptying and bladder spasms. - Explanation of the bladder pacemaker procedure, including the use of a temporary lead and subsequent evaluation for effectiveness. - The procedure can be done with local and sedation and is performed on an outpatient basis. 11/09/24--Reagan is a pleasant male. He is a patient of Dr. Shell. He is seen for the following urologic conditions - recurrent UTI - incomplete bladder emptying Previously been on combination terazosin bethanechol PVR 470 cc UA normal Discussed possible InterStim for overactive bladder Proposed urodynamics He is willing to trial urodynamics to further characterize bladder emptying Lower urinary tract symptoms Continues with incomplete emptying Previous issues surrounding Jardiance He is extremely high risk of recurrent urosepsis if he were to continue with SGLT2 class medications Episode of urosepsis 09/13 - diagnosed as new onset diabetic with ketoacidosis. Trialed bethanechol for bladder emptying with terazosin He tells me he thinks this is going well in his cleared the bethanechol with his neurologist Cystoscopy today open bladder neck, grade 3 trabeculations - would benefit from InterStim Would continue terazosin and bethanechol Six-month follow-up nurse-practitioner [facility] Medical History Adult general medical exam Screening for prostate cancer Colon cancer screening Low back pain Hyperlipidemia Diabetes Elevated liver enzymes Immunization counseling Opioid dependence, uncomplicated Chronic, continuous use of opioids Pneumothorax, left Fall Closed fracture nasal bone Abrasion of face Screening for osteoporosis Low HDL (under 40) Right elbow pain Opioid use Frontal headache Headache Mild dehydration Muscle spasm History of blood transfusion Back pain Brain tumor Meningioma Thrombocytopenia Sacroiliitis Hx of thrombocytopenia Anemia Hx of small bowel obstruction GERD (gastroesophageal reflux disease) Migraine Depression Hx of meningioma of the brain PTSD (post-traumatic stress disorder) Anxiety Peyronie's disease CAD (coronary artery disease) HTN (hypertension) Surgical History H/O craniotomy History of resection of meningioma History of back surgery Hx of colonoscopy History of nasal surgery History of bowel resection History of quadruple bypass Family History Father No problems noted. Mother No problems noted. Brother No problems noted. Sister No problems noted. Sister No problems noted. Sister No problems noted. Social History Household Members: None Housing: Condominium Are you a primary palliative care specialist to a significant other at home: No Do you presently have visiting nurse or other home services: No Alcohol intake: never Patient Tobacco Use Status: Never used Tobacco e-Cigarette/Vaping Use: Never Used Second Hand Smoke Exposure: No service: No Current occupational status: retired Current occupational exposures/hazards: No Cognitive needs: No Hearing needs: No Vision needs: Yes (Reading glasses) Review of Systems Const All systems reviewed & are unremarkable except as noted in HPI and below Reports no additional complaints Eyes Reports no additional complaints ENT Reports no additional complaints Card Reports no additional complaints Resp Reports no additional complaints GI Reports no additional complaints Reports as per HPI Musc Reports no additional complaints Skin/Breast Reports system reviewed and no additional complaints, except as documented Neuro Reports no additional complaints Psych Reports no additional complaints Endo Reports no additional complaints Luis/Lymph Reports no additional complaints Aller/Immun Reports no additional complaints Office Procedures Urodynamic Studies Consent Discussed risk and benefit or proposed procedure with the patient. Information consent for procedure given to the patient. Discussed technical aspects, risks, benefits and alternatives in full. Addressed all of the patient's questions and concerns regarding the procedure. The patient demonstrated knowledge and understanding. They wish to proceed with this procedure. Preparation The patient was prepped in the usual manner. A composition roofer was present and in the room. Genitalia was prepped with betadine solution in a sterile manner. Procedure Complex Uroflow Complex uroflow performed by: Courtney Suarez Maximum urinary flow rate (mL/second): 5.5 Voiding time (seconds): 2mins 7 seconds Voided volume (mL): 38ml Residual urine (mL): 350ml Cystometrogram ? Vaginal/rectal catheter type: Rectal First sensation at (mL): 26 mL First desire at (mL): 97 mL Strong desire to void occurred at (mL): 300 mL Strong desire detrusor pressure (cm H2O): 1.1 Maximum Capacity (mL): 433 mL Voiding Summary Patient attempted, but unable to void with catheters in place. Catheter removed and patient attempted to void, but only able to void a few drops. Offered to straight cath to empty out bladder, but patient declined. DO Dry: 102ml, 316ml DO Wet:NA Prep: The patient was prepped in the usual manner. A composition roofer was present and in the room. Genitalia was prepped with betadine solution in a sterile manner. 09471-Cppktydqtuircu w/ CYLINDER VALVE REPAIRER 68794-Ihnovhx-Bwaztvprmzxm 30379-Nxju/Urinary Muscle Study 41609-Bxgdn-Lezyastlf Pressure Test Procedure code (CPT) selection complete Office Meds nitrofurantoin monohydrate/macrocrystals 100 mg capsule Performing Provider: Courtney Suarez MD [facility] Administered by: Jelly Romo RN on 01/14/25 09:27 Dose Route Admin Location Dispensed Lot Number Expiration Date NDC Lyric Writer 100 mg PO 1 cap Results AMB Urinalysis, Automated UA Leukoctes 0 Lubna/uL Last Edit by Jelly Romo RN on 01/14/25 09:26 UA Nitrite Negative Last Edit by Jelly Romo RN on 01/14/25 09:26 UA Urobilinogen 0.2 mg/dL Last Edit by Jelly Romo RN on 01/14/25 09:26 UA Protein 0 mg/dL Last Edit by Jelly Romo RN on 01/14/25 09:26 UA pH 6.0 Last Edit by Jelly oRmo RN on 01/14/25 09:26 UA Blood 0 Popeye/uL Last Edit by Jelly Romo RN on 01/14/25 09:26 UA Specific [place] 1.0 Last Edit by Jelly Romo RN on 01/14/25 09:26 UA Ketone Negative Last Edit by Jelly Romo RN on 01/14/25 09:26 UA Bilirubin 0 mg/dL Last Edit by Jelly Romo RN on 01/14/25 09:26 UA Glucose 0 mg/dL Last Edit by Jelly Romo RN on 01/14/25 09:26 Results Reviewed Results Reviewed: Laboratory Last Values Urine pH (Auto) 6.0 01/14/25 08:20 Specific [place] (Auto) 1.0 01/14/25 08:20 Urine Protein (Auto) 0 mg/dL 01/14/25 08:20 Glucose (UA)(Auto) 0 mg/dL 01/14/25 08:20 Urine Ketones (Auto) Negative 01/14/25 08:20 Urine Blood (Auto) 0 Popeye/uL 01/14/25 08:20 Urine Nitrite (Auto) Negative 01/14/25 08:20 Urine Bilirubin (Auto) 0 mg/dL 01/14/25 08:20 Urine Urobilinogen (Auto) 0.2 mg/dL 01/14/25 08:20 Leukocyte Esterase (Auto) 0 Lubna/uL 01/14/25 08:20 Assessment & Plan Assessment & Plan (1) Urinary retention: Code(s): R33.9 - Retention of urine, unspecified Category: Medical (2) Incomplete bladder emptying: Code(s): R33.9 - Retention of urine, unspecified Category: Medical (3) 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 Orders: Orders AMB Urodynamics Studies 01/14/25 R33.9 - Retention of urine, unspecified AMB Urinalysis Automated 01/14/25 Z13.9 - Encounter for screening, unspecified Patient Instructions: The patient had an opportunity to ask questions regarding treatment plan. The patient expressed understanding and agreement with the above treatment plan. The patient is aware they should contact our office by phone for worsening of their current condition or the appearance of new symptoms. Compliance is encouraged with any medications and followup testing that is ordered. It is a privilege to be allowed the opportunity to participate in the urologic care of your patient. If you have any questions or concerns regarding treatment for the above conditions please do not hesitate to contact me. The office telephone contact is [phone]. This note is constructed in part using voice recognition software. While every effort has been made to ensure accuracy outpatient coder errors may have been included. Yours sincerely, Courtney Suarez MD Scribe Plan - Not visible on output: Patient was informed and verbally consented to the use of an ambient scribe for clinic note documentation during this visit. Coding Level of Care Code Est Pt Level 4 (44102) Diagnoses Urinary retention R33.9 Incomplete bladder emptying R33.9 Detrusor overactivity N32.81 CPT Codes Urodynamic Studies - CPT: 91124-Cfcbmnualtptsb w/ CYLINDER VALVE REPAIRER ([id number]) Urodynamic Studies - CPT: 11377-Udggzkx-Xohlnhubqqjw ([id number]) Urodynamic Studies - CPT: 32990-Aeol/Urinary Muscle Study ([id number]) Urodynamic Studies - CPT: 08494-Pufpt-Wmbptdlih Pressure Test ([id number])
== END 2025-01-14 09:43 | disposition home or self-care (01) ==
LOC: HO.HUSH 08:10
PROVIDERS: PCP Family Medicine; Visit Provider Urology
DX: R33.9 Retention of urine, unspecified (principal); N32.81 Overactive bladder
CPT/HCPCS: 51728; 51741; 51784; 51797; 99214

== ENCOUNTER → 2025-01-14 08:09 | Outpatient (BNVA) | payer MEDICARE, SELFPAY | PROVIDERS: PCP Family Medicine; Visit Provider Urology | DX: N32.81 Overactive bladder (principal); R33.9 Retention of urine, unspecified | CPT/HCPCS: 51728; 51741; 51784; 51797; 81003; 99212 ==

== ENCOUNTER 2025-01-25 09:08 | Outpatient (REF) | payer MEDICARE, SELFPAY ==
--- OUTSIDE RECORDS SUMMARY | 2024-12-14 07:00 | XMS_ITS ---
Author Organization [facility] Address [address] [place] [id number] Care Team Providers Care Public Health Nutritionist Name Role Phone Ari Shell Primary Care Provider Unavailab Casey Cabrales Jr Unavailable REASON FOR VISIT screening Encounters Encounter Location Date Provider Diagnosis [facility] [address], [place] [id number] 12/14/2024 Csaey Bernstein Jr Colon cancer screening Z12.11 and History of adenomatous polyp of colon Z86.0101 Assessments Encounter Date Diagnosis (ICD Code) Assessment Notes Treatment Notes Treatment Clinical Notes Section Notes 12/14/2024 Colon cancer screening (ICD-10 - Z12.11) 12/14/2024 History of adenomatous polyp of colon (ICD-10 - Z86.0101) Plan Of Treatment No Information Progress Notes * SHAY ESCOBEDODOB:1949 (74 yo M)Acc No.[id number]:12/14/2024 COLON WITH MAC Patient: SHAY LADD Provider: Gillian Bernstein MD :1950 A ge:74 Y S ex:Male Date:12/14/2024 Address:[address] [place] [address] [id number] Pcp:Ari Shell Subjective: * Chief Complaints: * [...] 12/14/2024 Generated for Tevin gallo/Marlene/Cindiitting on: 0 01/25/2025 09:27 AM EDT
[2025-01-25 09:24] LABS: MANUAL DIFF FLAG NO
--- OUTSIDE RECORDS SUMMARY | 2025-01-25 09:27 | XMS_ITS | Continuity of Care Document ---
Author Organization [facility] [address] [place] [address] Phone [phone] Care Team Providers Care Secondary Spanish Teacher Name Role Phone Ari Shell MD Care Team Information Women Designer [phone] Problems Active Problems Provider Date Diabetes mellitus [...] sugars daily 100units Pranay Aguilera M.D. 07/23/2024 [id number] Tablets Take 1 Tablet By Mouth Twice A Day Ari Shell MD Terazosin SQQ98ek Capsules Take 1 Capsule By Mouth AT Bedtime Unknown Atorvastatin Mkhrwgd49fs Tablets Take 1 Tablet By Mouth Everyday AT Bedtime Ari Shell MD Paroxetine KQH56no Tablets 1 tab by mouth every day Ari Shell MD Metoprolol Succinate ER25mg Tablets ER 24HR 1 tab by mouth every day 90tabs Ari Shell MD History Medications Rrrheizrq90jg Tablets 1 tablet by mouth every day [...]
[2025-01-25 09:44] LABS: Hematocrit 38.3 % (42.0-52.0); Hemoglobin 13.2 g/dl (14.0-18.0); Imm Gran Abs Auto 0.02 X10*3/uL (0.00-0.03); Imm Gran Pct Auto 0.4 % (0.0-0.4); Lymphocytes Absolute Auto 1.7 X10*3/uL (1.2-4.9); Mean Corpuscular HGB Conc 34.5 g/dl (31.0-36.0); Mean Corpuscular Hemoglobin 30.0 pg (27.0-33.0); Mean Corpuscular Volume 87.0 fL (80.0-98.0); NRBC Abs Auto 0.000 X10*3/uL (0.0-0.012); NRBC Pct Auto 0.0 /100WBC (0.0-0.2); Platelet Count 111 X10*3/uL (160-400); Red Blood Count 4.40 X10*6/uL (4.60-5.80); White Blood Count 5.7 X10*3/uL (4.8-10.8)
[2025-01-25 10:22] LABS: Alanine Aminotransferase 21 U/L (0-40); Albumin Level 4.2 g/dL (3.5-5.0); Alkaline Phosphatase 59 U/L (39-117); Anion Gap 9 (12-20); Aspartate Amino Transferase 26 U/L (5-37); Blood Urea Nitrogen 16 mg/dL (9-16); Calcium 8.8 mg/dL (8.4-10.2); Carbon Dioxide 26 mmol/L (22-29); Chloride 111 mmol/L (96-108); Estimated Glomerular Filt Rate > 60; Potassium 4.3 mmol/L (3.3-5.1); Sodium 142 mmol/L (135-145); Total Protein 6.6 g/dL (6.5-8.0)
[2025-01-25 10:41] LABS: Microalbum/Creatinine Ratio Ur 44.7 ug/mg cr (<30)
== END 2025-01-25 09:09 | disposition home or self-care (01) ==
LOC: HO.LAB 09:08
PROVIDERS: PCP Family Medicine; Visit Provider Family Medicine
DX: Z00.00 Encounter for general adult medical examination without abnormal findings (principal); I10 Essential (primary) hypertension; I25.810 Atherosclerosis of coronary artery bypass graft(s) without angina pectoris; D64.9 Anemia, unspecified
CPT/HCPCS: 36415; 80053; 82043; 82570; 85025

== ENCOUNTER 2025-02-22 09:05 | Outpatient (AMB) | payer MEDICARE, SELFPAY ==
--- OUTSIDE RECORDS SUMMARY | 2024-12-14 07:00 | XMS_ITS ---
Author Organization [facility] Address [address] [place] [address] Care Team Providers Care Piano Technician Name Role Phone Ari Shell Primary Care Provider Unavailab Casey Cabrales Jr Unavailable REASON FOR VISIT screening Encounters Encounter Location Date Provider Diagnosis [facility] [place] Out[place] [address] [place], [place] [phone] 12/14/2024 Casey Bernstein Jr Colon cancer screening Z12.11 and History of adenomatous polyp of colon Z86.0101 Assessments Encounter Date Diagnosis (ICD Code) Assessment Notes Treatment Notes Treatment Clinical Notes Section Notes 12/14/2024 Colon cancer screening (ICD-10 - Z12.11) 12/14/2024 History of adenomatous polyp of colon (ICD-10 - Z86.0101) Plan Of Treatment No Information Progress Notes * SHAY ESCOBEDODOB:1949 (74 yo M)Acc No.[id number]:12/14/2024 COLON WITH MAC Patient: SHAY LADD Provider: Gillian Bernstein MD :1950 A ge:74 Y S ex:Male Date:12/14/2024 Address:[address] [place] [address] [id number] Pcp:Ari Shell Subjective: * Chief Complaints: * [...] 12/14/2024 Generated for Tevin gallo/Marlene/Cindiitting on: 0 02/22/2025 09:56 AM EDT
[2025-02-22 09:12] VITALS: BP 90/56; BMI 25.3
--- NOTE | 2025-02-22 09:12 | A.OFFVIS_ITS ---
Vital Signs 02/22/25 09:12 Height 5 ft 4 in Weight 147 lb 4.301 oz BMI 25.3 BP 90/56 L Blood Pressure Location Lt brachial Position Sitting Intake Visit Reasons: 6m follow up Wireless Internet Installer Required: No Accompanied by: Self / Same As Patient Allergies acetaminophen (From TYLENOL) Adverse Reaction (Intermediate, Verified 12/14/24 09:23) gi upset Medication List - Last Reconciled 02/22/25 by Baudilio Diaz MD alendronate 35 mg PO QWEEK 28 days aspirin (Adult Aspirin Regimen) 81 mg PO DAILY atorvastatin (Lipitor) 80 mg PO BEDTIME 90 days blood sugar diagnostic (FreeStyle Lite Strips) TEST THREE TIMES A DAY OR DIRECTED. blood-glucose meter (FreeStyle Lite Meter kit) As Directed cholecalciferol (vitamin D3) 25 mcg PO DAILY 90 days lancets (FreeStyle Lancets) Test four times a day or as directed. levetiracetam 250 mg PO BID 90 days metoprolol succinate ER 25 mg PO DAILY 90 days paroxetine HCl 30 mg PO DAILY 90 days pen needle, diabetic Use four times a day or as directed. sulfamethoxazole-trimethoprim 800-160 mg (Bactrim DS) 1 tab PO BID 5 days terazosin 10 mg PO BEDTIME 90 days HPI Comments Details: Adrián returns for follow-up regarding coronary artery disease. History of coronary artery bypass surgery around 2004. No regular cardiology follow-up till he started seeing us recently. He was admitted for diabetic ketoacidosis in 2023. At that time, hemoglobin A1c was more than 10. However, it seems that he has done lot of lifestyle changes including better diet and now the hemoglobin A1c is much improved and he is off all diabetes meds. He is only on diet control. Overall, he states he feels good. No cardiac symptoms. [facility] Medical History Insomnia Opioid dependence Encephalomalacia Seizure disorder Adult general medical exam Screening for prostate cancer Colon cancer screening Low back pain Hyperlipidemia Diabetes Elevated liver enzymes Immunization counseling Opioid dependence, uncomplicated Chronic, continuous use of opioids Pneumothorax, left Fall Closed fracture nasal bone Abrasion of face Screening for osteoporosis Low HDL (under 40) Right elbow pain Opioid use Frontal headache Headache Mild dehydration Muscle spasm History of blood transfusion Back pain Brain tumor Meningioma Thrombocytopenia Sacroiliitis Hx of thrombocytopenia Anemia Hx of small bowel obstruction GERD (gastroesophageal reflux disease) Migraine Depression Hx of meningioma of the brain PTSD (post-traumatic stress disorder) Anxiety Peyronie's disease CAD (coronary artery disease) HTN (hypertension) Surgical History H/O craniotomy History of resection of meningioma History of back surgery Hx of colonoscopy History of nasal surgery History of bowel resection History of quadruple bypass Family History Father No problems noted. Mother No problems noted. Brother No problems noted. Sister No problems noted. Sister No problems noted. Sister No problems noted. Social History Household Members: None [facility] Are you a primary home day care provider to a significant other at home: No Do you presently have visiting nurse or other home services: No Alcohol intake: never Patient Tobacco Use Status: Never used Tobacco e-Cigarette/Vaping Use: Never Used Second Hand Smoke Exposure: No service: No Current occupational status: retired Current occupational exposures/hazards: No Cognitive needs: No Hearing needs: No Vision needs: Yes (Reading glasses) Review of Systems Const Denies chills, Denies fatigue, Denies fever(s), Denies frequent falls, Denies weakness, Denies weight gain and Denies weight loss ENT Denies dizziness Card Denies chest pain, Denies leg edema, Denies lightheadedness, Denies palpitations, Denies dyspnea and Denies dyspnea on exertion Resp Denies cough, Denies dyspnea and Denies dyspnea on exertion GI Denies hematochezia Musc Denies abnormal gait, Denies muscle weakness, Denies numbness, Denies radiating pain into limb and Denies tingling Neuro Denies abnormal gait, Denies dizziness, Denies frequent falls, Denies numbness, Denies tingling and Denies weakness Endo Denies fatigue and Denies palpitations Physical Exam Vital Signs: Last Vital Signs BP 90/56 L 02/22/25 09:12 BMI result Body Mass Index 25.3 Const General: comfortable and no acute distress Orientation/consciousness: patient oriented x3 HEENT Other: Unremarkable Head: Yes normal to inspection Neck Neck: Yes normal visual inspection Chest Chest palpation & inspection: normal inspection of the chest Resp Auscultation: clear to auscultation bilaterally Cardio Palpation: normal PMI Heart sounds: S1 normal heart sound present, S2 normal heart sound present, no gallops, no murmurs and no rubs GI Palpation (GI): Soft to palpation Back/Spine/Pelvis Other: unremarkable Skin General skin exam: no rashes or lesions noted Neuro General: patient oriented x3 Extrem General: Yes normal to inspection Psych Mental Status: mental status grossly normal Assessment & Plan Assessment & Plan (1) CAD (coronary artery disease): Code(s): I25.10 - Atherosclerotic heart disease of [place] coronary artery without angina pectoris Category: Medical Qualifiers: Associated angina: without angina Coronary Disease-Associated Artery/Lesion type: bypass graft [place] vs. transplanted heart: [place] heart Qualified Code(s): I25.810 - Atherosclerosis of coronary artery bypass graft(s) without angina pectoris (2) Status post aorto-coronary artery bypass graft: Code(s): Z95.1 - Presence of aortocoronary bypass graft Category: Surgical (3) Diabetes: Code(s): E11.9 - Type 2 diabetes mellitus without complications Category: Medical Plan Cardiac studies reviewed. Echocardiogram reviewed including images. Mildly reduced LVEF with inferior/inferoseptal wall motion abnormality. In the perfusion imaging, reported normal but there is slightly reduced basal inferior tracer uptake and hence could indicate a prior nontransmural infarct. Overall, stable coronary disease; poorly controlled diabetes in the past but currently much better now and only on diet control. For medications, continue aspirin, beta-blockers, statins. Cholesterol is well controlled. Follow-up in 6 months. In the interim, call with concerns. Total time spent including review of data, counseling, documentation, circular tank cooper rdination of care-31min. Coding Level of Care Code Est Pt Level 4 (66337) Diagnoses Coronary artery disease involving coronary bypass graft of [place] heart without angina pectoris I25.810 Associated angina: without angina Coronary Disease-Associated Artery/Lesion type: bypass graft [place] vs. transplanted heart: [place] heart Status post aorto-coronary artery bypass graft Z95.1 Diabetes E11.9
--- OUTSIDE RECORDS SUMMARY | 2025-02-22 09:56 | XMS_ITS ---
Author Organization [facility] Care Team Providers Care Classroom Aide Name Role Phone Murray Soliman Unavailable Unavailable Allergies and adverse reactions Code CodeSystem Substance Reaction Severity StartDate Concern Status 161 RXNORM Acetaminophen Mild 11/22/2021 active Care Team Name Role Address Phone Organization Dates Murray Soliman PCP [address], [address], [place] (Office): [phone] (Fax): [phone] [facility] [place] 11/23/2021 - 11/28/2021 Mental Status Section Date Assessment Total Score Description 11/28/2021 BIMS 15 cognitively int act CAM 0 No delirium ind icated PHQ-9 00 11/28/2021 BIMS 15 cognitively int act CAM 0 No delirium ind icated PHQ-9 00 Problems Problem # Description Date of onset Resolved Date Code CodeSystem Concern Status 1 ANEMIA, UNSPECIFIED 11/23/[address] active 2 ANXIETY DISORDER, UNSPECIFIED 11/23/[address] active 3 ATHEROSCLEROSIS OF CORONARY ARTERY BYPASS GRAFT(S) WITHOUT ANGINA PECTORIS 11/23/[address] active 4 ATHEROSCLEROTIC HEART DISEASE OF [place] CORONARY ARTERY WITHOUT ANGINA PECTORIS 11/23/[address] active 5 BENIGN NEOPLASM OF MENINGES, UNSPECIFIED 11/23/[address] active 6 CHRONIC PAIN SYNDROME 11/23/[address] active 7 EPILEPSY, UNSPECIFIED, INTRACTABLE, WITH STATUS EPILEPTICUS 11/23/[address] active 8 FRACTURE OF NASAL BONES, SUBSEQUENT ENCOUNTER FOR FRACTURE WITH ROUTINE HEALING 11/23/[address] active 9 FRACTURE OF ONE RIB, UNSPECIFIED SIDE, SUBSEQUENT ENCOUNTER FOR FRACTURE WITH ROUTINE HEALING 11/23/[address] active 10 GASTRO-ESOPHAGEAL REFLUX DISEASE WITHOUT ESOPHAGITIS 11/23/[address] active 11 MAJOR DEPRESSIVE DISORDER, SINGLE EPISODE, UNSPECIFIED 11/23/[address] active 12 MALIGNANT NEOPLASM OF BRAIN, UNSPECIFIED 11/23/[address] active 13 MUSCLE WEAKNESS (GENERALIZED) 11/23/[address] active 14 PNEUMOTHORAX, UNSPECIFIED 11/23/[address] active 15 POST-TRAUMATIC STRESS DISORDER, CHRONIC 11/23/[address] active [address]OC[address]IA, UNSPECIFIED 11/23/[address] active 17 UNSPECIFIED ABNORMALITIES OF GAIT AND MOBILITY 11/23/[address] active 18 UNSPECIFIED FALL, SUBSEQUENT ENCOUNTER 11/23/[address] active Reason for Referral No Reasons for Referral Entered Social History Social History Observation Description Start Date End Date Code Code System Current Smoking Status Tobacco smoking consumption unknown 517285765 SNOMED CT Sex Assigned At Male 1950 [address]46-4 [facility] Gender Identity Vital Signs Code Code System Vitals Name Values and Units Timing Information 68380-2 LOINC Pain Level Value=4.0 11/28/2021 9279-1 LOINC Respiratory Rate Value=20.0 Units=/m in 11/27/2021 8462-4 LOINC Blood Pressure-Diastolic Value=84 Un its=mmHg 11/27/2021 8480-6 LOINC Blood Pressure-Systolic Fhffo=418 Un its=mmHg 11/27/2021 8310-5 LOINC Body Temperature Value=97.7 Units= F 11/27/2021 8867-4 LOINC Heart rate Value=75.0 Units=/min 12/2021 41384-8 [facility] O2 % BldC Oximetry Value=91.0 Units= % 11/27/2021 8302-2 [facility] Height Value=64.0 Units=Inches 11/26/2021 46781-0 LOINC Weight Qdret=114.0 Units=Lbs 10/2021
--- OUTSIDE RECORDS SUMMARY | 2025-02-22 09:56 | XMS_ITS | Continuity of Care Document ---
Author Organization [facility] [address] [place] [address] Phone [phone] Care Team Providers Care Loan Operations Manager Name Role Phone Ari Shell MD Care Team Information Inspector Watch Assembly [phone] Problems Active Problems Provider Date Diabetes mellitus [...] sugars daily 100units Pranay Aguilera M.D. 07/23/2024 [id number] Tablets Take 1 Tablet By Mouth Twice A Day Ari Sehll MD Terazosin BEA10nc Capsules Take 1 Capsule By Mouth AT Bedtime Unknown Atorvastatin [id number] Tablets Take 1 Tablet By Mouth Everyday AT Bedtime Ari Shell MD Paroxetine ZXM02nt Tablets 1 tab by mouth every day Ari Shell MD Metoprolol Succinate ER25mg Tablets ER 24HR 1 tab by mouth every day 90tabs Ari Shlel MD History Medications [id number] Tablets 1 tablet by mouth every day [...]
--- OUTSIDE RECORDS SUMMARY | 2025-02-22 09:56 | XMS_ITS | Patient Health Record ---
Author Organization [facility] Address [address] [place] [address] Care Team Providers Care Stock Saw Operator Name Role Phone Ari Shell Primary Care Provider UnavailCasey Avery Jr Unavailable Allergies Allergen (clinical drug ingredient) Drug/Non Drug Allergy documented on EMR Reaction Allergy Type Onset Date Status acetaminophen Tylenol Unknown Drug Allergy Act jaclyn Reason For Referral No Information Medications Medication SIG (Take, Route, Frequency, Duration) Notes Start Date End Date Status D3-1000 25 MCG (1000 UT) TAKE 1 CAPSULE BY MOUTH EVERY DAY Oral for 90 Days Active Metoprolol Succinate ER 25 MG TAKE 1 TABLET BY MOUTH EVERY DAY Oral for 90 Days Active Simvastatin 80 MG 1 tablet in the even ing Orally Once a day Active Aspirin 81 81 MG 1 tablet Orally Once a day Active Metoprolol Succinate ER 25 MG TAKE 1 TABLET BY MOUTH EVERY DAY Oral for 90 Active PARoxetine HCl 30 MG 1 tablet in the mor adeola Orally Once a day Active Atorvastatin Calcium 80 MG Oral for 90 Days Active Terazosin HCl 10 MG Oral for 90 Days Active Immunizations Vaccine Route Administration Date Status Comme nts Influenza Unknown 02/21/2019 Administered Influenza Unknown 04/06/2024 Administered Problems Problem Type SNOMED Code ICD Code Onset Dates Problem Status W/U Status Risk Notes Problem 082672319 Colon cancer screening (Z12.11) Active confirmed Problem Long-term current use of aspirin (3119685671398 03) Aspirin long-term use (Z79.82) Active confirmed Problem 525035607 Long-term curren t use of high risk medication other than anticoagulant (Z79.899) Active confirmed Vital Signs Temperature 96.8 degrees Fahrenheit 11/10/2024 Blood pressure diastolic 01 mm Hg 11/10/2024 Height 64 in 11/10/2024 Blood pressure systolic 001 mm Hg 11/10/2024 Weight 142.6 lbs 11/10/2024 BMI 24.47 kg/m2 11/10/2024 Encounters Encounter Location Date Provider Diagnosis [facility] [address] [address] [place], [place] [id number] 12/14/2024 Casey Bernstein Jr Colon cancer screening Z12.11 and History of adenomatous polyp of colon Z86.0101 [facility] [address] [place] [address] 11/10/2024 Casey Bernstein Jr Colon cancer screening Z12.11 ; Aspirin long-term use Z79.82 and History of adenomatous polyp of colon Z86.0101 Assessments Encounter Date Diagnosis (ICD Code) Assessment Notes Treatment Notes Treatment Clinical Notes Section Notes 12/14/2024 Colon cancer screening (ICD-10 - Z12.11) 12/14/2024 History of adenomatous polyp of colon (ICD-10 - Z86.0101) 11/10/2024 Colon cancer screening (ICD-10 - Z12.11) [...] Name Order Date COLONOSCOPY 07/28/2014 COLONOSCOPY 12/02/2019 COLONOSCOPY 11/10/2024 Insurance Providers Payer Name Payer Address Payer Phone Subscriber Number Group Number Insured Name Patient Relationship to Insured Coverage Start Date Coverage End Date [facility] [address] [place], [place] [id number] SHAY RIVERA Self - patient is the insured Medical (General) History Medical History History ICD Code Colonoscopy 04/11, 5-year follow-up for personal history of colon polyps gerd hypertension migraine headaches coronary artery disease, status post CAB G times four in 2004 congenital omental defect re sulting in a bowel obstruction requiring laparotomy hyperlipidemia meningioma 2012 Peyronie's disease diabetes mellitus, diet controlled Surgical History Surgery Date(Month/Year) quadrupal bypass back surgery colon bowel surgery heart surgery brain surgery
== END 2025-02-22 09:54 | disposition home or self-care (01) ==
LOC: HO.HCS 09:05
PROVIDERS: PCP Family Medicine; Visit Provider Internal Medicine
DX: I25.810 Atherosclerosis of coronary artery bypass graft(s) without angina pectoris (principal); Z95.1 Presence of aortocoronary bypass graft; E11.9 Type 2 diabetes mellitus without complications
CPT/HCPCS: 99214

== ENCOUNTER → 2025-02-22 09:05 | Outpatient (BNVA) | payer MEDICARE, SELFPAY | PROVIDERS: PCP Family Medicine; Visit Provider Internal Medicine | DX: I25.10 Atherosclerotic heart disease of native coronary artery without angina pectoris (principal); E11.9 Type 2 diabetes mellitus without complications; Z95.1 Presence of aortocoronary bypass graft | CPT/HCPCS: 99212 ==

== ENCOUNTER 2025-06-09 11:28 | Outpatient (AMB) | payer MEDICARE, SELFPAY ==
--- OUTSIDE RECORDS SUMMARY | 2024-12-14 06:00 | XMS_ITS ---
Author Organization [facility] [place] [facility] Address [address] [place] [address] Care Team Providers Care Soldering Machine Operator Name Role Phone Ari Shell Primary Care Provider Unavailab Casey Cabrales Jr Unavailable REASON FOR VISIT screening Encounters Encounter Location Date Provider Diagnosis [facility] [place] [address] [place], [place] [phone] 12/14/2024 Casey Bernstein Jr Colon cancer screening Z12.11 and History of adenomatous polyp of colon Z86.0101 Assessments Encounter Date Diagnosis (ICD Code) Assessment Notes Treatment Notes Treatment Clinical Notes Section Notes 12/14/2024 Colon cancer screening (ICD-10 - Z12.11) 12/14/2024 History of adenomatous polyp of colon (ICD-10 - Z86.0101) Plan Of Treatment No Information Progress Notes * SHAY ESCOBEDODOB:1949 (75 yo M)Acc No.[id number]:12/14/2024 COLON WITH MAC Patient: SHAY LADD Provider: Gillian Bernstein MD :1950 A ge:74 Y S ex:Male Date:12/14/2024 Address:[address] [place] [address] [id number] Pcp:Ari Shell Subjective: * Chief Complaints: * S creening Assessment: * Assessment: 1. C olon cancer screening - Z12.11 (Primary) 2 . H istory of adenomatous polyp of colon - Z86.0101 Plan: * Procedure Codes: 4 5378 DIAGNOSTIC COLONOSCOPY, Modifiers: 33 0529F INTRVL 3+YRS PTS CLNSCP [id number] RCMND FLW-UP 10 YRS DOCD Billing Information: * Procedure Codes: 89377 DIAGNOSTIC COLONOSCOPY. Modifiers: 33 0529F INTRVL 3+YRS PTS CLNSCP DOCD. 0528F RCMND FLW-UP 10 YRS DOCD. * The named appointment provid er may or may not be the originator of this progress note, and it is not deemed complete until electronically signed by the appointment provider. Sign off status: Pending * Provider: Gillian Bernstein MD Date: 0 12/14/2024 Generated for Tevin gallo/Marlene/Cindiitting on: 1 08/10/2024 03:06 PM EST
--- NOTE | 2025-06-09 11:36 | MHC.PC.OV ---
Vital Signs 06/09/25 11:43 Height 5 ft 4 in Weight 152 lb 4 oz BMI 26.1 BP 109/64 Blood Pressure Location Rt brachial Position Sitting Respiration 16 Pulse 71 Pulse Source Pulse Oximeter Temp 97.7 F Temp Source Oral Pulse Oximetry (%) 95 Oxygen Delivery Method Room Air Intake Visit Reasons: f/u diabetes, labs Intake Note: patient here for follow u n DM and labs Mounting Machine Operator Required: No Allergies acetaminophen (From TYLENOL) Adverse Reaction (Intermediate, Verified 06/09/25 11:42) gi upset Medication List - Last Reconciled 06/09/25 by Ari Shell MD alendronate 35 mg PO QWEEK 28 days aspirin (Adult Aspirin Regimen) 81 mg PO DAILY atorvastatin (Lipitor) 80 mg PO BEDTIME 90 days bethanechol chloride 50 mg PO BID blood sugar diagnostic (FreeStyle Lite Strips) TEST THREE TIMES A DAY OR DIRECTED. blood-glucose meter (FreeStyle Lite Meter kit) As Directed cholecalciferol (vitamin D3) 25 mcg PO DAILY 90 days lancets (FreeStyle Lancets) Test four times a day or as directed. levetiracetam 250 mg PO BID 90 days metoprolol succinate ER 25 mg PO DAILY 90 days paroxetine HCl 30 mg PO DAILY 90 days pen needle, diabetic Use four times a day or as directed. terazosin 10 mg PO BEDTIME 90 days Tobacco use date assessed: 06/09/25 Fall risk assessment: No Falls in past year Last assessed Fall Risk: 06/09/25 Dental Screening Dental Screen Date: 06/09/25 Did you have a dental visit in the last 12 months?: Yes Did you have a dental problem in the last 6 months where you did not have access to dental care?: No Was dental information given to patient?: Patient has dentist HPI f/u diabetes, labs HPI Details 75 y.o male presents to f/u diabetes, labs. A1c today 06/09/25 6.4%. Diet controlled diabetes. BP today 109/64, 71p. He is on metoprolol 25mg daily. [facility] Medical History (Updated 06/09/25 @ 12:17 by Luis Fernando Jeffery) HTN (hypertension) Insomnia Opioid dependence Encephalomalacia Seizure disorder Adult general medical exam Screening for prostate cancer Colon cancer screening Low back pain Hyperlipidemia Diabetes Elevated liver enzymes Immunization counseling Opioid dependence, uncomplicated Chronic, continuous use of opioids Pneumothorax, left Fall Closed fracture nasal bone Abrasion of face Screening for osteoporosis Low HDL (under 40) Right elbow pain Opioid use Frontal headache Headache Mild dehydration Muscle spasm History of blood transfusion Back pain Brain tumor Meningioma Thrombocytopenia Sacroiliitis Hx of thrombocytopenia Anemia Hx of small bowel obstruction GERD (gastroesophageal reflux disease) Migraine Depression Hx of meningioma of the brain PTSD (post-traumatic stress disorder) Anxiety Peyronie's disease CAD (coronary artery disease) Surgical History (Reviewed 02/22/25 @ 09:13 by Sparkel Alex [facility]) H/O craniotomy History of resection of meningioma History of back surgery Hx of colonoscopy History of nasal surgery History of bowel resection History of quadruple bypass Family History (Reviewed 02/22/25 @ 09:13 by Sparkle Alex [facility]) Father No problems noted. Mother No problems noted. Brother No problems noted. Sister No problems noted. Sister No problems noted. Sister No problems noted. Social History (Reviewed 02/22/25 @ 09:13 by Sparkle Alex [facility]) Household Members: None Housing: Condominium Are you a primary managed care liaison to a significant other at home: No Do you presently have visiting nurse or other home services: No Alcohol intake: never Patient Tobacco Use Status: Never used Tobacco e-Cigarette/Vaping Use: Never Used Second Hand Smoke Exposure: No service: No Current occupational status: retired Current occupational exposures/hazards: No Cognitive needs: No Hearing needs: No Vision needs: Yes (Reading glasses) Questionnaire Thrive Questionnaire Date Thrive assessed: 07/09/24 I am a: Patient What is your living situation today?: I have a steady place to live Within the past 12 months, did the food you bought not last and you didn't have the money to get more?: Never true Within the past 12 months, did you worry whether your food would run out before you got money to buy more?: Never true Do you have trouble paying for medicines?: No Do you have trouble getting transportation to medical appointments?: No Do you have trouble paying your heating and electricity bill?: No Do you have trouble taking care of your child, family member or friend?: No Do you have trouble with day-to-day activities such as bathing, preparing meals, shopping, managing finances, etc.?: No Are you currently unemployed and looking for a job?: No Are you interested in more education?: No Please select the resources that you would like help with: None Currently or been in a relationship where the following occur: No concerns reported THRIVE Score: 0 SUJATA-7 AMB Questionnaire SUJATA-7 Date SUJATA - 7 assessed: 10/28/24 Source: Developed by Drs. Malcolm Garrido, Brenda Garner, Roberto Fraser and colleagues, with an educational lobo from [employer]. Review of Systems Const Denies chills, Denies fatigue, Denies fever(s), Denies headache(s) and Denies weakness ENT Denies dizziness and Denies headache(s) Card Denies dyspnea Resp Denies cough, Denies dyspnea, Denies wheezing and Denies other (shortness of breath) Musc Denies numbness and Denies tingling Neuro Denies dizziness, Denies headache(s), Denies numbness, Denies tingling and Denies weakness Psych Denies anxiety and Denies depression Endo Denies fatigue Aller/Immun Denies wheezing Physical exam (Primary Care) Vital Signs: Last Vital Signs Temp 97.7 F 06/09/25 11:43 Pulse 71 06/09/25 11:43 Resp 16 06/09/25 11:43 BP 109/64 06/09/25 11:43 Pulse Ox 95 06/09/25 11:43 Oxygen Delivery Method Room Air 06/09/25 11:43 BMI result Body Mass Index 26.1 Tobacco/Smoking Status: Tobacco use Status Tobacco use date assessed 06/09/25 06/09/25 11:48 Patient Tobacco Use Status Never used Tobacco 06/09/25 11:38 e-Cigarette/Vaping Use Never Used 06/09/25 11:38 Thrive Assessment: Date of Thrive Assessment Date Thrive assessed 07/09/24 06/09/25 11:38 Currently or been in a relationship where the following occur: No concerns reported Const General: well developed; No acute distress Nutritional Appearance: well nourished Orientation/consciousness: patient oriented x3 HENMT Head: Yes normocephalic and Yes atraumatic Eyes General: appearance normal, both eyes and all related structures Pupils: Equal, round and reactive pupils present EOM: EOMs intact bilaterally Resp Effort & Inspection: normal respiratory effort Neuro General: patient oriented x3 and gait normal Cranial nerves: Yes Equal, round and reactive pupils present Psych Affect: normal affect Results AMB Hemoglobin A1c AMB Hemoglobin A1c 6.4 % Last Edit by REGAN Amaya on 06/09/25 11:50 Results Reviewed Results Reviewed: Laboratory Last Values Hgb A1c (Clinic) 6.4 % (4.0-6.0) H 06/09/25 11:49 Coding Level of Care Code Est Pt Level 3 (91745) Diagnoses Diet-controlled diabetes mellitus E11.9 Primary hypertension I10 Hypertension type: primary hypertension Coronary artery disease involving coronary bypass graft of [place] heart without angina pectoris I25.810 Associated angina: without angina Coronary Disease-Associated Artery/Lesion type: bypass graft [place] vs. transplanted heart: [place] heart Assessment & Plan Assessment & Plan (1) Diet-controlled diabetes mellitus: Code(s): E11.9 - Type 2 diabetes mellitus without complications Category: Medical Plan: A1c 6.4%. Good control. Goal is less than 7.0% Continue diet-controlled Encouraged exercise and weight control Eye exam in September. Up-to-date and has next appointment scheduled. (2) HTN (hypertension): Code(s): I10 - Essential (primary) hypertension Category: Medical Qualifiers: Hypertension type: primary hypertension Qualified Code(s): I10 - Essential (primary) hypertension Plan: Blood pressure is controlled and at goal of less than 130/80 Continue metoprolol (3) CAD (coronary artery disease): Code(s): I25.10 - Atherosclerotic heart disease of [place] coronary artery without angina pectoris Category: Medical Qualifiers: Associated angina: without angina Coronary Disease-Associated Artery/Lesion type: bypass graft [place] vs. transplanted heart: [place] heart Qualified Code(s): I25.810 - Atherosclerosis of coronary artery bypass graft(s) without angina pectoris Plan: Stable Follow-up with Cardiology as recommended Orders: Orders AMB Hemoglobin A1c Today E11.9 - Type 2 diabetes mellitus without complications Comprehensive Shields. Panel Fast Today E78.00 - Pure hypercholesterolemia, unspecified, Z00.00 - Encounter for general adult medical examination without abnormal findings Lipid Panel Today E78.00 - Pure hypercholesterolemia, unspecified, Z00.00 - Encounter for general adult medical examination without abnormal findings
[2025-06-09 11:43] VITALS: BP 109/64; PULSE 71; RESP 16; TEMP 36.5; O2SAT 95; BMI 26.1
--- OUTSIDE RECORDS SUMMARY | 2025-06-09 15:07 | XMS_ITS | Continuity of Care Document ---
Author Organization [facility] [address] [address] [place] [address] Phone [phone] Care Team Providers Care Kersey Department Supervisor Name Role Phone Ari Shell MD Care Team Information [employer] [phone] Problems Active Problems Provider Date Diabetes mellitus [...] Medications SIG Qnty Indications Ordering Provider Date Freestyle Insulinx Blood Glucose Test StripsStrips test blood sugars daily 100units Pranay Aguilera M.D. 07/23/2024 [id number] Tablets Take 1 Tablet By Mouth Twice A Day Ari Shell MD Terazosin [id number] Capsules Take 1 Capsule By Mouth AT Bedtime Unknown Atorvastatin [id number] Tablets Take 1 Tablet By Mouth Everyday AT Bedtime Ari Shell MD Paroxetine [id number] Tablets 1 tab by mouth every day Ari Shell MD Metoprolol Succinate ER25mg Tablets ER 24HR 1 tab by mouth every day 90tabs Ari Shell MD Bethanechol Hftffsia45uc Tablets Take 1 Tablet By Mouth Twice A Day [facility] Vital Signs Date Vital Result Comment 02/24/2025 10:02am BP Systolic 112 mmHg BP Diastolic 70 mmHg Heart Rate 72 /min Height 67 inches 5'7 Weight 143.25 lb BMI (Body Mass Index) 22.4 kg/m2 Results Test Acquired Date Facility Test Result H/L Range N ote Glucose Fingerstick 02/24/2025 Inhouse Glucose Fingerstick 118 Hemoglobin A1c 02/24/2025 Inhouse Hemoglobin A1c 6.2% Glucose Fingerstick 10/14/2024 Inhouse Glucose Fingerstick 99 [...] Date Location Provider Dx Diagnosis Office Visit 02/24/2025 10:15a Main Office Pranay Aguilera M.D. E11.9 Type 2 diabetes mellitus without complications Assessments Date Code Description Provider 02/24/2025 E11.9 Type 2 diabetes mellitus without complications Pranay Aguilera M.D. Plan of Treatment Future Appointment(s):* 09/26/2025 9:00 am - Pranay Aguilera M.D. at Main Office 07/01/2024 - Pranay Aguilera M.D.* E11.9 Type 2 diabetes mellitus without complications Functional Status Description No Information Available Mental Status Description No Information Available Referrals Description No Information Available
--- OUTSIDE RECORDS SUMMARY | 2025-06-09 15:07 | XMS_ITS | Patient Health Record ---
Author Organization [facility] Address [address] [place] [address] Care Team Providers Care Associate Professor [employer] Name Role Phone Ari Shell Primary Care Provider UnavailCasey Avery Jr Unavailable Allergies Allergen (clinical drug ingredient) Drug/Non Drug Allergy documented on EMR Reaction Allergy Type Onset Date Status acetaminophen Tylenol Unknown Drug Allergy Act jaclyn Reason For Referral No Information Medications Medication SIG (Take, Route, Frequency, Duration) Notes Start Date End Date Status D3-1000 25 MCG (1000 UT) Capsule TAKE 1 CAPSULE BY MOUTH EVERY DAY Oral; Duration: 90 Days Active Metoprolol Succinate ER 25 MG Tablet Extended Release 24 Hour TAKE 1 TABLET BY MOUTH EVERY DAY Oral; Duration: 90 Days Active Simvastatin 80 MG Tablet 1 tablet in the evening Orally Once a day Active Aspirin 81 81 MG Tablet Delayed Release 1 tablet Orally Once a day Active Metoprolol Succinate ER 25 MG Tablet Extended Release 24 Hour TAKE 1 TABLET BY MOUTH EVERY DAY Oral; Duration: 90 Active PARoxetine HCl 30 MG Tablet 1 tablet in the morning Orally Once a day Active Atorvastatin Calcium 80 MG Tablet Oral; Duration: 90 Days Acti ve Terazosin HCl 10 MG Capsule Oral; Duration: 90 Days Active Immunizations Vaccine Route Administration Date Status Comme nts Influenza Unknown 02/21/2019 Administered Influenza Unknown 04/06/2024 Administered Social History Social History Additional Details Category Social Info Options Details Miscellaneous: Marital status: single Occupation: [employer] @ [employer]/ retired 2018 Problems Problem Type SNOMED Code ICD Code Onset Dates Problem Status W/U Status Risk Notes Problem Colon cancer screening (011351685) Colon cancer screening (Z12.11) Active confirmed Problem Long-term current use of aspirin (3035388990824 03) Aspirin long-term use (Z79.82) Active confirmed Problem Long-term current use of drug therapy (380284342) Long-term current use of high risk medication other than anticoagulant (Z79.899) Active confirmed Vital Signs Temperature 96.8 degrees Fahrenheit 11/10/2024 Blood pressure diastolic 01 mm Hg 11/10/2024 Height 64 in 11/10/2024 Blood pressure systolic 001 mm Hg 11/10/2024 Weight 142.6 lbs 11/10/2024 BMI 24.47 kg/m2 11/10/2024 Encounters Encounter Location Date Provider Diagnosis [facility] [address] [place], [place] [id number] 12/14/2024 Casey Bernstein Jr Colon cancer screening Z12.11 and History of adenomatous polyp of colon Z86.0101 [facility] [address] [place] [address] 11/10/2024 Casey Bernstein Jr Colon cancer screening [...] Insured Coverage Start Date Coverage End Date [facility] [address] [place], [place] [id number] SHAY RIVERA Self - patient is the [...] mellitus, diet controlled Surgical History Surgery Date(Month/Year) brain surgery heart surgery colon bowel surgery back surgery quadrupal bypass
== END 2025-06-09 12:24 | disposition home or self-care (01) ==
LOC: HO.HMCFM 11:29
PROVIDERS: PCP Family Medicine; Visit Provider Family Medicine
DX: E11.9 Type 2 diabetes mellitus without complications (principal); I10 Essential (primary) hypertension; I25.810 Atherosclerosis of coronary artery bypass graft(s) without angina pectoris

== ENCOUNTER → 2025-06-09 11:28 | Outpatient (BNVA) | payer MEDICARE, SELFPAY | PROVIDERS: PCP Family Medicine; Visit Provider Family Medicine | DX: I10 Essential (primary) hypertension (principal); E11.9 Type 2 diabetes mellitus without complications; I25.810 Atherosclerosis of coronary artery bypass graft(s) without angina pectoris; E78.00 Pure hypercholesterolemia, unspecified | CPT/HCPCS: 83036; 99212 ==